=== PATIENT | male | born 1945 | race African-American/Black ===

== ENCOUNTER 2018-12-20 11:10 | Observation (INO) | payer OTHER, BC ==
[2018-12-20 11:39] VITALS: BMI 34.4
--- NOTE | 2018-12-20 11:50 | PDOC ---
History of Present Illness - General Chief Complaint: Shortness of Breath Stated Complaint: REACTION TO MEDICATION Time Seen by Provider: 12/20/18 11:15 History Source: Patient, Spouse Exam Limitations: No Limitations - History of Present Illness Initial Comments: 12/20/18 11:49 Pt 73yo M with PMH of MM, CHF, DM, HTN, HLD, Parkinsons Disease presenting to ED with complaints of cough productive of brown-green phlegm. He went to PMD office 5 days ago on Saturday and was given cefoxime, steroids and Symbicort to take at home. Pt started to develop a rash after taking abx and was told to discontinue use. Pt states that he was not feeling well this AM. He endorses productive cough, congestion and generalized weakness. Denies chest pain, sob, back pain, abdominal pain, n/v/d, urinary symptoms, headache. PMD: Maikol PMH: see hpi Meds: see med rec Allergies: cefoxime Past History - Past Medical History Allergies/Adverse Reactions: Allergies Allergy/AdvReac Type Severity Reaction Status Date / Time No Known Allergies Allergy Verified 03/19/18 12:31 Home Medications: Ambulatory Orders Aspirin [ASA -] 81 mg PO DAILY 11/13/15 Oxycodone HCl/Acetaminophen [Percocet 5-325 mg Tablet] 1 - 2 tab PO Q6H PRN Simvastatin 40 mg PO HS 11/13/15 Tamsulosin HCl [Flomax -] 0.4 mg PO DAILY 11/13/15 Acetaminophen [Tylenol .Regular Strength -] 650 mg PO Q4H PRN #0 tablet Fluticasone Prop 0.05% Nasal [Flonase -] 2 spray NS DAILY #1 bottle 11/20/15 Gabapentin [Neurontin -] 600 mg PO QID 03/19/18 Morphine *Sr* [MS Contin -] 60 mg PO TID 03/19/18 Allopurinol [Zyloprim -] 300 mg PO DAILY 03/20/18 Carbidopa-Levodopa 25-250 Tab 1 tab PO QID 03/20/18 Acetaminophen [Tylenol .Regular Strength -] 650 mg PO Q6H PRN tablet 03/24/18 Amoxicillin - [Amoxicillin 500mg Capsule -] 500 mg PO TID #27 capsule 03/24/18 Carbidopa/Levodopa 25/250 [Sinemet 25/250 -] 1 each PO QID #120 tablet 03/24/18 Losartan Potassium [Cozaar -] 50 mg PO DAILY #30 tablet 03/24/18 Metoprolol Succinate [Toprol XL -] 25 mg PO BID #60 tab.sr.24h 03/24/18 Pramipexole Dihydrochloride [Mirapex -] 1 mg PO 0700,1100,1500,1900 #120 tablet 03/24/18 Torsemide [Demadex -] 40 mg PO DAILY #60 tablet 03/24/18 Cancer: Yes (MULTIPLE MYELOMA) COPD: No CHF: Yes Diabetes: Yes HTN: Yes Hypercholesterolemia: Yes - Suicide/Smoking/Psychosocial Hx Smoking History: Never smoked Have you smoked in the past 12 months: No Information on smoking cessation initiated: No Hx Alcohol Use: No Drug/Substance Use Hx: No Substance Use Type: None Review of Systems - Review of Systems Constitutional: Yes: Weight Stable. No: Chills, Fever, Weakness HEENTM: Yes: Nose Congestion Respiratory: Yes: See HPI, Cough, Productive cough. No: Shortness of Breath, Hemoptysis Cardiac (ROS): No: Chest Pain, Lightheadedness, Palpitations, Syncope ABD/GI: No: Constipated, Diarrhea, Nausea, Vomiting, Abdominal cramping : No: Burning, Dysuria Musculoskeletal: No: Back Pain, Joint Pain, Neck Pain Integumentary: No: Symptoms Reported Neurological: No: Headache, Numbness, Tingling, Tremors *Physical Exam - Vital Signs Last Vital Signs Temp Pulse Resp BP Pulse Ox 98.0 F 96 H 18 132/85 96 12/20/18 11:11 12/20/18 11:11 12/20/18 11:11 12/20/18 11:11 12/20/18 11:11 - Physical Exam General Appearance: Yes: Appropriately Dressed, Obese. No: Apparent Distress HEENT: positive: EOMI, JON, Normal ENT Inspection Neck: positive: Trachea midline, Supple. negative: Lymphadenopathy (R), Lymphadenopathy (L) Respiratory/Chest: positive: Lungs Clear, Normal Breath Sounds, Decreased Breath Sounds (slightly decreased in rll). negative: Crackles, Rhonchi, Wheezing Cardiovascular: positive: Regular Rhythm, Regular Rate, S1, S2. negative: Edema , JVD, Murmur Vascular Pulses: Carotid (R): 2+, Carotid (L): 2+, Dorsalis-Pedis (R): 2+, Doralis-Pedis (L): 2+ Gastrointestinal/Abdominal: positive: Normal Bowel Sounds, Soft. negative: Tender Musculoskeletal: negative: CVA Tenderness Integumentary: positive: Normal Color, Dry, Warm Neurologic: positive: websphere commerce developer II-XII NML intact, Fully Oriented, Alert, Normal Mood/ Affect, Normal Response, Motor Strength 01/04 ED Treatment Course - LABORATORY CBC & Chemistry Diagram: 12/20/18 11:30 12/20/18 11:30 - RADIOLOGY Radiology Studies Ordered: Category Date Time Status CHEST PA & LAT [RAD] Stat Radiology 12/20/18 11:33 Ordered Medical Decision Making - Medical Decision Making 12/20/18 14:53 Pt 73yo M with PMH of MM, CHF, DM, HTN, HLD, Parkinsons Disease presenting to ED with complaints of cough productive of brown-green phlegm. He went to PMD office 5 days ago on Saturday and was given cefoxime, steroids and Symbicort to take at home. Pt started to develop a rash after taking abx and was told to discontinue use. Pt states that he was not feeling well this AM. He endorses productive cough, congestion and generalized weakness. Denies chest pain, sob, back pain, abdominal pain, n/v/d, urinary symptoms, headache. Vitals: wnl PE: slightly decreased sounds on RLL Ddx includes but not limited to PNA, bronchitis, acs, pe, uri, malignancy, electrolyte/metabolic disturbance -labs -cxr, ekg ekg: nsr, LVH CXR: no acute pathology labs significant for Laboratory Tests 12/20/18 11:30 Creatinine 2.[address] Lazaro who recommended fluids and dc home with f/u Saturday or admission obs. ANN (2.6) usually around 1.3. urines pending. all other labs normal. due to comorbidities and medical history, will admit obs. giving fluids. *DC/Admit/Observation/Transfer Diagnosis at time of Disposition: Cough, ANN (acute kidney injury) - Discharge Dispostion Condition at time of disposition: Good Decision to Admit order: Yes - Referrals - Patient Instructions - Post Discharge Activity
[2018-12-20 11:57] LABS: BASO % 0.5 % (0-2.0); EOS % 0.2 % (0-4.5); HEMATOCRIT 37.1 % (35.4-49); HEMOGLOBIN 11.3 GM/dL (11.7-16.9); LYMPH % 16.1 % (8-40); MCH 23.1 pg (25.7-33.7); MCHC 30.4 g/dl (32.0-35.9); MEAN CELL VOLUME 75.8 fl (80-96); MEAN PLT VOLUME 7.1 fl (7.5-11.1); MONO % 3.7 % (3.8-10.2); NEUT % 79.5 % (42.8-82.8); PLATELET COUNT 272 K/MM3 (134-434); RBC 4.89 M/mm3 (4.00-5.60); RDW 18.2 % (11.9-15.9); WHITE BLOOD COUNT 7.7 K/mm3 (4.0-10.0)
[2018-12-20 12:27] LABS: ALBUMIN 2.8 g/dl (3.4-5.0); ALK PHOS 86 U/L (45-117); ANION GAP 8 MMOL/L (8-16); BILIRUBIN,TOTAL 0.3 mg/dL (0.2-1); BLOOD UREA NITROGEN 48 mg/dL (7-18); CHLORIDE 100 mmol/L (98-107); CO2 28 mmol/L (21-32); CREATININE 2.6 mg/dL (0.55-1.3); GLUCOSE,RANDOM 135 mg/dL (74-106); POTASSIUM 4.1 mmol/L (3.5-5.1); SGOT/AST 13 U/L (15-37); SGPT/ALT 13 U/L (13-61); SODIUM 137 mmol/L (136-145); TOT PROT 5.5 g/dl (6.4-8.2)
--- NOTE | 2018-12-20 13:12 | PDOC ---
Documentation entered by Aureliano Connors SCRIBE, acting as scribe for Yuliana Neal MD. Yuliana Neal MD: This documentation has been prepared by the Waylon ibarra Nirvannie, SCRIBE, under my direction and personally reviewed by me in its entirety. I confirm that the documentation accurately reflects all work, treatment, procedures, and medical decision making performed by me. Attending Attestation - Resident Resident Name: Louise Kwan - ED Attending Attestation I have performed the following: I have examined & evaluated the patient, The case was reviewed & discussed with the resident, I agree w/resident's findings & plan - HPI HPI: 12/20/18 12:14 The patient is a 73 year old male, with a significant past medical history of MM , CHF, DM, HTN, HLD, Parkinsons Disease, who presents to the emergency department with, 1 week of productive cough with brownish/green sputum and weakness. Patient notes being placed on antibiotics and Prednisone for his symptoms which was discontinued secondary to a diffuse rash and lip swelling. He denies any recent nausea, vomit, diarrhea or constipation. He denies any recent chest pain. He denies any recent dysuria, frequency, urgency or hematuria. Allergies: NKDA Primary Care Physician: Dr. Lassiter - Physicial Exam PE: 12/20/18 11:50 GENERAL: The patient is in no acute distress, weak appearing, A&O x 3 answering all questions. ENT: Ears normal, nares patent, oropharynx clear without exudates. Moist mucous membranes. NECK: Normal range of motion, supple LUNGS: Breath sounds equal, clear to auscultation bilaterally. No wheezes. HEART:Regular rate and rhythm, normal S1 and S2 without murmur, rub or gallop. ABDOMEN: Soft, nontender EXTREMITIES: Normal range of motion, no edema. NEUROLOGICAL: Cranial nerves II through XII grossly intact. Normal speech. No focal neurological deficits. SKIN: Warm, Dry, normal turgor, no rashes or lesions noted. 12/20/18 12:09 - Medical Decision Making 12/20/18 11:51 EKG - NSR rate of 86 bpm, axis nml, intervals nml, no st elevation or depression , t waves upright, (+) LVH 04/20/19 12:10 73 yo F presenting for evaluation of generalized weakness He has had a cough for 1 week was seen by PMD and started on Cefpodoxime and Prednisone He developed a rash to the antibiotic and this was discontinued 4 days ago (pt was not started on any other antibiotics) Pt was told by PMD to come in to the ER if he feels unwell Will do: Labs CXR IV hydration Abx (Levaquin vs. Doxy) Admit 12/20/18 12:33 Laboratory Tests 03/21/18 03/22/18 12/20/18 06:30 12:18 11:30 WBC 4.8 7.7 Hgb 9.3 L 11.3 L Hct 31.0 L 37.1 D Plt Count 241 272 Sodium 142 Potassium 4.7 Chloride 106 Carbon Dioxide 32 Anion Gap 4 L BUN 32 H Creatinine 1.3 Troponin I 12/20/18 12/20/18 11:30 11:30 WBC Hgb Hct Plt Count Sodium 137 Potassium 4.1 Chloride 100 Carbon Dioxide 28 Anion Gap 8 BUN 48 H Creatinine 2.6 H Troponin I < 0.02 Labs notable for ANN (cr: 1.3 --> 2.6) Will start IV hydration awaiting CXR 12/20/18 13:07 CXR - limited, no infiltrate seen 12:30pm Call placed to Dr. Lassiter's service for admission, awaiting call back. 1:15pm Second call placed to Dr. Lassiter's service for admission, awaiting call back.
[2018-12-20] MEDS ORDERED: SODIUM CHLORIDE 1,000 ML IV STA (13:53)
--- NOTE | 2018-12-20 14:06 | EKG ---
Test Reason : Blood Pressure : / mmHG Vent. Rate : 086 BPM Atrial Rate : 086 BPM P-R Int : 206 ms QRS Dur : 082 ms QT Int : 370 ms P-R-T Axes : 020 -23 037 degrees QTc Int : 442 ms NORMAL SINUS RHYTHM VOLTAGE CRITERIA FOR LEFT VENTRICULAR HYPERTROPHY CANNOT RULE OUT SEPTAL INFARCT , AGE UNDETERMINED ABNORMAL ECG Confirmed by MD PHILIP, SUDHA ([id number]) on 12/20/2018 2:06:22 PM Referred By: Confirmed By:SUDHA PALACIOS MD
[2018-12-20] MEDS ORDERED: ACETAMINOPHEN 325 MG TABLET (FP) PO PRN (15:05)
[2018-12-20] MEDS: SODIUM CHLORIDE 1,000 ML IV SCH (15:45)
[2018-12-20 16:06] LABS: URINE APPEARANCE CLEAR; URINE BILIRUBIN NEGATIVE (NEGATIVE); URINE COLOR YELLOW; URINE GLUCOSE (UA) NEGATIVE (NEGATIVE); URINE KETONE NEGATIVE (NEGATIVE); URINE LEUK ESTERASE NEGATIVE (NEGATIVE); URINE NITRITE NEGATIVE (NEGATIVE); URINE PROTEIN NEGATIVE (NEGATIVE); URINE UROBILINOGEN 0.2 mg/dL (0.2-1.0)
[2018-12-20] MEDS: CARBIDOPA/LEVODOPA 25/250 TABLET (FP) PO SCH ×2 (19:16→22:59)
[2018-12-20] MEDS: morphine SO4 SUSTAINED ACTING 30 MG TABLET.SA PO SCH (22:59)
[2018-12-20] MEDS: metoPROLOL SUCCINATE 25 MG TAB.SR.24H (FP) PO SCH (22:59)
[2018-12-20] MEDS: GABAPENTIN 300 MG CAPSULE (FP) PO SCH (22:59)
[2018-12-20] MEDS: ATORVASTATIN CA 40 MG TABLET (FP) PO SCH (22:59)
[2018-12-20] MEDS: PRAMIPEXOLE DIHYDROCHLORIDE 1 MG TABLET PO SCH (22:59)
[2018-12-21] MEDS ORDERED: diphenhydrAMINE HCL 25 MG CAPSULE (FP) PO ONE (00:30)
[2018-12-21] MEDS: SODIUM CHLORIDE 1,000 ML IV SCH (00:42)
[2018-12-21] MEDS: PRAMIPEXOLE DIHYDROCHLORIDE 1 MG TABLET PO SCH ×3 (05:09→21:36)
[2018-12-21] MEDS: GABAPENTIN 300 MG CAPSULE (FP) PO SCH ×3 (05:09→21:36)
[2018-12-21 07:40] LABS: HEMATOCRIT 35.3 % (35.4-49); HEMOGLOBIN 10.9 GM/dL (11.7-16.9); MCH 23.6 pg (25.7-33.7); MCHC 30.9 g/dl (32.0-35.9); MEAN CELL VOLUME 76.3 fl (80-96); MEAN PLT VOLUME 7.7 fl (7.5-11.1); PLATELET COUNT 227 K/MM3 (134-434); RBC 4.63 M/mm3 (4.00-5.60); RDW 18.1 % (11.9-15.9); WHITE BLOOD COUNT 5.6 K/mm3 (4.0-10.0)
[2018-12-21 08:32] LABS: ANION GAP 5 MMOL/L (8-16); BLOOD UREA NITROGEN 42 mg/dL (7-18); CALCIUM 7.5 mg/dL (8.5-10.1); CHLORIDE 105 mmol/L (98-107); CO2 28 mmol/L (21-32); CREATININE 1.8 mg/dL (0.55-1.3); GLUCOSE,RANDOM 97 mg/dL (74-106); MAGNESIUM 2.6 mg/dL (1.8-2.4); POTASSIUM 4.4 mmol/L (3.5-5.1); SODIUM 138 mmol/L (136-145)
[2018-12-21] MEDS: CARBIDOPA/LEVODOPA 25/250 TABLET (FP) PO SCH ×4 (10:24→21:36)
[2018-12-21] MEDS: metoPROLOL SUCCINATE 25 MG TAB.SR.24H (FP) PO SCH ×2 (10:24→21:36)
[2018-12-21] MEDS: ALLOPURINOL 300 MG TABLET (FP) PO SCH (10:24)
[2018-12-21] MEDS: morphine SO4 SUSTAINED ACTING 30 MG TABLET.SA PO SCH ×2 (10:24→21:36)
[2018-12-21] MEDS: ASPIRIN COATED 81 MG TABLET.EC PO SCH (10:24)
--- NOTE | 2018-12-21 11:01 | CONSULT ---
Consult - text type - Consultation Consultation Note: Renal Consult for ANN. This is a 73 year old gentleman with hx of Multiple Myeloma, Parkinson's, GERD, hyperlipidemia, BPH, CHF who presented with cough with sputum production and increased tremor and found to have ANN. Pt says that he was on oral antibiotics and steroids at home but not getting better. Reports using Motrin x 1 before coming in. Was on ARB and diuretics at home. Denies any flank pain, dysuira, N/V/D. Also reports skin rash. No URIBE, CP, or SOB. No hematuria. PMhx: as above Allergies: NKDA Family Hx: NC Social Hx: No T/A/D ROS: as per HPI, all other pertinent ros negative Home Medications Medication Instructions Recorded Aspirin [ASA -] 81 mg PO DAILY 11/13/15 Oxycodone HCl/Acetaminophen 1 - 2 tab PO Q6H PRN 11/13/15 [Percocet 5-325 mg Tablet] Simvastatin 40 mg PO HS 11/13/15 Tamsulosin HCl [Flomax -] 0.4 mg PO DAILY 11/13/15 Acetaminophen [Tylenol .Regular 650 mg PO Q4H PRN #0 tablet 11/20/15 Strength -] Fluticasone Prop 0.05% Nasal 2 spray NS DAILY #1 bottle 11/20/15 [Flonase -] Gabapentin [Neurontin -] 600 mg PO QID 03/19/18 Morphine *Sr* [MS Contin -] 60 mg PO TID 03/19/18 Allopurinol [Zyloprim -] 300 mg PO DAILY 03/20/18 Carbidopa-Levodopa 25-250 Tab 1 tab PO QID 03/20/18 Acetaminophen [Tylenol .Regular 650 mg PO Q6H PRN tablet 03/24/18 Strength -] Amoxicillin - [Amoxicillin 500mg 500 mg PO TID #27 capsule 03/24/18 Capsule -] Carbidopa/Levodopa 25/250 [Sinemet 1 each PO QID #120 tablet 03/24/18 25/250 -] Losartan Potassium [Cozaar -] 50 mg PO DAILY #30 tablet 03/24/18 Metoprolol Succinate [Toprol XL -] 25 mg PO BID #60 tab.sr.24h 03/24/18 Pramipexole Dihydrochloride 1 mg PO 0700,1100,1500,1900 #120 03/24/18 [Mirapex -] tablet Torsemide [Demadex -] 40 mg PO DAILY #60 tablet 03/24/18 Vital Signs Temperature 98.9 F 12/21/18 09:50 Pulse Rate 73 12/21/18 09:50 Respiratory Rate 18 12/21/18 09:50 Blood Pressure 109/60 12/21/18 09:50 O2 Sat by Pulse Oximetry (%) 96 12/21/18 05:53 Intake & Output 12/18/18 12/19/18 12/20/18 12/21/18 23:59 23:59 23:59 23:59 Intake Total 1000 Balance 1000 Weight 115.865 kg NAD awake and alert neck supple, no JVD MMM RRR, no M/R CTA, no rales soft NT/ND, Obese No LE edema, clubbing or cyansosis no bladder distension CBC, BMP 12/21/18 06:30 12/21/18 06:30 Current Medications Acetaminophen (Tylenol -) 650 mg PO Q6H PRN PRN Reason: PAIN OR FEVER Allopurinol (Zyloprim -) 300 mg PO DAILY [facility] Last Admin: 12/21/18 10:24 Dose: 300 mg Aspirin (Ecotrin -) 81 mg PO DAILY [facility] Last Admin: 12/21/18 10:24 Dose: 81 mg Atorvastatin Calcium (Lipitor -) 40 mg PO HS [facility] Last Admin: 12/20/18 22:59 Dose: 40 mg Carbidopa/Levodopa (Sinemet 25/250 -) 1 each PO QID [facility] Last Admin: 12/21/18 10:24 Dose: 1 each Gabapentin (Neurontin -) 300 mg PO TID [facility] Last Admin: 12/21/18 05:09 Dose: 300 mg Sodium Chloride (Normal Saline -) 1,000 mls @ 83 mls/hr IV ASDIR [facility] Last Admin: 12/21/18 00:42 Dose: 83 mls/hr Metoprolol Succinate (Toprol Xl -) 25 mg PO BID [facility] Last Admin: 12/21/18 10:24 Dose: 25 mg Morphine Sulfate (Ms Contin -) 30 mg PO BID [facility] Last Admin: 12/21/18 10:24 Dose: 30 mg Pramipexole Dihydrochloride (Mirapex -) 1 mg PO TID [facility] Last Admin: 12/21/18 05:09 Dose: 1 mg 73 year old gentleman with hx of Multiple Myeloma, Parkinson's , GERD, hyperlipidemia, BPH, CHF who presented with cough with sputum production and increased tremor and found to have ANN. #ANN likely due to volume depletion +/- renal hypoprofusion in setting of ARB but need to r/o AIN given rash and recent abx use #Cough with sputum production #CHF with diastolic dysfunction #BPH #Parkinsons Renal function improving with IVF. Continue isotonic saline x 24 more hours. hold ARB and diuretics for now. Check urine studies, including urine eosinophils. No urgent indication for renal imaging. Continue flomax. Monitor volume status closely while on IVF Dose all meds for CrCl < 30 Thanks Madan Mcintosh DO
[2018-12-21] MEDS ORDERED: guaiFENesin/D-M SUGAR-FREE/ACLHOL-FREE 118 ML BOTTLE PO PRN (11:09)
[2018-12-21] MEDS ORDERED: ALBUTEROL SO4 2.5/IPRATROPIUM 0.5 INH SOL 3 ML VIAL.NEB. NEB PRN (11:09)
--- NOTE | 2018-12-21 11:09 | HP ---
Admitting History and Physical - Primary Care Physician PCP: Delonte Lazaro - Admission Chief Complaint: WEAKNESS/ARF History of Present Illness: The patient is a 73 year old male, with a significant past medical history of MM , CHF, DM, HTN, HLD, Parkinsons Disease, who presents to the emergency department with, 1 week of productive cough with brownish/green sputum and weakness. Patient notes being placed on antibiotics and Prednisone for his symptoms which was discontinued secondary to a diffuse rash and lip swelling. He denies any recent nausea, vomit, diarrhea or constipation. He denies any recent chest pain. He denies any recent dysuria, frequency, urgency or hematuria. History Source: Patient, Transfer Record - Past Medical History MANAGER CARE MANAGEMENT: Yes: Parkinson's Cardiovascular: Yes: CHF, HTN, Hyperlipdemia Pulmonary: Yes: COPD Gastrointestinal: Yes: GERD Renal/: Yes: Renal Inusuff, BPH Heme/Onc: Yes: Anemia, Cancer - Smoking History Smoking history: Never smoked Have you smoked in the past 12 months: No - Alcohol/Substance Use Hx Alcohol Use: No Home Medications - Allergies Allergies/Adverse Reactions: Allergies Allergy/AdvReac Type Severity Reaction Status Date / Time No Known Allergies Allergy Verified 03/19/18 12:31 - Home Medications Home Medications: Ambulatory Orders Aspirin [ASA -] 81 mg PO DAILY 11/13/15 Oxycodone HCl/Acetaminophen [Percocet 5-325 mg Tablet] 1 - 2 tab PO Q6H PRN Simvastatin 40 mg PO HS 11/13/15 Tamsulosin HCl [Flomax -] 0.4 mg PO DAILY 11/13/15 Acetaminophen [Tylenol .Regular Strength -] 650 mg PO Q4H PRN #0 tablet Fluticasone Prop 0.05% Nasal [Flonase -] 2 spray NS DAILY #1 bottle 11/20/15 Gabapentin [Neurontin -] 600 mg PO QID 03/19/18 Morphine *Sr* [MS Contin -] 60 mg PO TID 03/19/18 Allopurinol [Zyloprim -] 300 mg PO DAILY 03/20/18 Carbidopa-Levodopa 25-250 Tab 1 tab PO QID 03/20/18 Acetaminophen [Tylenol .Regular Strength -] 650 mg PO Q6H PRN tablet 03/24/18 Amoxicillin - [Amoxicillin 500mg Capsule -] 500 mg PO TID #27 capsule 03/24/18 Carbidopa/Levodopa 25/250 [Sinemet 25/250 -] 1 each PO QID #120 tablet 03/24/18 Losartan Potassium [Cozaar -] 50 mg PO DAILY #30 tablet 03/24/18 Metoprolol Succinate [Toprol XL -] 25 mg PO BID #60 tab.sr.24h 03/24/18 Pramipexole Dihydrochloride [Mirapex -] 1 mg PO 0700,1100,1500,1900 #120 tablet 03/24/18 Torsemide [Demadex -] 40 mg PO DAILY #60 tablet 03/24/18 Review of Systems - Review of Systems Constitutional: reports: Weakness Eyes: reports: No Symptoms HENT: reports: No Symptoms Neck: reports: No Symptoms Cardiovascular: reports: No Symptoms Respiratory: reports: No Symptoms Gastrointestinal: reports: No Symptoms Genitourinary: reports: No Symptoms Musculoskeletal: reports: Muscle Weakness Integumentary: reports: No Symptoms Neurological: reports: No Symptoms Endocrine: reports: No Symptoms Hematology/Lymphatic: reports: No Symptoms Psychiatric: reports: No Symptoms Physical Examination Vital Signs: Vital Signs Temperature 98.9 F 12/21/18 09:50 Pulse Rate 73 12/21/18 09:50 Respiratory Rate 18 12/21/18 09:50 Blood Pressure 109/60 12/21/18 09:50 O2 Sat by Pulse Oximetry (%) 96 12/21/18 05:53 Constitutional: Yes: Mild Distress Eyes: Yes: WNL HENT: Yes: WNL Neck: Yes: WNL Respiratory: Yes: WNL Gastrointestinal: Yes: WNL Renal/: Yes: WNL Musculoskeletal: Yes: Muscle Weakness Extremities: Yes: WNL Edema: Yes Edema: LLE: Trace, RLE: Trace Peripheral Pulses WNL: Yes Integumentary: Yes: WNL Wound/Incision: Yes: Clean/Dry Neurological: Yes: WNL ...Motor Strength: WNL Psychiatric: Yes: WNL Labs: CBC, BMP 12/21/18 06:30 12/21/18 06:30 Imaging - Results Chest X-ray: Report Reviewed Problem List - Problems (1) ANN (acute kidney injury) Code(s): N17.9 - ACUTE KIDNEY FAILURE, UNSPECIFIED (2) Cough Code(s): R05 - COUGH (3) Abnormal EKG Code(s): R94.31 - ABNORMAL ELECTROCARDIOGRAM [ECG] [EKG] (4) Anemia Code(s): D64.9 - ANEMIA, UNSPECIFIED Assessment/Plan IVF GIVEN RENAL EVAL CXR REVIEWED NEBS COUGH SYRUP OOB TO CHAIR
[2018-12-21] MEDS ORDERED: PT OWN MED DRAWER 7, Y5N ONE ×2 (13:13→14:57)
[2018-12-21] MEDS: ATORVASTATIN CA 40 MG TABLET (FP) PO SCH (21:35)
[2018-12-22] MEDS: GABAPENTIN 300 MG CAPSULE (FP) PO SCH ×2 (05:08→13:20)
[2018-12-22] MEDS: PRAMIPEXOLE DIHYDROCHLORIDE 1 MG TABLET PO SCH ×2 (05:08→13:21)
[2018-12-22 07:28] LABS: ANION GAP 5 MMOL/L (8-16); BLOOD UREA NITROGEN 27 mg/dL (7-18); CHLORIDE 110 mmol/L (98-107); CO2 29 mmol/L (21-32); CREATININE 1.1 mg/dL (0.55-1.3); GLUCOSE,RANDOM 98 mg/dL (74-106); PHOSPHOROUS 2.8 mg/dL (2.5-4.9); POTASSIUM 4.3 mmol/L (3.5-5.1); SODIUM 144 mmol/L (136-145)
[2018-12-22] MEDS: morphine SO4 SUSTAINED ACTING 30 MG TABLET.SA PO SCH (09:06)
[2018-12-22] MEDS: CARBIDOPA/LEVODOPA 25/250 TABLET (FP) PO SCH ×2 (09:10→13:20)
[2018-12-22] MEDS: ALLOPURINOL 300 MG TABLET (FP) PO SCH (09:10)
[2018-12-22] MEDS: ASPIRIN COATED 81 MG TABLET.EC PO SCH (09:11)
[2018-12-22] MEDS: metoPROLOL SUCCINATE 25 MG TAB.SR.24H (FP) PO SCH (09:11)
--- NOTE | 2018-12-22 12:34 | PN ---
Progress Note (short form) - Note Progress Note: Renal follow up for ANN Pt seen and examined at the bedside awake and alert no acute complaints no sob, cp, abd pain, N/V/D Vital Signs Temperature 98.4 F 12/22/18 06:00 Pulse Rate 66 12/22/18 06:00 Respiratory Rate 18 12/22/18 06:00 Blood Pressure 145/60 12/22/18 06:00 O2 Sat by Pulse Oximetry (%) 94 L 12/21/18 23:00 Intake & Output 12/19/18 12/20/18 12/21/18 12/22/18 23:59 23:59 23:59 23:59 Intake Total 1300 260 Output Total 550 250 Balance 750 10 Weight 115.865 kg NAD MMM RRR, no M/R CTA, no rales soft NT/ND, Obese No LE edema, clubbing or cyansosis CBC, BMP 12/21/18 06:30 12/22/18 06:20 Current Medications Acetaminophen (Tylenol -) 650 mg PO Q6H PRN PRN Reason: PAIN OR FEVER Albuterol/Ipratropium (Duoneb -) 1 amp NEB Q6H PRN PRN Reason: SHORTNESS OF BREATH Allopurinol (Zyloprim -) 300 mg PO DAILY [facility] Last Admin: 12/22/18 09:10 Dose: 300 mg Aspirin (Ecotrin -) 81 mg PO DAILY [facility] Last Admin: 12/22/18 09:11 Dose: 81 mg Atorvastatin Calcium (Lipitor -) 40 mg PO HS [facility] Last Admin: 12/21/18 21:35 Dose: 40 mg Carbidopa/Levodopa (Sinemet 25/250 -) 1 each PO QID [facility] Last Admin: 12/22/18 09:10 Dose: 1 each Gabapentin (Neurontin -) 300 mg PO TID [facility] Last Admin: 12/22/18 05:08 Dose: 300 mg Guaifenesin (Diabetic Tussin Dm -) 5 ml PO Q4H PRN PRN Reason: COUGH Metoprolol Succinate (Toprol Xl -) 25 mg PO BID [facility] Last Admin: 12/22/18 09:11 Dose: 25 mg Morphine Sulfate (Ms Contin -) 30 mg PO BID [facility] Last Admin: 12/22/18 09:06 Dose: 30 mg Pramipexole Dihydrochloride (Mirapex -) 1 mg PO TID [facility] Last Admin: 12/22/18 05:08 Dose: 1 mg 73 year old gentleman with hx of Multiple Myeloma, Parkinson's , GERD, hyperlipidemia, BPH, CHF who presented with cough with sputum production and increased tremor and found to have ANN. #ANN likely due to volume depletion +/- renal hypoprofusion in setting of ARB but need to r/o AIN given rash and recent abx use #Cough with sputum production #CHF with diastolic dysfunction #BPH #Parkinsons Renal function now improved to WNL can d/c IVF can resume ARB and diuretics upon discharge with repeat labs in 3-5 days No urgent indication for renal imaging. Continue flomax. stable for discharge with outpatient follow up Thanks Madan Mcintosh DO
[2018-12-22] MEDS ORDERED: PT OWN MED DRAWER 7, Y5N ONE (13:18)
--- NOTE | 2018-12-22 13:44 | DS ---
Physical Examination Vital Signs: Vital Signs Temperature 97.8 F 12/22/18 10:00 Pulse Rate 77 12/22/18 10:00 Respiratory Rate 18 12/22/18 10:00 Blood Pressure 151/83 12/22/18 10:00 O2 Sat by Pulse Oximetry (%) 94 L 12/21/18 23:00 Findings/Remarks: Patient is a 73 y/o male with past medical history of Multiple Myeloma, CHF, DM , HTN, HLD, Parkinson's Disease. Patient presented to ER with complaints of productive cough x 1 week with brown/green colored sputum and generalized weakness Patiet was prescribed atibiotics and prednisone from PCP which was discontinued due to allergic reaction. In ER noted with elevated BUN/Cr, evaluated by renal and was cleared to follow up as outpatient and repeat labs showed BUN/Cr downtrend. Constitutional: Yes: No Distress, Calm Eyes: Yes: Conjunctiva Clear HENT: Yes: Atraumatic Cardiovascular: Yes: Regular Rate and Rhythm Respiratory: Yes: Regular, CTA Bilaterally Gastrointestinal: Yes: Normal Bowel Sounds, Soft Musculoskeletal: Yes: Muscle Weakness Extremities: Yes: WNL Edema: No Neurological: Yes: Alert, Pre-Existing Deficit Psychiatric: Yes: Alert, Oriented Labs: CBC, BMP 12/21/18 06:30 12/22/18 06:20 Discharge Summary Reason For Visit: ACUTE KIDNEY INJURY;COUGH;BRONCHITIS Current Active Problems ANN (acute kidney injury) (Acute) Cough (Acute) Hospital Course: see progress notes Laboratory Tests 12/20/18 12/20/18 12/20/18 11:30 11:30 11:30 WBC 7.7 RBC 4.89 Hgb 11.3 L Hct 37.1 D MCV 75.8 L MCH 23.1 L MCHC 30.4 L RDW 18.2 H Plt Count 272 MPV 7.1 L D Absolute Neuts (auto) 6.1 Neutrophils % 79.5 D Lymphocytes % 16.1 D Monocytes % 3.7 L Eosinophils % 0.2 D Basophils % 0.5 D Nucleated RBC % 0 Sodium 137 Potassium 4.1 Chloride 100 Carbon Dioxide 28 Anion Gap 8 BUN 48 H Creatinine 2.6 H Creat Clearance w eGFR 24.25 Random Glucose 135 H Calcium 8.0 L Phosphorus Magnesium Total Bilirubin 0.3 AST 13 L ALT 13 Alkaline Phosphatase 86 Troponin I < 0.02 Total Protein 5.5 L Albumin 2.8 L Urine Color Urine Appearance Urine pH Ur Specific [place] Urine Protein Urine Glucose (UA) Urine Ketones Urine Blood Urine Nitrite Urine Bilirubin Urine Urobilinogen Ur Leukocyte Esterase Urine Osmolality U Random Total Protein Ur Random Sodium 12/20/18 12/20/18 12/21/18 15:50 15:50 06:30 WBC 5.6 RBC 4.63 Hgb 10.9 L Hct 35.3 L MCV 76.3 L MCH 23.6 L MCHC 30.9 L RDW 18.1 H Plt Count 227 MPV 7.7 Absolute Neuts (auto) Neutrophils % Lymphocytes % Monocytes % Eosinophils % Basophils % Nucleated RBC % Sodium Potassium Chloride Carbon Dioxide Anion Gap BUN Creatinine Creat Clearance w eGFR Random Glucose Calcium Phosphorus Magnesium Total Bilirubin AST ALT Alkaline Phosphatase Troponin I Total Protein Albumin Urine Color Yellow Urine Appearance Clear Urine pH 5.0 Ur Specific [place] 1.011 Urine Protein Negative Urine Glucose (UA) Negative Urine Ketones Negative Urine Blood Negative Urine Nitrite Negative Urine Bilirubin Negative Urine Urobilinogen 0.2 Ur Leukocyte Esterase Negative Urine Osmolality 216 L U Random Total Protein Ur Random Sodium 19 L 12/21/18 12/21/18 12/21/18 06:30 13:30 13:30 WBC RBC Hgb Hct MCV MCH MCHC RDW Plt Count MPV Absolute Neuts (auto) Neutrophils % Lymphocytes % Monocytes % Eosinophils % Basophils % Nucleated RBC % Sodium 138 Potassium 4.4 Chloride 105 Carbon Dioxide 28 Anion Gap 5 L BUN 42 H Creatinine 1.8 H Creat Clearance w eGFR 37.07 Random Glucose 97 Calcium 7.5 L Phosphorus Magnesium 2.6 H Total Bilirubin AST ALT Alkaline Phosphatase Troponin I Total Protein Albumin Urine Color Urine Appearance Urine pH Ur Specific [place] Urine Protein Urine Glucose (UA) Urine Ketones Urine Blood Urine Nitrite Urine Bilirubin Urine Urobilinogen Ur Leukocyte Esterase Urine Osmolality U Random Total Protein 19.5 H Ur Random Sodium < 18 L 12/22/18 06:20 WBC RBC Hgb Hct MCV MCH MCHC RDW Plt Count MPV Absolute Neuts (auto) Neutrophils % Lymphocytes % Monocytes % Eosinophils % Basophils % Nucleated RBC % Sodium 144 Potassium 4.3 Chloride 110 H Carbon Dioxide 29 Anion Gap 5 L BUN 27 H Creatinine 1.1 Creat Clearance w eGFR 65.44 Random Glucose 98 Calcium 8.0 L Phosphorus 2.8 Magnesium Total Bilirubin AST ALT Alkaline Phosphatase Troponin I Total Protein Albumin Urine Color Urine Appearance Urine pH Ur Specific [place] Urine Protein Urine Glucose (UA) Urine Ketones Urine Blood Urine Nitrite Urine Bilirubin Urine Urobilinogen Ur Leukocyte Esterase Urine Osmolality U Random Total Protein Ur Random Sodium Active Medications Generic Name Dose Route Start Last Admin Trade Name [place] PRN Reason Stop Dose Admin Acetaminophen 650 mg 12/20/18 15:05 Tylenol - PO Q6H PRN PAIN OR FEVER Albuterol/Ipratropium 1 amp 12/21/18 11:09 Duoneb - NEB Q6H PRN SHORTNESS OF BREATH Allopurinol 300 mg 12/21/18 10:00 12/22/18 09:10 Zyloprim - PO 300 mg DAILY ANAT Administration Aspirin 81 mg 12/21/18 10:00 12/22/18 09:11 Ecotrin - PO 81 mg DAILY ANAT Administration Atorvastatin Calcium 40 mg 12/20/18 22:00 12/21/18 21:35 Lipitor - PO 40 mg HS ANAT Administration Carbidopa/Levodopa 1 each 12/20/18 18:00 12/22/18 13:20 Sinemet 25/250 - PO 1 each QID ANAT Administration Gabapentin 300 mg 12/20/18 22:00 12/22/18 13:20 Neurontin - PO 300 mg TID ANAT Administration Guaifenesin 5 ml 12/21/18 11:09 Diabetic Tussin Dm - PO Q4H PRN COUGH Metoprolol Succinate 25 mg 12/20/18 22:00 12/22/18 09:11 Toprol Xl - PO 25 mg BID ANAT Administration Morphine Sulfate 30 mg 12/20/18 22:00 12/22/18 09:06 Ms Contin - PO 30 mg BID ANAT Administration Pramipexole Dihydrochloride 1 mg 12/20/18 22:00 12/22/18 13:21 Mirapex - PO 1 mg TID ANAT Administration Condition: Stable - Instructions Diet, Activity, Other Instructions: Follow up with PMD within 48hrs after discharge for repeat labs continue with curret med regimen as prescribed follow up with Neprhologist return to ER if develop severe chest pain, respiratory failure, change in mental status Referrals: Shelly Lassiter MD [Primary Care Provider] - Disposition: HOME - Home Medications Comprehensive Discharge Medication List: Ambulatory Orders Aspirin [ASA -] 81 mg PO DAILY 11/13/15 Oxycodone HCl/Acetaminophen [Percocet 5-325 mg Tablet] 1 - 2 tab PO Q6H PRN Simvastatin 40 mg PO HS 11/13/15 Tamsulosin HCl [Flomax -] 0.4 mg PO DAILY 11/13/15 Acetaminophen [Tylenol .Regular Strength -] 650 mg PO Q4H PRN #0 tablet Fluticasone Prop 0.05% Nasal [Flonase -] 2 spray NS DAILY #1 bottle 11/20/15 Gabapentin [Neurontin -] 600 mg PO QID 03/19/18 Allopurinol [Zyloprim -] 300 mg PO DAILY 03/20/18 Carbidopa-Levodopa 25-250 Tab 1 tab PO QID 03/20/18 Acetaminophen [Tylenol .Regular Strength -] 650 mg PO Q6H PRN tablet 03/24/18 Amoxicillin - [Amoxicillin 500mg Capsule -] 500 mg PO TID #27 capsule 03/24/18 Carbidopa/Levodopa 25/250 [Sinemet 25/250 -] 1 each PO QID #120 tablet 03/24/18 Losartan Potassium [Cozaar -] 50 mg PO DAILY #30 tablet 03/24/18 Metoprolol Succinate [Toprol XL -] 25 mg PO BID #60 tab.sr.24h 03/24/18 Pramipexole Dihydrochloride [Mirapex -] 1 mg PO 0700,1100,1500,1900 #120 tablet 03/24/18 Torsemide [Demadex -] 40 mg PO DAILY #60 tablet 03/24/18 Acetaminophen [Tylenol .Regular Strength -] 650 mg PO Q6H PRN tablet 12/22/18 Albuterol 2.5/Ipratropium 0.5 [Duoneb -] 1 amp NEB Q6H PRN #30 amp 12/22/18 Allopurinol [Zyloprim -] 300 mg PO DAILY tablet 12/22/18 Aspirin Coated [Ecotrin -] 81 mg PO DAILY tablet.ec 12/22/18 Atorvastatin Ca [Lipitor] 40 mg PO HS tablet 12/22/18 Carbidopa/Levodopa 25/250 [Sinemet 25/250 -] 1 each PO QID tablet 12/22/18 Gabapentin [Neurontin -] 300 mg PO TID capsule 12/22/18 Guaifenesin/D-Methorphan Hb [Diabetic Tussin Dm -] 5 ml PO Q4H PRN #1 bottle Metoprolol Succinate [Toprol XL -] 25 mg PO BID tab.sr.24h 12/22/18 Morphine *Sr* [MS Contin -] 30 mg PO BID #60 tablet.sa MDD 2 12/22/18 Pramipexole Dihydrochloride [Mirapex -] 1 mg PO TID tablet 12/22/18
[2018-12-22 14:19] VITALS: BP 166/78; PULSE 71; TEMP 97.1
== END 2018-12-22 15:44 | disposition home or self-care (01) ==
LOC: JER 11:10 → JERBED 13:08 → J5S 18:57
PROVIDERS: ADMIT Family Medicine; ATTEND Family Medicine
PROC: 3E0337Z Introduction of Electrolytic and Water Balance Substance into Peripheral Vein, Percutaneous Approach (ICD-10-PCS; principal; 2018-12-20)
DX: N17.9 Acute kidney failure, unspecified (principal); R05 Cough; R94.31 Abnormal electrocardiogram [ECG] [EKG]; D64.9 Anemia, unspecified; I11.0 Hypertensive heart disease with heart failure; E78.5 Hyperlipidemia, unspecified; E11.9 Type 2 diabetes mellitus without complications; I50.30 Unspecified diastolic (congestive) heart failure; G20 Parkinson's disease; C90.01 Multiple myeloma in remission; Z79.82 Long term (current) use of aspirin; K21.9 Gastro-esophageal reflux disease without esophagitis; N40.0 Benign prostatic hyperplasia without lower urinary tract symptoms
CPT/HCPCS: 36415; 71046-TC-FY; 80048; 80053; 81003; 83735; 83935; 84100; 84156; 84300; 84484; 85025; 85027; 87205; 93005; 93010; 96360; 96361; 99282-25; G0378; J7030

== ENCOUNTER 2019-09-10 10:19 | Inpatient (IN) | payer OTHER, BC ==
--- NOTE | 2019-09-10 11:39 | PDOC ---
History of Present Illness - General Chief Complaint: Pain, Acute Stated Complaint: KIDNEY PAIN Time Seen by Provider: 09/10/19 10:50 Past History - Past Medical History Allergies/Adverse Reactions: Allergies Allergy/AdvReac Type Severity Reaction Status Date / Time No Known Allergies Allergy Verified 09/10/19 10:26 Home Medications: Ambulatory Orders Aspirin [ASA -] 81 mg PO DAILY 11/13/15 Oxycodone HCl/Acetaminophen [Percocet 5-325 mg Tablet] 1 - 2 tab PO Q6H PRN Simvastatin 40 mg PO HS 11/13/15 Tamsulosin HCl [Flomax -] 0.4 mg PO DAILY 11/13/15 Acetaminophen [Tylenol .Regular Strength -] 650 mg PO Q4H PRN #0 tablet Fluticasone Prop 0.05% Nasal [Flonase -] 2 spray NS DAILY #1 bottle 11/20/15 Gabapentin [Neurontin -] 600 mg PO QID 03/19/18 Allopurinol [Zyloprim -] 300 mg PO DAILY 03/20/18 Carbidopa-Levodopa 25-250 Tab 1 tab PO QID 03/20/18 Acetaminophen [Tylenol .Regular Strength -] 650 mg PO Q6H PRN tablet 03/24/18 Amoxicillin - [Amoxicillin 500mg Capsule -] 500 mg PO TID #27 capsule 03/24/18 Carbidopa/Levodopa 25/250 [Sinemet 25/250 -] 1 each PO QID #120 tablet 03/24/18 Losartan Potassium [Cozaar -] 50 mg PO DAILY #30 tablet 03/24/18 Metoprolol Succinate [Toprol XL -] 25 mg PO BID #60 tab.sr.24h 03/24/18 Pramipexole Dihydrochloride [Mirapex -] 1 mg PO 0700,1100,1500,1900 #120 tablet 03/24/18 Torsemide [Demadex -] 40 mg PO DAILY #60 tablet 03/24/18 Acetaminophen [Tylenol .Regular Strength -] 650 mg PO Q6H PRN tablet 12/22/18 Albuterol 2.5/Ipratropium 0.5 [Duoneb -] 1 amp NEB Q6H PRN #30 amp 12/22/18 Allopurinol [Zyloprim -] 300 mg PO DAILY tablet 12/22/18 Aspirin Coated [Ecotrin -] 81 mg PO DAILY tablet.ec 12/22/18 Atorvastatin Ca [Lipitor] 40 mg PO HS tablet 12/22/18 Carbidopa/Levodopa 25/250 [Sinemet 25/250 -] 1 each PO QID tablet 12/22/18 Gabapentin [Neurontin -] 300 mg PO TID capsule 12/22/18 Guaifenesin/D-Methorphan Hb [Diabetic Tussin Dm -] 5 ml PO Q4H PRN #1 bottle Metoprolol Succinate [Toprol XL -] 25 mg PO BID tab.sr.24h 12/22/18 Morphine *Sr* [MS Contin -] 30 mg PO BID #60 tablet.sa MDD 2 12/22/18 Nebulizer Accessories [A.i.r.s. Nebulizer] 1 each PRN #1 kit 12/22/18 Nebulizer Accessories [Adult Aerosol Mask] 1 each PRN #1 each 12/22/18 Pramipexole Dihydrochloride [Mirapex -] 1 mg PO TID tablet 12/22/18 Cancer: Yes (MULTIPLE MYELOMA) COPD: No CHF: Yes Diabetes: Yes HTN: Yes Hypercholesterolemia: Yes Other medical history: PARKINSONS - Immunization History Immunization Up to Date: Yes - Psycho Social/Smoking Cessation Hx Smoking History: Never smoked Have you smoked in the past 12 months: No Information on smoking cessation initiated: No Hx Alcohol Use: No Drug/Substance Use Hx: No Substance Use Type: None Hx Substance Use Treatment: No *Physical Exam - Vital Signs Last Vital Signs Temp Pulse Resp BP Pulse Ox 98.1 F 93 H 20 147/60 94 L 09/10/19 10:21 09/10/19 10:21 09/10/19 10:21 09/10/19 10:21 09/10/19 10:21 ED Treatment Course - LABORATORY CBC & Chemistry Diagram: 09/10/19 12:00 09/10/19 12:00 Medical Decision Making - Medical Decision Making 09/10/19 11:22 74M PMH MM, PD, CHF, HTN, HLD, NIIDM c/o 3 days of b/l flank pain (radiating to groin, on/off), labile home BPs, increased tremors. Denies f/c, dysuria, cp/sob , n/v. BP taken in the same manner, reports SBPs in the 80s; 100 at 2am; and 160s this AM. Pt noticed tremors today that is more intense than his usual parkinsons. Endorses b/l leg heaviness. NKDA PCP Maikol MM: palliative - pain ctrl, +mets; not currently on Chemo, Dr. Luis PD: Dr. Hancock CONSTITUTIONAL: Denies F / C HEENT: Endorses scratchy throat. Denies headache RESP: Endorses cough x1 day. Denies SOB CARD: Denies chest pain, palpitations GI: Endorses b/l flank pain. Denies N / V / D, inability to tolerate PO : Denies dysuria, frequency NEURO: Endorses heaviness of the b/l legs. Denies numbness, tingling GEN: Well appearing, NAD, comfortable. AAOx3. HEENT: NC/AT. No facial asymmetry. Normal voice. Supple neck w/ FROM. CV: S1/S2, RRR, no m/r/g LUNG: CTAB, no wheezes, crackles, rales, rhonchi. GI: Soft, ndnt, +BS, no guarding, no rebound. No masses. Neg CVAT b/l. EXTREMITIES: 1+ pitting LE edema b/l. No obvious deformities of all extremities. SKIN: Warm, dry, no rashes appreciated. PSYCH: Flat affect, pleasant, cooperative NEURO: Moving all extremities. 5/5 UE strength. 3/5 LE strength b/l. Symmetric sensation. Resting tremor of the hands and feet. BACK: no midline TTP. no step offs. no sign of trauma. 74M PMH MM, PD, CHF, HTN, HLD, NIIDM c/o b/l flank pain w/o f/c, urinary sx and labile BPs associated w/ increased tremors. Has new productive cough. DDx - electrolyte abnormities, renal stone, ANN, autonomic instability due to PD - CBC, CMP, Cardiac - UA - EKG, CXR 09/10/19 12:44 EXAM#: TYPE/EXAM: RESULT: [id number] RAD/CHEST X-RAY PORTABLE* Chest: Pain. A single view of the chest is been submitted. There is a weak inspiration and rotation to the right. The weak inspiration there is a large heart. There is a prominent knob and slight fullness of the kandy. There is prominence of the superior mediastinum which is been seen in the past also felt to be due to rotation. There are lucencies in the proximal left humerus and lucencies were seen in a bone survey from 04/28/2015. The patient has a history of myeloma. Impression: Weak inspiration. No acute chest pathology. 09/10/19 13:35 labs reviewed discussed results and plan w/ pt and at bedside admit for ANN 09/10/19 15:42 CT IMPRESSION: 1. Multiple bilateral renal cysts which may be indicative of adult polycystic kidney disease. Some of these cysts are hyperdense and may contain hemorrhage. 2. Left adrenal nodule. 3. No acute pathology within the abdomen or pelvis. Please see above discussion. - see report UA neg Endorsed to Dr. Lassiter - M/S ADMITTED Discharge - Follow up/Referral - Patient Discharge Instructions - Post Discharge Activity
--- NOTE | 2019-09-10 12:55 | PDOC ---
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 Patient also reporting some abdominal discomfort but no urinary complaints, no other GI complaints of vomiting or diarrhea. - Physicial Exam PE: 09/10/19 12:53 Afebrile, blood pressure stable here, O2 sat 94% on room air Well-appearing seated in wheelchair, baseline resting tremors Lungs are clear with good air entry, no focally decreased breath sounds, no wheezing or crackles Heart is regular Abdomen benign No edema - Medical Decision Making 09/10/19 12:53 74-year-old male with history of metastatic multiple myeloma, Parkinson's presents with body aches, increased cough for 1 to 2 days. Question bronchitis , rule out pneumonia. No evidence of sepsis here, blood pressure normal though measured low blood pressure at home. Check labs, urinalysis Chest x-ray, EKG Reassess, discussed disposition with patient's primary care team, Dr. Lassiter and Dr. Luis Heart Score/ECG Review #1 ECG reviewed & interpreted by me at: 11:38 General ECG Interpretation: Sinus Rhythm, Normal Rate (87), Normal Intervals ( qtc 421, LVH), No acute ischemic changes (TWI I/AVL) Compared to previous ECG there are: No significant change (c/w 12/20/18)
[2019-09-10 13:17] LABS: ALBUMIN 3.4 g/dl (3.4-5.0); ALK PHOS 106 U/L (45-117); ANION GAP 3 MMOL/L (8-16); BASO % 0.2 % (0-2.0); BILIRUBIN,TOTAL 0.3 mg/dL (0.2-1); CALCIUM 8.5 mg/dL (8.5-10.1); CHLORIDE 101 mmol/L (98-107); CO2 33 mmol/L (21-32); CREATININE 2.2 mg/dL (0.55-1.3); GLUCOSE,RANDOM 139 mg/dL (74-106); HEMATOCRIT 39.1 % (35.4-49); HEMOGLOBIN 11.6 GM/dL (11.7-16.9); LIPASE 110 U/L (73-393); MAGNESIUM 3.2 mg/dL (1.8-2.4); MCH 23.5 pg (25.7-33.7); MCHC 29.7 g/dl (32.0-35.9); MEAN CELL VOLUME 79.4 fl (80-96); MEAN PLT VOLUME 8.3 fl (7.5-11.1); MONO % 10.9 % (3.8-10.2); NEUT % 73.9 % (42.8-82.8); PLATELET COUNT 256 K/MM3 (134-434); POTASSIUM 5.6 mmol/L (3.5-5.1); RBC 4.93 M/mm3 (4.00-5.60); RDW 17.4 % (11.9-15.9); SGOT/AST 16 U/L (15-37); SGPT/ALT 11 U/L (13-61); SODIUM 138 mmol/L (136-145); TOT PROT 6.9 g/dl (6.4-8.2); WHITE BLOOD COUNT 6.7 K/mm3 (4.0-10.0)
[2019-09-10] MEDS ORDERED: SODIUM CHLORIDE 0.9% 500 ML INFUS.BAG IV ONE (13:21)
--- NOTE | 2019-09-10 14:35 | EKG ---
Test Reason : Blood Pressure : / mmHG Vent. Rate : 087 BPM Atrial Rate : 087 BPM P-R Int : 280 ms QRS Dur : 084 ms QT Int : 350 ms P-R-T Axes : 024 -29 079 degrees QTc Int : 421 ms SINUS RHYTHM WITH 1ST DEGREE A-V BLOCK VOLTAGE CRITERIA FOR LEFT VENTRICULAR HYPERTROPHY CANNOT RULE OUT SEPTAL INFARCT (CITED ON OR BEFORE 20-DEC-2018) ABNORMAL ECG WHEN COMPARED WITH ECG OF 20-DEC-2018 11:41, IN INTERVAL HAS INCREASED Confirmed by MARSHA FONTENOT MD ([id number]) on 09/10/2019 2:35:10 PM Referred By: Confirmed By:MARSHA FONTENOT MD
[2019-09-10 15:34] LABS: PH,URINE 5.5 (5.0-8.0); URINE APPEARANCE CLEAR; URINE BILIRUBIN NEGATIVE (NEGATIVE); URINE COLOR YELLOW; URINE GLUCOSE (UA) NEGATIVE (NEGATIVE); URINE KETONE NEGATIVE (NEGATIVE); URINE LEUK ESTERASE NEGATIVE (NEGATIVE); URINE NITRITE NEGATIVE (NEGATIVE); URINE PROTEIN NEGATIVE (NEGATIVE); URINE UROBILINOGEN 0.2 mg/dL (0.2-1.0)
[2019-09-10] MEDS ORDERED: ACETAMINOPHEN 325 MG TABLET (FP) PO PRN (16:31)
[2019-09-10] MEDS ORDERED: ALBUTEROL SO4 2.5/IPRATROPIUM 0.5 INH SOL 3 ML VIAL.NEB. NEB PRN (16:31)
[2019-09-10] MEDS: SODIUM CHLORIDE 1,000 ML IV SCH ×2 (17:41→20:27)
[2019-09-10] MEDS: CARBIDOPA/LEVODOPA 25/250 TABLET (FP) PO SCH ×2 (17:42→21:39)
[2019-09-10] MEDS: PRAMIPEXOLE DIHYDROCHLORIDE 1 MG TABLET PO SCH (20:27)
[2019-09-10] MEDS: metoPROLOL SUCCINATE 25 MG TAB.SR.24H (FP) PO SCH (21:39)
[2019-09-10] MEDS: ATORVASTATIN CA 40 MG TABLET (FP) PO SCH (21:39)
[2019-09-10] MEDS: HEPARIN NA (PORCINE) 5,000 UNITS/ML 1ML VIAL SQ SCH (21:39)
[2019-09-10] MEDS: GABAPENTIN 300 MG CAPSULE (FP) PO SCH (21:39)
[2019-09-11 01:24] VITALS: BMI 36.8
[2019-09-11] MEDS: GABAPENTIN 300 MG CAPSULE (FP) PO SCH ×3 (06:34→21:44)
[2019-09-11] MEDS: PRAMIPEXOLE DIHYDROCHLORIDE 1 MG TABLET PO SCH ×4 (06:35→19:56)
--- NOTE | 2019-09-11 08:10 | HP ---
Admitting History and Physical - Primary Care Physician PCP: Shelly Lassiter - Admission History of Present Illness: Patient is a 74 y/o male with past medical history of Parkinson's Disease, Multiple Myeloma with mets, and CKD. Patient presented to ER after having productive cough with clear sputum, lower back pain, and chills. He states also experiencing lower abdominal pain. Patient denies dysuria, hematuria, nausea, vomiting, chest pain or dizziness. 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 Cardiovascular: Yes: CHF, HTN, Hyperlipdemia Pulmonary: Yes: COPD Gastrointestinal: Yes: GERD Renal/: Yes: Renal Inusuff, BPH Heme/Onc: Yes: Anemia, Cancer - Smoking History Smoking history: Never smoked Have you smoked in the past 12 months: No - Alcohol/Substance Use Hx Alcohol Use: No - Social History Usual Living Arrangement: Yes: With Spouse ADL: Family Assistance History of Recent Travel: No Home Medications - Allergies Allergies/Adverse Reactions: Allergies Allergy/AdvReac Type Severity Reaction Status Date / Time No Known Allergies Allergy Verified 09/10/19 10:26 - Home Medications Home Medications: Ambulatory Orders Aspirin [ASA -] 81 mg PO DAILY 11/13/15 Oxycodone HCl/Acetaminophen [Percocet 5-325 mg Tablet] 1 - 2 tab PO Q6H PRN Simvastatin 40 mg PO HS 11/13/15 Tamsulosin HCl [Flomax -] 0.4 mg PO DAILY 11/13/15 Acetaminophen [Tylenol .Regular Strength -] 650 mg PO Q4H PRN #0 tablet Fluticasone Prop 0.05% Nasal [Flonase -] 2 spray NS DAILY #1 bottle 11/20/15 Gabapentin [Neurontin -] 600 mg PO QID 03/19/18 Allopurinol [Zyloprim -] 300 mg PO DAILY 03/20/18 Carbidopa-Levodopa 25-250 Tab 1 tab PO QID 03/20/18 Acetaminophen [Tylenol .Regular Strength -] 650 mg PO Q6H PRN tablet 03/24/18 Amoxicillin - [Amoxicillin 500mg Capsule -] 500 mg PO TID #27 capsule 03/24/18 Carbidopa/Levodopa 25/250 [Sinemet 25/250 -] 1 each PO QID #120 tablet 03/24/18 Losartan Potassium [Cozaar -] 50 mg PO DAILY #30 tablet 03/24/18 Metoprolol Succinate [Toprol XL -] 25 mg PO BID #60 tab.sr.24h 03/24/18 Pramipexole Dihydrochloride [Mirapex -] 1 mg PO 0700,1100,1500,1900 #120 tablet 03/24/18 Torsemide [Demadex -] 40 mg PO DAILY #60 tablet 03/24/18 Acetaminophen [Tylenol .Regular Strength -] 650 mg PO Q6H PRN tablet 12/22/18 Albuterol 2.5/Ipratropium 0.5 [Duoneb -] 1 amp NEB Q6H PRN #30 amp 12/22/18 Allopurinol [Zyloprim -] 300 mg PO DAILY tablet 12/22/18 Aspirin Coated [Ecotrin -] 81 mg PO DAILY tablet.ec 12/22/18 Atorvastatin Ca [Lipitor] 40 mg PO HS tablet 12/22/18 Carbidopa/Levodopa 25/250 [Sinemet 25/250 -] 1 each PO QID tablet 12/22/18 Gabapentin [Neurontin -] 300 mg PO TID capsule 12/22/18 Guaifenesin/D-Methorphan Hb [Diabetic Tussin Dm -] 5 ml PO Q4H PRN #1 bottle Metoprolol Succinate [Toprol XL -] 25 mg PO BID tab.sr.24h 12/22/18 Morphine *Sr* [MS Contin -] 30 mg PO BID #60 tablet.sa MDD 2 12/22/18 Nebulizer Accessories [A.i.r.s. Nebulizer] 1 each MC PRN #1 kit 12/22/18 Nebulizer Accessories [Adult Aerosol Mask] 1 each MC PRN #1 each 12/22/18 Pramipexole Dihydrochloride [Mirapex -] 1 mg PO TID tablet 12/22/18 Review of Systems - Review of Systems Constitutional: reports: Chills, Weakness Eyes: reports: No Symptoms HENT: reports: No Symptoms Neck: reports: No Symptoms Cardiovascular: reports: No Symptoms Respiratory: reports: Cough Gastrointestinal: reports: Abdominal Pain Genitourinary: reports: No Symptoms Breasts: reports: No Symptoms Reported Musculoskeletal: reports: Back Pain Integumentary: reports: No Symptoms Neurological: reports: Weakness Endocrine: reports: No Symptoms Hematology/Lymphatic: reports: No Symptoms Psychiatric: reports: No Symptoms Physical Examination Vital Signs: Vital Signs Temperature 98.5 F 09/11/19 06:00 Pulse Rate 73 09/11/19 00:00 Respiratory Rate 71 H 09/11/19 06:00 Blood Pressure 161/79 09/11/19 06:00 O2 Sat by Pulse Oximetry (%) 96 09/10/19 22:00 Constitutional: Yes: No Distress, Calm Eyes: Yes: Conjunctiva Clear HENT: Yes: Atraumatic Cardiovascular: Yes: Regular Rate and Rhythm Respiratory: Yes: Regular, CTA Bilaterally Gastrointestinal: Yes: Normal Bowel Sounds, Soft, Tenderness (lower abdomen) Renal/: Yes: Incontinence Musculoskeletal: Yes: Back Pain, Muscle Weakness Extremities: Yes: WNL Edema: No Neurological: Yes: Alert, Oriented, Pre-Existing Deficit Psychiatric: Yes: Alert Labs: CBC, BMP 09/10/19 12:00 09/10/19 12:00 Imaging - Results Cat Scan: Report Reviewed Problem List - Problems (1) ANN (acute kidney injury) Assessment/Plan: -Renal Consult -BUN/Cr 50.0/2.2 -monitor renal function daily -IV hydration -CTAP shows multiple bilateral renal cysts which may be indicative of adult polycystic kidney disease, some cyst are hyperdense and and may contain hemorrhage, left adrenal nodule Code(s): N17.9 - ACUTE KIDNEY FAILURE, UNSPECIFIED (2) Multiple myeloma not having achieved remission Assessment/Plan: -Oncology consult -pain control Code(s): C90.00 - MULTIPLE MYELOMA NOT HAVING ACHIEVED REMISSION (3) Parkinson disease Assessment/Plan: -Fall precaution -PT -Carbidopa/Levodopa -Neurology consult Code(s): G20 - PARKINSON'S DISEASE (4) Weakness Assessment/Plan: -Fall precaution -PT Code(s): R53.1 - WEAKNESS (5) Cough Assessment/Plan: -CXR shows weak inspiration, no acute chest pathology -keep SpO2 >90% -O2 via NC prn -Pulmonary consult Code(s): R05 - COUGH (6) Abdominal pain Assessment/Plan: -CTAP shows multiple bilateral renal cysts which may be indicative of adult polycystic kidney disease, some cyst are hyperdense and and may contain hemorrhage, left adrenal nodule -pain control -UA negative Code(s): R10.9 - UNSPECIFIED ABDOMINAL PAIN (7) Hyperlipidemia Assessment/Plan: -Atorvastatin Code(s): E78.5 - HYPERLIPIDEMIA, UNSPECIFIED Assessment/Plan see problem list dvt ppx
[2019-09-11] MEDS: CARBIDOPA/LEVODOPA 25/250 TABLET (FP) PO SCH ×4 (09:13→21:44)
[2019-09-11] MEDS: HEPARIN NA (PORCINE) 5,000 UNITS/ML 1ML VIAL SQ SCH ×2 (09:13→21:44)
[2019-09-11] MEDS: ASPIRIN 81 MG CHEWABLE TABLETS PO SCH (09:13)
[2019-09-11] MEDS: metoPROLOL SUCCINATE 25 MG TAB.SR.24H (FP) PO SCH ×2 (09:13→21:44)
[2019-09-11] MEDS: TAMSULOSIN HCL 0.4 MG CAP PO SCH (09:13)
[2019-09-11] MEDS: ALLOPURINOL 300 MG TABLET (FP) PO SCH (09:13)
[2019-09-11] MEDS: SODIUM CHLORIDE 1,000 ML IV SCH (09:15)
[2019-09-11 10:53] LABS: BASO % 0.1 % (0-2.0); LYMPH % 13.6 % (8-40); MCH 23.3 pg (25.7-33.7); MCHC 29.6 g/dl (32.0-35.9); MEAN CELL VOLUME 78.5 fl (80-96); MEAN PLT VOLUME 7.9 fl (7.5-11.1); MONO % 12.1 % (3.8-10.2); NEUT % 74.2 % (42.8-82.8); PLATELET COUNT 218 K/MM3 (134-434); RBC 4.72 M/mm3 (4.00-5.60); WHITE BLOOD COUNT 4.5 K/mm3 (4.0-10.0)
[2019-09-11 11:17] LABS: ALBUMIN 3.2 g/dl (3.4-5.0); BILIRUBIN,TOTAL 0.4 mg/dL (0.2-1); BLOOD UREA NITROGEN 37.3 mg/dL (7-18); CALCIUM 7.8 mg/dL (8.5-10.1); CREATININE 1.4 mg/dL (0.55-1.3); MAGNESIUM 2.8 mg/dL (1.8-2.4); PHOSPHOROUS 2.8 mg/dL (2.5-4.9); TOT PROT 6.2 g/dl (6.4-8.2)
--- NOTE | 2019-09-11 13:49 | CON.PULM ---
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 Patient also reporting some abdominal discomfort but no urinary complaints, no other GI complaints of vomiting or diarrhea. - History Source History Provided By: Patient, Medical Record Limitations to Obtaining History: No Limitations - Past Medical History [employer]: Yes: Parkinson's. 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 No: AFIB Pulmonary: Yes: COPD Gastrointestinal: Yes: GERD Renal/: Yes: Renal Inusuff, BPH - Alcohol/Substance Use Hx Alcohol Use: No - Smoking History Smoking history: Never smoked Have you smoked in the past 12 months: No - Social History ADL: Family Assistance History of Recent Travel: No Home Medications - Allergies Allergies/Adverse Reactions: Allergies Allergy/AdvReac Type Severity Reaction Status Date / Time No Known Allergies Allergy Verified 09/10/19 10:26 - Home Medications Home Medications: Ambulatory Orders Aspirin [ASA -] 81 mg PO DAILY 11/13/15 Oxycodone HCl/Acetaminophen [Percocet 5-325 mg Tablet] 1 - 2 tab PO Q6H PRN Simvastatin 40 mg PO HS 11/13/15 Tamsulosin HCl [Flomax -] 0.4 mg PO DAILY 11/13/15 Acetaminophen [Tylenol .Regular Strength -] 650 mg PO Q4H PRN #0 tablet Fluticasone Prop 0.05% Nasal [Flonase -] 2 spray NS DAILY #1 bottle 11/20/15 Gabapentin [Neurontin -] 600 mg PO QID 03/19/18 Allopurinol [Zyloprim -] 300 mg PO DAILY 03/20/18 Carbidopa-Levodopa 25-250 Tab 1 tab PO QID 03/20/18 Acetaminophen [Tylenol .Regular Strength -] 650 mg PO Q6H PRN tablet 03/24/18 Amoxicillin - [Amoxicillin 500mg Capsule -] 500 mg PO TID #27 capsule 03/24/18 Carbidopa/Levodopa 25/250 [Sinemet 25/250 -] 1 each PO QID #120 tablet 03/24/18 Losartan Potassium [Cozaar -] 50 mg PO DAILY #30 tablet 03/24/18 Metoprolol Succinate [Toprol XL -] 25 mg PO BID #60 tab.sr.24h 03/24/18 Pramipexole Dihydrochloride [Mirapex -] 1 mg PO 0700,1100,1500,1900 #120 tablet 03/24/18 Torsemide [Demadex -] 40 mg PO DAILY #60 tablet 03/24/18 Acetaminophen [Tylenol .Regular Strength -] 650 mg PO Q6H PRN tablet 12/22/18 Albuterol 2.5/Ipratropium 0.5 [Duoneb -] 1 amp NEB Q6H PRN #30 amp 12/22/18 Allopurinol [Zyloprim -] 300 mg PO DAILY tablet 12/22/18 Aspirin Coated [Ecotrin -] 81 mg PO DAILY tablet.ec 12/22/18 Atorvastatin Ca [Lipitor] 40 mg PO HS tablet 12/22/18 Carbidopa/Levodopa 25/250 [Sinemet 25/250 -] 1 each PO QID tablet 12/22/18 Gabapentin [Neurontin -] 300 mg PO TID capsule 12/22/18 Guaifenesin/D-Methorphan Hb [Diabetic Tussin Dm -] 5 ml PO Q4H PRN #1 bottle Metoprolol Succinate [Toprol XL -] 25 mg PO BID tab.sr.24h 12/22/18 Morphine *Sr* [MS Contin -] 30 mg PO BID #60 tablet.sa MDD 2 12/22/18 Nebulizer Accessories [A.i.r.s. Nebulizer] 1 each MC PRN #1 kit 12/22/18 Nebulizer Accessories [Adult Aerosol Mask] 1 each MC PRN #1 each 12/22/18 Pramipexole Dihydrochloride [Mirapex -] 1 mg PO TID tablet 12/22/18 Family Medical History Family History: Unremarkable Review of Systems - Review of Systems Constitutional: denies: Fever Eyes: denies: Blurred Vision HENT: denies: Difficult Swallowing Neck: denies: Decreased ROM Cardiovascular: denies: Chest Pain Respiratory: reports: Cough. denies: Hemoptysis, Wheezing Gastrointestinal: reports: Abdominal Pain, Bloating Genitourinary: denies: Burning Breasts: reports: No Symptoms Reported Musculoskeletal: reports: No Symptoms Integumentary: reports: No Symptoms Physical Exam Vital Sings: Vital Signs Temperature 98.8 F 09/11/19 09:19 Pulse Rate 107 H 09/11/19 09:19 Respiratory Rate 18 09/11/19 09:19 Blood Pressure 143/92 09/11/19 09:19 O2 Sat by Pulse Oximetry (%) 96 09/10/19 22:00 Constitutional: Yes: Calm Eyes: Yes: EOM Intact HENT: Yes: Normocephalic Neck: Yes: Trachea Midline Cardiovascular: Yes: Regular Rate and Rhythm, S1, S2 Respiratory: Yes: Cough, Rhonchi Gastrointestinal: Yes: Soft, Abdomen, Obese Edema: LLE: 1+, RLE: 1+ Neurological: Yes: WNL Labs: CBC, BMP 09/11/19 09:50 09/11/19 09:50 Imaging - Results Chest X-ray: Report Reviewed, Image Reviewed Problem List - Problems (1) Abdominal pain Code(s): R10.9 - UNSPECIFIED ABDOMINAL PAIN (2) Anemia Code(s): D64.9 - ANEMIA, UNSPECIFIED (3) Bronchitis Code(s): J40 - BRONCHITIS, NOT SPECIFIED ACUTE OR CHRONIC (4) CHF (congestive heart failure) Code(s): I50.9 - HEART FAILURE, UNSPECIFIED Qualifiers: Heart failure type: unspecified Heart failure chronicity: acute Qualified Code(s): I50.9 - Heart failure, unspecified Assessment/Plan Congested cough likely due to acute bronchitis No evidence to suggest pneumonia Would start albuterol via neb w chest pt Consider sputum gram stain and culture Cirilo MATHEW MD
--- NOTE | 2019-09-11 15:43 | CONSULT ---
Consult - text type - Consultation Consultation Note: Renal consult for ANN on CKD This is a 74 year old gentleman with history of CKD stage 3, Multiple Myeloma, parkinson's disease who presented to the ED with productive cough, pain and chills and flank pain and found to have Cr of 2.2. Seen and examined at the bedside. He is awake and alert. He offers no acute complaints, cough is improving. No chest pain, shortness of breath, N/V/D. Making urine. No leg swelling. No confusion or lethargy. Tolerating oral diet. Is on IVF. PMhx: as above Allergies: NKDA Family hx: NC Social Hx: No T/A/D Home Medications Medication Instructions Recorded Aspirin [ASA -] 81 mg PO DAILY 11/13/15 Oxycodone HCl/Acetaminophen 1 - 2 tab PO Q6H PRN 11/13/15 [Percocet 5-325 mg Tablet] Simvastatin 40 mg PO HS 11/13/15 Tamsulosin HCl [Flomax -] 0.4 mg PO DAILY 11/13/15 Acetaminophen [Tylenol .Regular 650 mg PO Q4H PRN #0 tablet 11/20/15 Strength -] Fluticasone Prop 0.05% Nasal 2 spray NS DAILY #1 bottle 11/20/15 [Flonase -] Gabapentin [Neurontin -] 600 mg PO QID 03/19/18 Allopurinol [Zyloprim -] 300 mg PO DAILY 03/20/18 Carbidopa-Levodopa 25-250 Tab 1 tab PO QID 03/20/18 Acetaminophen [Tylenol .Regular 650 mg PO Q6H PRN tablet 03/24/18 Strength -] Amoxicillin - [Amoxicillin 500mg 500 mg PO TID #27 capsule 03/24/18 Capsule -] Carbidopa/Levodopa 25/250 [Sinemet 1 each PO QID #120 tablet 03/24/18 25/250 -] Losartan Potassium [Cozaar -] 50 mg PO DAILY #30 tablet 03/24/18 Metoprolol Succinate [Toprol XL -] 25 mg PO BID #60 tab.sr.24h 03/24/18 Pramipexole Dihydrochloride 1 mg PO 0700,1100,1500,1900 #120 03/24/18 [Mirapex -] tablet Torsemide [Demadex -] 40 mg PO DAILY #60 tablet 03/24/18 Acetaminophen [Tylenol .Regular 650 mg PO Q6H PRN tablet 12/22/18 Strength -] Albuterol 2.5/Ipratropium 0.5 1 amp NEB Q6H PRN #30 amp 12/22/18 [Duoneb -] Allopurinol [Zyloprim -] 300 mg PO DAILY tablet 12/22/18 Aspirin Coated [Ecotrin -] 81 mg PO DAILY tablet.ec 12/22/18 Atorvastatin Ca [Lipitor] 40 mg PO HS tablet 12/22/18 Carbidopa/Levodopa 25/250 [Sinemet 1 each PO QID tablet 12/22/18 25/250 -] Gabapentin [Neurontin -] 300 mg PO TID capsule 12/22/18 Guaifenesin/D-Methorphan Hb 5 ml PO Q4H PRN #1 bottle 12/22/18 [Diabetic Tussin Dm -] Metoprolol Succinate [Toprol XL -] 25 mg PO BID tab.sr.24h 12/22/18 Morphine *Sr* [MS Contin -] 30 mg PO BID #60 tablet.sa MDD 2 12/22/18 Nebulizer Accessories [A.i.r.s. 1 each PRN #1 kit 12/22/18 Nebulizer] Nebulizer Accessories [Adult 1 each PRN #1 each 12/22/18 Aerosol Mask] Pramipexole Dihydrochloride 1 mg PO TID tablet 12/22/18 [Mirapex -] Vital Signs Temperature 98.8 F 09/11/19 09:19 Pulse Rate 107 H 09/11/19 09:19 Respiratory Rate 18 09/11/19 09:19 Blood Pressure 143/92 09/11/19 09:19 O2 Sat by Pulse Oximetry (%) 95 09/11/19 09:00 Initial Vital Signs Temp Pulse Resp BP Pulse Ox 98.1 F 93 H 20 147/60 94 L 09/10/19 10:21 09/10/19 10:21 09/10/19 10:21 09/10/19 10:21 09/10/19 10:21 .NAD awake and alert neck supple, no JVD RRR, no M/R CTA no rales or wheeze soft NT/ND no LE edema, clubbing or cyanosis no bladder distension CBC, BMP 09/11/19 09:50 09/11/19 09:50 Current Medications Acetaminophen (Tylenol -) 650 mg PO Q4H PRN PRN Reason: FEVER Acetaminophen (Tylenol -) 325 mg PO Q6H PRN PRN Reason: PAIN SCALE 6-10 Albuterol/Ipratropium (Duoneb -) 1 amp NEB RQID [facility] Allopurinol (Zyloprim -) 300 mg PO DAILY [facility] Last Admin: 09/11/19 09:13 Dose: 300 mg Aspirin (Asa -) 81 mg PO DAILY [facility] Last Admin: 09/11/19 09:13 Dose: 81 mg Atorvastatin Calcium (Lipitor -) 40 mg PO HS [facility] Last Admin: 09/10/19 21:39 Dose: 40 mg Carbidopa/Levodopa (Sinemet 25/250 -) 1 each PO QID [facility] Last Admin: 09/11/19 14:03 Dose: 1 each Gabapentin (Neurontin -) 300 mg PO TID [facility] Last Admin: 09/11/19 14:03 Dose: 300 mg Heparin Sodium (Porcine) (Heparin -) 5,000 unit SQ BID [facility] Last Admin: 09/11/19 09:13 Dose: 5,000 unit Sodium Chloride (Normal Saline -) 1,000 mls @ 75 mls/hr IV ASDIR [facility] Last Admin: 09/11/19 09:15 Dose: 75 mls/hr Metoprolol Succinate (Toprol Xl -) 25 mg PO BID [facility] Last Admin: 09/11/19 09:13 Dose: 25 mg Oxycodone HCl (Roxicodone -) 5 mg PO Q6H PRN PRN Reason: PAIN SCALE 6-10 Pramipexole Dihydrochloride (Mirapex -) 1 mg PO 0700,1100,1500,1900 [facility] Last Admin: 09/11/19 14:03 Dose: 1 mg Tamsulosin HCl (Flomax -) 0.4 mg PO DAILY@0830 [facility] Last Admin: 09/11/19 09:13 Dose: 0.4 mg 74 year old gentleman with history of CKD stage 3, Multiple Myeloma, Parkinson's disease who presented to the ED with productive cough, pain and chills and flank pain and found to have Cr of 2.2. 1. Acute on chronic renal insufficiency likely secondary to mild volume depletion 2. CKD stage 3 (baseline Cr 1.42) 3. Cough with sputum production 4. Flank pain 5. Suspected hemorrhagic cysts Renal function now improved to baseline Can discontinue IVF oral intake as tolerated Urology consult placed for evalulation of hemorragic renal cysts do no suspect PCKD given relatively preserved renal function with advanced age and normal kidney sizes Can resume home diuretics (torsemide 20mg) in 24 hours in renal function stable and pt is able to maintain good oral intake Can resume Losartan 50mg daily once renal function stable for 24-48 hours Urology consultation placed for evaluation fo hemorrhagic renal cysts. Will follow up as needed, please call with any questions or concerns Thank you Madan Mcintosh DO
[2019-09-11] MEDS: ALBUTEROL SO4 2.5/IPRATROPIUM 0.5 INH SOL 3 ML VIAL.NEB. NEB SCH ×2 (16:00→21:15)
--- NOTE | 2019-09-11 16:15 | CONSULT ---
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 No: AFIB Pulmonary: Yes: COPD Gastrointestinal: Yes: GERD Renal/: Yes: Renal Inusuff, BPH - Alcohol/Substance Use Hx Alcohol Use: No - Smoking History Smoking history: Never smoked Have you smoked in the past 12 months: No - Social History ADL: Family Assistance History of Recent Travel: No Home Medications - Allergies Allergies/Adverse Reactions: Allergies Allergy/AdvReac Type Severity Reaction Status Date / Time No Known Allergies Allergy Verified 09/10/19 10:26 - Home Medications Home Medications: Ambulatory Orders Aspirin [ASA -] 81 mg PO DAILY 11/13/15 Oxycodone HCl/Acetaminophen [Percocet 5-325 mg Tablet] 1 - 2 tab PO Q6H PRN Simvastatin 40 mg PO HS 11/13/15 Tamsulosin HCl [Flomax -] 0.4 mg PO DAILY 11/13/15 Acetaminophen [Tylenol .Regular Strength -] 650 mg PO Q4H PRN #0 tablet Fluticasone Prop 0.05% Nasal [Flonase -] 2 spray NS DAILY #1 bottle 11/20/15 Gabapentin [Neurontin -] 600 mg PO QID 03/19/18 Allopurinol [Zyloprim -] 300 mg PO DAILY 03/20/18 Carbidopa-Levodopa 25-250 Tab 1 tab PO QID 03/20/18 Acetaminophen [Tylenol .Regular Strength -] 650 mg PO Q6H PRN tablet 03/24/18 Amoxicillin - [Amoxicillin 500mg Capsule -] 500 mg PO TID #27 capsule 03/24/18 Carbidopa/Levodopa 25/250 [Sinemet 25/250 -] 1 each PO QID #120 tablet 03/24/18 Losartan Potassium [Cozaar -] 50 mg PO DAILY #30 tablet 03/24/18 Metoprolol Succinate [Toprol XL -] 25 mg PO BID #60 tab.sr.24h 03/24/18 Pramipexole Dihydrochloride [Mirapex -] 1 mg PO 0700,1100,1500,1900 #120 tablet 03/24/18 Torsemide [Demadex -] 40 mg PO DAILY #60 tablet 03/24/18 Acetaminophen [Tylenol .Regular Strength -] 650 mg PO Q6H PRN tablet 12/22/18 Albuterol 2.5/Ipratropium 0.5 [Duoneb -] 1 amp NEB Q6H PRN #30 amp 12/22/18 Allopurinol [Zyloprim -] 300 mg PO DAILY tablet 12/22/18 Aspirin Coated [Ecotrin -] 81 mg PO DAILY tablet.ec 12/22/18 Atorvastatin Ca [Lipitor] 40 mg PO HS tablet 12/22/18 Carbidopa/Levodopa 25/250 [Sinemet 25/250 -] 1 each PO QID tablet 12/22/18 Gabapentin [Neurontin -] 300 mg PO TID capsule 12/22/18 Guaifenesin/D-Methorphan Hb [Diabetic Tussin Dm -] 5 ml PO Q4H PRN #1 bottle Metoprolol Succinate [Toprol XL -] 25 mg PO BID tab.sr.24h 12/22/18 Morphine *Sr* [MS Contin -] 30 mg PO BID #60 tablet.sa MDD 2 12/22/18 Nebulizer Accessories [A.i.r.s. Nebulizer] 1 each PRN #1 kit 12/22/18 Nebulizer Accessories [Adult Aerosol Mask] 1 each PRN #1 each 12/22/18 Pramipexole Dihydrochloride [Mirapex -] 1 mg PO TID tablet 12/22/18 Physical Exam Vital Signs: Vital Signs Temperature 98.5 F 09/11/19 14:00 Pulse Rate 69 09/11/19 14:00 Respiratory Rate 18 09/11/19 14:00 Blood Pressure 156/73 09/11/19 14:00 O2 Sat by Pulse Oximetry (%) 95 09/11/19 09:00 Labs: CBC, BMP 09/11/19 09:50 09/11/19 09:50 Assessment/Plan Consult Patient seen and examined Known to me > 15 years Hx of multiple myeloma in remission x years . Initially treated with chemotherapy and biologics. 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 Neuropathy exacerbated by prior treatment Presents with cough/ bronchitis ANN superimposed on CKD Last Vital Signs Temp Pulse Resp BP Pulse Ox 98.5 F 69 18 156/73 95 09/11/19 14:00 09/11/19 14:00 09/11/19 14:00 09/11/19 14:00 09/11/19 09:00 HEENT: PIERO, EOM Intact Oropharynx: No thrush, No mucositis Neck: Supple Nodes: Without adenopathy Cor: RSR, No murmurs, No gallops Lungs: Clear to P&A Abd: Soft, Normal bowel sounds, No organomegaly Ext:LE edema Skin: No rashes, Integument intact CBC, BMP 09/11/19 09:50 09/11/19 09:50 Current Medications Generic Name Dose Route Start Last Admin Trade Name Freq PRN Reason Stop Dose Admin Acetaminophen 650 mg 09/10/19 16:31 Tylenol - PO Q4H PRN FEVER Acetaminophen 325 mg 09/11/19 10:49 Tylenol - PO Q6H PRN PAIN SCALE 6-10 Albuterol/Ipratropium 1 amp 09/11/19 16:00 Duoneb - NEB RQID ANAT Allopurinol 300 mg 09/11/19 10:00 09/11/19 09:13 Zyloprim - PO 300 mg DAILY ANAT Administration Aspirin 81 mg 09/11/19 10:00 09/11/19 09:13 Asa - PO 81 mg DAILY ANAT Administration Atorvastatin Calcium 40 mg 09/10/19 22:00 09/10/19 21:39 Lipitor - PO 40 mg HS ANAT Administration Carbidopa/Levodopa 1 each 09/10/19 18:00 09/11/19 14:03 Sinemet 25/250 - PO 1 each QID ANAT Administration Gabapentin 300 mg 09/10/19 22:00 09/11/19 14:03 Neurontin - PO 300 mg TID ANAT Administration Heparin Sodium (Porcine) 5,000 unit 09/10/19 22:00 09/11/19 09:13 Heparin - SQ 5,000 unit BID ANAT Administration Metoprolol Succinate 25 mg 09/10/19 22:00 09/11/19 09:13 Toprol Xl - PO 25 mg BID ANAT Administration Oxycodone HCl 5 mg 09/11/19 10:49 Roxicodone - PO Q6H PRN PAIN SCALE 6-10 Pramipexole Dihydrochloride 1 mg 09/10/19 19:00 09/11/19 14:03 Mirapex - PO 1 mg 0700,1100,1500,1900 ANAT Administration Tamsulosin HCl 0.4 mg 09/11/19 08:30 09/11/19 09:13 Flomax - PO 0.4 mg DAILY@0830 ANAT Administration Impression: Myeloma- in remission Acute bronchitis ANN/CKD BP BPH followed by Dr. Zak Whitfield History of multiple renal cysts dating back a minimum of 3 years on imaging studies History of neuropathy History of pain management Plan: treatment of bronchitis-pulmonary. Neurology- Dr. Hancock follow up
[2019-09-11] MEDS ORDERED: PT OWN MED DRAWER 7, Y5N ONE (17:33)
--- NOTE | 2019-09-11 18:37 | CON.GU ---
Consult Consult Specialty:: urology Reason for Consultation:: renal cysts - History of Present Illness Chief Complaint: back pain with history of renal cysts History of Present Illness: 74 year old male with history of MM, PD, CHF, HTN, HLD, NIIDM, BPH, and renal cysts. Patient has been followed by myself for his bph and is well controlled on flomax. He has a long standing history of multiple renal cysts. The patient has multiple myleloma and spinal issues and suffer from chronic pain. The patient noted bilateral low back pain. Denies nausea, vomiting, or gross hematuria. The patient is currently resting comfortable in bed. 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 No: AFIB Pulmonary: Yes: COPD Gastrointestinal: Yes: GERD Renal/: Yes: Renal Inusuff, BPH - Alcohol/Substance Use Hx Alcohol Use: No - Smoking History Smoking history: Never smoked Have you smoked in the past 12 months: No - Social History ADL: Family Assistance History of Recent Travel: No Home Medications - Allergies Allergies/Adverse Reactions: Allergies Allergy/AdvReac Type Severity Reaction Status Date / Time No Known Allergies Allergy Verified 09/10/19 10:26 - Home Medications Home Medications: Ambulatory Orders Aspirin [ASA -] 81 mg PO DAILY 11/13/15 Oxycodone HCl/Acetaminophen [Percocet 5-325 mg Tablet] 1 - 2 tab PO Q6H PRN Simvastatin 40 mg PO HS 11/13/15 Tamsulosin HCl [Flomax -] 0.4 mg PO DAILY 11/13/15 Acetaminophen [Tylenol .Regular Strength -] 650 mg PO Q4H PRN #0 tablet Fluticasone Prop 0.05% Nasal [Flonase -] 2 spray NS DAILY #1 bottle 11/20/15 Gabapentin [Neurontin -] 600 mg PO QID 03/19/18 Allopurinol [Zyloprim -] 300 mg PO DAILY 03/20/18 Carbidopa-Levodopa 25-250 Tab 1 tab PO QID 03/20/18 Acetaminophen [Tylenol .Regular Strength -] 650 mg PO Q6H PRN tablet 03/24/18 Amoxicillin - [Amoxicillin 500mg Capsule -] 500 mg PO TID #27 capsule 03/24/18 Carbidopa/Levodopa 25/250 [Sinemet 25/250 -] 1 each PO QID #120 tablet 03/24/18 Losartan Potassium [Cozaar -] 50 mg PO DAILY #30 tablet 03/24/18 Metoprolol Succinate [Toprol XL -] 25 mg PO BID #60 tab.sr.24h 03/24/18 Pramipexole Dihydrochloride [Mirapex -] 1 mg PO 0700,1100,1500,1900 #120 tablet 03/24/18 Torsemide [Demadex -] 40 mg PO DAILY #60 tablet 03/24/18 Acetaminophen [Tylenol .Regular Strength -] 650 mg PO Q6H PRN tablet 12/22/18 Albuterol 2.5/Ipratropium 0.5 [Duoneb -] 1 amp NEB Q6H PRN #30 amp 12/22/18 Allopurinol [Zyloprim -] 300 mg PO DAILY tablet 12/22/18 Aspirin Coated [Ecotrin -] 81 mg PO DAILY tablet.ec 12/22/18 Atorvastatin Ca [Lipitor] 40 mg PO HS tablet 12/22/18 Carbidopa/Levodopa 25/250 [Sinemet 25/250 -] 1 each PO QID tablet 12/22/18 Gabapentin [Neurontin -] 300 mg PO TID capsule 12/22/18 Guaifenesin/D-Methorphan Hb [Diabetic Tussin Dm -] 5 ml PO Q4H PRN #1 bottle Metoprolol Succinate [Toprol XL -] 25 mg PO BID tab.sr.24h 12/22/18 Morphine *Sr* [MS Contin -] 30 mg PO BID #60 tablet.sa MDD 2 12/22/18 Nebulizer Accessories [A.i.r.s. Nebulizer] 1 each PRN #1 kit 12/22/18 Nebulizer Accessories [Adult Aerosol Mask] 1 each PRN #1 each 12/22/18 Pramipexole Dihydrochloride [Mirapex -] 1 mg PO TID tablet 12/22/18 Physical Exam- Vital Signs: Vital Signs Temperature 98.8 F 09/11/19 18:09 Pulse Rate 70 09/11/19 18:09 Respiratory Rate 20 09/11/19 18:09 Blood Pressure 156/73 09/11/19 18:09 O2 Sat by Pulse Oximetry (%) 95 09/11/19 09:00 Constitutional: Yes: No Distress, Calm Eyes: Yes: WNL, Conjunctiva Clear, EOM Intact HENT: Yes: WNL, Atraumatic, Normocephalic Neck: Yes: WNL, Supple, Trachea Midline Cardiovascular: Yes: Regular Rate and Rhythm Respiratory: Yes: Regular Gastrointestinal: Yes: Normal Bowel Sounds, Soft (diffuse back pain mostley lower back) Pelvis: Yes: Bladder Non Palpable Testicles: Yes: WNL Scrotum: Yes: WNL Penis: Yes: WNL Prostate Exam: Yes: Deferred Labs: CBC, BMP 09/11/19 09:50 09/11/19 09:50 Imaging - Results Cat Scan: Report Reviewed Ultrasound: Report Reviewed Assessment/Plan impression renal cysts bph multiple myeloma with spinal stenosis mile renal insufficiency plan hct is stable and would observe unlikely there is active bleeding from the renal cysts; cysts have also been stable over a substantial amount of time continue flomax
--- NOTE | 2019-09-11 20:42 | CONSULT ---
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 Off chemRx. Receives focal RT for symptomatic bone mets with good results so far. 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 Among his multiple meds I prescribe Sinemet 25/250 and pramipexole 1 mg- both QID at 7, 11, 3 and 7 as well as Gabapentin 600 mg q6H. Now admitted with URT symptoms and persistant cough. Resting comfortably now. Some burning right hip and thigh. + Numbness and tingling both feet and ankles. EXAM: Obese. Neck supple. No bruits. Min edema. NEURO: In NAD. MS/Speech: Normal CN II-XII: normal Motor; No drift. Rhythmic rest tremor L>>R. + Cogwheeling. Right ankle DF/eversion 1/5 with preservation of inversion and plantar flexion. developing inversion contracture right ankle. Left ankle DF 4/5. Areflexic Decreased sensation both feet. IMP: 1. Chemo induced peripheral neuropathy 2. 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 Bedside PT. Right AFO vs contracture. Neuro f/u as out patient. Thank you very much, Lamin Hancock MD
[2019-09-11] MEDS: oxyCODONE HCL 5 MG TABLET PO PRN (21:41)
[2019-09-11] MEDS: ACETAMINOPHEN 325 MG TABLET (FP) PO PRN (21:43)
[2019-09-11] MEDS: ATORVASTATIN CA 40 MG TABLET (FP) PO SCH (21:44)
[2019-09-12] MEDS: oxyCODONE HCL 5 MG TABLET PO PRN (04:02)
[2019-09-12] MEDS: ACETAMINOPHEN 325 MG TABLET (FP) PO PRN (04:04)
[2019-09-12] MEDS: GABAPENTIN 300 MG CAPSULE (FP) PO SCH ×2 (07:09→13:27)
[2019-09-12] MEDS: PRAMIPEXOLE DIHYDROCHLORIDE 1 MG TABLET PO SCH ×2 (07:09→10:15)
[2019-09-12 07:40] VITALS: PULSE 63; TEMP 98.9
[2019-09-12] MEDS: ALBUTEROL SO4 2.5/IPRATROPIUM 0.5 INH SOL 3 ML VIAL.NEB. NEB SCH ×2 (08:00→12:00)
[2019-09-12 08:48] LABS: BLOOD UREA NITROGEN 24.4 mg/dL (7-18); CALCIUM 8.3 mg/dL (8.5-10.1); CREATININE 1.2 mg/dL (0.55-1.3); PHOSPHOROUS 2.6 mg/dL (2.5-4.9); POTASSIUM 4.6 mmol/L (3.5-5.1)
[2019-09-12] MEDS: CARBIDOPA/LEVODOPA 25/250 TABLET (FP) PO SCH ×2 (10:13→13:28)
[2019-09-12] MEDS: ASPIRIN 81 MG CHEWABLE TABLETS PO SCH (10:13)
[2019-09-12] MEDS: ALLOPURINOL 300 MG TABLET (FP) PO SCH (10:13)
[2019-09-12] MEDS: HEPARIN NA (PORCINE) 5,000 UNITS/ML 1ML VIAL SQ SCH (10:13)
[2019-09-12] MEDS: metoPROLOL SUCCINATE 25 MG TAB.SR.24H (FP) PO SCH (10:13)
[2019-09-12] MEDS: TAMSULOSIN HCL 0.4 MG CAP PO SCH (10:13)
--- NOTE | 2019-09-12 10:15 | DS ---
Physical Examination Vital Signs: Vital Signs Temperature 98.9 F 09/12/19 06:00 Pulse Rate 63 09/12/19 06:00 Respiratory Rate 20 09/12/19 06:00 Blood Pressure 141/64 09/12/19 06:00 O2 Sat by Pulse Oximetry (%) 95 09/11/19 21:00 Cardiovascular: Yes: Regular Rate and Rhythm Respiratory: Yes: Regular, CTA Bilaterally Gastrointestinal: Yes: Normal Bowel Sounds, Soft Labs: CBC, BMP 09/11/19 09:50 09/12/19 06:00 Discharge Summary Reason For Visit: KIDNEY PAIN Current Active Problems Abdominal pain (Acute) Hyperlipidemia (Acute) Hospital Course: - Problems (1) ANN (acute kidney injury) Assessment/Plan: -Resolved at baseline -Renal Consult noted -BUN/Cr 50.0/2.2 -monitor renal function daily -off IV hydration -CTAP shows multiple bilateral renal cysts which may be indicative of adult polycystic kidney disease, some cyst are hyperdense and and may contain hemorrhage, left adrenal nodule--Uro noted Code(s): N17.9 - ACUTE KIDNEY FAILURE, UNSPECIFIED (2) Multiple myeloma not having achieved remission Assessment/Plan: -Oncology consult appreciated -pain control Code(s): C90.00 - MULTIPLE MYELOMA NOT HAVING ACHIEVED REMISSION (3) Parkinson disease Assessment/Plan: -Fall precaution -PT -Carbidopa/Levodopa -Neurology consult Code(s): G20 - PARKINSON'S DISEASE (4) Weakness Assessment/Plan: -Fall precaution -PT Code(s): R53.1 - WEAKNESS (5) Cough Assessment/Plan: -CXR shows weak inspiration, no acute chest pathology -keep SpO2 >90% -O2 via NC prn -Pulmonary consult--Nebs Code(s): R05 - COUGH (6) Abdominal pain Assessment/Plan: -Resolved -CTAP shows multiple bilateral renal cysts which may be indicative of adult polycystic kidney disease, some cyst are hyperdense and and may contain hemorrhage, left adrenal nodule -pain control -UA negative Code(s): R10.9 - UNSPECIFIED ABDOMINAL PAIN (7) Hyperlipidemia Assessment/Plan: -Atorvastatin Code(s): E78.5 - HYPERLIPIDEMIA, UNSPECIFIED DC PANNING--HOME - Instructions Diet, Activity, Other Instructions: continue with home meds follow up labs and visit Referrals: Shelly Lassiter MD [Primary Care Provider] - 1 Week - Home Medications Comprehensive Discharge Medication List: Ambulatory Orders Aspirin [ASA -] 81 mg PO DAILY 11/13/15 Oxycodone HCl/Acetaminophen [Percocet 5-325 mg Tablet] 1 - 2 tab PO Q6H PRN Tamsulosin HCl [Flomax -] 0.4 mg PO DAILY 11/13/15 Acetaminophen [Tylenol .Regular Strength -] 650 mg PO Q4H PRN #0 tablet Fluticasone Prop 0.05% Nasal [Flonase -] 2 spray NS DAILY #1 bottle 11/20/15 Allopurinol [Zyloprim -] 300 mg PO DAILY 03/20/18 Carbidopa-Levodopa 25-250 Tab 1 tab PO QID 03/20/18 Losartan Potassium [Cozaar -] 50 mg PO DAILY #30 tablet 03/24/18 Metoprolol Succinate [Toprol XL -] 25 mg PO BID #60 tab.sr.24h 03/24/18 Pramipexole Dihydrochloride [Mirapex -] 1 mg PO 0700,1100,1500,1900 #120 tablet 03/24/18 Aspirin Coated [Ecotrin -] 81 mg PO DAILY tablet.ec 12/22/18 Atorvastatin Ca [Lipitor] 40 mg PO HS tablet 12/22/18 Gabapentin [Neurontin -] 300 mg PO TID capsule 12/22/18 Guaifenesin/D-Methorphan Hb [Diabetic Tussin Dm -] 5 ml PO Q4H PRN #1 bottle Albuterol 2.5/Ipratropium 0.5 [Duoneb -] 1 amp NEB Q6H PRN #120 amp 09/12/19 Torsemide [Demadex -] 20 mg PO DAILY #60 tablet 09/12/19
--- NOTE | 2019-09-12 12:23 | PN ---
Progress Note (short form) - Note Progress Note: PULMONARY Appears stable/ Wants to go home VSS/AFEBRILE Constitutional: Yes: Calm Eyes: Yes: EOM Intact HENT: Yes: Normocephalic Neck: Yes: Trachea Midline Cardiovascular: Yes: Regular Rate and Rhythm, S1, S2 Respiratory: Yes: Cough, Rhonchi Gastrointestinal: Yes: Soft, Abdomen, Obese Edema: LLE: 1+, RLE: 1+ Neurological: Yes: WNL Labs: NOTED Imaging - Results Chest X-ray: Report Reviewed, Image Reviewed Problem List - Problems (1) Abdominal pain Code(s): R10.9 - UNSPECIFIED ABDOMINAL PAIN (2) Anemia Code(s): D64.9 - ANEMIA, UNSPECIFIED (3) Bronchitis Code(s): J40 - BRONCHITIS, NOT SPECIFIED ACUTE OR CHRONIC (4) CHF (congestive heart failure) Code(s): I50.9 - HEART FAILURE, UNSPECIFIED Qualifiers: Heart failure type: unspecified Heart failure chronicity: acute Qualified Code(s): I50.9 - Heart failure, unspecified Congested cough likely due to acute bronchitis No evidence to suggest pneumonia Would start albuterol via neb w chest pt Consider sputum gram stain and culture Discharge planning R PRIYANKA ARNOLD Problem List - Problems (1) Abdominal pain Code(s): R10.9 - UNSPECIFIED ABDOMINAL PAIN (2) Anemia Code(s): D64.9 - ANEMIA, UNSPECIFIED (3) Bronchitis Code(s): J40 - BRONCHITIS, NOT SPECIFIED ACUTE OR CHRONIC (4) CHF (congestive heart failure) Code(s): I50.9 - HEART FAILURE, UNSPECIFIED Qualifiers: Heart failure type: unspecified Heart failure chronicity: acute Qualified Code(s): I50.9 - Heart failure, unspecified
[2019-09-12 12:56] VITALS: BP 146/97
== END 2019-09-12 13:41 | disposition home or self-care (01) | DRG 683 ==
LOC: JER 10:19 → JERBED 15:42 → J5S 18:46
PROVIDERS: ADMIT Family Medicine; ATTEND Family Medicine
DX: N17.9 Acute kidney failure, unspecified (principal); C90.00 Multiple myeloma not having achieved remission; R10.9 Unspecified abdominal pain; E78.5 Hyperlipidemia, unspecified; G20 Parkinson's disease; R53.1 Weakness; N40.0 Benign prostatic hyperplasia without lower urinary tract symptoms; M21.371 Foot drop, right foot; G25.81 Restless legs syndrome; K21.9 Gastro-esophageal reflux disease without esophagitis; G62.89 Other specified polyneuropathies; G57.91 Unspecified mononeuropathy of right lower limb; J20.9 Acute bronchitis, unspecified; N18.3 Chronic kidney disease, stage 3 (moderate); I12.9 Hypertensive chronic kidney disease with stage 1 through stage 4 chronic kidney disease, or unspecified chronic kidney disease; E86.9 Volume depletion, unspecified; E66.9 Obesity, unspecified; Z68.36 Body mass index [BMI] 36.0-36.9, adult; M48.00 Spinal stenosis, site unspecified
CPT/HCPCS: 36415; 71045-TC-FY; 74176-TC; 80048; 80053; 81003; 82550; 83690; 83735; 84100; 84443; 84484; 85025; 93005; 93010; 94640; 97116-GP; 97162-GP; 99283-25; J1644; J7030

== ENCOUNTER 2019-09-20 16:53 | Inpatient (IN) | payer OTHER, BC ==
[2019-09-20] MEDS ORDERED: ALBUTEROL SO4 2.5/IPRATROPIUM 0.5 INH SOL 3 ML VIAL.NEB. NEB ONE ×2 (17:46→17:56)
[2019-09-20] MEDS ORDERED: methylPREDNISolone NA SUCC 125 MG/2 ML VIAL IVPUSH ONE (18:10)
--- NOTE | 2019-09-20 18:18 | PDOC ---
Documentation entered by Funmilayo Zafar SCRIBE, acting as scribe for Jose Quevedo MD. Jose Quevedo MD: This documentation has been prepared by the [email or web address], Funmilayo Zafar SCRIBE, under my direction and personally reviewed by me in its entirety. I confirm that the documentation accurately reflects all work, treatment, procedures, and medical decision making performed by me. Attending Attestation - Resident Resident Name: Olivier Bonilla - ED Attending Attestation I have performed the following: I have examined & evaluated the patient, The case was reviewed & discussed with the resident, I agree w/resident's findings & plan, Exceptions are as noted - HPI HPI: 09/20/19 18:18 74 M with h/o Parkinson's Disease, Multiple Myeloma with mets, and CKD, presenting to ED with SOB and cough. Pt was recently admitted for ANN 10 days ago. During this admission, pt had a dry cough. Upon discharge, his cough worsened. He reports significant clear phlegm production. Denies F/C. Denies chest pain. He was seen by his PMD, who prescribed abx, nebs, and steroids, with no improvement. Pt states that he has been using the breathing treatments at home with minimal impovement. Denies any new leg swelling. Denies h/o COPD/ asthma. - Physicial Exam PE: 09/20/19 18:21 "GENERAL: Awake, alert, and fully oriented, in no acute distress. HEAD: No signs of trauma EYES: PERRLA, EOMI, sclera anicteric, conjunctiva clear ENT: Auricles normal inspection, hearing grossly normal, nares patent, oropharynx clear without exudates. Moist mucosa NECK: Nontender, no stepoffs, Normal ROM, supple, no lymphadenopathy, JVD, or masses LUNGS: + mild expiratory wheezes HEART: Regular rate and rhythm, normal S1 and S2, no murmurs, rubs or gallops ABDOMEN: Soft, nontender, normoactive bowel sounds. No guarding, no rebound. No masses EXTREMITIES: Normal range of motion, no edema. No clubbing or cyanosis. No cords, erythema, or tenderness NEUROLOGICAL: Cranial nerves II through XII intact. 5/5 strength and sensation in all extremities, Normal speech, normal gait, normal cerebellar function SKIN: Warm, Dry, normal turgor, no rashes or lesions noted. - Medical Decision Making 09/20/19 18:21 74 M with SOB and cough. Will evaluate for PNA vs CHF vs COPD. - Labs - CXR - nebs, steroids - Admit
[2019-09-20 18:22] LABS: BASO % 0.1 % (0-2.0); HEMATOCRIT 37.4 % (35.4-49); HEMOGLOBIN 11.5 GM/dL (11.7-16.9); LYMPH % 6.9 % (8-40); MCH 23.6 pg (25.7-33.7); MCHC 30.8 g/dl (32.0-35.9); MEAN CELL VOLUME 76.6 fl (80-96); MEAN PLT VOLUME 7.7 fl (7.5-11.1); MONO % 3.9 % (3.8-10.2); NEUT % 89.1 % (42.8-82.8); PLATELET COUNT 318 K/MM3 (134-434); RBC 4.88 M/mm3 (4.00-5.60); RDW 17.1 % (11.9-15.9); WHITE BLOOD COUNT 10.4 K/mm3 (4.0-10.0)
[2019-09-20] MEDS ORDERED: methylPREDNISolone NA SUCC 125 MG/2 ML VIAL ONE (18:38)
--- NOTE | 2019-09-20 18:40 | PDOC ---
History of Present Illness - General Chief Complaint: Respiratory Stated Complaint: COLD SYMPTOMS Time Seen by Provider: 09/20/19 17:36 History Source: Patient Exam Limitations: No Limitations - History of Present Illness Initial Comments: 09/20/19 18:39 74 yo male CKD stage 3, metastatic Multiple Myeloma, parkinson's, CHF, HTN, HLD , NIIDM presents to the ED for productive cough and SOB. Pt recently admited for ANN, DC on 09/12/2019, admits to worsening cough since DC and significant SOB over the past 09/17/2019. Of note, BP medication changed from 50 mg BID metoprolol to 25 BID and Losartan 150 mg daily to 100 mg. present, states she noted significant worsening of pt breathing and BP has averaged 160s-170s systolic. Pt saw PCP Maikol 3 days ago, given steroids, duo nebs and cefuroxamine for likely lung infection without improvement. Denies recent travel , calf tenderness, CP, abdominal pain, back pain, F/C/N/V. Past History - Past Medical History Allergies/Adverse Reactions: Allergies Allergy/AdvReac Type Severity Reaction Status Date / Time No Known Allergies Allergy Verified 09/20/19 16:59 Home Medications: Ambulatory Orders Oxycodone HCl/Acetaminophen [Percocet 5-325 mg Tablet] 1 - 2 tab PO Q6H PRN Tamsulosin HCl [Flomax -] 0.4 mg PO DAILY 11/13/15 Acetaminophen [Tylenol .Regular Strength -] 650 mg PO Q4H PRN #0 tablet Fluticasone Prop 0.05% Nasal [Flonase -] 2 spray NS DAILY #1 bottle 11/20/15 Losartan Potassium [Cozaar -] 50 mg PO DAILY #30 tablet 03/24/18 Metoprolol Succinate [Toprol XL -] 25 mg PO BID #60 tab.sr.24h 03/24/18 Pramipexole Dihydrochloride [Mirapex -] 1 mg PO 0700,1100,1500,1900 #120 tablet 03/24/18 Aspirin Coated [Ecotrin -] 81 mg PO DAILY tablet.ec 12/22/18 Atorvastatin Ca [Lipitor] 40 mg PO HS tablet 12/22/18 Guaifenesin/D-Methorphan Hb [Diabetic Tussin Dm -] 5 ml PO Q4H PRN #1 bottle Albuterol 2.5/Ipratropium 0.5 [Duoneb -] 1 amp NEB Q6H PRN #120 amp 09/12/19 Torsemide [Demadex -] 20 mg PO DAILY #60 tablet 09/12/19 Carbidopa/Levodopa [Carbidopa-Levodopa 25-250 Tab] 1 each PO 0700,1100,1500, 1900 09/21/19 Docusate Sodium [Colace] 100 mg PO BID 09/21/19 Morphine *Sr* [MS Contin -] 60 mg PO 0600,1200,1800,2300 09/21/19 Albuterol 2.5/Ipratropium 0.5 [Duoneb -] 1 amp NEB RQID #120 amp 09/24/19 Allopurinol [Zyloprim -] 300 mg PO DAILY tablet 09/24/19 Amlodipine Besylate [Norvasc -] 10 mg PO DAILY #30 tablet 09/24/19 Azithromycin [Zithromax 250mg Tablets -] 250 mg PO DAILY #4 tablet 09/24/19 Gabapentin [Neurontin -] 300 mg PO TID #90 capsule 09/24/19 predniSONE [Deltasone -] 40 mg PO DAILY #10 tablet 09/24/19 Cancer: Yes (MULTIPLE MYELOMA) COPD: No CHF: Yes Diabetes: Yes HTN: Yes Hypercholesterolemia: Yes Other medical history: parkinsons - Immunization History Immunization Up to Date: Yes - Psycho Social/Smoking Cessation Hx Smoking History: Never smoked Have you smoked in the past 12 months: No Hx Alcohol Use: No Drug/Substance Use Hx: No Substance Use Type: None Hx Substance Use Treatment: No Review of Systems - Review of Systems Constitutional: No: Chills, Fever HEENTM: No: Blurred Vision, Double Vision, Tinnitus, Throat Pain Respiratory: Yes: Shortness of Breath, Wheezing, Productive cough Cardiac (ROS): No: Chest Pain, Edema ABD/GI: No: Constipated, Diarrhea, Nausea, Vomiting : No: Burning, Dysuria, Frequency, Flank Pain Musculoskeletal: No: Back Pain Integumentary: No: Bruising Neurological: No: Headache, Numbness, Weakness *Physical Exam - Vital Signs Last Vital Signs Temp Pulse Resp BP Pulse Ox 97 F L 100 H 20 203/95 H 94 L 09/20/19 16:55 09/20/19 16:55 09/20/19 16:55 09/20/19 16:55 09/20/19 16:55 - Physical Exam General Appearance: Yes: Nourished, Appropriately Dressed, Apparent Distress HEENT: positive: EOMI. negative: Tonsillar Exudate, Tonsillar Erythema, Nasal Congestion, Rhinorrhea, Sinus Tenderness, TM Bulging, TM Erythema, Excessive drooling Neck: positive: Supple. negative: Carotid bruit Respiratory/Chest: positive: Wheezing (diffuse). negative: Normal Breath Sounds , Accessory Muscle Use, Rapid RR, Crackles, Rales, Rhonchi, Stridor Cardiovascular: positive: Regular Rhythm, Regular Rate, S1, S2. negative: Edema , JVD, Murmur Vascular Pulses: Dorsalis-Pedis (R): 4+, Doralis-Pedis (L): 4+ Gastrointestinal/Abdominal: positive: Soft. negative: Pulsatile Mass, Protuberent, Distended, Guarding, Rebound, Tenderness Musculoskeletal: negative: CVA Tenderness Extremity: positive: Normal Capillary Refill, Normal Inspection, Normal Range of Motion Integumentary: positive: Normal Color, Dry, Warm Neurologic: positive: Fully Oriented, Alert, Normal Mood/Affect, Normal Response ED Treatment Course - LABORATORY CBC & Chemistry Diagram: 09/21/19 06:30 09/22/19 08:20 - RADIOLOGY Radiology Studies Ordered: Category Date Time Status CHEST X-RAY PORTABLE* [RAD] Stat Radiology 09/20/19 17:46 Ordered - Medications Given in the ED: ED Medications Discontinued Medications Generic Name Dose Route Start Last Admin Trade Name Freq PRN Reason Stop Dose Admin Albuterol/Ipratropium 1 amp 09/20/19 17:46 09/20/19 17:50 Duoneb - NEB 09/20/19 17:47 1 amp ONCE ONE Administration Medical Decision Making - Medical Decision Making 09/20/19 18:57 74 yo male CKD stage 3, metastatic Multiple Myeloma, parkinson's, CHF, HTN, HLD , NIIDM presents to the ED for productive cough and SOB. Pt recently admitted for ANN, DC on 09/12/2019, admits to worsening cough since DC and significant SOB over the past 09/17/2019. Of note, BP medication changed from 50 mg BID metoprolol to 25 BID and Losartan 150 mg daily to 100 mg. present, states she noted significant worsening of pt breathing and BP has averaged 160s-170s systolic. Pt saw PCP Maikol 3 days ago, given steroids, duo nebs and cefuroxamine for likely lung infection without improvement. Denies recent travel , calf tenderness, CP, abdominal pain, back pain, F/C/N/V. vitals show 02 94 (improved after medication and treatments) and elevated BP ( improved after steroids and breathing treatments) DDX INLT: CHF vs COPD vs PNA Trop neg, WBC WNL, influenza neg CXR no infiltrate, unlikely PNA. Unlikely CHF, no edema or crackles on exam, BNP 1000 Will admit for likely COPD exacerbation Discharge - Discharge Information Problems reviewed: Yes Clinical Impression/Diagnosis: COPD exacerbation Condition: Stable Disposition: HOME - Admission Yes - Follow up/Referral - Patient Discharge Instructions - Post Discharge Activity
[2019-09-20 18:56] LABS: ALBUMIN 3.5 g/dl (3.4-5.0); ALK PHOS 76 U/L (45-117); ANION GAP 5 MMOL/L (8-16); BILIRUBIN,TOTAL 0.4 mg/dL (0.2-1); BLOOD UREA NITROGEN 32.9 mg/dL (7-18); CALCIUM 8.8 mg/dL (8.5-10.1); CHLORIDE 102 mmol/L (98-107); CO2 29 mmol/L (21-32); CREATININE 1.5 mg/dL (0.55-1.3); GLUCOSE,RANDOM 132 mg/dL (74-106); N-TERMINAL BNP 1004.3 pg/ml (5-450); POTASSIUM 4.9 mmol/L (3.5-5.1); SGOT/AST 16 U/L (15-37); SGPT/ALT 12 U/L (13-61); SODIUM 137 mmol/L (136-145); TOT PROT 6.8 g/dl (6.4-8.2)
[2019-09-20 21:01] LABS: ANISOCYTOSIS 1+; MACROCYTOSIS 1+; OVALOCYTE 1+; PLATELET ESTIMATE ADEQUATE
[2019-09-21] MEDS ORDERED: ALBUTEROL SO4 2.5/IPRATROPIUM 0.5 INH SOL 3 ML VIAL.NEB. NEB PRN (01:17)
--- NOTE | 2019-09-21 01:21 | HP ---
Admitting History and Physical - Primary Care Physician PCP: Shelly Lassiter - Admission Chief Complaint: SOB, Cough History of Present Illness: This is a 74 y/o man with a PMhx of CKD Stage 3, Metastatic Multiple Myeloma, Parkinson's, CHF, HTN, HLD, NIIDM. Who presents to the ED for productive cough and SOB. Patient was recently admitted for [facility], DC on 09/12/2019. He reports worsening cough since being discharged, and significant SOB over the past 2019. Patient reports recent change to his BP medication from 50 mg BID metoprolol to 25 BID and Losartan 150 mg daily to 100 mg. Per ED record - present, states she noted significant worsening of patients breathing and BP has averaged 160s-170s systolic. Patient recently saw his PMD 3 days ago given steroids, duo nebs and cefuroxamine for likely lung infection without improvement. Patient denies fever, chills, URIBE, dizziness, CP, palpitations, AP, N/V/D, constipation, dysuria. Patient denies recent travel. History Source: Patient, Family Member Limitations to Obtaining History: No Limitations - Past Medical History ADVICE LINE RN: Yes: Parkinson's. No: Alzheimer's Cardiovascular: Yes: CHF, HTN, Hyperlipdemia. No: AFIB Pulmonary: Yes: COPD Gastrointestinal: Yes: GERD Renal/: Yes: Renal Inusuff, BPH Heme/Onc: Yes: Anemia, Cancer - Past Surgical History Past Surgical History: Yes: None - Smoking History Smoking history: Never smoked Have you smoked in the past 12 months: No - Alcohol/Substance Use Hx Alcohol Use: No History of Substance Use: reports: None - Social History Usual Living Arrangement: Yes: With Spouse ADL: Family Assistance History of Recent Travel: No Home Medications - Allergies Allergies/Adverse Reactions: Allergies Allergy/AdvReac Type Severity Reaction Status Date / Time No Known Allergies Allergy Verified 09/20/19 16:59 - Home Medications Home Medications: Ambulatory Orders Oxycodone HCl/Acetaminophen [Percocet 5-325 mg Tablet] 1 - 2 tab PO Q6H PRN Tamsulosin HCl [Flomax -] 0.4 mg PO DAILY 11/13/15 Acetaminophen [Tylenol .Regular Strength -] 650 mg PO Q4H PRN #0 tablet Fluticasone Prop 0.05% Nasal [Flonase -] 2 spray NS DAILY #1 bottle 11/20/15 Losartan Potassium [Cozaar -] 50 mg PO DAILY #30 tablet 03/24/18 Metoprolol Succinate [Toprol XL -] 25 mg PO BID #60 tab.sr.24h 03/24/18 Pramipexole Dihydrochloride [Mirapex -] 1 mg PO 0700,1100,1500,1900 #120 tablet 03/24/18 Aspirin Coated [Ecotrin -] 81 mg PO DAILY tablet.ec 12/22/18 Atorvastatin Ca [Lipitor] 40 mg PO HS tablet 12/22/18 Guaifenesin/D-Methorphan Hb [Diabetic Tussin Dm -] 5 ml PO Q4H PRN #1 bottle Albuterol 2.5/Ipratropium 0.5 [Duoneb -] 1 amp NEB Q6H PRN #120 amp 09/12/19 Torsemide [Demadex -] 20 mg PO DAILY #60 tablet 09/12/19 Carbidopa/Levodopa [Carbidopa-Levodopa 25-250 Tab] 1 each PO 0700,1100,1500, 1900 09/21/19 Docusate Sodium [Colace] 100 mg PO BID 09/21/19 Morphine *Sr* [MS Contin -] 60 mg PO 0600,1200,1800,2300 09/21/19 Albuterol 2.5/Ipratropium 0.5 [Duoneb -] 1 amp NEB RQID #120 amp 09/24/19 Allopurinol [Zyloprim -] 300 mg PO DAILY tablet 09/24/19 Amlodipine Besylate [Norvasc -] 10 mg PO DAILY #30 tablet 09/24/19 Azithromycin [Zithromax 250mg Tablets -] 250 mg PO DAILY #4 tablet 09/24/19 Gabapentin [Neurontin -] 300 mg PO TID #90 capsule 09/24/19 predniSONE [Deltasone -] 40 mg PO DAILY #10 tablet 09/24/19 Family Medical History Family Hx Cancer: Brother (multiple myeloma) Review of Systems - Review of Systems Constitutional: reports: No Symptoms Eyes: reports: No Symptoms HENT: reports: No Symptoms Neck: reports: No Symptoms Cardiovascular: reports: Shortness of Breath Respiratory: reports: Cough, SOB, SOB on Exertion Gastrointestinal: reports: No Symptoms Genitourinary: reports: No Symptoms Breasts: reports: No Symptoms Reported Musculoskeletal: reports: No Symptoms Integumentary: reports: No Symptoms Neurological: reports: No Symptoms Endocrine: reports: No Symptoms Hematology/Lymphatic: reports: No Symptoms Psychiatric: reports: No Symptoms Pain Intensity: 0 Physical Examination Vital Signs: Vital Signs Temperature 98.3 F 09/20/19 23:00 Pulse Rate 67 09/20/19 23:00 Respiratory Rate 09/20/19 23:00 Blood Pressure 161/74 09/20/19 23:00 O2 Sat by Pulse Oximetry (%) 99 09/20/19 23:00 Constitutional: Yes: No Distress, Calm, Obese Eyes: Yes: WNL, Conjunctiva Clear, EOM Intact, PERRL HENT: Yes: WNL, Atraumatic, Normocephalic Neck: Yes: WNL, Supple, Trachea Midline Cardiovascular: Yes: Regular Rate and Rhythm, S1, S2 Respiratory: Yes: Diminished, On Nasal O2, Rhonchi, SOB on Exertion, Wheezes Gastrointestinal: Yes: WNL, Normal Bowel Sounds, Soft Renal/: Yes: WNL Breast(s): Yes: WNL Musculoskeletal: Yes: WNL Extremities: Yes: WNL Edema: No Peripheral Pulses WNL: Yes Integumentary: Yes: WNL Neurological: Yes: Alert, Oriented, Cran Nerves II-XII Intact ...Motor Strength: WNL Psychiatric: Yes: WNL, Alert, Oriented Labs: CBC, BMP 09/20/19 18:05 09/20/19 18:05 Laboratory Results - last 24 hr 09/20/19 09/20/19 09/20/19 18:05 18:05 18:05 WBC 10.4 H RBC 4.88 Hgb 11.5 L Hct 37.4 MCV 76.6 L MCH 23.6 L MCHC 30.8 L RDW 17.1 H Plt Count 318 D MPV 7.7 Absolute Neuts (auto) 9.3 H Total Counted 100 Neutrophils % 89.1 H D Neutrophils % (Manual) 78.0 Band Neutrophils % 2.0 Lymphocytes % 6.9 L D Lymphocytes % (Manual) 7.0 L Monocytes % 3.9 Monocytes % (Manual) 4 Eosinophils % 0.0 Basophils % 0.1 Myelocytes % (Man) 4 H Nucleated RBC % 0 Metamyelocytes 3 H Differential Comment Man diff performed Platelet Estimate Adequate Platelet Comment Slide scanned. Polychromasia 1+ Poikilocytosis 1+ Anisocytosis 1+ Microcytosis 1+ Macrocytosis 1+ Ovalocytes 1+ Sodium 137 Potassium 4.9 Chloride 102 Carbon Dioxide 29 Anion Gap 5 L BUN 32.9 H Creatinine 1.5 H Est GFR (CKD-EPI)AfAm 52.03 Est GFR (CKD-EPI)NonAf 44.89 Random Glucose 132 H Calcium 8.8 Total Bilirubin 0.4 AST 16 ALT 12 L Alkaline Phosphatase 76 Creatine Kinase 108 Troponin I < 0.02 B-Natriuretic Peptide 1004.3 H Total Protein 6.8 Albumin 3.5 Influenza A (Rapid) Negative Influenza B (Rapid) Negative Intake & Output 09/18/19 09/19/19 09/20/19 09/21/19 23:59 23:59 23:59 23:59 Weight 120.202 kg Imaging - Results Chest X-ray: Report Reviewed, Image Reviewed Cat Scan: Image Reviewed EKG: Image Reviewed Problem List - Problems (1) COPD exacerbation Assessment/Plan: Continue duonebs Continue Solumderol w/taper Appreciate Pulm consult Monitor vitals O2 Aspiration Precautions Chest Xray- no infiltrates, no effusion Monitor CBC, BMP Code(s): J44.1 - CHRONIC OBSTRUCTIVE PULMONARY DISEASE W (ACUTE) EXACERBATION (2) CHF (congestive heart failure) Assessment/Plan: stable No acute flair Chest Xray-reviewed O2 Continue home meds Code(s): I50.9 - HEART FAILURE, UNSPECIFIED Qualifiers: Heart failure type: unspecified Heart failure chronicity: acute Qualified Code(s): I50.9 - Heart failure, unspecified (3) ANN (acute kidney injury) Assessment/Plan: Likely acute on chronic secondary to poor intake Appreciate Nephrology consult Monitor BMP Avoid Nephrotoxic Drugs Code(s): N17.9 - ACUTE KIDNEY FAILURE, UNSPECIFIED (4) Cough Assessment/Plan: Likely secondary to COPD Exacerbation Duonebs prn Monitor Spo2 Aspiration Precautions Code(s): R05 - COUGH (5) Hyperlipidemia Assessment/Plan: stable Continue home med Monitor LFTs Code(s): E78.5 - HYPERLIPIDEMIA, UNSPECIFIED (6) Multiple myeloma not having achieved remission Assessment/Plan: Per patient he has PET scans periodically Consider Oncology consult Code(s): C90.00 - MULTIPLE MYELOMA NOT HAVING ACHIEVED REMISSION (7) Parkinson disease Assessment/Plan: stable Continue home med Fall Precautions Code(s): G20 - PARKINSON'S DISEASE Assessment/Plan This is a 74 y/o man with a PMHx of CKD Stage 3, Metastatic Multiple Myeloma, Parkinson's, CHF, HTN, HLD, NIIDM. Admitted for COPD Exacerbation for further evaluation of their emergent condition. Plan: See Problem List FEN Fluid Restriction 1L Replete lytes prn Low Na Diet DVT ppx OOB SCDs Heparin SQ Dispo: Requires Inpatient Care Visit type - Emergency Visit Emergency Visit: Yes ED Registration Date: 09/20/19 Care time: The patient presented to the Emergency Department on the above date and was hospitalized for further evaluation of their emergent condition. - New Patient This patient is new to me today: Yes Date on this admission: 09/21/19 - Critical Care Critical Care patient: No
[2019-09-21] MEDS ORDERED: methylPREDNISolone NA SUCC 40 MG/1 ML VIAL ONE (03:30)
[2019-09-21] MEDS ORDERED: ALBUTEROL SO4 2.5/IPRATROPIUM 0.5 INH SOL 3 ML VIAL.NEB. NEB ONE (03:30)
[2019-09-21] MEDS: methylPREDNISolone NA SUCC 40 MG/1 ML VIAL IVPUSH SCH ×3 (03:32→17:51)
[2019-09-21 07:29] LABS: BASO % 0.2 % (0-2.0); HEMATOCRIT 36.1 % (35.4-49); HEMOGLOBIN 11.1 GM/dL (11.7-16.9); LYMPH % 9.5 % (8-40); MCH 23.9 pg (25.7-33.7); MCHC 30.7 g/dl (32.0-35.9); MEAN CELL VOLUME 77.8 fl (80-96); MONO % 2.5 % (3.8-10.2); NEUT % 87.8 % (42.8-82.8); PLATELET COUNT 289 K/MM3 (134-434); RBC 4.63 M/mm3 (4.00-5.60); WHITE BLOOD COUNT 8.5 K/mm3 (4.0-10.0)
[2019-09-21 07:52] LABS: BLOOD UREA NITROGEN 32.5 mg/dL (7-18); CALCIUM 8.6 mg/dL (8.5-10.1); CREATININE 1.4 mg/dL (0.55-1.3); POTASSIUM 5.2 mmol/L (3.5-5.1)
[2019-09-21] MEDS: CARBIDOPA/LEVODOPA 25/250 TABLET (FP) PO SCH ×5 (08:00→22:16)
[2019-09-21] MEDS: TAMSULOSIN HCL 0.4 MG CAP PO SCH (08:30)
[2019-09-21] MEDS ORDERED: TAMSULOSIN HCL 0.4 MG CAP ONE (08:30)
[2019-09-21] MEDS: GABAPENTIN 300 MG CAPSULE PO SCH ×3 (08:30→22:09)
[2019-09-21] MEDS: PRAMIPEXOLE DIHYDROCHLORIDE 1 MG TABLET PO SCH ×4 (08:30→19:30)
[2019-09-21] MEDS ORDERED: CARBIDOPA/LEVODOPA 25/250 TABLET (FP) ONE (08:31)
[2019-09-21] MEDS ORDERED: GABAPENTIN 100 MG CAPSULE ONE ×2 (08:31→08:32)
--- NOTE | 2019-09-21 09:34 | PN ---
Progress Note, Physician - Current Medication List Current Medications: Active Medications Albuterol/Ipratropium (Duoneb -) 1 amp NEB RQID PRN PRN Reason: SHORTNESS OF BREATH Last Admin: 09/21/19 03:31 Dose: 1 amp Allopurinol (Zyloprim -) 300 mg PO DAILY [facility] Aspirin (Asa -) 81 mg PO DAILY [facility] Atorvastatin Calcium (Lipitor -) 40 mg PO HS [facility] Carbidopa/Levodopa (Sinemet 25/250 -) 1 each PO QID [facility] Last Admin: 09/21/19 08:00 Dose: 1 each Fluticasone Propionate (Flonase -) 2 spray NS DAILY [facility] Gabapentin (Neurontin -) 300 mg PO TID [facility] Losartan Potassium (Cozaar -) 50 mg PO DAILY [facility] Methylprednisolone Sodium Succinate (Solu-Medrol -) 40 mg IVPUSH Q8H-IV [facility] Last Admin: 09/21/19 03:32 Dose: 40 mg Metoprolol Succinate (Toprol Xl -) 25 mg PO BID [facility] Pramipexole Dihydrochloride (Mirapex -) 1 mg PO 0700,1100,1500,1900 [facility] Tamsulosin HCl (Flomax -) 0.4 mg PO DAILY@0830 [facility] - Objective Vital Signs: Vital Signs Temperature 98.1 F 09/21/19 06:00 Pulse Rate 74 09/21/19 07:30 Respiratory Rate 18 09/21/19 07:30 Blood Pressure 172/75 H 09/21/19 07:30 O2 Sat by Pulse Oximetry (%) 98 09/21/19 07:30 Cardiovascular: Yes: Regular Rate and Rhythm Respiratory: Yes: On Nasal O2, Rhonchi Gastrointestinal: Yes: Normal Bowel Sounds, Soft Labs: CBC, BMP 09/21/19 06:30 09/21/19 06:30 Problem List - Problems (1) COPD exacerbation Assessment/Plan: IV STEROIDS NEBS PULM AND ID CONSULT CT SCAN NOTED--NAD Code(s): J44.1 - CHRONIC OBSTRUCTIVE PULMONARY DISEASE W (ACUTE) EXACERBATION (2) Bronchitis Assessment/Plan: ABOVE ?ABX FLU NEG Code(s): J40 - BRONCHITIS, NOT SPECIFIED ACUTE OR CHRONIC (3) Multiple myeloma not having achieved remission Code(s): C90.00 - MULTIPLE MYELOMA NOT HAVING ACHIEVED REMISSION (4) ANN (acute kidney injury) Assessment/Plan: NEPHROLOGY CONSULT Code(s): N17.9 - ACUTE KIDNEY FAILURE, UNSPECIFIED
[2019-09-21] MEDS ORDERED: CARBIDOPA LEVODOPA PO SCH (10:00)
[2019-09-21] MEDS: ASPIRIN 81 MG CHEWABLE TABLETS PO SCH (11:21)
[2019-09-21] MEDS: LOSARTAN POTASSIUM 50 MG TABLET (FP) PO SCH (11:21)
[2019-09-21] MEDS: metoPROLOL SUCCINATE 25 MG TAB.SR.24H (FP) PO SCH ×2 (11:22→22:09)
[2019-09-21] MEDS: ALLOPURINOL 300 MG TABLET (FP) PO SCH (11:22)
--- NOTE | 2019-09-21 11:53 | CONSULT ---
Consult - text type - Consultation Consultation Note: Renal consult for CKD This is a 74 year old gentleman with history of CKD stage 4 ( eGFR 56), Multple Myeloma, CHF, hypertension, HLD, DM who presented with cough and shortness of breath and admitted for COPD exacerbation with Cr of 1.4. Pt also has contrast exposure this admission during a CTA done to r/o PE. Seen and examined in the ER. He is awake and alert. Feels better now but still has some cough. No fever, chills, muscle aches, N/V/D, chest pain, abdominal pain, confusion or lethargy. He is making urine. Has no leg swelling. No flank pain. PMhx: as above Allergies: NKDA Family Hx: NC Social Hx: Never smoked, no second hand smoke exposure Home Medications Medication Instructions Recorded Oxycodone HCl/Acetaminophen 1 - 2 tab PO Q6H PRN 11/13/15 [Percocet 5-325 mg Tablet] Tamsulosin HCl [Flomax -] 0.4 mg PO DAILY 11/13/15 Acetaminophen [Tylenol .Regular 650 mg PO Q4H PRN #0 tablet 11/20/15 Strength -] Fluticasone Prop 0.05% Nasal 2 spray NS DAILY #1 bottle 11/20/15 [Flonase -] Losartan Potassium [Cozaar -] 50 mg PO DAILY #30 tablet 03/24/18 Metoprolol Succinate [Toprol XL -] 25 mg PO BID #60 tab.sr.24h 03/24/18 Pramipexole Dihydrochloride 1 mg PO 0700,1100,1500,1900 #120 03/24/18 [Mirapex -] tablet Aspirin Coated [Ecotrin -] 81 mg PO DAILY tablet.ec 12/22/18 Atorvastatin Ca [Lipitor] 40 mg PO HS tablet 12/22/18 Guaifenesin/D-Methorphan Hb 5 ml PO Q4H PRN #1 bottle 12/22/18 [Diabetic Tussin Dm -] Albuterol 2.5/Ipratropium 0.5 1 amp NEB Q6H PRN #120 amp 09/12/19 [Duoneb -] Torsemide [Demadex -] 20 mg PO DAILY #60 tablet 09/12/19 Allopurinol [Zyloprim -] 100 mg PO DAILY 09/21/19 Carbidopa/Levodopa 1 each PO 0700,1100,1500,1900 09/21/19 [Carbidopa-Levodopa 25-250 Tab] Docusate Sodium [Colace] 100 mg PO BID 09/21/19 Gabapentin 800 mg PO ASDIR 09/21/19 Morphine *Sr* [Ms Contin -] 60 mg PO 0600,1200,1800,2300 09/21/19 Vital Signs Temperature 98.7 F 09/21/19 11:00 Pulse Rate 62 09/21/19 11:00 Respiratory Rate 09/21/19 11:00 Blood Pressure 169/65 09/21/19 11:00 O2 Sat by Pulse Oximetry (%) 98 09/21/19 07:30 Intake & Output 09/18/19 09/19/19 09/20/19 09/21/19 23:59 23:59 23:59 23:59 Output Total 600 Balance -600 Weight 120.202 kg NAD awake and alert neck supple, no JVD RRR, no M/R CTA, no rales or wheeze soft NT/ND no LE edema, clubbing or cyanosis CBC, BMP 09/21/19 06:30 09/21/19 06:30 Current Medications Albuterol/Ipratropium (Duoneb -) 1 amp NEB RQID [facility] Allopurinol (Zyloprim -) 300 mg PO DAILY [facility] Last Admin: 09/21/19 11:22 Dose: 300 mg Aspirin (Asa -) 81 mg PO DAILY [facility] Last Admin: 09/21/19 11:21 Dose: 81 mg Atorvastatin Calcium (Lipitor -) 40 mg PO HS [facility] Carbidopa/Levodopa (Sinemet 25/250 -) 1 each PO QID [facility] Last Admin: 09/21/19 10:59 Dose: Not Given Fluticasone Propionate (Flonase -) 2 spray NS DAILY [facility] Gabapentin (Neurontin -) 300 mg PO TID [facility] Last Admin: 09/21/19 08:30 Dose: 300 mg Losartan Potassium (Cozaar -) 50 mg PO DAILY [facility] Last Admin: 09/21/19 11:21 Dose: 50 mg Methylprednisolone Sodium Succinate (Solu-Medrol -) 40 mg IVPUSH Q8H-IV [facility] Last Admin: 09/21/19 11:21 Dose: 40 mg Metoprolol Succinate (Toprol Xl -) 25 mg PO BID [facility] Last Admin: 09/21/19 11:22 Dose: 25 mg Pramipexole Dihydrochloride (Mirapex -) 1 mg PO 0700,1100,1500,1900 [facility] Last Admin: 09/21/19 11:22 Dose: 1 mg Tamsulosin HCl (Flomax -) 0.4 mg PO DAILY@0830 [facility] Last Admin: 09/21/19 08:30 Dose: 0.4 mg 74 y/o man with a PMhx of CKD Stage 3, Metastatic Multiple Myeloma, Parkinson's , CHF, HTN, HLD, NIIDM. Who presents to the ED for productive cough and SOB. 1. CKD stage 3 2. Shortness of breath secondary to COPD vs. other etiology 3. Hx fo CHF, not in acute exacerbation 4. Contrast exposure in CKD patient/Contrast nephropathy prophylaxis 5. Mild hyperkalemia 6. Anemia Renal function is stable at this time. Will give isotonic saline x 8 hours to help prevent NUVIA Trend renal function and electrolytes daily no signs of volume overload/CHF Continue empiric steroids as per pulmonary influenza negative BP is elevated, continue Losartan 50mg daily, add amlodpine 10mg daily Low potassium diet Thank you will follow Madan Mcintosh DO
[2019-09-21] MEDS: ALBUTEROL SO4 2.5/IPRATROPIUM 0.5 INH SOL 3 ML VIAL.NEB. NEB SCH ×3 (12:00→20:45)
--- NOTE | 2019-09-21 12:16 | CONSULT ---
Consultation: REQUESTING PROVIDER:primary team CONSULT REQUEST: We have been asked to medically evaluate this patient for ( MM ). HISTORY OF PRESENT ILLNESS: This is a 74 y/o man with a PMhx of CKD Stage 3, Metastatic Multiple Myeloma, Parkinson's, CHF, HTN, HLD, NIIDM. Who presents to the ED for productive cough and SOB. Patient was recently admitted for [place] on 09/12/2019. He reports worsening cough since being discharged, and significant SOB over the past 2019. Patient reports recent change to his BP medication from 50 mg BID metoprolol to 25 BID and Losartan 150 mg daily to 100 mg. Per ED record - present, states she noted significant worsening of patients breathing and BP has averaged 160s-170s systolic. Patient recently saw his PMD 3 days ago given steroids, duo nebs and cefuroxamine for likely lung infection without improvement. Patient denies fever, chills, URIBE, dizziness, CP, palpitations, AP, N/V/D, constipation, dysuria. Patient denies recent travel. 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 REVIEW OF SYSTEMS: CONSTITUTIONAL: Absent: fever, chills, diaphoresis, generalized weakness, malaise, loss of appetite, weight change gain weight does not know how much HEENT: Absent: rhinorrhea, nasal congestion, throat pain, throat swelling, difficulty swallowing, mouth swelling, ear pain, eye pain, visual changes CARDIOVASCULAR: Absent: chest pain wih cough , syncope, palpitations, irregular heart rate, lightheadedness, peripheral edema RESPIRATORY: Absent: cough with mucous phlegm , shortness of breath, dyspnea with exertion, orthopnea, wheezing, stridor, hemoptysis GASTROINTESTINAL: Absent: abdominal pain, abdominal distension, nausea, vomiting, diarrhea, constipation, melena, hematochezia GENITOURINARY: Absent: dysuria, frequency, urgency, hesitancy, hematuria, flank pain, genital pain MUSCULOSKELETAL: Absent: myalgia, arthralgia, joint swelling, back pain, neck pain SKIN: Absent: rash, itching, pallor HEMATOLOGIC/IMMUNOLOGIC: Absent: easy bleeding, easy bruising, lymphadenopathy, frequent infections ENDOCRINE: Absent: unexplained weight gain, unexplained weight loss, heat intolerance, cold intolerance NEUROLOGIC: Absent: headache, focal weakness or paresthesias, dizziness, unsteady gait, seizure, mental status changes, bladder or bowel incontinence PSYCHIATRIC: Absent: anxiety, depression, suicidal or homicidal ideation, hallucinations. PHYSICAL EXAMINATION Vital Signs - 24 hr 09/20/19 09/20/19 09/20/19 16:55 18:00 18:20 Temperature 97 F L Pulse Rate 100 H Pulse Rate [ 100 H Apical] Respiratory 20 20 Rate Blood Pressure 203/95 H Blood Pressure 194/90 H [Left Arm] O2 Sat by Pulse 94 L 95 100 Oximetry (%) 09/20/19 09/20/19 09/20/19 19:00 20:59 23:00 Temperature 98.3 F Pulse Rate Pulse Rate [ 90 67 Apical] Respiratory 22 H 20 Rate Blood Pressure Blood Pressure 172/93 H 161/74 [Left Arm] O2 Sat by Pulse 95 99 99 Oximetry (%) 09/21/19 09/21/19 09/21/19 02:54 03:46 06:00 Temperature 98.1 F Pulse Rate Pulse Rate [ 67 62 Apical] Respiratory 20 18 Rate Blood Pressure Blood Pressure 185/85 H 182/79 H [Left Arm] O2 Sat by Pulse 99 99 98 Oximetry (%) 09/21/19 09/21/19 07:30 11:00 Temperature 98.7 F Pulse Rate 62 Pulse Rate [ 74 Apical] Respiratory 18 20 Rate Blood Pressure 169/65 Blood Pressure 172/75 H [Left Arm] O2 Sat by Pulse 98 Oximetry (%) GENERAL: Awake, alert, and fully oriented, in no acute distress.right foot drop , obese HEAD: Normal with no signs of trauma. EYES: Pupils equal, round and reactive to light, extraocular movements intact, sclera anicteric, EARS, NOSE, THROATno oral thrush . Moist mucous membranes. NECK: Normal range of motion, supple without lymphadenopathy, JVD, LUNGS: Breath sounds equal, clear to auscultation bilaterally. No wheezes, and no crackles. No accessory muscle use. HEART: Regular rate and rhythm, normal S1 and S2 without murmur, rub or gallop. ABDOMEN: obese , Soft, nontender, not distended, normoactive bowel sounds, no lymph nodes enlargement noted no breast mass palpated LOWER EXTREMITIES: 2+ pulses, warm, well-perfused. No calf tenderness. No peripheral edema. NEUROLOGICAL: right foot drop . Normal speech. , AAo3 PSYCHIATRIC: Cooperative. Good eye contact. SKIN: Warm, dry, Active Medications Generic Name Dose Route Start Last Admin Trade Name Freq PRN Reason Stop Dose Admin Albuterol/Ipratropium 1 amp 09/21/19 12:00 Duoneb - NEB RQID ANAT Allopurinol 300 mg 09/21/19 10:00 09/21/19 11:22 Zyloprim - PO 300 mg DAILY ANAT Administration Amlodipine Besylate 10 mg 09/21/19 12:15 Norvasc - PO DAILY [facility] Aspirin 81 mg 09/21/19 10:00 09/21/19 11:21 Asa - PO 81 mg DAILY ANAT Administration Atorvastatin Calcium 40 mg 09/21/19 22:00 Lipitor - PO HS [facility] Carbidopa/Levodopa 1 each 09/21/19 10:00 09/21/19 10:59 Sinemet 25/250 - PO Not Given QID [facility] Fluticasone Propionate 2 spray 09/21/19 10:00 Flonase - NS DAILY [facility] Gabapentin 300 mg 09/21/19 07:30 09/21/19 08:30 Neurontin - PO 300 mg TID ANAT Administration Sodium Chloride 1,000 mls @ 83 mls/hr 09/21/19 12:15 Normal Saline - IV 09/21/19 20:14 ASDIR [facility] Losartan Potassium 50 mg 09/21/19 10:00 09/21/19 11:21 Cozaar - PO 50 mg DAILY ANAT Administration Methylprednisolone Sodium Succinate 40 mg 09/21/19 02:00 09/21/19 11:21 Solu-Medrol - IVPUSH 40 mg Q8H-IV ANAT Administration Metoprolol Succinate 25 mg 09/21/19 10:00 09/21/19 11:22 Toprol Xl - PO 25 mg BID ANAT Administration Pramipexole Dihydrochloride 1 mg 09/21/19 07:29 09/21/19 11:22 Mirapex - PO 1 mg 0700,1100,1500,1900 ANAT Administration Tamsulosin HCl 0.4 mg 09/21/19 08:30 09/21/19 08:30 Flomax - PO 0.4 mg DAILY@0830 [facility] Administration CBC, BMP 09/21/19 06:30 09/21/19 06:30 ASSESSMENT/PLAN: 74 y/o man with a PMhx of CKD Stage 3, Metastatic Multiple Myeloma, Parkinson's , CHF, HTN, HLD, NIIDM. Who presents to the ED for productive cough and SOB. #anemia microcytic hypochromic #Hx of multiple myeloma in remission x years . Initially treated with chemotherapy and biologics. 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 Zak Whitfield History of multiple renal cysts dating back a minimum of 3 years on imaging studies copd ??? family denies chf mild hyperkalemia thyroid goiter follow up endocrinology plan cont steroids iron studies occult blood erythropiotin MM sable for now Ca stable ENT consult for hoarsness speech and swallow adrenal biopsy Dispo: We will continue to follow the patient. Thank you for this consultative opportunity. Visit type - Emergency Visit Emergency Visit: Yes ED Registration Date: 09/21/19 Care time: The patient presented to the Emergency Department on the above date and was hospitalized for further evaluation of their emergent condition. - New Patient This patient is new to me today: Yes Date on this admission: 09/21/19 - Critical Care Critical Care patient: No ATTENDING PHYSICIAN STATEMENT I saw and evaluated the patient. I reviewed the resident's note and discussed the case with the resident. I agree with the resident's findings and plan as documented. SUBJECTIVE: OBJECTIVE: ASSESSMENT AND PLAN:
[2019-09-21 12:22] LABS: ANISOCYTOSIS 1+; MACROCYTOSIS 0; PLATELET ESTIMATE NORMAL; TARGET CELLS 1+; TEAR DROP CELLS 1+
[2019-09-21] MEDS: SODIUM CHLORIDE 1,000 ML IV SCH ×2 (12:32→17:54)
[2019-09-21] MEDS: FLUTICASONE PROP 0.05% 16 GM NASAL SPRAY NS SCH (13:24)
[2019-09-21] MEDS: amLODIPine BESYLATE 10 MG TABLET (FP) PO SCH (13:25)
--- NOTE | 2019-09-21 13:38 | PN ---
Progress Note (short form) - Note Progress Note: ID consult dictated imp/reccd 74 yo man admitted from home with cough and SOB for last several days seen 3 days ago for these complaints by his PMD and started on prednisone and ceftin he presents last night with no improvement in his symptoms chest cta in ER no PE, no pneumonia +thyroid goiter recent admission 09/10 to 09/12 for HTN and cough pmh of multiple myeloma and parkinsons disease +inflluenza vaccine and +pnumonia vaccine no fevers or chills +productive cough influenza screen negative most c/w copd exacerbation cannot r/o acute bronchitis steroids per plulmonary sputum culture zithromax po check rsv antigen mulitple myeloma CKD parkinson's disease Problem List - Problems (1) COPD exacerbation Code(s): J44.1 - CHRONIC OBSTRUCTIVE PULMONARY DISEASE W (ACUTE) EXACERBATION (2) Bronchitis Code(s): J40 - BRONCHITIS, NOT SPECIFIED ACUTE OR CHRONIC (3) Multiple myeloma not having achieved remission Code(s): C90.00 - MULTIPLE MYELOMA NOT HAVING ACHIEVED REMISSION (4) Parkinson disease Code(s): G20 - PARKINSON'S DISEASE
--- NOTE | 2019-09-21 14:45 | CON.PULM ---
Consult Consult Specialty:: PULM/CCM Referred by:: PMD Reason for Consultation:: SOB - History of Present Illness Chief Complaint: SOB History of Present Illness: 74 M, life long non-smoker, CKD Stage 3, Metastatic Multiple Myeloma, Parkinson' s, CHF, HTN, HLD, and NIDDM. Admitted via the ER due to 2 to 3 days of productive cough of yellow sputum and progressive SOB. He was seen by his PMD and given Prednisone, and BD TX, and cefuroxamine. No travel history or sick contacts. No night sweats or hemoptysis. CTA: No PE / no acute pathology / large thyroid goiter. - History Source History Provided By: Patient Limitations to Obtaining History: No Limitations - Past Medical History [employer]: Yes: Parkinson's. 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 No: AFIB Pulmonary: Yes: COPD Gastrointestinal: Yes: GERD Renal/: Yes: Renal Inusuff, BPH - Alcohol/Substance Use Hx Alcohol Use: No - Smoking History Smoking history: Never smoked Have you smoked in the past 12 months: No - Social History ADL: Family Assistance History of Recent Travel: No Home Medications - Allergies Allergies/Adverse Reactions: Allergies Allergy/AdvReac Type Severity Reaction Status Date / Time No Known Allergies Allergy Verified 09/20/19 16:59 - Home Medications Home Medications: Ambulatory Orders Oxycodone HCl/Acetaminophen [Percocet 5-325 mg Tablet] 1 - 2 tab PO Q6H PRN Tamsulosin HCl [Flomax -] 0.4 mg PO DAILY 11/13/15 Acetaminophen [Tylenol .Regular Strength -] 650 mg PO Q4H PRN #0 tablet Fluticasone Prop 0.05% Nasal [Flonase -] 2 spray NS DAILY #1 bottle 11/20/15 Losartan Potassium [Cozaar -] 50 mg PO DAILY #30 tablet 03/24/18 Metoprolol Succinate [Toprol XL -] 25 mg PO BID #60 tab.sr.24h 03/24/18 Pramipexole Dihydrochloride [Mirapex -] 1 mg PO 0700,1100,1500,1900 #120 tablet 03/24/18 Aspirin Coated [Ecotrin -] 81 mg PO DAILY tablet.ec 12/22/18 Atorvastatin Ca [Lipitor] 40 mg PO HS tablet 12/22/18 Guaifenesin/D-Methorphan Hb [Diabetic Tussin Dm -] 5 ml PO Q4H PRN #1 bottle Albuterol 2.5/Ipratropium 0.5 [Duoneb -] 1 amp NEB Q6H PRN #120 amp 09/12/19 Torsemide [Demadex -] 20 mg PO DAILY #60 tablet 09/12/19 Allopurinol [Zyloprim -] 100 mg PO DAILY 09/21/19 Carbidopa/Levodopa [Carbidopa-Levodopa 25-250 Tab] 1 each PO 0700,1100,1500, 1900 09/21/19 Docusate Sodium [Colace] 100 mg PO BID 09/21/19 Gabapentin 800 mg PO ASDIR 09/21/19 Morphine *Sr* [Ms Contin -] 60 mg PO 0600,1200,1800,2300 09/21/19 Review of Systems - Review of Systems Constitutional: reports: Chills, Fever, Malaise. denies: Night Sweats, Unintentional Wgt. Loss Eyes: reports: No Symptoms HENT: reports: No Symptoms Neck: reports: No Symptoms Cardiovascular: reports: Shortness of Breath. denies: Chest Pain, Edema, Palpitations Respiratory: reports: Cough, Snoring, SOB, SOB on Exertion, Wheezing. denies: Hemoptysis Gastrointestinal: reports: No Symptoms Genitourinary: reports: No Symptoms Breasts: reports: No Symptoms Reported Musculoskeletal: reports: No Symptoms Integumentary: reports: No Symptoms Neurological: reports: No Symptoms Endocrine: reports: No Symptoms Hematology/Lymphatic: reports: No Symptoms Psychiatric: reports: No Symptoms Physical Exam Vital Sings: Vital Signs Temperature 98.7 F 09/21/19 11:00 Pulse Rate 62 09/21/19 11:00 Respiratory Rate 20 09/21/19 11:00 Blood Pressure 169/65 09/21/19 11:00 O2 Sat by Pulse Oximetry (%) 98 09/21/19 07:30 Constitutional: Yes: Calm, Obese Eyes: Yes: Conjunctiva Clear, EOM Intact HENT: Yes: Atraumatic, Normocephalic Neck: Yes: Supple, Trachea Midline Cardiovascular: Yes: Regular Rate and Rhythm Respiratory: Yes: Cough, On Nasal O2, Rhonchi, SOB, SOB on Exertion, Tachypnea, Wheezes. No: Accessory Muscle Use, Rales, Stridor ...Inspection: Yes: WNL ...Clubbing: No Gastrointestinal: Yes: Normal Bowel Sounds, Soft Renal/: Yes: WNL Musculoskeletal: Yes: WNL Extremities: Yes: WNL Edema: No Peripheral Pulses WNL: Yes Integumentary: Yes: WNL Neurological: Yes: WNL, Alert, Oriented ...Motor Strength: WNL Psychiatric: Yes: WNL, Alert, Oriented Labs: CBC, BMP 09/21/19 06:30 09/21/19 06:30 Imaging - Results Chest X-ray: Report Reviewed, Image Reviewed Cat Scan: Report Reviewed, Image Reviewed Problem List - Problems (1) COPD exacerbation Code(s): J44.1 - CHRONIC OBSTRUCTIVE PULMONARY DISEASE W (ACUTE) EXACERBATION (2) Anemia Code(s): D64.9 - ANEMIA, UNSPECIFIED (3) Bronchitis Code(s): J40 - BRONCHITIS, NOT SPECIFIED ACUTE OR CHRONIC (4) Cough Code(s): R05 - COUGH (5) Hyperlipidemia Code(s): E78.5 - HYPERLIPIDEMIA, UNSPECIFIED (6) Multiple myeloma not having achieved remission Code(s): C90.00 - MULTIPLE MYELOMA NOT HAVING ACHIEVED REMISSION (7) Parkinson disease Code(s): G20 - PARKINSON'S DISEASE Assessment/Plan Medrol BD TX O2 as needed Noted ID evaluation was called: PO Zithromax Influenza was negative Noted Flonase No smoking PFTs once stable as an outpatient Will follow Thank you. Dr Yuan
[2019-09-21 15:12] VITALS: BMI 36.1
[2019-09-21] MEDS ORDERED: AZITHROMYCIN 250 MG TABLET PO ONE (15:14)
--- NOTE | 2019-09-21 15:23 | PN ---
Teaching Attending Note Name of Resident: Manolo Perdomo ATTENDING PHYSICIAN STATEMENT I saw and evaluated the patient. I reviewed the resident's note and discussed the case with the resident. I agree with the resident's findings and plan as documented. SUBJECTIVE: Patient seen and examined 74 year old presents with hacking non productive cough, non responsive to antibiotics or course of out patient steroids. Past history of multiple myeloma in remission. Hx of BPH, HBP, Neuropathy,CHF, Parkinson's Disease,CKD . Last Vital Signs Temp Pulse Resp BP Pulse Ox 98.7 F 62 20 169/65 98 09/21/19 11:00 09/21/19 11:00 09/21/19 11:00 09/21/19 11:00 09/21/19 11:00 HEENT: PIERO, EOM Intact Oropharynx: No thrush, No mucositis Neck: Supple Nodes: Without adenopathy Breasts: Without masses Cor: RSR, No murmurs, No gallops Lungs:rhonchi Abd: Soft, Normal bowel sounds, No organomegaly Ext:No significant edema Skin: No rashes, Integument intact CBC, BMP 09/21/19 06:30 09/21/19 06:30 Current Medications Generic Name Dose Route Start Last Admin Trade Name Freq PRN Reason Stop Dose Admin Albuterol/Ipratropium 1 amp 09/21/19 12:00 09/21/19 12:00 Duoneb - NEB Not Given RQID ANAT Allopurinol 300 mg 09/21/19 10:00 09/21/19 11:22 Zyloprim - PO 300 mg DAILY ANAT Administration Amlodipine Besylate 10 mg 09/21/19 12:15 09/21/19 13:25 Norvasc - PO 10 mg DAILY ANAT Administration Aspirin 81 mg 09/21/19 10:00 09/21/19 11:21 Asa - PO 81 mg DAILY ANAT Administration Atorvastatin Calcium 40 mg 09/21/19 22:00 Lipitor - PO HS ANAT Carbidopa/Levodopa 1 each 09/21/19 10:00 09/21/19 14:44 Sinemet 25/250 - PO 1 each QID ANAT Administration Fluticasone Propionate 2 spray 09/21/19 10:00 09/21/19 13:24 Flonase - NS 2 spr DAILY ANAT Administration Gabapentin 300 mg 09/21/19 07:30 09/21/19 14:44 Neurontin - PO 300 mg TID ANAT Administration Sodium Chloride 1,000 mls @ 83 mls/hr 09/21/19 12:15 09/21/19 12:32 Normal Saline - IV 09/21/19 20:14 83 mls/hr ASDIR ANAT Administration Losartan Potassium 50 mg 09/21/19 10:00 09/21/19 11:21 Cozaar - PO 50 mg DAILY ANAT Administration Methylprednisolone Sodium Succinate 40 mg 09/21/19 02:00 09/21/19 11:21 Solu-Medrol - IVPUSH 40 mg Q8H-IV ANAT Administration Metoprolol Succinate 25 mg 09/21/19 10:00 09/21/19 11:22 Toprol Xl - PO 25 mg BID ANAT Administration Pramipexole Dihydrochloride 1 mg 09/21/19 07:29 09/21/19 14:45 Mirapex - PO 1 mg 0700,1100,1500,1900 ANAT Administration Tamsulosin HCl 0.4 mg 09/21/19 08:30 09/21/19 08:30 Flomax - PO 0.4 mg DAILY@0830 ANAT Administration Impression: Chronic hacking cough non responsive to outpatient short course of antibiotics and steroids. For steroids and antibiotic therapy. Prior hypoglobulinemia such that if difficulty in controlling current pulmonary infectious issues, can consider course of gamma globulin . Multiple myeloma in remission Neuropathy HBP Parkinson's. OBJECTIVE: ASSESSMENT AND PLAN:
[2019-09-21] MEDS ORDERED: PT OWN MED DRAWER 7, Y5N ONE ×3 (17:21→22:14)
[2019-09-21] MEDS ORDERED: DOXYCYCLINE HYCLATE 100 MG CAPSULE PO SCH (18:00)
--- NOTE | 2019-09-21 18:15 | CONS ---
DATE OF CONSULTATION: DATE OF DICTATION: 09/21/2019 INFECTIOUS DISEASE CONSULTATION REQUESTING PHYSICIAN: Shelly Lassiter M.D. CONSULTING PHYSICIAN: Dena France M.D. HISTORY OF PRESENT ILLNESS: This is a 74-year-old man. He has a past medical history of multiple myeloma, CKD, and Parkinson's disease. He was recently hospitalized from the September 10 to September 12 with hypertension and a cough. He did not receive any antibiotics during that admission. He also has a history of COPD. He now is admitted with a 3-day history of cough and shortness of breath. He was seen by Dr. Lassiter on Saturday, was prescribed prednisone and Ceftin which he took. His symptoms worsened, and he presented last night for further evaluation. He has had influenza vaccine. He has had pneumonia vaccine. He denies any fevers or chills. He lives at home with his . He received steroids in the ER and is feeling better today. He had a chest CTA that showed no PE and no pneumonia. He did show a thyroid goiter. PAST MEDICAL HISTORY: Notable for history of Parkinson's disease, multiple myeloma, CKD, CHF, hypertension, hyperlipidemia, COPD, GERD, anemia, and multiple myeloma. SOCIAL HISTORY: He is originally from [facility]. He has been in this country more than 50 years. He came in the 60s. 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 He never smoked. There is no history of substance use. He lives at home with his spouse who is a nurse. FAMILY HISTORY- brother with myeloma ALLERGIES: No known drug allergies. MEDICATION: Medication list is not available except as stated. He appears to be taking Demadex, Flomax, Mirapex, Percocet, morphine, Cozaar, Toprol XL, gabapentin, Colace, carbidopa-levodopa, Lipitor, Ecotrin, allopurinol, DuoNeb, and the recent prednisone and Ceftin. There is no history of any recent travel, and he has had no sick contacts. REVIEW OF SYSTEMS: He denies diarrhea, dysuria. He has had no chills. He has had no nausea or vomiting, chest pain, or abdominal pain. PHYSICAL EXAMINATION: General: He is a very pleasant man. Vital Signs: Temperature 98.7, pulse 62, blood pressure 169/65. He is saturating 98% on 2 L. HEENT: Normocephalic. Eyes are anicteric. He has no thrush. Neck: Supple. Lungs: Clear to auscultation. Heart: Regular rate and rhythm. Abdomen: Soft, nontender. Extremities: Without edema. LABORATORY: White count was 10.1 on admission, today is 8.5, hemoglobin 11.1, platelets are 289. BUN and creatinine are 32 and 1.4. Influenza screen is negative. IMPRESSION: 1. In summary, this is a 74-year-old man admitted with chronic obstructive pulmonary disease exacerbation, cannot rule out acute bronchitis. Will continue steroids for pulmonary. Would obtain a sputum culture. Treat him with oral Zithromax at this time. He has received 2 days of Ceftin as an outpatient with no improvement. 2. History of multiple myeloma. 3. History of Parkinson's. Further recommendations to follow. DENA FRANCE M.D. [id number] HEATHER
[2019-09-21] MEDS: ATORVASTATIN CA 40 MG TABLET (FP) PO SCH (22:16)
[2019-09-22] MEDS: methylPREDNISolone NA SUCC 40 MG/1 ML VIAL IVPUSH SCH ×3 (01:22→18:09)
--- NOTE | 2019-09-22 07:39 | PN ---
Progress Note, Physician Chief Complaint: AWAKE ALERT EVENTS AND NOTES REVIEWED - Current Medication List Current Medications: Active Medications Albuterol/Ipratropium (Duoneb -) 1 amp NEB RQID [facility] Last Admin: 09/21/19 20:45 Dose: 1 amp Allopurinol (Zyloprim -) 300 mg PO DAILY [facility] Last Admin: 09/21/19 11:22 Dose: 300 mg Amlodipine Besylate (Norvasc -) 10 mg PO DAILY [facility] Last Admin: 09/21/19 13:25 Dose: 10 mg Aspirin (Asa -) 81 mg PO DAILY [facility] Last Admin: 09/21/19 11:21 Dose: 81 mg Atorvastatin Calcium (Lipitor -) 40 mg PO HS [facility] Last Admin: 09/21/19 22:16 Dose: 40 mg Carbidopa/Levodopa (Sinemet 25/250 -) 1 each PO QID [facility] Last Admin: 09/21/19 22:16 Dose: 1 each Fluticasone Propionate (Flonase -) 2 spray NS DAILY [facility] Last Admin: 09/21/19 13:24 Dose: 2 spr Gabapentin (Neurontin -) 300 mg PO TID [facility] Last Admin: 09/21/19 22:09 Dose: 300 mg Losartan Potassium (Cozaar -) 50 mg PO DAILY [facility] Last Admin: 09/21/19 11:21 Dose: 50 mg Methylprednisolone Sodium Succinate (Solu-Medrol -) 40 mg IVPUSH Q8H-IV [facility] Last Admin: 09/22/19 01:22 Dose: 40 mg Metoprolol Succinate (Toprol Xl -) 25 mg PO BID [facility] Last Admin: 09/21/19 22:09 Dose: 25 mg Pramipexole Dihydrochloride (Mirapex -) 1 mg PO 0700,1100,1500,1900 [facility] Last Admin: 09/21/19 19:30 Dose: 1 mg Tamsulosin HCl (Flomax -) 0.4 mg PO DAILY@0830 [facility] Last Admin: 09/21/19 08:30 Dose: 0.4 mg - Objective Vital Signs: Vital Signs Temperature 98.4 F 09/22/19 07:32 Pulse Rate 64 09/22/19 07:32 Respiratory Rate 20 09/22/19 07:32 Blood Pressure 112/66 09/22/19 07:32 O2 Sat by Pulse Oximetry (%) 98 09/21/19 11:00 Constitutional: Yes: Mild Distress Cardiovascular: Yes: Regular Rate and Rhythm Respiratory: Yes: Cough, On Nasal O2, Rhonchi Gastrointestinal: Yes: Soft, Abdomen, Obese Genitourinary: Yes: Incontinence Musculoskeletal: Yes: Muscle Weakness Edema: Yes Integumentary: Yes: Other Wound/Incision: Yes: Other Neurological: Yes: Unsteady Gait, Weakness ...Motor Strength: LLE, RLE Psychiatric: Yes: Other Labs: CBC, BMP 09/21/19 06:30 09/21/19 06:30 Problem List - Problems (1) COPD exacerbation Code(s): J44.1 - CHRONIC OBSTRUCTIVE PULMONARY DISEASE W (ACUTE) EXACERBATION (2) ANN (acute kidney injury) Code(s): N17.9 - ACUTE KIDNEY FAILURE, UNSPECIFIED (3) Anemia Code(s): D64.9 - ANEMIA, UNSPECIFIED (4) Bronchitis Code(s): J40 - BRONCHITIS, NOT SPECIFIED ACUTE OR CHRONIC (5) CHF (congestive heart failure) Code(s): I50.9 - HEART FAILURE, UNSPECIFIED Qualifiers: Heart failure type: unspecified Heart failure chronicity: acute Qualified Code(s): I50.9 - Heart failure, unspecified (6) Cough Code(s): R05 - COUGH (7) Edema Code(s): R60.9 - EDEMA, UNSPECIFIED (8) Hyperlipidemia Code(s): E78.5 - HYPERLIPIDEMIA, UNSPECIFIED (9) Myeloma Code(s): C90.00 - MULTIPLE MYELOMA NOT HAVING ACHIEVED REMISSION (10) Parkinson disease Code(s): G20 - PARKINSON'S DISEASE (11) Unsteady gait Code(s): R26.81 - UNSTEADINESS ON FEET (12) Weakness Code(s): R53.1 - WEAKNESS Assessment/Plan AZITHROMYCIN GIVEN ID F/U APPRECIATED CULTURES NEG FOR FLU ON IV STEROIDS/NEBS DVT PROPHYLAXIS OOB TO CHAIR PULM AND ONCOLOGY EVAL APPRECIATED
[2019-09-22] MEDS ORDERED: PT OWN MED DRAWER 7, Y5N ONE ×7 (07:48→21:33)
[2019-09-22] MEDS: TAMSULOSIN HCL 0.4 MG CAP PO SCH (07:57)
[2019-09-22] MEDS: ALBUTEROL SO4 2.5/IPRATROPIUM 0.5 INH SOL 3 ML VIAL.NEB. NEB SCH ×4 (08:30→20:21)
--- NOTE | 2019-09-22 09:31 | PN ---
Progress Note (short form) - Note Progress Note: OOB to chair. Able to expectorate more. Breathing feels a little better. No acute events overnight. Intake & Output 09/19/19 09/20/19 09/21/19 09/22/19 23:59 23:59 23:59 23:59 Intake Total 1000 500 Output Total 2200 Balance -1200 500 Weight 265 lb 252 lb 4 oz 246 lb 6 oz Last Vital Signs Temp Pulse Resp BP Pulse Ox 98.4 F 64 20 112/66 98 09/22/19 07:32 09/22/19 07:32 09/22/19 07:32 09/22/19 07:32 09/21/19 11:00 Active Medications Albuterol/Ipratropium (Duoneb -) 1 amp NEB RQID [facility] Last Admin: 09/21/19 20:45 Dose: 1 amp Allopurinol (Zyloprim -) 300 mg PO DAILY [facility] Last Admin: 09/21/19 11:22 Dose: 300 mg Amlodipine Besylate (Norvasc -) 10 mg PO DAILY [facility] Last Admin: 09/21/19 13:25 Dose: 10 mg Aspirin (Asa -) 81 mg PO DAILY [facility] Last Admin: 09/21/19 11:21 Dose: 81 mg Atorvastatin Calcium (Lipitor -) 40 mg PO HS [facility] Last Admin: 09/21/19 22:16 Dose: 40 mg Azithromycin (Zithromax -) 250 mg PO DAILY [facility] Carbidopa/Levodopa (Sinemet 25/250 -) 1 each PO QID [facility] Last Admin: 09/21/19 22:16 Dose: 1 each Fluticasone Propionate (Flonase -) 2 spray NS DAILY [facility] Last Admin: 09/21/19 13:24 Dose: 2 spr Gabapentin (Neurontin -) 300 mg PO TID [facility] Last Admin: 09/21/19 22:09 Dose: 300 mg Heparin Sodium (Porcine) (Heparin -) 5,000 unit SQ BID [facility] Losartan Potassium (Cozaar -) 50 mg PO DAILY [facility] Last Admin: 09/21/19 11:21 Dose: 50 mg Methylprednisolone Sodium Succinate (Solu-Medrol -) 40 mg IVPUSH Q8H-IV [facility] Last Admin: 09/22/19 01:22 Dose: 40 mg Metoprolol Succinate (Toprol Xl -) 25 mg PO BID [facility] Last Admin: 09/21/19 22:09 Dose: 25 mg Morphine Sulfate (Ms Contin -) 30 mg PO QID PRN PRN Reason: PAIN LEVEL 6-10 Pramipexole Dihydrochloride (Mirapex -) 1 mg PO 0700,1100,1500,1900 [facility] Last Admin: 09/21/19 19:30 Dose: 1 mg Tamsulosin HCl (Flomax -) 0.4 mg PO DAILY@0830 [facility] Last Admin: 09/22/19 07:57 Dose: 0.4 mg Constitutional: Yes: Calm, Obese Eyes: Yes: Conjunctiva Clear, EOM Intact HENT: Yes: Atraumatic, Normocephalic Neck: Yes: Supple, Trachea Midline Cardiovascular: Yes: Regular Rate and Rhythm Respiratory: Yes: Cough, SOB, Tachypnea, Wheezes. No: Accessory Muscle Use, Rales, Stridor ...Inspection: Yes: WNL ...Clubbing: No Gastrointestinal: Yes: Normal Bowel Sounds, Soft Renal/: Yes: WNL Musculoskeletal: Yes: WNL Extremities: Yes: WNL Edema: No Peripheral Pulses WNL: Yes Integumentary: Yes: WNL Neurological: Yes: WNL, Alert, Oriented ...Motor Strength: WNL Psychiatric: Yes: WNL, Alert, Oriented Labs: Laboratory Results - last 24 hr 09/21/19 09/21/19 09/21/19 06:30 17:35 18:00 Neutrophils % (Manual) 89.1 H Band Neutrophils % 2.0 Lymphocytes % (Manual) 3.9 L D Monocytes % (Manual) 1 L Eosinophils % (Manual) 0.0 Basophils % (Manual) 0.0 Myelocytes % (Man) 2 D Promyelocytes % (Man) 0 Blast Cells % (Manual) 0 Nucleated RBC % 0 Metamyelocytes 0 D Hypochromia 0 Platelet Estimate Normal Platelet Comment Present Polychromasia 1+ Poikilocytosis 1+ Anisocytosis 1+ Microcytosis 1+ Macrocytosis 0 Spherocytes 1+ Target Cells 1+ Tear Drop Cells 1+ Acanthocytes (Spur) 1+ POC Glucometer 112 RSV Rapid Negative Problem List - Problems (1) COPD exacerbation Code(s): J44.1 - CHRONIC OBSTRUCTIVE PULMONARY DISEASE W (ACUTE) EXACERBATION (2) Anemia Code(s): D64.9 - ANEMIA, UNSPECIFIED (3) Bronchitis Code(s): J40 - BRONCHITIS, NOT SPECIFIED ACUTE OR CHRONIC (4) Cough Code(s): R05 - COUGH (5) Hyperlipidemia Code(s): E78.5 - HYPERLIPIDEMIA, UNSPECIFIED (6) Multiple myeloma not having achieved remission Code(s): C90.00 - MULTIPLE MYELOMA NOT HAVING ACHIEVED REMISSION (7) Parkinson disease Code(s): G20 - PARKINSON'S DISEASE Assessment/Plan Medrol at current dose BD TX O2 as needed PO Zithromax Influenza was negative Flonase No smoking PFTs once stable as an outpatient Dr Yuan Problem List - Problems (1) COPD exacerbation Code(s): J44.1 - CHRONIC OBSTRUCTIVE PULMONARY DISEASE W (ACUTE) EXACERBATION (2) Anemia Code(s): D64.9 - ANEMIA, UNSPECIFIED (3) Bronchitis Code(s): J40 - BRONCHITIS, NOT SPECIFIED ACUTE OR CHRONIC (4) Cough Code(s): R05 - COUGH (5) Hyperlipidemia Code(s): E78.5 - HYPERLIPIDEMIA, UNSPECIFIED (6) Multiple myeloma not having achieved remission Code(s): C90.00 - MULTIPLE MYELOMA NOT HAVING ACHIEVED REMISSION (7) Parkinson disease Code(s): G20 - PARKINSON'S DISEASE
[2019-09-22] MEDS: amLODIPine BESYLATE 10 MG TABLET (FP) PO SCH (10:23)
[2019-09-22] MEDS: ASPIRIN 81 MG CHEWABLE TABLETS PO SCH (10:23)
[2019-09-22] MEDS: LOSARTAN POTASSIUM 50 MG TABLET (FP) PO SCH (10:23)
[2019-09-22] MEDS: CARBIDOPA/LEVODOPA 25/250 TABLET (FP) PO SCH ×4 (10:24→22:17)
[2019-09-22] MEDS: metoPROLOL SUCCINATE 25 MG TAB.SR.24H (FP) PO SCH ×2 (10:24→22:17)
[2019-09-22] MEDS: ALLOPURINOL 300 MG TABLET (FP) PO SCH (10:24)
[2019-09-22] MEDS: HEPARIN NA (PORCINE) 5,000 UNITS/ML 1ML VIAL SQ SCH ×2 (10:25→22:18)
[2019-09-22] MEDS: FLUTICASONE PROP 0.05% 16 GM NASAL SPRAY NS SCH (10:35)
--- NOTE | 2019-09-22 11:28 | EKG ---
Test Reason : Blood Pressure : / mmHG Vent. Rate : 077 BPM Atrial Rate : 077 BPM P-R Int : 170 ms QRS Dur : 084 ms QT Int : 364 ms P-R-T Axes : 022 -29 032 degrees QTc Int : 411 ms NORMAL SINUS RHYTHM MODERATE VOLTAGE CRITERIA FOR LVH, MAY BE NORMAL VARIANT CANNOT RULE OUT SEPTAL INFARCT (CITED ON OR BEFORE 20-DEC-2018) ABNORMAL ECG WHEN COMPARED WITH ECG OF 10-SEP-2019 11:38, UT INTERVAL HAS DECREASED NONSPECIFIC T WAVE ABNORMALITY NOW EVIDENT IN INFERIOR LEADS NONSPECIFIC T WAVE ABNORMALITY, WORSE IN ANTEROLATERAL LEADS PATIENT SITTING IN CHAIR DURING EKG Confirmed by Danish Raya MD ([id number]) on 09/22/2019 11:28:01 AM Referred By: Tacho GOLDSTEIN Confirmed By:Danish Raya MD
[2019-09-22] MEDS: PRAMIPEXOLE DIHYDROCHLORIDE 1 MG TABLET PO SCH ×4 (11:43→21:30)
[2019-09-22] MEDS: GABAPENTIN 300 MG CAPSULE PO SCH ×3 (13:23→22:17)
[2019-09-22 14:03] LABS: BLOOD UREA NITROGEN 32.6 mg/dL (7-18); CALCIUM 8.8 mg/dL (8.5-10.1); CREATININE 1.4 mg/dL (0.55-1.3); POTASSIUM 4.5 mmol/L (3.5-5.1)
--- NOTE | 2019-09-22 15:16 | PN ---
Progress Note (short form) - Note Progress Note: Renal follow up for CKD Seen and examined at the bedside no acute complaints no sob, cp, fever or chills Vital Signs Temperature 98.8 F 09/22/19 07:55 Pulse Rate 77 09/22/19 07:55 Respiratory Rate 20 09/22/19 07:55 Blood Pressure 165/78 09/22/19 07:55 O2 Sat by Pulse Oximetry (%) 97 09/22/19 09:00 Intake & Output 09/19/19 09/20/19 09/21/19 09/22/19 23:59 23:59 23:59 23:59 Intake Total 1000 500 Output Total 2200 Balance -1200 500 Weight 120.202 kg 114.419 kg 111.754 kg NAD RRR, no M/R CTA, no rales or wheeze soft NT/ND no LE edema, clubbing or cyanosis CBC, BMP 09/21/19 06:30 09/22/19 08:20 Current Medications Albuterol/Ipratropium (Duoneb -) 1 amp NEB RQID [facility] Last Admin: 09/22/19 12:07 Dose: 1 amp Allopurinol (Zyloprim -) 300 mg PO DAILY [facility] Last Admin: 09/22/19 10:24 Dose: 300 mg Amlodipine Besylate (Norvasc -) 10 mg PO DAILY [facility] Last Admin: 09/22/19 10:23 Dose: 10 mg Aspirin (Asa -) 81 mg PO DAILY [facility] Last Admin: 09/22/19 10:23 Dose: 81 mg Atorvastatin Calcium (Lipitor -) 40 mg PO HS [facility] Last Admin: 09/21/19 22:16 Dose: 40 mg Azithromycin (Zithromax -) 250 mg PO DAILY [facility] Carbidopa/Levodopa (Sinemet 25/250 -) 1 each PO QID [facility] Last Admin: 09/22/19 13:24 Dose: 1 each Fluticasone Propionate (Flonase -) 2 spray NS DAILY [facility] Last Admin: 09/22/19 10:35 Dose: 2 spr Gabapentin (Neurontin -) 300 mg PO TID [facility] Last Admin: 09/22/19 13:23 Dose: 300 mg Heparin Sodium (Porcine) (Heparin -) 5,000 unit SQ BID [facility] Last Admin: 09/22/19 10:25 Dose: 5,000 unit Losartan Potassium (Cozaar -) 50 mg PO DAILY [facility] Last Admin: 09/22/19 10:23 Dose: 50 mg Methylprednisolone Sodium Succinate (Solu-Medrol -) 40 mg IVPUSH Q8H-IV [facility] Last Admin: 09/22/19 10:25 Dose: 40 mg Metoprolol Succinate (Toprol Xl -) 25 mg PO BID [facility] Last Admin: 09/22/19 10:24 Dose: 25 mg Morphine Sulfate (Ms Contin -) 30 mg PO QID PRN PRN Reason: PAIN LEVEL 6-10 Pramipexole Dihydrochloride (Mirapex -) 1 mg PO 0700,1100,1500,1900 [facility] Last Admin: 09/22/19 11:43 Dose: 1 mg Tamsulosin HCl (Flomax -) 0.4 mg PO DAILY@0830 [facility] Last Admin: 09/22/19 07:57 Dose: 0.4 mg 74 y/o man with a PMhx of CKD Stage 3, Metastatic Multiple Myeloma, Parkinson's , CHF, HTN, HLD, NIIDM. Who presents to the ED for productive cough and SOB. 1. CKD stage 3 2. Shortness of breath secondary to COPD vs. other etiology 3. Hx fo CHF, not in acute exacerbation 4. Contrast exposure in CKD patient/Contrast nephropathy prophylaxis 5. Mild hyperkalemia 6. Anemia Renal function is stable. can be off IVF. Trend renal function and electrolytes daily no signs of volume overload/CHF Continue empiric steroids as per pulmonary influenza negative BP is improved. continue Losartan 50mg daily, add amlodpine 10mg daily would consider titrating losartan if BP is consistently > 140/90 Low potassium diet Madan Mcintosh DO
[2019-09-22] MEDS ORDERED: morphine SO4 SUSTAINED ACTING 30 MG TABLET.SA PO PRN ×2 (15:51→16:04)
[2019-09-22] MEDS ORDERED: morphine SO4 SUSTAINED ACTING 30 MG TABLET.SA PO SCH (16:15)
[2019-09-22] MEDS: morphine SO4 SUSTAINED ACTING 30 MG TABLET.SA PO SCH ×2 (16:36→22:18)
[2019-09-22] MEDS: AZITHROMYCIN 250 MG TABLET PO SCH (16:38)
[2019-09-22] MEDS: ATORVASTATIN CA 40 MG TABLET (FP) PO SCH (22:17)
[2019-09-23] MEDS: methylPREDNISolone NA SUCC 40 MG/1 ML VIAL IVPUSH SCH (01:29)
[2019-09-23] MEDS: morphine SO4 SUSTAINED ACTING 30 MG TABLET.SA PO SCH ×3 (07:04→22:17)
[2019-09-23] MEDS: PRAMIPEXOLE DIHYDROCHLORIDE 1 MG TABLET PO SCH ×4 (07:04→18:01)
[2019-09-23] MEDS: GABAPENTIN 300 MG CAPSULE PO SCH ×3 (07:04→22:16)
--- NOTE | 2019-09-23 07:39 | PN ---
Progress Note (short form) - Note Progress Note: Feels better today. Less cough and mucous production. No acute events overnight. Intake & Output 09/20/19 09/21/19 09/22/19 09/23/19 23:59 23:59 23:59 23:59 Intake Total 1000 900 0 Output Total 2200 800 Balance -1200 100 0 Weight 265 lb 252 lb 4 oz 246 lb 6 oz 247 lb 7 oz Last Vital Signs Temp Pulse Resp BP Pulse Ox 98.4 F 68 20 164/99 96 09/23/19 07:12 09/23/19 07:12 09/23/19 07:12 09/23/19 07:12 09/22/19 21:00 Active Medications Albuterol/Ipratropium (Duoneb -) 1 amp NEB RQID [facility] Last Admin: 09/22/19 20:21 Dose: 1 amp Allopurinol (Zyloprim -) 300 mg PO DAILY [facility] Last Admin: 09/22/19 10:24 Dose: 300 mg Amlodipine Besylate (Norvasc -) 10 mg PO DAILY [facility] Last Admin: 09/22/19 10:23 Dose: 10 mg Aspirin (Asa -) 81 mg PO DAILY [facility] Last Admin: 09/22/19 10:23 Dose: 81 mg Atorvastatin Calcium (Lipitor -) 40 mg PO HS [facility] Last Admin: 09/22/19 22:17 Dose: 40 mg Azithromycin (Zithromax -) 250 mg PO DAILY [facility] Last Admin: 09/22/19 16:38 Dose: 250 mg Carbidopa/Levodopa (Sinemet 25/250 -) 1 each PO QID [facility] Last Admin: 09/22/19 22:17 Dose: 1 each Fluticasone Propionate (Flonase -) 2 spray NS DAILY [facility] Last Admin: 09/22/19 10:35 Dose: 2 spr Gabapentin (Neurontin -) 300 mg PO TID [facility] Last Admin: 09/23/19 07:04 Dose: 300 mg Heparin Sodium (Porcine) (Heparin -) 5,000 unit SQ BID [facility] Last Admin: 09/22/19 22:18 Dose: 5,000 unit Losartan Potassium (Cozaar -) 50 mg PO DAILY [facility] Last Admin: 09/22/19 10:23 Dose: 50 mg Methylprednisolone Sodium Succinate (Solu-Medrol -) 40 mg IVPUSH Q8H-IV [facility] Last Admin: 09/23/19 01:29 Dose: 40 mg Metoprolol Succinate (Toprol Xl -) 25 mg PO BID [facility] Last Admin: 09/22/19 22:17 Dose: 25 mg Morphine Sulfate (Ms Contin -) 30 mg PO TID [facility] Last Admin: 09/23/19 07:04 Dose: 30 mg Pramipexole Dihydrochloride (Mirapex -) 1 mg PO 0700,1100,1500,1900 [facility] Last Admin: 09/23/19 07:04 Dose: 1 mg Tamsulosin HCl (Flomax -) 0.4 mg PO DAILY@0830 [facility] Last Admin: 09/22/19 07:57 Dose: 0.4 mg Constitutional: Yes: Calm, Obese Eyes: Yes: Conjunctiva Clear, EOM Intact HENT: Yes: Atraumatic, Normocephalic Neck: Yes: Supple, Trachea Midline Cardiovascular: Yes: Regular Rate and Rhythm Respiratory: Yes: Cough. No: Wheeze, Accessory Muscle Use, Rales, Stridor ...Inspection: Yes: WNL ...Clubbing: No Gastrointestinal: Yes: Normal Bowel Sounds, Soft Renal/: Yes: WNL Musculoskeletal: Yes: WNL Extremities: Yes: WNL Edema: No Peripheral Pulses WNL: Yes Integumentary: Yes: WNL Neurological: Yes: WNL, Alert, Oriented ...Motor Strength: WNL Psychiatric: Yes: WNL, Alert, Oriented Labs: Laboratory Results - last 24 hr 09/22/19 09/22/19 08:20 08:20 Sodium 141 Potassium 4.5 Chloride 105 Carbon Dioxide 29 Anion Gap 7 L BUN 32.6 H Creatinine 1.4 H Est GFR (CKD-EPI)AfAm 56.56 Est GFR (CKD-EPI)NonAf 48.80 Random Glucose 114 H Calcium 8.8 Iron 51 TIBC 273 Iron Saturation 18 Unsaturated IBC 222 Erythropoietin 6.3 Ferritin 78.2 TSH 0.20 L D Problem List - Problems (1) COPD exacerbation Code(s): J44.1 - CHRONIC OBSTRUCTIVE PULMONARY DISEASE W (ACUTE) EXACERBATION (2) Anemia Code(s): D64.9 - ANEMIA, UNSPECIFIED (3) Bronchitis Code(s): J40 - BRONCHITIS, NOT SPECIFIED ACUTE OR CHRONIC (4) Cough Code(s): R05 - COUGH (5) Hyperlipidemia Code(s): E78.5 - HYPERLIPIDEMIA, UNSPECIFIED (6) Multiple myeloma not having achieved remission Code(s): C90.00 - MULTIPLE MYELOMA NOT HAVING ACHIEVED REMISSION (7) Parkinson disease Code(s): G20 - PARKINSON'S DISEASE Assessment/Plan Change to Prednisone BD TX O2 as needed PO Zithromax Influenza was negative Flonase No smoking PFTs once stable as an outpatient Dr Yuan Problem List - Problems (1) COPD exacerbation Code(s): J44.1 - CHRONIC OBSTRUCTIVE PULMONARY DISEASE W (ACUTE) EXACERBATION (2) Anemia Code(s): D64.9 - ANEMIA, UNSPECIFIED (3) Bronchitis Code(s): J40 - BRONCHITIS, NOT SPECIFIED ACUTE OR CHRONIC (4) Cough Code(s): R05 - COUGH (5) Hyperlipidemia Code(s): E78.5 - HYPERLIPIDEMIA, UNSPECIFIED (6) Multiple myeloma not having achieved remission Code(s): C90.00 - MULTIPLE MYELOMA NOT HAVING ACHIEVED REMISSION (7) Parkinson disease Code(s): G20 - PARKINSON'S DISEASE
--- NOTE | 2019-09-23 08:30 | PN ---
Progress Note, Physician History of Present Illness: feels better - Current Medication List Current Medications: Active Medications Albuterol/Ipratropium (Duoneb -) 1 amp NEB RQID [facility] Last Admin: 09/22/19 20:21 Dose: 1 amp Allopurinol (Zyloprim -) 300 mg PO DAILY [facility] Last Admin: 09/22/19 10:24 Dose: 300 mg Amlodipine Besylate (Norvasc -) 10 mg PO DAILY [facility] Last Admin: 09/22/19 10:23 Dose: 10 mg Aspirin (Asa -) 81 mg PO DAILY [facility] Last Admin: 09/22/19 10:23 Dose: 81 mg Atorvastatin Calcium (Lipitor -) 40 mg PO HS [facility] Last Admin: 09/22/19 22:17 Dose: 40 mg Azithromycin (Zithromax -) 250 mg PO DAILY [facility] Last Admin: 09/22/19 16:38 Dose: 250 mg Carbidopa/Levodopa (Sinemet 25/250 -) 1 each PO QID [facility] Last Admin: 09/22/19 22:17 Dose: 1 each Fluticasone Propionate (Flonase -) 2 spray NS DAILY [facility] Last Admin: 09/22/19 10:35 Dose: 2 spr Gabapentin (Neurontin -) 300 mg PO TID [facility] Last Admin: 09/23/19 07:04 Dose: 300 mg Heparin Sodium (Porcine) (Heparin -) 5,000 unit SQ BID [facility] Last Admin: 09/22/19 22:18 Dose: 5,000 unit Losartan Potassium (Cozaar -) 50 mg PO DAILY [facility] Last Admin: 09/22/19 10:23 Dose: 50 mg Metoprolol Succinate (Toprol Xl -) 25 mg PO BID [facility] Last Admin: 09/22/19 22:17 Dose: 25 mg Morphine Sulfate (Ms Contin -) 30 mg PO TID [facility] Last Admin: 09/23/19 07:04 Dose: 30 mg Pramipexole Dihydrochloride (Mirapex -) 1 mg PO 0700,1100,1500,1900 [facility] Last Admin: 09/23/19 07:04 Dose: 1 mg Prednisone (Deltasone -) 40 mg PO DAILY [facility] Tamsulosin HCl (Flomax -) 0.4 mg PO DAILY@0830 [facility] Last Admin: 09/22/19 07:57 Dose: 0.4 mg - Objective Vital Signs: Vital Signs Temperature 98.4 F 09/23/19 07:12 Pulse Rate 68 09/23/19 07:12 Respiratory Rate 20 09/23/19 07:12 Blood Pressure 164/99 09/23/19 07:12 O2 Sat by Pulse Oximetry (%) 96 09/22/19 21:00 Cardiovascular: Yes: Regular Rate and Rhythm Respiratory: Yes: On Nasal O2, Rhonchi Gastrointestinal: Yes: Normal Bowel Sounds, Soft Neurological: Yes: Alert, Oriented Labs: CBC, BMP 09/21/19 06:30 09/22/19 08:20 Problem List - Problems (1) COPD exacerbation Assessment/Plan: IV STEROIDS--prednisone NEBS PULM AND ID CONSULT APPRECIATED CT SCAN NOTED--NAD Code(s): J44.1 - CHRONIC OBSTRUCTIVE PULMONARY DISEASE W (ACUTE) EXACERBATION (2) Bronchitis Assessment/Plan: ABOVE NO ABX FLU NEG Code(s): J40 - BRONCHITIS, NOT SPECIFIED ACUTE OR CHRONIC (3) Multiple myeloma not having achieved remission Code(s): C90.00 - MULTIPLE MYELOMA NOT HAVING ACHIEVED REMISSION (4) ANN (acute kidney injury) Assessment/Plan: NEPHROLOGY CONSULT APPRECIATED Code(s): N17.9 - ACUTE KIDNEY FAILURE, UNSPECIFIED Assessment/Plan PHYSICAL THERAPY
[2019-09-23] MEDS: ALBUTEROL SO4 2.5/IPRATROPIUM 0.5 INH SOL 3 ML VIAL.NEB. NEB SCH ×5 (09:00→20:09)
[2019-09-23] MEDS ORDERED: PT OWN MED DRAWER 7, Y5N ONE ×5 (09:45→21:29)
[2019-09-23] MEDS: HEPARIN NA (PORCINE) 5,000 UNITS/ML 1ML VIAL SQ SCH ×2 (09:48→22:17)
[2019-09-23] MEDS: predniSONE 20 MG TABLET (UD) PO SCH (09:48)
[2019-09-23] MEDS: metoPROLOL SUCCINATE 25 MG TAB.SR.24H (FP) PO SCH ×2 (09:49→22:18)
[2019-09-23] MEDS: ALLOPURINOL 300 MG TABLET (FP) PO SCH (09:49)
[2019-09-23] MEDS: TAMSULOSIN HCL 0.4 MG CAP PO SCH (09:49)
[2019-09-23] MEDS: AZITHROMYCIN 250 MG TABLET PO SCH (09:49)
[2019-09-23] MEDS: LOSARTAN POTASSIUM 50 MG TABLET (FP) PO SCH (09:50)
[2019-09-23] MEDS: CARBIDOPA/LEVODOPA 25/250 TABLET (FP) PO SCH ×4 (09:50→22:18)
[2019-09-23] MEDS: amLODIPine BESYLATE 10 MG TABLET (FP) PO SCH (09:50)
[2019-09-23] MEDS: ASPIRIN 81 MG CHEWABLE TABLETS PO SCH (09:50)
[2019-09-23] MEDS: FLUTICASONE PROP 0.05% 16 GM NASAL SPRAY NS SCH (09:56)
--- NOTE | 2019-09-23 12:22 | PN ---
Progress Note (short form) - Note Progress Note: oob in chair feels much improved less cough, less sob Vital Signs Period Temp Pulse Resp BP Sys/Mark Pulse Ox Last 24 Hr 97.9 F-98.4 F 68-92 20-20 155-171/60-99 94-96 cor-rrr lungs decreased bs at baes abd soft,nt ext trace edema CBC, BMP 09/21/19 06:30 09/22/19 08:20 sputum culture pending Current Medications Albuterol/Ipratropium (Duoneb -) 1 amp NEB RQID [facility] Last Admin: 09/23/19 09:00 Dose: 1 amp Allopurinol (Zyloprim -) 300 mg PO DAILY [facility] Last Admin: 09/23/19 09:49 Dose: 300 mg Amlodipine Besylate (Norvasc -) 10 mg PO DAILY [facility] Last Admin: 09/23/19 09:50 Dose: 10 mg Aspirin (Asa -) 81 mg PO DAILY [facility] Last Admin: 09/23/19 09:50 Dose: 81 mg Atorvastatin Calcium (Lipitor -) 40 mg PO HS [facility] Last Admin: 09/22/19 22:17 Dose: 40 mg Azithromycin (Zithromax -) 250 mg PO DAILY [facility] Last Admin: 09/23/19 09:49 Dose: 250 mg Carbidopa/Levodopa (Sinemet 25/250 -) 1 each PO QID [facility] Last Admin: 09/23/19 09:50 Dose: 1 each Fluticasone Propionate (Flonase -) 2 spray NS DAILY [facility] Last Admin: 09/23/19 09:56 Dose: 2 spr Gabapentin (Neurontin -) 300 mg PO TID [facility] Last Admin: 09/23/19 07:04 Dose: 300 mg Heparin Sodium (Porcine) (Heparin -) 5,000 unit SQ BID [facility] Last Admin: 09/23/19 09:48 Dose: 5,000 unit Losartan Potassium (Cozaar -) 50 mg PO DAILY [facility] Last Admin: 09/23/19 09:50 Dose: 50 mg Metoprolol Succinate (Toprol Xl -) 25 mg PO BID [facility] Last Admin: 09/23/19 09:49 Dose: 25 mg Morphine Sulfate (Ms Contin -) 30 mg PO TID [facility] Last Admin: 09/23/19 07:04 Dose: 30 mg Pramipexole Dihydrochloride (Mirapex -) 1 mg PO 0700,1100,1500,1900 [facility] Last Admin: 09/23/19 10:48 Dose: 1 mg Prednisone (Deltasone -) 40 mg PO DAILY [facility] Last Admin: 09/23/19 09:48 Dose: 40 mg Tamsulosin HCl (Flomax -) 0.4 mg PO DAILY@0830 [facility] Last Admin: 09/23/19 09:49 Dose: 0.4 mg a/p most c/w copd exacerbation cannot r/o acute bronchitis steroids sputum culture pending zithromax po multiple myeloma CKD parkinson's disease Problem List - Problems (1) COPD exacerbation Code(s): J44.1 - CHRONIC OBSTRUCTIVE PULMONARY DISEASE W (ACUTE) EXACERBATION (2) Bronchitis Code(s): J40 - BRONCHITIS, NOT SPECIFIED ACUTE OR CHRONIC (3) Multiple myeloma not having achieved remission Code(s): C90.00 - MULTIPLE MYELOMA NOT HAVING ACHIEVED REMISSION (4) Parkinson disease Code(s): G20 - PARKINSON'S DISEASE
--- NOTE | 2019-09-23 16:41 | PN ---
Progress Note (short form) - Note Progress Note: Renal follow up for CKD Seen and examined at the bedside awake and alert feels much better offers no acute complaints making urine, no chest pain or shortness of breath Vital Signs Temperature 98 F 09/23/19 13:00 Pulse Rate 78 09/23/19 13:00 Respiratory Rate 20 09/23/19 13:00 Blood Pressure 147/85 09/23/19 13:00 O2 Sat by Pulse Oximetry (%) 94 L 09/23/19 10:00 Intake & Output 09/20/19 09/21/19 09/22/19 09/23/19 23:59 23:59 23:59 23:59 Intake Total 1000 900 0 Output Total 2200 800 Balance -1200 100 0 Weight 120.202 kg 114.419 kg 111.754 kg 112.236 kg NAD RRR, no M/R CTA, no rales or wheeze soft NT/ND no LE edema, clubbing or cyanosis CBC, BMP 09/21/19 06:30 09/22/19 08:20 Current Medications Albuterol/Ipratropium (Duoneb -) 1 amp NEB RQID [facility] Last Admin: 09/23/19 16:39 Dose: 1 amp Allopurinol (Zyloprim -) 300 mg PO DAILY [facility] Last Admin: 09/23/19 09:49 Dose: 300 mg Amlodipine Besylate (Norvasc -) 10 mg PO DAILY [facility] Last Admin: 09/23/19 09:50 Dose: 10 mg Aspirin (Asa -) 81 mg PO DAILY [facility] Last Admin: 09/23/19 09:50 Dose: 81 mg Atorvastatin Calcium (Lipitor -) 40 mg PO HS [facility] Last Admin: 09/22/19 22:17 Dose: 40 mg Azithromycin (Zithromax -) 250 mg PO DAILY [facility] Last Admin: 09/23/19 09:49 Dose: 250 mg Carbidopa/Levodopa (Sinemet 25/250 -) 1 each PO QID [facility] Last Admin: 09/23/19 14:01 Dose: 1 each Fluticasone Propionate (Flonase -) 2 spray NS DAILY [facility] Last Admin: 09/23/19 09:56 Dose: 2 spr Gabapentin (Neurontin -) 300 mg PO TID [facility] Last Admin: 09/23/19 13:54 Dose: 300 mg Heparin Sodium (Porcine) (Heparin -) 5,000 unit SQ BID [facility] Last Admin: 09/23/19 09:48 Dose: 5,000 unit Losartan Potassium (Cozaar -) 50 mg PO DAILY [facility] Last Admin: 09/23/19 09:50 Dose: 50 mg Metoprolol Succinate (Toprol Xl -) 25 mg PO BID [facility] Last Admin: 09/23/19 09:49 Dose: 25 mg Morphine Sulfate (Ms Contin -) 30 mg PO TID [facility] Last Admin: 09/23/19 13:50 Dose: 30 mg Pramipexole Dihydrochloride (Mirapex -) 1 mg PO 0700,1100,1500,1900 [facility] Last Admin: 09/23/19 16:30 Dose: 1 mg Prednisone (Deltasone -) 40 mg PO DAILY [facility] Last Admin: 09/23/19 09:48 Dose: 40 mg Tamsulosin HCl (Flomax -) 0.4 mg PO DAILY@0830 [facility] Last Admin: 09/23/19 09:49 Dose: 0.4 mg 74 y/o man with a PMhx of CKD Stage 3, Metastatic Multiple Myeloma, Parkinson's , CHF, HTN, HLD, NIIDM. Who presents to the ED for productive cough and SOB. 1. CKD stage 3 2. Shortness of breath secondary to COPD vs. other etiology 3. Hx fo CHF, not in acute exacerbation 4. Contrast exposure in CKD patient/Contrast nephropathy prophylaxis 5. Mild hyperkalemia 6. Anemia Renal function is stable now 3 days after contrast exposure. Trend renal function and electrolytes daily no signs of volume overload/CHF Continue empiric steroids as per pulmonary influenza negative BP is improved. continue Losartan 50mg daily, add amlodpine 10mg daily would consider titrating losartan if BP is consistently > 140/90 Low potassium diet Madan Mcintosh DO
--- NOTE | 2019-09-23 20:00 | PN ---
Progress Note (short form) - Note Progress Note: Patient seen and examined Feels improved Still with persistent hacking cough - but improved BP remains elevated Last Vital Signs Temp Pulse Resp BP Pulse Ox 98 F 78 20 147/85 94 L 09/23/19 13:00 09/23/19 13:00 09/23/19 13:00 09/23/19 13:00 09/23/19 10:00 HEENT: PIERO, EOM Intact Oropharynx: No thrush, No mucositis Cor: RSR, No murmurs, No gallops Lungs: scattered rhonchi Abd: Soft, Normal bowel sounds, No organomegaly Ext:LEedema Skin: No rashes, Integument intact CBC, BMP 09/21/19 06:30 09/22/19 08:20 Current Medications Generic Name Dose Route Start Last Admin Trade Name Freq PRN Reason Stop Dose Admin Albuterol/Ipratropium 1 amp 09/21/19 12:00 09/23/19 16:39 Duoneb - NEB 1 amp RQID [facility] Administration Allopurinol 300 mg 09/21/19 10:00 09/23/19 09:49 Zyloprim - PO 300 mg DAILY [facility] Administration Amlodipine Besylate 10 mg 09/21/19 12:15 09/23/19 09:50 Norvasc - PO 10 mg DAILY [facility] Administration Aspirin 81 mg 09/21/19 10:00 09/23/19 09:50 Asa - PO 81 mg DAILY [facility] Administration Atorvastatin Calcium 40 mg 09/21/19 22:00 09/22/19 22:17 Lipitor - PO 40 mg HS [facility] Administration Azithromycin 250 mg 09/22/19 15:00 09/23/19 09:49 Zithromax - PO 250 mg DAILY [facility] Administration Carbidopa/Levodopa 1 each 09/21/19 10:00 09/23/19 18:01 Sinemet 25/250 - PO 1 each QID [facility] Administration Fluticasone Propionate 2 spray 09/21/19 10:00 09/23/19 09:56 Flonase - NS 2 spr DAILY [facility] Administration Gabapentin 300 mg 09/21/19 07:30 09/23/19 13:54 Neurontin - PO 300 mg TID [facility] Administration Heparin Sodium (Porcine) 5,000 unit 09/22/19 10:00 09/23/19 09:48 Heparin - SQ 5,000 unit BID [facility] Administration Losartan Potassium 50 mg 09/21/19 10:00 09/23/19 09:50 Cozaar - PO 50 mg DAILY [facility] Administration Metoprolol Succinate 25 mg 09/21/19 10:00 09/23/19 09:49 Toprol Xl - PO 25 mg BID [facility] Administration Morphine Sulfate 30 mg 09/22/19 16:15 09/23/19 13:50 Ms Contin - PO 30 mg TID [facility] Administration Pramipexole Dihydrochloride 1 mg 09/21/19 07:29 09/23/19 18:01 Mirapex - PO 1 mg 0700,1100,1500,1900 [facility] Administration Prednisone 40 mg 09/23/19 10:00 09/23/19 09:48 Deltasone - PO 40 mg DAILY [facility] Administration Tamsulosin HCl 0.4 mg 09/21/19 08:30 09/23/19 09:49 Flomax - PO 0.4 mg DAILY@0830 [facility] Administration Impression: Exacerbation of COPD Ab per ID Multiple myeloma in remission HBP - being evaluated by renal CKD stable Parkinson's BPH Neuropathy
[2019-09-23] MEDS: ATORVASTATIN CA 40 MG TABLET (FP) PO SCH (22:16)
[2019-09-24] MEDS ORDERED: PT OWN MED DRAWER 7, Y5N ONE ×3 (06:14→10:59)
[2019-09-24 06:23] VITALS: TEMP 98.5
[2019-09-24] MEDS: PRAMIPEXOLE DIHYDROCHLORIDE 1 MG TABLET PO SCH (06:25)
[2019-09-24] MEDS: morphine SO4 SUSTAINED ACTING 30 MG TABLET.SA PO SCH (06:25)
[2019-09-24] MEDS: GABAPENTIN 300 MG CAPSULE PO SCH (06:25)
--- NOTE | 2019-09-24 08:35 | PN ---
Progress Note (short form) - Note Progress Note: Feels overall better today. Less cough and mucous production. No acute events overnight. Intake & Output 09/21/19 09/22/19 09/23/19 09/24/19 23:59 23:59 23:59 23:59 Intake Total 1000 900 600 300 Output Total 2200 800 Balance -1200 100 600 300 Weight 252 lb 4 oz 246 lb 6 oz 247 lb 7 oz 244 lb 3.2 oz Last Vital Signs Temp Pulse Resp BP Pulse Ox 98.5 F 68 20 178/82 H 94 L 09/24/19 06:00 09/24/19 06:00 09/24/19 06:00 09/24/19 06:00 09/23/19 10:00 Active Medications Albuterol/Ipratropium (Duoneb -) 1 amp NEB RQID [facility] Last Admin: 09/23/19 20:09 Dose: 1 amp Allopurinol (Zyloprim -) 300 mg PO DAILY [facility] Last Admin: 09/23/19 09:49 Dose: 300 mg Amlodipine Besylate (Norvasc -) 10 mg PO DAILY [facility] Last Admin: 09/23/19 09:50 Dose: 10 mg Aspirin (Asa -) 81 mg PO DAILY [facility] Last Admin: 09/23/19 09:50 Dose: 81 mg Atorvastatin Calcium (Lipitor -) 40 mg PO HS [facility] Last Admin: 09/23/19 22:16 Dose: 40 mg Azithromycin (Zithromax -) 250 mg PO DAILY [facility] Last Admin: 09/23/19 09:49 Dose: 250 mg Carbidopa/Levodopa (Sinemet 25/250 -) 1 each PO QID [facility] Last Admin: 09/23/19 22:18 Dose: 1 each Fluticasone Propionate (Flonase -) 2 spray NS DAILY [facility] Last Admin: 09/23/19 09:56 Dose: 2 spr Gabapentin (Neurontin -) 300 mg PO TID [facility] Last Admin: 09/24/19 06:25 Dose: 300 mg Heparin Sodium (Porcine) (Heparin -) 5,000 unit SQ BID [facility] Last Admin: 09/23/19 22:17 Dose: 5,000 unit Losartan Potassium (Cozaar -) 50 mg PO DAILY [facility] Last Admin: 09/23/19 09:50 Dose: 50 mg Metoprolol Succinate (Toprol Xl -) 25 mg PO BID [facility] Last Admin: 09/23/19 22:18 Dose: 25 mg Morphine Sulfate (Ms Contin -) 30 mg PO TID [facility] Last Admin: 09/24/19 06:25 Dose: 30 mg Pramipexole Dihydrochloride (Mirapex -) 1 mg PO 0700,1100,1500,1900 [facility] Last Admin: 09/24/19 06:25 Dose: 1 mg Prednisone (Deltasone -) 40 mg PO DAILY [facility] Last Admin: 09/23/19 09:48 Dose: 40 mg Tamsulosin HCl (Flomax -) 0.4 mg PO DAILY@0830 [facility] Last Admin: 09/23/19 09:49 Dose: 0.4 mg Constitutional: Yes: Calm, Obese Eyes: Yes: Conjunctiva Clear, EOM Intact HENT: Yes: Atraumatic, Normocephalic Neck: Yes: Supple, Trachea Midline Cardiovascular: Yes: Regular Rate and Rhythm Respiratory: Yes: Cough. No: Wheeze, Accessory Muscle Use, Rales, Stridor ...Inspection: Yes: WNL ...Clubbing: No Gastrointestinal: Yes: Normal Bowel Sounds, Soft Renal/: Yes: WNL Musculoskeletal: Yes: WNL Extremities: Yes: WNL Edema: No Peripheral Pulses WNL: Yes Integumentary: Yes: WNL Neurological: Yes: WNL, Alert, Oriented ...Motor Strength: WNL Psychiatric: Yes: WNL, Alert, Oriented Labs: Laboratory Results - last 24 hr 09/23/19 22:12 POC Glucometer 114 Problem List - Problems (1) COPD exacerbation Code(s): J44.1 - CHRONIC OBSTRUCTIVE PULMONARY DISEASE W (ACUTE) EXACERBATION (2) Anemia Code(s): D64.9 - ANEMIA, UNSPECIFIED (3) Bronchitis Code(s): J40 - BRONCHITIS, NOT SPECIFIED ACUTE OR CHRONIC (4) Cough Code(s): R05 - COUGH (5) Hyperlipidemia Code(s): E78.5 - HYPERLIPIDEMIA, UNSPECIFIED (6) Multiple myeloma not having achieved remission Code(s): C90.00 - MULTIPLE MYELOMA NOT HAVING ACHIEVED REMISSION (7) Parkinson disease Code(s): G20 - PARKINSON'S DISEASE Assessment/Plan Prednisone 40mg OD x 4 days BD TX O2 as needed PO Zithromax Flonase No smoking PFTs once stable as an outpatient There is no Pulmonary contraindication for DC Dr Yuan Problem List - Problems (1) COPD exacerbation Code(s): J44.1 - CHRONIC OBSTRUCTIVE PULMONARY DISEASE W (ACUTE) EXACERBATION (2) Anemia Code(s): D64.9 - ANEMIA, UNSPECIFIED (3) Bronchitis Code(s): J40 - BRONCHITIS, NOT SPECIFIED ACUTE OR CHRONIC (4) Cough Code(s): R05 - COUGH (5) Hyperlipidemia Code(s): E78.5 - HYPERLIPIDEMIA, UNSPECIFIED (6) Multiple myeloma not having achieved remission Code(s): C90.00 - MULTIPLE MYELOMA NOT HAVING ACHIEVED REMISSION (7) Parkinson disease Code(s): G20 - PARKINSON'S DISEASE
--- NOTE | 2019-09-24 09:04 | DS ---
Physical Examination Vital Signs: Vital Signs Temperature 98.5 F 09/24/19 06:00 Pulse Rate 68 09/24/19 06:00 Respiratory Rate 20 09/24/19 06:00 Blood Pressure 178/82 H 09/24/19 06:00 O2 Sat by Pulse Oximetry (%) 94 L 09/23/19 10:00 Cardiovascular: Yes: S1, S2 Respiratory: Yes: Regular, CTA Bilaterally Gastrointestinal: Yes: Normal Bowel Sounds, Soft Labs: CBC, BMP 09/21/19 06:30 09/22/19 08:20 Discharge Summary Problems reviewed: Yes Reason For Visit: ACUTE EXACERBATION OF CHRONIC OBSTRUCTIVE Current Active Problems COPD exacerbation (Acute) Hospital Course: - Problems (1) COPD exacerbation Assessment/Plan: IV STEROIDS--prednisone NEBS PULM AND ID CONSULT APPRECIATED CT SCAN NOTED--NAD Code(s): J44.1 - CHRONIC OBSTRUCTIVE PULMONARY DISEASE W (ACUTE) EXACERBATION (2) Bronchitis Assessment/Plan: ABOVE NO ABX FLU NEG Code(s): J40 - BRONCHITIS, NOT SPECIFIED ACUTE OR CHRONIC (3) Multiple myeloma not having achieved remission Code(s): C90.00 - MULTIPLE MYELOMA NOT HAVING ACHIEVED REMISSION (4) ANN (acute kidney injury) Assessment/Plan: NEPHROLOGY CONSULT APPRECIATED Code(s): N17.9 - ACUTE KIDNEY FAILURE, UNSPECIFIED Condition: Stable - Instructions Referrals: Shelly Lassiter MD [Primary Care Provider] - 1 Week - Home Medications Comprehensive Discharge Medication List: Ambulatory Orders Oxycodone HCl/Acetaminophen [Percocet 5-325 mg Tablet] 1 - 2 tab PO Q6H PRN Tamsulosin HCl [Flomax -] 0.4 mg PO DAILY 11/13/15 Acetaminophen [Tylenol .Regular Strength -] 650 mg PO Q4H PRN #0 tablet Fluticasone Prop 0.05% Nasal [Flonase -] 2 spray NS DAILY #1 bottle 11/20/15 Losartan Potassium [Cozaar -] 50 mg PO DAILY #30 tablet 03/24/18 Metoprolol Succinate [Toprol XL -] 25 mg PO BID #60 tab.sr.24h 03/24/18 Pramipexole Dihydrochloride [Mirapex -] 1 mg PO 0700,1100,1500,1900 #120 tablet 03/24/18 Aspirin Coated [Ecotrin -] 81 mg PO DAILY tablet.ec 12/22/18 Atorvastatin Ca [Lipitor] 40 mg PO HS tablet 12/22/18 Guaifenesin/D-Methorphan Hb [Diabetic Tussin Dm -] 5 ml PO Q4H PRN #1 bottle Albuterol 2.5/Ipratropium 0.5 [Duoneb -] 1 amp NEB Q6H PRN #120 amp 09/12/19 Torsemide [Demadex -] 20 mg PO DAILY #60 tablet 09/12/19 Carbidopa/Levodopa [Carbidopa-Levodopa 25-250 Tab] 1 each PO 0700,1100,1500, 1900 09/21/19 Docusate Sodium [Colace] 100 mg PO BID 09/21/19 Morphine *Sr* [MS Contin -] 60 mg PO 0600,1200,1800,2300 09/21/19 Albuterol 2.5/Ipratropium 0.5 [Duoneb -] 1 amp NEB RQID #120 amp 09/24/19 Allopurinol [Zyloprim -] 300 mg PO DAILY tablet 09/24/19 Amlodipine Besylate [Norvasc -] 10 mg PO DAILY #30 tablet 09/24/19 Azithromycin [Zithromax 250mg Tablets -] 250 mg PO DAILY #4 tablet 09/24/19 Gabapentin [Neurontin -] 300 mg PO TID #90 capsule 09/24/19 predniSONE [Deltasone -] 40 mg PO DAILY #10 tablet 09/24/19
[2019-09-24] MEDS: ALBUTEROL SO4 2.5/IPRATROPIUM 0.5 INH SOL 3 ML VIAL.NEB. NEB SCH ×2 (10:04→11:30)
[2019-09-24] MEDS: ALLOPURINOL 300 MG TABLET (FP) PO SCH (10:43)
[2019-09-24] MEDS: ASPIRIN 81 MG CHEWABLE TABLETS PO SCH (10:44)
[2019-09-24] MEDS: amLODIPine BESYLATE 10 MG TABLET (FP) PO SCH (10:44)
[2019-09-24] MEDS: HEPARIN NA (PORCINE) 5,000 UNITS/ML 1ML VIAL SQ SCH (10:44)
[2019-09-24] MEDS: TAMSULOSIN HCL 0.4 MG CAP PO SCH (10:44)
[2019-09-24] MEDS: metoPROLOL SUCCINATE 25 MG TAB.SR.24H (FP) PO SCH (10:44)
[2019-09-24] MEDS: AZITHROMYCIN 250 MG TABLET PO SCH (10:44)
[2019-09-24] MEDS: predniSONE 20 MG TABLET (UD) PO SCH (10:44)
[2019-09-24] MEDS: LOSARTAN POTASSIUM 50 MG TABLET (FP) PO SCH (10:45)
[2019-09-24] MEDS: CARBIDOPA/LEVODOPA 25/250 TABLET (FP) PO SCH (10:45)
[2019-09-24] MEDS: FLUTICASONE PROP 0.05% 16 GM NASAL SPRAY NS SCH (10:49)
[2019-09-24 11:29] VITALS: BP 164/95; PULSE 64
== END 2019-09-24 12:40 | disposition home or self-care (01) | DRG 191 ==
LOC: JER 16:53 → JERBED 09-21 01:01 → J8W 09-21 14:23
PROVIDERS: ADMIT Internal Medicine; ATTEND Family Medicine
DX: J44.1 Chronic obstructive pulmonary disease with (acute) exacerbation (principal); I13.0 Hypertensive heart and chronic kidney disease with heart failure and stage 1 through stage 4 chronic kidney disease, or unspecified chronic kidney disease; N17.9 Acute kidney failure, unspecified; C90.00 Multiple myeloma not having achieved remission; N18.4 Chronic kidney disease, stage 4 (severe); E78.5 Hyperlipidemia, unspecified; E11.9 Type 2 diabetes mellitus without complications; G20 Parkinson's disease; J40 Bronchitis, not specified as acute or chronic; I50.9 Heart failure, unspecified; G62.9 Polyneuropathy, unspecified; E66.9 Obesity, unspecified; Z68.35 Body mass index [BMI] 35.0-35.9, adult; N40.0 Benign prostatic hyperplasia without lower urinary tract symptoms; E87.5 Hyperkalemia; D64.9 Anemia, unspecified
CPT/HCPCS: 36415; 71045-TC-FY; 71275-TC; 80048; 80053; 82550; 82668; 82728; 82962; 83540; 83550; 83880; 84439; 84443; 84481; 84484; 85025; 87070; 87205; 87804; 87807; 93005; 93010; 94640; 97116-GP; 97161-GP; 99285-25; J1644; J7030

== ENCOUNTER 2020-05-26 10:25 | Inpatient (IN) | payer OTHER, BC ==
--- OUTSIDE RECORDS SUMMARY | 2020-05-26 10:40 | XMS ---
:1945 Author Organization [facility] Support Name Relationship Address Phone MADIOSN TERRAZAS SON [address] [address] RE Unavailable Unavailable Unavailable SANIA TERRAZAS (PROXY) [address] [address] Re-disclosure Warning The records that you are about to access may contain information from federally- assisted alcohol or drug abuse programs. If such information is present, then the following federally mandated warning applies: This information has been disclosed to you from records protected by federal confidentiality rules (42 CFR part 2). The federal rules prohibit you from making any further disclosure of this information unless further disclosure is expressly permitted by the written consent of the person to whom it pertains or as otherwise permitted by 42 CFR part 2. A general authorization for the release of medical or other information is NOT sufficient for this purpose. The Federal rules restrict any use of the information to criminally investigate or prosecute any alcohol or drug abuse patient.The records that you are about to access may contain highly sensitive health information, the redisclosure of which is protected by Article 27-F of the [facility] Public Health law. If you continue you may haveaccess to information: Regarding HIV / AIDS; Provided by facilities licensed or operated by the [facility] Office of Mental Health; or Provided by the [facility] Office for People With Developmental Disabilities. If such information is present, then the following [facility] mandated warning applies: This information has been disclosed to you from confidential records which are protected by state law. State law prohibits you from making any further disclosure of this information without the specific written consent of the person to whom it pertains, or as otherwise permitted by law. Any unauthorized further disclosure in violation of state law may result in a fine or penitentiary sentence or both. A general authorization for the release of medical or other information is NOT sufficient authorization for further disclosure. Insurance Providers Payer name Policy type Policy ID Covered Covered constitution party's Policy P gilda / Coverage constitution party ID relationship to Domingo Inf ormation type domingo GHI CBP [id number] [place] [id number] OUTPT BC PPO [id number] [place] [id number] HIP MEDICARE [id number] SP [id number] VIP [place] MEDICARE [id number] SP [id number] BC PPO [id number] [place] [id number] GHI CBP [id number] SP [id number] OUTPT
--- NOTE | 2020-05-26 11:22 | PDOC ---
History of Present Illness - General Chief Complaint: Blood Pressure Problem Stated Complaint: BLOOD PRESSURE PROBLEM Time Seen by Provider: 05/26/20 10:53 Past History - Medical History Allergies/Adverse Reactions: Allergies Allergy/AdvReac Type Severity Reaction Status Date / Time No Known Allergies Allergy Verified 05/26/20 13:29 Home Medications: Ambulatory Orders Losartan Potassium [Cozaar -] 50 mg PO DAILY #30 tablet 03/24/18 Metoprolol Succinate [Toprol XL -] 25 mg PO BID #60 tab.sr.24h 03/24/18 Pramipexole Dihydrochloride [Mirapex -] 1 mg PO 0700,1100,1500,1900 #120 tablet 03/24/18 Aspirin Coated [Ecotrin -] 81 mg PO DAILY tablet.ec 12/22/18 Atorvastatin Ca [Lipitor] 40 mg PO HS tablet 12/22/18 Albuterol 2.5/Ipratropium 0.5 [Duoneb -] 1 amp NEB Q6H PRN #120 amp 09/12/19 Torsemide [Demadex -] 20 mg PO DAILY #60 tablet 09/12/19 Carbidopa/Levodopa [Carbidopa-Levodopa 25-250 Tab] 1 each PO 0700,1100,1500,1900 09/21/19 Docusate Sodium [Colace] 100 mg PO BID 09/21/19 Gabapentin [Neurontin -] 300 mg PO TID #90 capsule 09/24/19 Budesonide/Formeterol Fumarate [SYMBICORT 160/4.5mcg -] 1 inh PO BID 05/26/20 Metolazone 2.5 mg PO BID 05/26/20 Pramipexole Di-HCl [Pramipexole Dihydrochloride] 1 mg PO QID 05/26/20 Morphine *Sr* 60 mg PO QID 05/27/20 Percocet 5-325 mg Tablet 5 - 325 tablet PO PRN 05/27/20 Cancer: Yes (MULTIPLE MYELOMA) COPD: Yes CHF: Yes Diabetes: Yes HTN: Yes Hypercholesterolemia: Yes - Immunization History Immunization Up to Date: Yes - Psycho-Social/Smoking History Smoking History: Never smoked Have you smoked in the past 12 months: No - Substance Abuse Hx (Audit-C & DAST Scrn) How often the patient has a drink containing alcohol: Never Score: In Men: 4 or > Positive; In Women: 3 or > Positive: 0 Screen Result (Pos requires Nsg. Audit-10AR): Negative In the last yr the pt used illegal drug/Rx for NonMed reason: No Score: Yes response is considered Positive: 0 Screen Result (Positive result requires Nsg. DAST-10): Negative *Physical Exam - Vital Signs Last Vital Signs Temp Pulse Resp BP Pulse Ox 98.5 F 96 H 20 182/88 H 98 05/26/20 10:38 05/26/20 10:38 05/26/20 10:38 05/26/20 10:38 05/26/20 10:47 ED Treatment Course - LABORATORY CBC & Chemistry Diagram: 05/27/20 06:53 05/27/20 06:53 Medical Decision Making - Medical Decision Making 05/26/20 12:33 Please see attending note Discharge - Discharge Information Problems reviewed: Yes Clinical Impression/Diagnosis: Weakness, ANN (acute kidney injury) Condition: Stable - Follow up/Referral - Patient Discharge Instructions - Post Discharge Activity
--- NOTE | 2020-05-26 11:55 | PDOC ---
Attending Attestation - Resident Resident Name: Zeyad Blue - ED Attending Attestation I have performed the following: I have examined & evaluated the patient, The case was reviewed & discussed with the resident, I agree w/resident's findings & plan, Exceptions are as noted - HPI HPI: 05/26/20 11:55 74y M hx of metastatic Multiple myeloma, htn, parkinsons, copd, polycystic kidneys, ckd, hl, chf, presents with 3 days of 'twitching' sensation. Pt denie sany other focal symptoms including headache, dizziness, cp, sob, orthopnea, f/c, neck pain,b ack pain, abd pain, cough, dysuria, diarrhea, focal weakness. pt did note he had diffuse body swelling about a week ago, he went to his doctor who modified his lasix and the sx resolved. No falls. PMD: Maikol Nephrology: Gino Juárezc: Toby Neuro: Santi - Physicial Exam PE: 05/26/20 12:26 GENERAL: The patient is awake, alert, and fully oriented, Nontoxic - in no acute distress. HEAD: Normocephalic, atraumatic. EYES: extraocular movements intact, sclera anicteric, conjunctiva clear. ENT: Normal voice, Moist mucous membranes. NECK: Normal range of motion, supple LUNGS: Breath sounds equal, clear to auscultation bilaterally. No wheezes, no rhonchi, no rales. HEART: Regular rate and rhythm, normal S1 and S2 without murmur, rub or gallop. ABDOMEN: Soft, nontender, No guarding, no rebound. No CVA tenderness. EXTREMITIES: Normal range of motion, trace edema. NEUROLOGICAL: No facial assymetry, Normal speech, moving all 4 ext spontaneously and symmetrically PSYCH: Normal mood, normal affect. SKIN: Warm, Dry, normal turgor, - Medical Decision Making 05/26/20 12:33 Differential for the patient's symptoms includes possible metabolic derangements, anemia, occult infection, CHF. Will obtain blood work, EKG, UA Will reassess 05/26/20 13:05 Patient's labs reviewed noted for ANN, possibly secondary to increase use of Lasix. Anticipate admission for further management Discharge - Discharge Information Problems reviewed: Yes Clinical Impression/Diagnosis: Weakness, ANN (acute kidney injury) Condition: Stable - Follow up/Referral - Patient Discharge Instructions - Post Discharge Activity
--- NOTE | 2020-05-26 12:21 | PDOC ---
History of Present Illness - General Chief Complaint: Blood Pressure Problem Stated Complaint: BLOOD PRESSURE PROBLEM Time Seen by Provider: 05/26/20 10:53 History Source: Patient - History of Present Illness Initial Comments: 05/26/20 12:14 74M w/hx multiple myeloma w/metastasis, COPD, Parkinson's, HTN, HLD, CKD p/w two days of generalized weakness. He is accompanied by his who assists with history. They report frequent episodes of "twitching", generalized weakness, feeling unsteady on his feet. He reports mild shortness of breath, and difficulty ambulating secondary to weakness. He denies any headache, vision changes, vertigo, lightheadedness. Not on home O2. He takes morphine, percocet as needed for metastatic tori pain. He reports recently having increased bilateral lower extremity swelling and being prescribed furosemide by his PCP, with edema resolution. He denies any fevers, chills, confusion, nausea, vomiting, abdominal pain. Past History - Medical History Allergies/Adverse Reactions: Allergies Allergy/AdvReac Type Severity Reaction Status Date / Time No Known Allergies Allergy Verified 05/26/20 13:29 Home Medications: Ambulatory Orders Losartan Potassium [Cozaar -] 50 mg PO DAILY #30 tablet 03/24/18 Metoprolol Succinate [Toprol XL -] 25 mg PO BID #60 tab.sr.24h 03/24/18 Pramipexole Dihydrochloride [Mirapex -] 1 mg PO 0700,1100,1500,1900 #120 tablet 03/24/18 Aspirin Coated [Ecotrin -] 81 mg PO DAILY tablet.ec 12/22/18 Atorvastatin Ca [Lipitor] 40 mg PO HS tablet 12/22/18 Albuterol 2.5/Ipratropium 0.5 [Duoneb -] 1 amp NEB Q6H PRN #120 amp 09/12/19 Torsemide [Demadex -] 20 mg PO DAILY #60 tablet 09/12/19 Carbidopa/Levodopa [Carbidopa-Levodopa 25-250 Tab] 1 each PO 0700,1100,1500,1900 09/21/19 Docusate Sodium [Colace] 100 mg PO BID 09/21/19 Gabapentin [Neurontin -] 300 mg PO TID #90 capsule 09/24/19 Budesonide/Formeterol Fumarate [SYMBICORT 160/4.5mcg -] 1 inh PO BID 05/26/20 Metolazone 2.5 mg PO BID 05/26/20 Pramipexole Di-HCl [Pramipexole Dihydrochloride] 1 mg PO QID 05/26/20 Cancer: Yes (MULTIPLE MYELOMA) COPD: Yes CHF: Yes Diabetes: Yes HTN: Yes Hypercholesterolemia: Yes - Immunization History Immunization Up to Date: Yes - Psycho-Social/Smoking History Smoking History: Never smoked Have you smoked in the past 12 months: No - Substance Abuse Hx (Audit-C & DAST Scrn) How often the patient has a drink containing alcohol: Never Score: In Men: 4 or > Positive; In Women: 3 or > Positive: 0 Screen Result (Pos requires Nsg. Audit-10AR): Negative In the last yr the pt used illegal drug/Rx for NonMed reason: No Score: Yes response is considered Positive: 0 Screen Result (Positive result requires Nsg. DAST-10): Negative Review of Systems - Review of Systems Able to Perform ROS?: Yes Comments:: 05/26/20 13:56 GENERAL/CONSTITUTIONAL: Weakness. No fever or chills. HEAD, EYES, EARS, NOSE AND THROAT: No change in vision. No ear pain or discharge. No sore throat. CARDIOVASCULAR: No chest pain RESPIRATORY: Shortness of breath. No cough, wheezing, or hemoptysis. GASTROINTESTINAL: No nausea, vomiting, diarrhea or constipation. GENITOURINARY: No dysuria, frequency, or change in urination. MUSCULOSKELETAL: No joint or muscle swelling or pain. No neck or back pain. SKIN: No rash NEUROLOGIC: No headache, vertigo, loss of consciousness, or change in strength/sensation. ENDOCRINE: No increased thirst. No abnormal weight change HEMATOLOGIC/LYMPHATIC: No anemia, easy bleeding, or history of blood clots. ALLERGIC/IMMUNOLOGIC: No hives or skin allergy. *Physical Exam - Vital Signs Last Vital Signs Temp Pulse Resp BP Pulse Ox 98.5 F 96 H 20 182/88 H 98 05/26/20 10:38 05/26/20 10:38 05/26/20 10:38 05/26/20 10:38 05/26/20 10:47 - Physical Exam 05/26/20 13:58 GENERAL: Fatigued appearing. Awake, alert, and fully oriented, in no acute distress HEAD: No signs of trauma, normocephalic, atraumatic EYES: PERRLA, EOMI, sclera anicteric, conjunctiva clear ENT: Auricles normal inspection, hearing grossly normal, nares patent, oropharynx clear without exudates. Moist mucosa NECK: Normal ROM, supple, no lymphadenopathy, JVD, or masses LUNGS: No distress, speaks full sentences, clear to auscultation bilaterally HEART: Regular rate and rhythm, normal S1 and S2, no murmurs, rubs or gallops, peripheral pulses normal and equal bilaterally. ABDOMEN: Soft, nontender, normoactive bowel sounds. No guarding, no rebound. No masses EXTREMITIES : Normal inspection, Normal range of motion, no edema. No clubbing or cyanosis NEUROLOGICAL: Cranial nerves II through XII grossly intact. Normal speech, no focal sensorimotor deficits SKIN: Warm, Dry, normal turgor, no rashes or lesions noted ED Treatment Course - LABORATORY CBC & Chemistry Diagram: 05/26/20 12:18 05/26/20 12:18 Medical Decision Making - Medical Decision Making 05/26/20 14:00 74M w/hx stage IV multiple myeloma, COPD (not on home O2), IDDM, HTN, HLD p/w two days of generalized weakness, fatigue. Ddx worsening renal function, CHF, electrolyte derangement. Plan: CBC CMP EKG CXR Troponin BNP Dispo: Admit --- Cr 1.05 September 2019 -> 3.1 today Case discussed with Dr. Lassiter. Plan for admission, 1/ NS @ 75ml. Discharge - Discharge Information Problems reviewed: Yes Clinical Impression/Diagnosis: Weakness, ANN (acute kidney injury) Condition: Stable - Admission Yes - Follow up/Referral Referrals: Shelly Lassiter MD [Primary Care Provider] - - Patient Discharge Instructions - Post Discharge Activity
[2020-05-26 12:31] LABS: BASO % 0.1 % (0-2.0); HEMATOCRIT 39.1 % (35.4-49); HEMOGLOBIN 11.8 GM/dL (11.7-16.9); LYMPH % 16.6 % (8-40); MCH 22.7 pg (25.7-33.7); MCHC 30.2 g/dl (32.0-35.9); MEAN CELL VOLUME 75.1 fl (80-96); MEAN PLT VOLUME 8.6 fl (7.5-11.1); NEUT % 73.3 % (42.8-82.8); PLATELET COUNT 230 K/MM3 (134-434); RDW 15.2 % (11.9-15.9); WHITE BLOOD COUNT 6.1 K/mm3 (4.0-10.0)
[2020-05-26 12:33] LABS: URINE APPEARANCE CLEAR; URINE BILIRUBIN NEGATIVE (NEGATIVE); URINE COLOR YELLOW; URINE GLUCOSE (UA) NEGATIVE (NEGATIVE); URINE KETONE NEGATIVE (NEGATIVE); URINE LEUK ESTERASE NEGATIVE (NEGATIVE); URINE NITRITE NEGATIVE (NEGATIVE); URINE PROTEIN NEGATIVE (NEGATIVE); URINE UROBILINOGEN 0.2 mg/dL (0.2-1.0)
[2020-05-26 13:01] LABS: ALBUMIN 3.7 g/dl (3.4-5.0); ALK PHOS 92 U/L (45-117); ANION GAP 7 MMOL/L (8-16); BILIRUBIN,TOTAL 0.4 mg/dL (0.2-1); CALCIUM 8.4 mg/dL (8.5-10.1); CHLORIDE 88 mmol/L (98-107); CO2 37 mmol/L (21-32); CREATININE 3.1 mg/dL (0.55-1.3); GLUCOSE,RANDOM 128 mg/dL (74-106); MAGNESIUM 3.2 mg/dL (1.8-2.4); POTASSIUM 4.8 mmol/L (3.5-5.1); SGOT/AST 14 U/L (15-37); SGPT/ALT 8 U/L (13-61); SODIUM 132 mmol/L (136-145); TOT PROT 7.1 g/dl (6.4-8.2)
[2020-05-26] MEDS ORDERED: ALBUTEROL SO4 2.5/IPRATROPIUM 0.5 INH SOL 3 ML VIAL.NEB. NEB PRN (14:18)
[2020-05-26] MEDS: SODIUM CHLORIDE 0.45% 1,000 ML IV SCH (15:05)
[2020-05-26 15:55] LABS: N-TERMINAL BNP 212.8 pg/ml (5-450)
[2020-05-26] MEDS ORDERED: CARBIDOPA/LEVODOPA 25/250 TABLET (FP) ONE ×2 (15:58→21:49)
--- NOTE | 2020-05-26 15:58 | CON.CARD ---
Consult Reason for Consultation:: weakness - History of Present Illness History of Present Illness: 74 M with CKD 3, multiple myeloma with lower extremity edema which was managed with diuretics and attributed to venous stasis and medication effects in the past. His last echo was 1 year ago which showed normal LV function without valvulopathy. A more recent echo as out patient was a limited study. He is admitted with weakness and acute renal failure. 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 No: AFIB Pulmonary: Yes: COPD Gastrointestinal: Yes: GERD Renal/: Yes: Renal Inusuff, BPH - Past Surgical History Past Surgical History: Yes: None - Alcohol/Substance Use Hx Alcohol Use: No History of Substance Use: reports: None - Smoking History Smoking history: Never smoked Have you smoked in the past 12 months: No - Social History ADL: Family Assistance History of Recent Travel: No Home Medications - Allergies Allergies/Adverse Reactions: Allergies Allergy/AdvReac Type Severity Reaction Status Date / Time No Known Allergies Allergy Verified 05/26/20 13:29 - Home Medications Home Medications: Ambulatory Orders Losartan Potassium [Cozaar -] 50 mg PO DAILY #30 tablet 03/24/18 Metoprolol Succinate [Toprol XL -] 25 mg PO BID #60 tab.sr.24h 03/24/18 Pramipexole Dihydrochloride [Mirapex -] 1 mg PO 0700,1100,1500,1900 #120 tablet 03/24/18 Aspirin Coated [Ecotrin -] 81 mg PO DAILY tablet.ec 12/22/18 Atorvastatin Ca [Lipitor] 40 mg PO HS tablet 12/22/18 Albuterol 2.5/Ipratropium 0.5 [Duoneb -] 1 amp NEB Q6H PRN #120 amp 09/12/19 Torsemide [Demadex -] 20 mg PO DAILY #60 tablet 09/12/19 Carbidopa/Levodopa [Carbidopa-Levodopa 25-250 Tab] 1 each PO 0700,1100,1500,1900 09/21/19 Docusate Sodium [Colace] 100 mg PO BID 09/21/19 Gabapentin [Neurontin -] 300 mg PO TID #90 capsule 09/24/19 Budesonide/Formeterol Fumarate [SYMBICORT 160/4.5mcg -] 1 inh PO BID 05/26/20 Metolazone 2.5 mg PO BID 05/26/20 Pramipexole Di-HCl [Pramipexole Dihydrochloride] 1 mg PO QID 05/26/20 Morphine *Sr* 60 mg PO QID 05/27/20 Percocet 5-325 mg Tablet 5 - 325 tablet PO PRN 05/27/20 Family Medical History Family Hx Cancer: Brother (multiple myeloma) Review of Systems - Review of Systems Constitutional: reports: No Symptoms Eyes: reports: No Symptoms HENT: reports: No Symptoms Neck: reports: No Symptoms Cardiovascular: reports: No Symptoms. denies: Chest Pain, Edema, Palpitations, Shortness of Breath Respiratory: reports: No Symptoms Gastrointestinal: reports: No Symptoms Genitourinary: reports: No Symptoms Breasts: reports: No Symptoms Reported Musculoskeletal: reports: No Symptoms Integumentary: reports: No Symptoms Neurological: reports: No Symptoms Endocrine: reports: No Symptoms Vital Signs: Vital Signs Temperature 98.5 F 05/26/20 10:38 Pulse Rate 83 05/26/20 15:38 Respiratory Rate 16 05/26/20 15:38 Blood Pressure 133/68 05/26/20 15:38 O2 Sat by Pulse Oximetry (%) 100 05/26/20 15:38 Constitutional: Yes: Well Nourished, No Distress Eyes: Yes: Conjunctiva Clear HENT: Yes: Atraumatic, Normocephalic Neck: Yes: Supple, Trachea Midline Respiratory: Yes: Regular, CTA Bilaterally Gastrointestinal: Yes: Normal Bowel Sounds Cardiovascular: Yes: Regular Rate and Rhythm JVD: No Carotid Bruit: No PMI: Non-Displaced Heart Sounds: Yes: S1, S2 Murmur: No: Systolic Murmur, Diastolic Murmur Edema: No - Other Data Labs, Other Data: CBC, BMP 05/26/20 12:18 05/26/20 12:18 Troponin, BNP 05/26/20 12:18 Troponin I < 0.02 Troponin, BNP 05/26/20 12:18 Troponin I < 0.02 Problem List - Problems (1) ANN (acute kidney injury) Code(s): N17.9 - ACUTE KIDNEY FAILURE, UNSPECIFIED Assessment/Plan 74 M with CKD 3, multiple myeloma with lower extremity edema which was managed with diuretics and attributed to venous stasis and medication effects in the past. His last echo was 1 year ago which showed normal LV function without valvulopathy. A more recent echo as out patient was a limited study. He is admitted with weakness and acute renal failure due to diuretic use. No heart failure. Hold Diuretic and ARB.
[2020-05-26] MEDS: CARBIDOPA/LEVODOPA 25/250 TABLET (FP) PO SCH (16:53)
[2020-05-26] MEDS: PRAMIPEXOLE DIHYDROCHLORIDE 1 MG TABLET PO SCH (16:53)
[2020-05-26] MEDS: DOCUSATE SODIUM 100 MG CAPSULE (FP) PO SCH (23:56)
[2020-05-26] MEDS: GABAPENTIN 300 MG CAPSULE PO SCH (23:57)
[2020-05-26] MEDS: metoPROLOL SUCCINATE 25 MG TAB.SR.24H (FP) PO SCH (23:57)
[2020-05-26] MEDS: HEPARIN NA (PORCINE) 5,000 UNITS/ML 1ML VIAL SQ SCH (23:57)
[2020-05-26] MEDS: ATORVASTATIN CA 40 MG TABLET (FP) PO SCH (23:57)
[2020-05-27] MEDS: BUDESONIDE/FORMETEROL FUMARATE 160/4.5 mcg INHALER IH SCH ×3 (00:50→21:43)
[2020-05-27] MEDS ORDERED: MORPHINE SULFATE 2 MG/ML VIAL IVPUSH ONE (01:00)
--- NOTE | 2020-05-27 03:37 | PN ---
Progress Note (short form) - Note Progress Note: Episodic Note: Called by nurse patient is difficult to arouse and with mental status changes. Chart reviewed. Patient was seen and examined at bedside.He has multiple myeloma and has ANN. IV fluids infusing. Vital signs are stable and afebrile, oxygen saturation 97% on RA, glucose 103. Patient moving upper extremities and lower extremities with bilateral weakness(baseline unclear). Speech was clear and no facial grimace seen. He appears to be disoriented and unable to tell me where he is. He was able to follow simple commands. CT scan of head was checked STAT and as per BOILER ROOM OPERATOR RADIOLOGIST verbal report was provided to me and no acute findings were seen. Silas Sinclair Visit type - Emergency Visit Emergency Visit: Yes ED Registration Date: 05/26/20 Care time: The patient presented to the Emergency Department on the above date and was hospitalized for further evaluation of their emergent condition. - New Patient This patient is new to me today: Yes Date on this admission: 05/27/20 - Critical Care Critical Care patient: No - Medication Review Med list reviewed for High Risk Meds patients 65 and older: No
[2020-05-27] MEDS: GABAPENTIN 300 MG CAPSULE PO SCH ×3 (06:31→21:42)
[2020-05-27 08:39] LABS: BASO % 0.1 % (0-2.0); HEMATOCRIT 36.8 % (35.4-49); HEMOGLOBIN 11.6 GM/dL (11.7-16.9); LYMPH % 19.5 % (8-40); MCHC 31.6 g/dl (32.0-35.9); MEAN CELL VOLUME 75.9 fl (80-96); MEAN PLT VOLUME 8.2 fl (7.5-11.1); MONO % 12.6 % (3.8-10.2); NEUT % 67.8 % (42.8-82.8); PLATELET COUNT 214 K/MM3 (134-434); RBC 4.84 M/mm3 (4.00-5.60); RDW 15.3 % (11.9-15.9); WHITE BLOOD COUNT 5.1 K/mm3 (4.0-10.0)
--- NOTE | 2020-05-27 08:41 | CONSULT ---
Consultation: REQUESTING PROVIDER: Dr. Lassiter CONSULT REQUEST: We have been asked to medically evaluate this patient for multiple Myeloma. HISTORY OF PRESENT ILLNESS: 74 y/o M PMHx Metastatic MM, COPD (not on home O2), CKD3, Parkinsins, CHF, HTN, NIDDM presents with difficulty ambulating due to generalized weakness, unsteadiness. Recently, patient experienced sudden onset b/l LE edema about 2 weeks ago and was advised to increase his [place] by his [place] Head Wet Process resulting in edema resolution. Additionally patient referred to cardiology and was started on Metolazone a few days ago; Patient underwent outpatient Echo which was a limited study. says thats patients BP has been fluctuating from 60/40 accompanied by LE Twitching and she was instructed to stop metolazone. Patient was not able to ambulate due to extreme weakness but the twitching became more frequenting prompting him to visit [facility][NOTE 3]. Initial labwork revealed ANN for which the patient was admitted. Overnight, patient became difficulty to arouse with mental status changes for which a Head CT done revealed no acute changes. Medical oncology was consulted for evaluation of multiple myeloma. During my interview, patient was not in any pain and denies any recent weight loss. Denies any recent travel, No sick contacts. No other medication changes except for those noted above. believes patient felt SOB over the last few days. Otherwise denies any recent fevers, chills, chest pain, Nausea, vomiting, diarrhea, constipation. 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 NECK: Supple, No JVD LUNGS: Diminished breath sounds at the bases, No wheezes HEART: Regular rate and rhythm, normal S1 and S2 without murmur ABDOMEN: Obese, Soft, nontender, not distended, + bowel sounds, no guarding MUSCULOSKELETAL: No CVA tenderness. EXTREMITIES: 1+ l edema. NEUROLOGICAL: Cranial nerves II-XII intact. Normal speech. R Foot Drop SKIN: Warm, dry Laboratory Last Values WBC 6.1 K/mm3 (4.0-10.0) 05/26/20 12:18 RBC 5.20 M/mm3 (4.00-5.60) 05/26/20 12:18 Hgb 11.8 GM/dL (11.7-16.9) 05/26/20 12:18 Hct 39.1 % (35.4-49) 05/26/20 12:18 MCV 75.1 fl (80-96) L 05/26/20 12:18 MCH 22.7 pg (25.7-33.7) L 05/26/20 12:18 MCHC 30.2 g/dl (32.0-35.9) L 05/26/20 12:18 RDW 15.2 % (11.9-15.9) D 05/26/20 12:18 Plt Count 230 K/MM3 (134-434) D 05/26/20 12:18 MPV 8.6 fl (7.5-11.1) 05/26/20 12:18 Absolute Neuts (auto) 4.5 K/mm3 (1.5-8.0) 05/26/20 12:18 Neutrophils % 73.3 % (42.8-82.8) 05/26/20 12:18 Lymphocytes % 16.6 % (8-40) D 05/26/20 12:18 Monocytes % 10.0 % (3.8-10.2) D 05/26/20 12:18 Eosinophils % 0.0 % (0-4.5) 05/26/20 12:18 Basophils % 0.1 % (0-2.0) 05/26/20 12:18 Nucleated RBC % 0 % (0-0) 05/26/20 12:18 Sodium 132 mmol/L (136-145) L 05/26/20 12:18 Potassium 4.8 mmol/L (3.5-5.1) 05/26/20 12:18 Chloride 88 mmol/L (98-107) L 05/26/20 12:18 Carbon Dioxide 37 mmol/L (21-32) H 05/26/20 12:18 Anion Gap 7 MMOL/L (8-16) L 05/26/20 12:18 BUN 78.0 mg/dL (7-18) H 05/26/20 12:18 Creatinine 3.1 mg/dL (0.55-1.3) H 05/26/20 12:18 Est GFR (CKD-EPI)AfAm 21.63 05/26/20 12:18 Est GFR (CKD-EPI)NonAf 18.66 05/26/20 12:18 POC Glucometer 103 UNITS (80-120) 05/27/20 01:43 Random Glucose 128 mg/dL (74-106) H 05/26/20 12:18 Calcium 8.4 mg/dL (8.5-10.1) L 05/26/20 12:18 Magnesium 3.2 mg/dL (1.8-2.4) H 05/26/20 12:18 Total Bilirubin 0.4 mg/dL (0.2-1) 05/26/20 12:18 AST 14 U/L (15-37) L 05/26/20 12:18 ALT 8 U/L (13-61) L 05/26/20 12:18 Alkaline Phosphatase 92 U/L (45-117) 05/26/20 12:18 Creatine Kinase 262 U/L (26-308) 05/26/20 12:18 Creatine Kinase Index 0.7 % (0.0-5.0) 05/26/20 12:18 CK-MB (CK-2) 2.0 ng/mL (0.5-3.6) 05/26/20 12:18 Troponin I < 0.02 ng/ml (0.00-0.05) 05/26/20 12:18 B-Natriuretic Peptide 212.8 pg/ml (5-450) 05/26/20 12:18 Total Protein 7.1 g/dl (6.4-8.2) 05/26/20 12:18 Albumin 3.7 g/dl (3.4-5.0) 05/26/20 12:18 Urine Color Yellow 05/26/20 12:18 Urine Appearance Clear 05/26/20 12:18 Urine pH 5.0 (5.0-8.0) 05/26/20 12:18 Ur Specific [place] 1.008 (1.010-1.035) L 05/26/20 12:18 Urine Protein Negative (NEGATIVE) 05/26/20 12:18 Urine Glucose (UA) Negative (NEGATIVE) 05/26/20 12:18 Urine Ketones Negative (NEGATIVE) 05/26/20 12:18 Urine Blood Negative (NEGATIVE) 05/26/20 12:18 Urine Nitrite Negative (NEGATIVE) 05/26/20 12:18 Urine Bilirubin Negative (NEGATIVE) 05/26/20 12:18 Urine Urobilinogen 0.2 mg/dL (0.2-1.0) 05/26/20 12:18 Ur Leukocyte Esterase Negative (NEGATIVE) 05/26/20 12:18 Active Medications Albuterol/Ipratropium (Duoneb -) 1 amp NEB Q6H PRN PRN Reason: SHORTNESS OF BREATH Aspirin (Ecotrin -) 81 mg PO DAILY [facility] Atorvastatin Calcium (Lipitor -) 40 mg PO HS [facility] Last Admin: 05/26/20 23:57 Dose: 40 mg Documented by: Budesonide/Formoterol Fumarate (Symbicort 160/4.5mcg -) 2 puff IH BID [facility] Last Admin: 05/27/20 00:50 Dose: Not Given Documented by: Carbidopa/Levodopa (Sinemet 25/250 -) 1 each PO 0700,1100,1500,1900 [facility] Last Admin: 05/26/20 16:53 Dose: 1 each Documented by: Docusate Sodium (Colace -) 100 mg PO BID [facility] Last Admin: 05/26/20 23:56 Dose: 100 mg Documented by: Gabapentin (Neurontin -) 300 mg PO TID [facility] Last Admin: 05/27/20 06:31 Dose: 300 mg Documented by: Heparin Sodium (Porcine) (Heparin -) 5,000 unit SQ BID [facility] Last Admin: 05/26/20 23:57 Dose: 5,000 unit Documented by: Sodium Chloride (1/2 Normal Saline) 1,000 mls @ 75 mls/hr IV ASDIR [facility] Last Admin: 05/26/20 15:05 Dose: 75 mls/hr Documented by: Metoprolol Succinate (Toprol Xl -) 25 mg PO BID [facility] Last Admin: 05/26/20 23:57 Dose: 25 mg Documented by: Pramipexole Dihydrochloride (Mirapex -) 1 mg PO 0700,1100,1500,1900 [facility] Last Admin: 05/26/20 16:53 Dose: 1 mg Documented by: ASSESSMENT/PLAN: 74 y/o M PMHx Metastatic MM, COPD (not on home O2), CKD3, Parkinsins, CHF, HTN, NIDDM presents with difficulty ambulating due to generalized weakness, unsteadiness in the setting of increased diuresis, Admitted for ANN. Medical oncology was consulted for evaluation of multiple myeloma. #Multiple Myeloma -In remission with no associated pain, weight loss; Previously treated with chemotherapy and radiation and now on observation -Patient has close follow up outpatient with Dr. Luis -ANN unlikely to be related to progression of MM and more likely to be due to over diuresis Dispo: We will continue to follow the patient. Thank you for this consultative opportunity. Visit type - Medication Review Med list reviewed for High Risk Meds patients 65 and older: Yes - Emergency Visit Emergency Visit: Yes ED Registration Date: 05/26/20 Care time: The patient presented to the Emergency Department on the above date and was hospitalized for further evaluation of their emergent condition. - New Patient This patient is new to me today: No - Critical Care Critical Care patient: No ATTENDING PHYSICIAN STATEMENT I saw and evaluated the patient. I reviewed the resident's note and discussed the case with the resident. I agree with the resident's findings and plan as documented. SUBJECTIVE: OBJECTIVE: ASSESSMENT AND PLAN:
[2020-05-27 09:07] LABS: ARTERIAL BLD GAS O2 SATURATION 93.7 mmHg (95-98); ARTERIAL BLOOD GAS BASE EXCESS 6.6 mmol/L (-2-2); ARTERIAL BLOOD GAS PO2 71.7 mmHg (80-100); ARTERIAL BLOOD GAS pH 7.373 (7.350-7.450)
[2020-05-27 09:08] LABS: ALLENS TEST POSITIVE
[2020-05-27 09:08] LABS: ALBUMIN 3.3 g/dl (3.4-5.0); ALK PHOS 87 U/L (45-117); ANION GAP 7 MMOL/L (8-16); BILIRUBIN,TOTAL 0.5 mg/dL (0.2-1); BLOOD UREA NITROGEN 72.8 mg/dL (7-18); CALCIUM 8.8 mg/dL (8.5-10.1); CHLORIDE 91 mmol/L (98-107); CO2 36 mmol/L (21-32); CREATININE 2.7 mg/dL (0.55-1.3); GLUCOSE,RANDOM 97 mg/dL (74-106); MAGNESIUM 3.3 mg/dL (1.8-2.4); PHOSPHOROUS 5.8 mg/dL (2.5-4.9); POTASSIUM 4.5 mmol/L (3.5-5.1); SGOT/AST 10 U/L (15-37); SGPT/ALT 7 U/L (13-61); SODIUM 134 mmol/L (136-145); TOT PROT 6.5 g/dl (6.4-8.2)
[2020-05-27] MEDS: HEPARIN NA (PORCINE) 5,000 UNITS/ML 1ML VIAL SQ SCH ×2 (09:54→21:42)
[2020-05-27] MEDS: ASPIRIN COATED 81 MG TABLET.EC PO SCH (09:54)
[2020-05-27] MEDS: PRAMIPEXOLE DIHYDROCHLORIDE 1 MG TABLET PO SCH ×5 (09:54→18:02)
[2020-05-27] MEDS: DOCUSATE SODIUM 100 MG CAPSULE (FP) PO SCH ×2 (09:55→21:41)
[2020-05-27] MEDS: CARBIDOPA/LEVODOPA 25/250 TABLET (FP) PO SCH ×5 (09:55→21:41)
[2020-05-27] MEDS: metoPROLOL SUCCINATE 25 MG TAB.SR.24H (FP) PO SCH ×2 (09:58→21:44)
--- NOTE | 2020-05-27 10:46 | HP ---
Admitting History and Physical - Primary Care Physician PCP: Shelly Lassiter - Admission Chief Complaint: Weakness. Dehydration History of Present Illness: 74y M hx of metastatic Multiple myeloma, htn, parkinsons, copd, polycystic kidneys, ckd, hl, chf, presented to [facility] ER for weakness. Known patient from our office, last spoke to his Birdie 05/27/20 to review labs done on 05/20/20, which showed Cr at 1.7 from 1.62 from the labs prior in March 2020. Pt follows up outpatient with nephrology Dr Ninoska Mccartney and Oncology Dr Orlando Luis for MM. Pt was started on Amlodipine by Cardiology Dr Jovel in mid april, re-evaluated on 05/04/20, found to have peripheral edema worse than his usual CHF edema. Amlodipine was stopped and pt was started on Metalozone in addition to his Torsemide. Pt had been taking Torsemide 40 mg QAM and 20 mg QPM + Metolazone 2.5 mg po daily. Pt was seen by me in the office on 05/20/20, had trace LE Edema. Pt's was instructed to stop metolazone on 05/25/20. pt ended up in [facility] ER due to dehydration on 05/26/20. Upon admission Cr was found to be at 3.1, has now decreased to 2.7 on IVF. Nephrology has been consulted. 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 No: Alzheimer's Cardiovascular: Yes: CHF, HTN, Hyperlipdemia. No: AFIB Pulmonary: Yes: COPD Gastrointestinal: Yes: GERD Renal/: Yes: Renal Inusuff, BPH Heme/Onc: Yes: Anemia, Cancer - Past Surgical History Past Surgical History: Yes: None - Smoking History Smoking history: Never smoked Have you smoked in the past 12 months: No - Alcohol/Substance Use Hx Alcohol Use: No History of Substance Use: reports: None - Social History ADL: Family Assistance History of Recent Travel: No Home Medications - Allergies Allergies/Adverse Reactions: Allergies Allergy/AdvReac Type Severity Reaction Status Date / Time No Known Allergies Allergy Verified 05/26/20 13:29 - Home Medications Home Medications: Ambulatory Orders Losartan Potassium [Cozaar -] 50 mg PO DAILY #30 tablet 03/24/18 Metoprolol Succinate [Toprol XL -] 25 mg PO BID #60 tab.sr.24h 03/24/18 Pramipexole Dihydrochloride [Mirapex -] 1 mg PO 0700,1100,1500,1900 #120 tablet 03/24/18 Aspirin Coated [Ecotrin -] 81 mg PO DAILY tablet.ec 12/22/18 Atorvastatin Ca [Lipitor] 40 mg PO HS tablet 12/22/18 Albuterol 2.5/Ipratropium 0.5 [Duoneb -] 1 amp NEB Q6H PRN #120 amp 09/12/19 Torsemide [Demadex -] 20 mg PO DAILY #60 tablet 09/12/19 Carbidopa/Levodopa [Carbidopa-Levodopa 25-250 Tab] 1 each PO 0700,1100,1500,1900 09/21/19 Docusate Sodium [Colace] 100 mg PO BID 09/21/19 Gabapentin [Neurontin -] 300 mg PO TID #90 capsule 09/24/19 Budesonide/Formeterol Fumarate [SYMBICORT 160/4.5mcg -] 1 inh PO BID 05/26/20 Metolazone 2.5 mg PO BID 05/26/20 Pramipexole Di-HCl [Pramipexole Dihydrochloride] 1 mg PO QID 05/26/20 Morphine *Sr* 60 mg PO QID 05/27/20 Percocet 5-325 mg Tablet 5 - 325 tablet PO PRN 05/27/20 Family Medical History Family Hx Cancer: Brother (multiple myeloma) Review of Systems - Review of Systems Constitutional: reports: No Symptoms Eyes: reports: No Symptoms HENT: reports: No Symptoms Neck: reports: No Symptoms Cardiovascular: reports: No Symptoms Respiratory: reports: No Symptoms Gastrointestinal: reports: No Symptoms Genitourinary: reports: No Symptoms Breasts: reports: No Symptoms Reported Musculoskeletal: reports: No Symptoms Integumentary: reports: No Symptoms Neurological: reports: No Symptoms Endocrine: reports: No Symptoms Hematology/Lymphatic: reports: No Symptoms Psychiatric: reports: No Symptoms Physical Examination Vital Signs: Vital Signs Temperature 98.1 F 05/27/20 08:00 Pulse Rate 66 05/27/20 08:00 Respiratory Rate 18 05/27/20 08:00 Blood Pressure 106/55 L 05/27/20 08:00 O2 Sat by Pulse Oximetry (%) 95 05/27/20 09:00 Findings/Remarks: NAD, Feels better, Numbness and tingling is chronic in BLLE, is on Gabapentin Constitutional: Yes: Well Nourished, No Distress, Calm, Obese Cardiovascular: Yes: Regular Rate and Rhythm Respiratory: Yes: Regular, CTA Bilaterally Gastrointestinal: Yes: Normal Bowel Sounds, Soft, Abdomen, Obese Renal/: Yes: WNL Musculoskeletal: Yes: Muscle Weakness Edema: Yes Edema: LLE: Trace, RLE: Trace Peripheral Pulses WNL: Yes Neurological: Yes: Alert, Oriented Psychiatric: Yes: Alert, Oriented Labs: CBC, BMP 05/27/20 06:53 05/27/20 06:53 Problem List - Problems (1) ANN (acute kidney injury) Assessment/Plan: -Continue iVF -Nephrology consult -Cr trending down, monitor trend -Hold diuretics for now Problems reviewed: Yes Code(s): N17.9 - ACUTE KIDNEY FAILURE, UNSPECIFIED (2) Weakness Assessment/Plan: -Likely 2/2 to dehydration Problems reviewed: Yes Code(s): R53.1 - WEAKNESS (3) Dehydration Assessment/Plan: -as above Problems reviewed: Yes Code(s): E86.0 - DEHYDRATION (4) Myeloma Assessment/Plan: -Chronic -Oncology consulted Problems reviewed: Yes Code(s): C90.00 - MULTIPLE MYELOMA NOT HAVING ACHIEVED REMISSION (5) Chronic CHF (congestive heart failure) Assessment/Plan: -Cardiology consult -Echo as outpatient -Hold diuretics Problems reviewed: Yes Code(s): I50.9 - HEART FAILURE, UNSPECIFIED Assessment/Plan See problem list Spoke to Birdie.
[2020-05-27] MEDS: SODIUM CHLORIDE 0.45% 1,000 ML IV SCH ×2 (14:51→21:39)
[2020-05-27] MEDS ORDERED: ACETAMINOPHEN 500 MG TABLET (FP) PO PRN (15:12)
[2020-05-27 15:28] VITALS: BMI 40.4
--- NOTE | 2020-05-27 15:28 | CON.NEP ---
Consult Consult Specialty:: Nephrology Referred by:: Dr. Lassiter Reason for Consultation:: Acute on chronic renal insuffiency - History of Present Illness Chief Complaint: Arm spasms History of Present Illness: This is a 74 year old male with history of CKD stage 3 (baseline Cr 1.7), multiple myeloma, parkinson's, COPD, PCKD, CHF, hypertension and hyperlipidemia who presented to the ED with complaints of weakness and upper extremity spastic movements and found to have acute on chronic renal insufficiency. Pt seen and examined at the bedside. Awake and alert and offers no acute complaints. Pt was recently started on higher dose of Torsemide for his leg swelling by Dr. Mccartney and then started on Metolazone by cardiology. He reports that his swelling is resolved. Denies any chest pain, or shortness of breath. Making urine. Appetite is preserved. No flank pain or dysuria. - History Source History Provided By: Patient Limitations to Obtaining History: No Limitations - Past Medical History [employer]: Yes: Parkinson's. 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 No: AFIB Pulmonary: Yes: COPD Gastrointestinal: Yes: GERD Renal/: Yes: Renal Inusuff, BPH - Past Surgical History Past Surgical History: Yes: None - Alcohol/Substance Use Hx Alcohol Use: No History of Substance Use: reports: None - Smoking History Smoking history: Never smoked Have you smoked in the past 12 months: No - Social History ADL: Family Assistance History of Recent Travel: No Home Medications - Allergies Allergies/Adverse Reactions: Allergies Allergy/AdvReac Type Severity Reaction Status Date / Time No Known Allergies Allergy Verified 05/26/20 13:29 - Home Medications Home Medications: Ambulatory Orders Losartan Potassium [Cozaar -] 50 mg PO DAILY #30 tablet 03/24/18 Metoprolol Succinate [Toprol XL -] 25 mg PO BID #60 tab.sr.24h 03/24/18 Pramipexole Dihydrochloride [Mirapex -] 1 mg PO 0700,1100,1500,1900 #120 tablet 03/24/18 Aspirin Coated [Ecotrin -] 81 mg PO DAILY tablet.ec 12/22/18 Atorvastatin Ca [Lipitor] 40 mg PO HS tablet 12/22/18 Albuterol 2.5/Ipratropium 0.5 [Duoneb -] 1 amp NEB Q6H PRN #120 amp 09/12/19 Torsemide [Demadex -] 20 mg PO DAILY #60 tablet 09/12/19 Carbidopa/Levodopa [Carbidopa-Levodopa 25-250 Tab] 1 each PO 0700,1100,1500,1900 09/21/19 Docusate Sodium [Colace] 100 mg PO BID 09/21/19 Gabapentin [Neurontin -] 300 mg PO TID #90 capsule 09/24/19 Budesonide/Formeterol Fumarate [SYMBICORT 160/4.5mcg -] 1 inh PO BID 05/26/20 Metolazone 2.5 mg PO BID 05/26/20 Pramipexole Di-HCl [Pramipexole Dihydrochloride] 1 mg PO QID 05/26/20 Morphine *Sr* 60 mg PO QID 05/27/20 Percocet 5-325 mg Tablet 5 - 325 tablet PO PRN 05/27/20 Family Medical History Family History: Unremarkable Family Hx Cancer: Brother (multiple myeloma) Review of Systems - Review of Systems Constitutional: reports: No Symptoms Eyes: reports: No Symptoms HENT: reports: No Symptoms Neck: reports: No Symptoms Cardiovascular: reports: No Symptoms Respiratory: reports: No Symptoms Gastrointestinal: reports: No Symptoms Genitourinary: reports: No Symptoms Musculoskeletal: reports: No Symptoms Neurological: reports: Tremors Nephrology Consult - Height Height: 5 ft 7 in - Weight Weight: 117.169 kg - BMI Body Mass Index (BMI): 40.4 - Lab Results CBC,BMP: CBC, BMP 05/27/20 06:53 05/27/20 06:53 Anion Gap: Anion Gap Anion Gap 7 MMOL/L (8-16) L 05/27/20 06:53 - Imaging Chest X-ray: Report Reviewed - Physical Examination Vital Signs: Vital Signs Temperature 98.6 F 05/27/20 15:02 Pulse Rate 59 L 05/27/20 15:02 Respiratory Rate 18 05/27/20 15:02 Blood Pressure 133/71 05/27/20 15:02 O2 Sat by Pulse Oximetry (%) 97 05/27/20 15:02 Constitutional: Yes: Well Nourished, No Distress, Calm HENT: Yes: Atraumatic Neck: Yes: Supple Cardiovascular: Yes: Regular Rate and Rhythm. No: Murmur Respiratory: Yes: Regular, CTA Bilaterally Gastrointestinal: Yes: Soft Extremities: No: Cold, Cool, Cyanosis Edema: No Neurological: Yes: Alert, Oriented Assessment/Plan 74 year old male with history of CKD stage 3 (baseline Cr 1.7), multiple myeloma, parkinson's, COPD, PCKD, CHF, hypertension and hyperlipidemia who presented to the ED with complaints of weakness and upper extremity spastic movements and found to have acute on chronic renal insufficiency. 1. 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 Upper extremity spasms/Parkinsons 3. Fatigue 4. Multiple Myeloma 5. CHF w/o evidence of acute exacerbation 6. Hyperlipidemia Renal function improving from admission. No acute need for renal replacement therapy. Continue 1/2 NS at the present rate. Check urine studies to access for non-albumin proteinuria Trend renal function and electrolytes daily hold diuretics and ARB for now, likely will need to resume diuretics once ready for discharge. Cardiology and Oncology following Thank you Madan cano DO
[2020-05-27] MEDS: POLYETHYLENE GLYCOL 3350 119 GM BTL PO SCH (15:40)
--- NOTE | 2020-05-27 16:46 | PN ---
Teaching Attending Note Name of Resident: Alka Marvin ATTENDING PHYSICIAN STATEMENT I saw and evaluated the patient. I reviewed the resident's note and discussed the case with the resident. I agree with the resident's findings and plan as documented. 74M with MM, CHF, CKD presents with weakness and ANN. 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 He received XRT to right and left femurs as well as left shoulder and had also received Cytoxan in 2014 for progressive mets and symptoms but has not had chemo since 2016. It seems his MM has been in remission and hes only been on observation at this time. Baseline creatinine looks to be around 1.5; ANN most likely due to history of overdiuresis and not myeloma progression. Patient has a follow up appointment with Dr Luis (primary aviation technician) next month
[2020-05-27] MEDS: morphine SO4 SUSTAINED ACTING 30 MG TABLET.SA PO SCH (18:00)
[2020-05-27] MEDS: ATORVASTATIN CA 40 MG TABLET (FP) PO SCH (21:42)
[2020-05-28] MEDS: morphine SO4 SUSTAINED ACTING 30 MG TABLET.SA PO SCH ×2 (02:49→14:38)
[2020-05-28] MEDS: PRAMIPEXOLE DIHYDROCHLORIDE 1 MG TABLET PO SCH ×4 (06:52→18:12)
[2020-05-28] MEDS: CARBIDOPA/LEVODOPA 25/250 TABLET (FP) PO SCH ×4 (06:52→18:12)
[2020-05-28] MEDS: GABAPENTIN 300 MG CAPSULE PO SCH ×3 (06:53→21:18)
[2020-05-28] MEDS: TAMSULOSIN HCL 0.4 MG CAP PO SCH (08:52)
[2020-05-28] MEDS: DOCUSATE SODIUM 100 MG CAPSULE (FP) PO SCH ×2 (09:10→21:17)
[2020-05-28] MEDS: HEPARIN NA (PORCINE) 5,000 UNITS/ML 1ML VIAL SQ SCH ×2 (09:10→21:18)
[2020-05-28] MEDS: metoPROLOL SUCCINATE 25 MG TAB.SR.24H (FP) PO SCH ×2 (09:10→21:17)
[2020-05-28] MEDS: ALLOPURINOL 300 MG TABLET (FP) PO SCH (09:10)
[2020-05-28] MEDS: ASPIRIN COATED 81 MG TABLET.EC PO SCH (09:10)
[2020-05-28] MEDS: BUDESONIDE/FORMETEROL FUMARATE 160/4.5 mcg INHALER IH SCH ×2 (09:14→21:18)
[2020-05-28] MEDS: POLYETHYLENE GLYCOL 3350 119 GM BTL PO SCH (09:15)
[2020-05-28 11:08] LABS: BLOOD UREA NITROGEN 60.6 mg/dL (7-18); CALCIUM 9.1 mg/dL (8.5-10.1); CREATININE 1.9 mg/dL (0.55-1.3); MAGNESIUM 3.2 mg/dL (1.8-2.4); PHOSPHOROUS 3.4 mg/dL (2.5-4.9); POTASSIUM 4.1 mmol/L (3.5-5.1)
--- NOTE | 2020-05-28 13:11 | PN ---
Progress Note (short form) - Note Progress Note: RENAL Pt is awake and alert says he had uncontrolled movements but is better doesnt know if it was his kidneys acting up Last Vital Signs Temp Pulse Resp BP Pulse Ox 98.2 F 66 18 144/48 L 98 05/28/20 08:19 05/28/20 08:19 05/28/20 08:19 05/28/20 08:19 05/28/20 08:19 some ptosis of right eye lungs bilat air entry cvs s1s2 rr abd soft ext +edema neuro a+ox3 CBC, BMP 05/27/20 06:53 05/28/20 09:58 Current Medications Generic Name Dose Route Start Last Admin Trade Name Freq PRN Reason Stop Dose Admin Acetaminophen 1,000 mg 05/27/20 15:12 Tylenol - PO Q6H PRN PAIN 1-10 OR FEVER Albuterol/Ipratropium 1 amp 05/26/20 14:18 Duoneb - NEB Q6H PRN SHORTNESS OF BREATH Allopurinol 300 mg 05/28/20 10:00 05/28/20 09:10 Zyloprim - PO 300 mg DAILY ANAT Administration Aspirin 81 mg 05/27/20 10:00 05/28/20 09:10 Ecotrin - PO 81 mg DAILY ANAT Administration Atorvastatin Calcium 40 mg 05/26/20 22:00 05/27/20 21:42 Lipitor - PO 40 mg HS ANAT Administration Budesonide/Formoterol Fumarate 2 puff 05/26/20 22:00 05/28/20 09:14 Symbicort 160/4.5mcg - IH 2 puff BID ANAT Administration Carbidopa/Levodopa 1 each 05/26/20 15:00 05/28/20 11:17 Sinemet 25/250 - PO 1 each 0700,1100,1500,1900 ANAT Administration Docusate Sodium 100 mg 05/26/20 22:00 05/28/20 09:10 Colace - PO 100 mg BID ANAT Administration Gabapentin 900 mg 05/27/20 15:11 05/28/20 06:53 Neurontin - PO 900 mg TID ANAT Administration Heparin Sodium (Porcine) 5,000 unit 05/26/20 22:00 05/28/20 09:10 Heparin - SQ 5,000 unit BID ANAT Administration Sodium Chloride 1,000 mls @ 75 mls/hr 05/26/20 14:15 05/27/20 21:39 1/2 Normal Saline IV 75 mls/hr ASDIR ANAT Administration Metoprolol Succinate 25 mg 05/26/20 22:00 05/28/20 09:10 Toprol Xl - PO 25 mg BID ANAT Administration Morphine Sulfate 30 mg 05/27/20 15:15 05/28/20 02:49 Ms Contin - PO 30 mg Q12H ANAT Administration Polyethylene Glycol 17 gm 05/27/20 15:15 05/28/20 09:15 Miralax (For Daily Use) - PO 17 grams DAILY ANAT Administration Pramipexole Dihydrochloride 1 mg 05/26/20 15:00 05/28/20 11:17 Mirapex - PO 1 mg 0700,1100,1500,1900 ANAT Administration Tamsulosin HCl 0.4 mg 05/28/20 08:30 05/28/20 08:52 Flomax - PO 0.4 mg DAILY@0830 ANAT Administration IMPRESSION May have had myoclonic jerks due to gabapentin in setting of horacio is becoming edematous. gabapentin can do it but he is on ivf PLAN dc ivf would reduce gabapentin particularly given renal insuff jousé since he is also on mirapex monitor renal function MV
[2020-05-28] MEDS: SODIUM CHLORIDE 0.45% 1,000 ML IV SCH (13:15)
--- NOTE | 2020-05-28 14:13 | PN ---
Progress Note, Physician Chief Complaint: Weakness Dehydration History of Present Illness: Previous notes and events reviewed awake and alert NAD BUN/Cr elevated but showing downtrend denies chest pain or SOB states having some "jerking" movements - Current Medication List Current Medications: Active Medications Acetaminophen (Tylenol -) 1,000 mg PO Q6H PRN PRN Reason: PAIN 1-10 OR FEVER Albuterol/Ipratropium (Duoneb -) 1 amp NEB Q6H PRN PRN Reason: SHORTNESS OF BREATH Allopurinol (Zyloprim -) 300 mg PO DAILY [facility] Last Admin: 05/28/20 09:10 Dose: 300 mg Documented by: Aspirin (Ecotrin -) 81 mg PO DAILY [facility] Last Admin: 05/28/20 09:10 Dose: 81 mg Documented by: Atorvastatin Calcium (Lipitor -) 40 mg PO HS [facility] Last Admin: 05/27/20 21:42 Dose: 40 mg Documented by: Budesonide/Formoterol Fumarate (Symbicort 160/4.5mcg -) 2 puff IH BID [facility] Last Admin: 05/28/20 09:14 Dose: 2 puff Documented by: Carbidopa/Levodopa (Sinemet 25/250 -) 1 each PO 0700,1100,1500,1900 [facility] Last Admin: 05/28/20 11:17 Dose: 1 each Documented by: Docusate Sodium (Colace -) 100 mg PO BID [facility] Last Admin: 05/28/20 09:10 Dose: 100 mg Documented by: Gabapentin (Neurontin -) 900 mg PO TID [facility] Last Admin: 05/28/20 13:15 Dose: 900 mg Documented by: Heparin Sodium (Porcine) (Heparin -) 5,000 unit SQ BID [facility] Last Admin: 05/28/20 09:10 Dose: 5,000 unit Documented by: Metoprolol Succinate (Toprol Xl -) 25 mg PO BID [facility] Last Admin: 05/28/20 09:10 Dose: 25 mg Documented by: Morphine Sulfate (Ms Contin -) 30 mg PO Q12H [facility] Last Admin: 05/28/20 02:49 Dose: 30 mg Documented by: Polyethylene Glycol (Miralax (For Daily Use) -) 17 gm PO DAILY [facility] Last Admin: 05/28/20 09:15 Dose: 17 grams Documented by: Pramipexole Dihydrochloride (Mirapex -) 1 mg PO 0700,1100,1500,1900 [facility] Last Admin: 05/28/20 11:17 Dose: 1 mg Documented by: Tamsulosin HCl (Flomax -) 0.4 mg PO DAILY@0830 [facility] Last Admin: 05/28/20 08:52 Dose: 0.4 mg Documented by: - Objective Vital Signs: Vital Signs Temperature 98.2 F 05/28/20 08:19 Pulse Rate 66 05/28/20 08:19 Respiratory Rate 18 05/28/20 08:19 Blood Pressure 144/48 L 05/28/20 08:19 O2 Sat by Pulse Oximetry (%) 98 05/28/20 08:19 Constitutional: Yes: No Distress, Calm Eyes: Yes: Conjunctiva Clear HENT: Yes: Atraumatic Cardiovascular: Yes: Regular Rate and Rhythm Respiratory: Yes: Regular, Diminished Gastrointestinal: Yes: Normal Bowel Sounds, Soft Musculoskeletal: Yes: Muscle Weakness Extremities: Yes: WNL Edema: Yes (trace lower extremity) Neurological: Yes: Alert, Oriented, Weakness (R sided) Psychiatric: Yes: Alert, Oriented Labs: CBC, BMP 05/27/20 06:53 05/28/20 09:58 Problem List - Problems (1) ANN (acute kidney injury) Assessment/Plan: BUN/Cr 60.6/1.9 Nephrology on board continue to moitor renal function daily Code(s): N17.9 - ACUTE KIDNEY FAILURE, UNSPECIFIED (2) CHF (congestive heart failure) Assessment/Plan: Cardiology consult diuretics on hold due to renal function Code(s): I50.9 - HEART FAILURE, UNSPECIFIED Qualifiers: Heart failure type: unspecified Heart failure chronicity: acute Qualified Code(s): I50.9 - Heart failure, unspecified (3) Hyperlipidemia Assessment/Plan: Atorvastatin Code(s): E78.5 - HYPERLIPIDEMIA, UNSPECIFIED (4) Myeloma Assessment/Plan: Oncology consult Code(s): C90.00 - MULTIPLE MYELOMA NOT HAVING ACHIEVED REMISSION (5) Weakness Assessment/Plan: possibly secondary to dehydration PT Code(s): R53.1 - WEAKNESS (6) Dehydration Assessment/Plan: BUN/Cr 60.6/1.9 was receiving IV hydration but put on hold due to mild edema in B/L LE Code(s): E86.0 - DEHYDRATION Assessment/Plan see problem list dvt ppx
[2020-05-28] MEDS: ATORVASTATIN CA 40 MG TABLET (FP) PO SCH (21:17)
[2020-05-29] MEDS: morphine SO4 SUSTAINED ACTING 30 MG TABLET.SA PO SCH ×2 (02:41→15:39)
[2020-05-29] MEDS: CARBIDOPA/LEVODOPA 25/250 TABLET (FP) PO SCH ×4 (06:24→18:33)
[2020-05-29] MEDS: PRAMIPEXOLE DIHYDROCHLORIDE 1 MG TABLET PO SCH ×4 (06:24→18:33)
[2020-05-29] MEDS: GABAPENTIN 300 MG CAPSULE PO SCH ×3 (06:25→21:17)
[2020-05-29 09:26] LABS: HEMATOCRIT 38.2 % (35.4-49); HEMOGLOBIN 11.6 GM/dL (11.7-16.9); MCHC 30.4 g/dl (32.0-35.9); MEAN CELL VOLUME 75.6 fl (80-96); MEAN PLT VOLUME 7.7 fl (7.5-11.1); PLATELET COUNT 228 K/MM3 (134-434); RBC 5.06 M/mm3 (4.00-5.60); RDW 15.1 % (11.9-15.9); WHITE BLOOD COUNT 4.6 K/mm3 (4.0-10.0)
[2020-05-29 09:56] LABS: POTASSIUM 3.9 mmol/L (3.5-5.1)
[2020-05-29 10:04] LABS: ALBUMIN 3.3 g/dl (3.4-5.0); BILIRUBIN,TOTAL 0.5 mg/dL (0.2-1); BLOOD UREA NITROGEN 41.4 mg/dL (7-18); CALCIUM 9.1 mg/dL (8.5-10.1); CREATININE 1.5 mg/dL (0.55-1.3); TOT PROT 6.6 g/dl (6.4-8.2)
[2020-05-29] MEDS ORDERED: PT OWN MED DRAWER 7, Y5N ONE (10:15)
[2020-05-29] MEDS: HEPARIN NA (PORCINE) 5,000 UNITS/ML 1ML VIAL SQ SCH ×2 (10:47→21:16)
[2020-05-29] MEDS: POLYETHYLENE GLYCOL 3350 119 GM BTL PO SCH (10:47)
[2020-05-29] MEDS: ASPIRIN COATED 81 MG TABLET.EC PO SCH (10:48)
[2020-05-29] MEDS: TAMSULOSIN HCL 0.4 MG CAP PO SCH (10:48)
[2020-05-29] MEDS: DOCUSATE SODIUM 100 MG CAPSULE (FP) PO SCH ×2 (10:48→21:17)
[2020-05-29] MEDS: ALLOPURINOL 300 MG TABLET (FP) PO SCH (10:48)
[2020-05-29] MEDS: metoPROLOL SUCCINATE 25 MG TAB.SR.24H (FP) PO SCH ×2 (10:48→21:16)
[2020-05-29] MEDS: BUDESONIDE/FORMETEROL FUMARATE 160/4.5 mcg INHALER IH SCH ×2 (10:50→21:17)
--- NOTE | 2020-05-29 12:47 | PN ---
Progress Note, Physician Chief Complaint: Weakness Dehydration History of Present Illness: Previous notes and events reviewed awake and alert NAD BUN/Cr elevated but showing downtrend denies chest pain or SOB denies any jerking movements today L foot cool on palpation, palpable pedal pulse, arterial doppler ordered - Current Medication List Current Medications: Active Medications Acetaminophen (Tylenol -) 1,000 mg PO Q6H PRN PRN Reason: PAIN 1-10 OR FEVER Albuterol/Ipratropium (Duoneb -) 1 amp NEB Q6H PRN PRN Reason: SHORTNESS OF BREATH Allopurinol (Zyloprim -) 300 mg PO DAILY [facility] Last Admin: 05/29/20 10:48 Dose: 300 mg Documented by: Aspirin (Ecotrin -) 81 mg PO DAILY [facility] Last Admin: 05/29/20 10:48 Dose: 81 mg Documented by: Atorvastatin Calcium (Lipitor -) 40 mg PO HS [facility] Last Admin: 05/28/20 21:17 Dose: 40 mg Documented by: Budesonide/Formoterol Fumarate (Symbicort 160/4.5mcg -) 2 puff IH BID [facility] Last Admin: 05/29/20 10:50 Dose: 2 puff Documented by: Carbidopa/Levodopa (Sinemet 25/250 -) 1 each PO 0700,1100,1500,1900 [facility] Last Admin: 05/29/20 10:48 Dose: 1 each Documented by: Docusate Sodium (Colace -) 100 mg PO BID [facility] Last Admin: 05/29/20 10:48 Dose: 100 mg Documented by: Gabapentin (Neurontin -) 900 mg PO TID [facility] Last Admin: 05/29/20 06:25 Dose: 900 mg Documented by: Heparin Sodium (Porcine) (Heparin -) 5,000 unit SQ BID [facility] Last Admin: 05/29/20 10:47 Dose: 5,000 unit Documented by: Metoprolol Succinate (Toprol Xl -) 25 mg PO BID [facility] Last Admin: 05/29/20 10:48 Dose: 25 mg Documented by: Morphine Sulfate (Ms Contin -) 30 mg PO Q12H [facility] Last Admin: 05/29/20 02:41 Dose: 30 mg Documented by: Polyethylene Glycol (Miralax (For Daily Use) -) 17 gm PO DAILY [facility] Last Admin: 05/29/20 10:47 Dose: 17 grams Documented by: Pramipexole Dihydrochloride (Mirapex -) 1 mg PO 0700,1100,1500,1900 [facility] Last Admin: 05/29/20 10:48 Dose: 1 mg Documented by: Tamsulosin HCl (Flomax -) 0.4 mg PO DAILY@0830 [facility] Last Admin: 05/29/20 10:48 Dose: 0.4 mg Documented by: - Objective Vital Signs: Vital Signs Temperature 97.9 F 05/29/20 10:00 Pulse Rate 79 05/29/20 10:00 Respiratory Rate 18 05/29/20 10:00 Blood Pressure 146/75 05/29/20 10:00 O2 Sat by Pulse Oximetry (%) 93 L 05/29/20 10:00 Constitutional: Yes: No Distress, Calm, Obese Eyes: Yes: Conjunctiva Clear Cardiovascular: Yes: Regular Rate and Rhythm Respiratory: Yes: Regular, Diminished, On Nasal O2 Gastrointestinal: Yes: Normal Bowel Sounds, Soft, Abdomen, Obese Musculoskeletal: Yes: Muscle Weakness Extremities: Yes: WNL Edema: No Neurological: Yes: Alert, Oriented Psychiatric: Yes: Alert, Oriented Labs: CBC, BMP 05/29/20 08:50 05/29/20 08:50 Problem List - Problems (1) ANN (acute kidney injury) Assessment/Plan: BUN/Cr 41.4/1.5 Nephrology on board continue to monitor renal function daily Code(s): N17.9 - ACUTE KIDNEY FAILURE, UNSPECIFIED (2) CHF (congestive heart failure) Assessment/Plan: Cardiology consult diuretics on hold due to renal function Code(s): I50.9 - HEART FAILURE, UNSPECIFIED Qualifiers: Heart failure type: unspecified Heart failure chronicity: acute Qualified Code(s): I50.9 - Heart failure, unspecified (3) Hyperlipidemia Assessment/Plan: Atorvastatin Code(s): E78.5 - HYPERLIPIDEMIA, UNSPECIFIED (4) Myeloma Assessment/Plan: Oncology on board Code(s): C90.00 - MULTIPLE MYELOMA NOT HAVING ACHIEVED REMISSION (5) Weakness Assessment/Plan: safety precaution PT Code(s): R53.1 - WEAKNESS (6) Dehydration Assessment/Plan: BUN/Cr 41.4/1.5 likely due to dehydration Code(s): E86.0 - DEHYDRATION Assessment/Plan see problem list dvt ppx
[2020-05-29] MEDS: ATORVASTATIN CA 40 MG TABLET (FP) PO SCH (21:16)
[2020-05-30] MEDS: morphine SO4 SUSTAINED ACTING 30 MG TABLET.SA PO SCH ×2 (02:18→17:46)
[2020-05-30] MEDS: GABAPENTIN 300 MG CAPSULE PO SCH ×2 (06:26→15:13)
[2020-05-30] MEDS: CARBIDOPA/LEVODOPA 25/250 TABLET (FP) PO SCH ×3 (06:26→15:39)
[2020-05-30] MEDS: PRAMIPEXOLE DIHYDROCHLORIDE 1 MG TABLET PO SCH ×3 (06:26→15:13)
[2020-05-30] MEDS: TAMSULOSIN HCL 0.4 MG CAP PO SCH (08:29)
[2020-05-30 09:51] LABS: HEMOGLOBIN 11.6 GM/dL (11.7-16.9); MCH 22.6 pg (25.7-33.7); MCHC 29.8 g/dl (32.0-35.9); MEAN PLT VOLUME 7.9 fl (7.5-11.1); PLATELET COUNT 232 K/MM3 (134-434); RBC 5.13 M/mm3 (4.00-5.60); RDW 15.2 % (11.9-15.9); WHITE BLOOD COUNT 5.9 K/mm3 (4.0-10.0)
[2020-05-30] MEDS: ALLOPURINOL 300 MG TABLET (FP) PO SCH (09:56)
[2020-05-30] MEDS: DOCUSATE SODIUM 100 MG CAPSULE (FP) PO SCH (09:58)
[2020-05-30] MEDS: metoPROLOL SUCCINATE 25 MG TAB.SR.24H (FP) PO SCH (09:58)
[2020-05-30] MEDS: ASPIRIN COATED 81 MG TABLET.EC PO SCH (09:58)
[2020-05-30] MEDS: HEPARIN NA (PORCINE) 5,000 UNITS/ML 1ML VIAL SQ SCH (10:04)
[2020-05-30] MEDS: POLYETHYLENE GLYCOL 3350 119 GM BTL PO SCH (10:04)
[2020-05-30] MEDS: BUDESONIDE/FORMETEROL FUMARATE 160/4.5 mcg INHALER IH SCH (10:05)
[2020-05-30 10:09] LABS: ALBUMIN 3.1 g/dl (3.4-5.0); BILIRUBIN,TOTAL 0.6 mg/dL (0.2-1); BLOOD UREA NITROGEN 33.5 mg/dL (7-18); CALCIUM 9.2 mg/dL (8.5-10.1); TOT PROT 6.4 g/dl (6.4-8.2)
[2020-05-30 10:15] LABS: CREATININE 1.4 mg/dL (0.55-1.3)
--- NOTE | 2020-05-30 11:32 | DS ---
Physical Examination Vital Signs: Vital Signs Temperature 98.4 F 05/30/20 09:04 Pulse Rate 76 05/30/20 09:04 Respiratory Rate 18 05/30/20 09:04 Blood Pressure 159/60 05/30/20 09:04 O2 Sat by Pulse Oximetry (%) 92 L 05/30/20 09:04 Findings/Remarks: 74y M hx of metastatic Multiple myeloma, htn, parkinsons, copd, polycystic kidneys, ckd, hl, chf, presented to [facility] ER for weakness. Known patient from our office, last spoke to his Birdie 05/27/20 to review labs done on 05/20/20, which showed Cr at 1.7 from 1.62 from the labs prior in March 2020. Pt follows up outpatient with nephrology Dr Ninoska Mccartney and Oncology Dr Orlando Luis for MM. Pt was started on Amlodipine by Cardiology Dr Jovel in mid april, re-evaluated on 05/04/20, found to have peripheral edema worse than his usual CHF edema. Amlodipine was stopped and pt was started on Metalozone in addition to his Torsemide. Pt had been taking Torsemide 40 mg QAM and 20 mg QPM + Metolazone 2.5 mg po daily. Pt was seen by me in the office on 05/20/20, had trace LE Edema. Pt's was instructed to stop metolazone on 05/25/20. pt ended up in [facility] ER due to dehydration on 05/26/20. Upon admission Cr was found to be at 3.1, has now decreased to 2.7 on IVF. Nephrology has been consulted. Pt walked 15 ft with PT, who recommended SNF, pt refuses to go to SNF, prefers to go home with PT services. Pt has a right foot drop, needs transport chair due to decreased indurance and to complete ADL's safely. Constitutional: Yes: Well Nourished, No Distress, Calm, Obese Cardiovascular: Yes: Regular Rate and Rhythm Respiratory: Yes: Regular, CTA Bilaterally Gastrointestinal: Yes: Normal Bowel Sounds, Soft, Abdomen, Obese Renal/: Yes: WNL Musculoskeletal: Yes: Muscle Weakness Edema: No Peripheral Pulses WNL: Yes Neurological: Yes: Alert, Oriented Psychiatric: Yes: Alert, Oriented Labs: CBC, BMP 05/30/20 09:12 05/30/20 09:12 Discharge Summary Problems reviewed: Yes Reason For Visit: ACUTE KIDNEY INJURY Current Active Problems ANN (acute kidney injury) (Acute) Chronic CHF (congestive heart failure) (Acute) Weakness (Acute) Condition: Stable - Instructions Referrals: Shelly Lassiter MD [Primary Care Provider] - Disposition: VNS/HOME HEALTH CARE - Home Medications Comprehensive Discharge Medication List: Ambulatory Orders Losartan Potassium [Cozaar -] 50 mg PO DAILY #30 tablet 03/24/18 Metoprolol Succinate [Toprol XL -] 25 mg PO BID #60 tab.sr.24h 03/24/18 Pramipexole Dihydrochloride [Mirapex -] 1 mg PO 0700,1100,1500,1900 #120 tablet 03/24/18 Aspirin Coated [Ecotrin -] 81 mg PO DAILY tablet.ec 12/22/18 Atorvastatin Ca [Lipitor] 40 mg PO HS tablet 12/22/18 Albuterol 2.5/Ipratropium 0.5 [Duoneb -] 1 amp NEB Q6H PRN #120 amp 09/12/19 Torsemide [Demadex -] 20 mg PO DAILY #60 tablet 09/12/19 Carbidopa/Levodopa [Carbidopa-Levodopa 25-250 Tab] 1 each PO 0700,1100,1500,1900 09/21/19 Docusate Sodium [Colace] 100 mg PO BID 09/21/19 Gabapentin [Neurontin -] 300 mg PO TID #90 capsule 09/24/19 Budesonide/Formeterol Fumarate [SYMBICORT 160/4.5mcg -] 1 inh PO BID 05/26/20 Metolazone 2.5 mg PO BID 05/26/20 Pramipexole Di-HCl [Pramipexole Dihydrochloride] 1 mg PO QID 05/26/20 Morphine *Sr* 60 mg PO QID 05/27/20 Percocet 5-325 mg Tablet 5 - 325 tablet PO PRN 05/27/20 Prescription Drug Monitoring Program (I-STOP) results: I-STOP reviewed and no issues identified
--- NOTE | 2020-05-30 12:15 | PN ---
Progress Note, Physician History of Present Illness: Seen and examined at the bedside awake and alert offers no acute complaints no sob, cp, fever or chills making urine - Current Medication List Current Medications: Active Medications Acetaminophen (Tylenol -) 1,000 mg PO Q6H PRN PRN Reason: PAIN 1-10 OR FEVER Albuterol/Ipratropium (Duoneb -) 1 amp NEB Q6H PRN PRN Reason: SHORTNESS OF BREATH Allopurinol (Zyloprim -) 300 mg PO DAILY [facility] Last Admin: 05/30/20 09:56 Dose: 300 mg Documented by: Aspirin (Ecotrin -) 81 mg PO DAILY [facility] Last Admin: 05/30/20 09:58 Dose: 81 mg Documented by: Atorvastatin Calcium (Lipitor -) 40 mg PO HS [facility] Last Admin: 05/29/20 21:16 Dose: 40 mg Documented by: Budesonide/Formoterol Fumarate (Symbicort 160/4.5mcg -) 2 puff IH BID [facility] Last Admin: 05/30/20 10:05 Dose: 2 puff Documented by: Carbidopa/Levodopa (Sinemet 25/250 -) 1 each PO 0700,1100,1500,1900 [facility] Last Admin: 05/30/20 10:05 Dose: 1 each Documented by: Docusate Sodium (Colace -) 100 mg PO BID [facility] Last Admin: 05/30/20 09:58 Dose: 100 mg Documented by: Gabapentin (Neurontin -) 900 mg PO TID [facility] Last Admin: 05/30/20 06:26 Dose: 900 mg Documented by: Heparin Sodium (Porcine) (Heparin -) 5,000 unit SQ BID [facility] Last Admin: 05/30/20 10:04 Dose: 5,000 unit Documented by: Metoprolol Succinate (Toprol Xl -) 25 mg PO BID [facility] Last Admin: 05/30/20 09:58 Dose: 25 mg Documented by: Morphine Sulfate (Ms Contin -) 30 mg PO Q12H [facility] Last Admin: 05/30/20 02:18 Dose: 30 mg Documented by: Polyethylene Glycol (Miralax (For Daily Use) -) 17 gm PO DAILY [facility] Last Admin: 05/30/20 10:04 Dose: 17 grams Documented by: Pramipexole Dihydrochloride (Mirapex -) 1 mg PO 0700,1100,1500,1900 [facility] Last Admin: 05/30/20 10:05 Dose: 1 mg Documented by: Tamsulosin HCl (Flomax -) 0.4 mg PO DAILY@0830 [facility] Last Admin: 05/30/20 08:29 Dose: 0.4 mg Documented by: - Objective Vital Signs: Vital Signs Temperature 98.4 F 05/30/20 09:04 Pulse Rate 76 05/30/20 09:04 Respiratory Rate 18 05/30/20 09:04 Blood Pressure 159/60 05/30/20 09:04 O2 Sat by Pulse Oximetry (%) 92 L 05/30/20 09:04 Constitutional: Yes: No Distress, Calm Neck: Yes: Supple Cardiovascular: Yes: Regular Rate and Rhythm Respiratory: Yes: Regular Extremities: No: Cyanosis Edema: Yes Edema: LLE: Trace, RLE: Trace Labs: CBC, BMP 05/30/20 09:12 05/30/20 09:12 Assessment/Plan 74 year old male with history of CKD stage 3 (baseline Cr 1.7), multiple myeloma, parkinson's, COPD, PCKD, CHF, hypertension and hyperlipidemia who presented to the ED with complaints of weakness and upper extremity spastic movements and found to have acute on chronic renal insufficiency. 1. 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 Upper extremity spasms/Parkinsons 3. Fatigue 4. Multiple Myeloma 5. CHF w/o evidence of acute exacerbation 6. Hyperlipidemia Renal function improved. Can restart Torsemide 40mg daily for HF/edema management on discharge. Can restart LOsartan on discharge as well. To follow up with Dr. Ninoska Mccartney on discharge in 1 week. Thank you Madan cano DO
[2020-05-30 15:53] VITALS: BP 158/78; PULSE 81; TEMP 98.1
--- NOTE | 2020-05-31 07:19 | ECHO ---
Version: 1 Name: LARA TERRAZAS Exam: Adult Echocardiogram Study Date: 05/27/2020, 1:45 PM Age: 74 Years MMode/2D Measurements & Calculations IVSd: 1.53 cm LVIDs: 3.0 cm LVIDd: 4.4 cm LVPWd: 1.37 cm LAV (MOD-bp): 64.0 ml ACS: 2.14 cm Ao root diam: 3.7 cm LVOT diam: 2.36 cm LA dimension: 4.4 cm Doppler Measurements & Calculations MV E max angel: 70.7 cm/sec Med E/e': 14.8 MV A max angel: 114.1 cm/sec Med Peak E' Angel: 4.8 cm/sec MV E/A: 0.62 Lat E/e': 11.5 Lat Peak E' Angel: 6.1 cm/sec Ao max P.9 mmHg MAYKEL(I,D): 5.0 cm Ao mean P.9 mmHg LV V1 mean: 93.3 cm/sec Ao V2 max: 131.7 cm/sec LV V1 mean P.1 mmHg TR max angel: 188.7 cm/sec TR max P.2 mmHg Left Ventricle Upper septal hypertrophy (sigmoid septum), normal variant. Left ventricular systolic function is nor mal. Ejection Fraction = 60-65%. The transmitral spectral Doppler flow pattern is suggestive of impaired LV relaxation. Right Ventricle The right ventricle is normal in size and function. Atria The left atrium is mildly dilated. Right atrial size is normal. Mitral Valve There is mild mitral annular calcification. There is no mitral valve stenosis. There is mild mitral regurgitation. Tricuspid Valve The tricuspid valve is not well visualized, but is grossly normal. There is mild tricuspid regurgita tion. There was insufficient TR detected to calculate RV systolic pressure. Aortic Valve There is mild aortic sclerosis.;. No hemodynamically significant valvular aortic stenosis. No aortic regurgitation is present. Pulmonic Valve The pulmonic valve is not well seen, but is grossly normal. There is no pulmonic valvular stenosis. There is no pulmonic valvular regurgitation. Great Vessels The aortic root is normal size. Pericardium/Pleura There is no pericardial effusion. Tech Comments TDS due to body habitus and orientation of patient's heart. Summary Statements Upper septal hypertrophy (sigmoid septum), normal variant. Left ventricular systolic function is normal. Ejection Fraction = 60-65%. The transmitral spectral Doppler flow pattern is suggestive of impaired LV relaxation. The right ventricle is normal in size and function. The left atrium is mildly dilated. There is mild mitral annular calcification. There is mild mitral regurgitation. There is mild tricuspid regurgitation. There was insufficient TR detected to calculate RV systolic pressure. No hemodynamically significant valvular aortic stenosis. There is no pericardial effusion. MD Gamboa *Francescone 05/27/2020, 2:23 PM Ordering Physician: Pieter Currie Referring Physician: PIETER CURRIE Performed By: Cristy Caldera
--- NOTE | 2020-05-31 11:45 | EKG ---
Test Reason : Blood Pressure : / mmHG Vent. Rate : 095 BPM Atrial Rate : 394 BPM P-R Int : 000 ms QRS Dur : 084 ms QT Int : 334 ms P-R-T Axes : 000 -25 041 degrees QTc Int : 419 ms POOR DATA QUALITY, INTERPRETATION MAY BE ADVERSELY AFFECTED Sinus rhythm WITH PREMATURE VENTRICULAR OR ABERRANTLY CONDUCTED COMPLEXES MODERATE VOLTAGE CRITERIA FOR LVH, MAY BE NORMAL VARIANT ANTERIOR INFARCT (CITED ON OR BEFORE 20-DEC-2018) ABNORMAL ECG WHEN COMPARED WITH ECG OF 22-SEP-2019 10:58, QUESTIONABLE CHANGE IN INITIAL FORCES OF ANTEROSEPTAL LEADS NONSPECIFIC T WAVE ABNORMALITY, IMPROVED IN LATERAL LEADS Confirmed by Pieter Currie ([id number]) on 05/31/2020 11:44:54 AM Referred By: Confirmed By:Pieter Currie
== END 2020-05-30 16:53 | disposition home health service (06) | DRG 683 ==
LOC: JER 10:25 → JERBED 13:24 → J5S 23:34
PROVIDERS: ADMIT Family Medicine; ATTEND Family Medicine
DX: N17.9 Acute kidney failure, unspecified (principal); Q61.3 Polycystic kidney, unspecified; I13.0 Hypertensive heart and chronic kidney disease with heart failure and stage 1 through stage 4 chronic kidney disease, or unspecified chronic kidney disease; Z68.41 Body mass index [BMI] 40.0-44.9, adult; G20 Parkinson's disease; I50.9 Heart failure, unspecified; E66.9 Obesity, unspecified; M21.371 Foot drop, right foot; N18.3 Chronic kidney disease, stage 3 (moderate); E78.5 Hyperlipidemia, unspecified; E86.0 Dehydration; K21.9 Gastro-esophageal reflux disease without esophagitis; N40.0 Benign prostatic hyperplasia without lower urinary tract symptoms
CPT/HCPCS: 36415; 36600; 70450-TC; 71045-TC-FY; 80048; 80053; 81003; 82550; 82553; 82565; 82803; 82962; 83735; 83880; 84100; 84156; 84300; 84443; 84484; 84540; 85025; 85027; 93005; 93010; 93306-TC; 97116-GP; 97162-GP; 99285-25; J1644; U0003

== ENCOUNTER 2021-02-06 10:07 | Inpatient (IN) | payer OTHER, BC ==
[2021-02-06 12:01] LABS: BASO % 0.2 % (0-2.0); HEMATOCRIT 37.8 % (35.4-49); HEMOGLOBIN 11.7 GM/dL (11.7-16.9); LYMPH % 13.1 % (8-40); MCH 23.1 pg (25.7-33.7); MEAN CELL VOLUME 74.5 fl (80-96); MEAN PLT VOLUME 7.7 fl (7.5-11.1); MONO % 8.5 % (3.8-10.2); NEUT % 78.2 % (42.8-82.8); PLATELET COUNT 253 K/MM3 (134-434); RBC 5.08 M/mm3 (4.00-5.60); RDW 16.5 % (11.9-15.9); WHITE BLOOD COUNT 6.6 K/mm3 (4.0-10.0)
[2021-02-06 12:15] LABS: INR 0.97 (0.83-1.09); PROTHROMBIN TIME (PATIENT) 11.9 SEC (9.7-13.0)
[2021-02-06 12:17] LABS: ACTIVATED PTT 32.8 SECONDS (25.2-36.5)
[2021-02-06 12:19] LABS: CHLORIDE 94 mmol/L (98-107); SODIUM 134 mmol/L (136-145)
[2021-02-06 12:23] LABS: ALBUMIN 3.6 g/dl (3.4-5.0); ANION GAP 5 MMOL/L (8-16); BLOOD UREA NITROGEN 61.4 mg/dL (7-18); CALCIUM 8.9 mg/dL (8.5-10.1); CO2 35 mmol/L (21-32); GLUCOSE,RANDOM 115 mg/dL (74-106)
[2021-02-06 12:26] LABS: CREATININE 2.5 mg/dL (0.55-1.3); SGOT/AST 17 U/L (15-37); SGPT/ALT < 6 U/L (13-61)
[2021-02-06 12:28] LABS: BILIRUBIN,TOTAL 0.4 mg/dL (0.2-1); TOT PROT 7.1 g/dl (6.4-8.2)
[2021-02-06 12:29] LABS: PH,URINE 6.5 (5.0-8.0); URINE APPEARANCE CLEAR; URINE BILIRUBIN NEGATIVE (NEGATIVE); URINE COLOR YELLOW; URINE GLUCOSE (UA) NEGATIVE (NEGATIVE); URINE KETONE NEGATIVE (NEGATIVE); URINE LEUK ESTERASE NEGATIVE (NEGATIVE); URINE NITRITE NEGATIVE (NEGATIVE); URINE PROTEIN NEGATIVE (NEGATIVE); URINE UROBILINOGEN 0.2 mg/dL (0.2-1.0)
[2021-02-06 12:29] LABS: ALK PHOS 92 U/L (45-117)
[2021-02-06 12:31] LABS: N-TERMINAL BNP 502.1 pg/ml (5-450)
[2021-02-06] MEDS ORDERED: FUROSEMIDE 40 MG/4 ML INJECTABLE VIAL IVPUSH ONE (14:09)
[2021-02-06] MEDS ORDERED: FUROSEMIDE 40 MG/4 ML INJECTABLE VIAL ONE (14:15)
[2021-02-06] MEDS ORDERED: ATORVASTATIN CA 20 MG TABLET (FP) PO ONE (21:30)
[2021-02-06] MEDS ORDERED: ALBUTEROL SO4 2.5/IPRATROPIUM 0.5 INH SOL 3 ML VIAL.NEB. NEB PRN (21:31)
[2021-02-06] MEDS ORDERED: ACETAMINOPHEN 325 MG TABLET (FP) PO ONE (21:35)
[2021-02-06] MEDS ORDERED: CARBIDOPA/LEVODOPA 25/250 TABLET (FP) PO ONE (22:15)
[2021-02-06] MEDS: BUDESONIDE/FORMETEROL FUMARATE 160/4.5 mcg INHALER IH SCH (22:18)
[2021-02-07] MEDS ORDERED: ALBUTEROL SO4 2.5/IPRATROPIUM 0.5 INH SOL 3 ML VIAL.NEB. NEB PRN (07:32)
[2021-02-07] MEDS ORDERED: ACETAMINOPHEN 500 MG TABLET (FP) PO PRN (07:32)
[2021-02-07] MEDS: TAMSULOSIN HCL 0.4 MG CAP PO SCH (08:39)
[2021-02-07 09:01] LABS: BASO % 0.2 % (0-2.0); HEMATOCRIT 39.6 % (35.4-49); HEMOGLOBIN 12.5 GM/dL (11.7-16.9); MCH 23.4 pg (25.7-33.7); MCHC 31.5 g/dl (32.0-35.9); MEAN CELL VOLUME 74.4 fl (80-96); MEAN PLT VOLUME 7.9 fl (7.5-11.1); MONO % 6.4 % (3.8-10.2); NEUT % 77.4 % (42.8-82.8); PLATELET COUNT 236 K/MM3 (134-434); RBC 5.33 M/mm3 (4.00-5.60); RDW 16.4 % (11.9-15.9); WHITE BLOOD COUNT 5.9 K/mm3 (4.0-10.0)
[2021-02-07 09:03] LABS: CHLORIDE 96 mmol/L (98-107); SODIUM 137 mmol/L (136-145)
[2021-02-07 09:16] LABS: ALBUMIN 3.5 g/dl (3.4-5.0); BLOOD UREA NITROGEN 58.8 mg/dL (7-18); CALCIUM 9.3 mg/dL (8.5-10.1); GLUCOSE,RANDOM 135 mg/dL (74-106)
[2021-02-07 09:17] LABS: ANION GAP 7 MMOL/L (8-16); CO2 34 mmol/L (21-32)
[2021-02-07 09:19] LABS: SGOT/AST 12 U/L (15-37); SGPT/ALT 9 U/L (13-61)
[2021-02-07 09:20] LABS: BILIRUBIN,TOTAL 0.9 mg/dL (0.2-1)
[2021-02-07 09:22] LABS: ALK PHOS 95 U/L (45-117)
[2021-02-07] MEDS ORDERED: BUDESONIDE/FORMETEROL FUMARATE 160/4.5 mcg INHALER IH SCH (10:00)
[2021-02-07] MEDS ORDERED: PRAMIPEXOLE DIHYDROCHLORIDE 1 MG TABLET PO SCH (10:00)
[2021-02-07] MEDS: POLYETHYLENE GLYCOL 3350 119 GM BTL PO SCH (10:01)
[2021-02-07] MEDS: BUDESONIDE/FORMETEROL FUMARATE 160/4.5 mcg INHALER IH SCH ×2 (10:02→21:30)
[2021-02-07] MEDS: ASPIRIN COATED 81 MG TABLET.EC PO SCH (10:03)
[2021-02-07] MEDS: CARBIDOPA/LEVODOPA 25/250 TABLET (FP) PO SCH ×3 (10:03→18:39)
[2021-02-07] MEDS: PRAMIPEXOLE DIHYDROCHLORIDE 1 MG TABLET PO SCH ×3 (10:03→18:40)
[2021-02-07] MEDS: HEPARIN NA (PORCINE) 5,000 UNITS/ML 1ML VIAL SQ SCH ×2 (10:04→21:30)
[2021-02-07] MEDS: GABAPENTIN 400 MG CAPSULE PO SCH ×4 (10:05→21:29)
[2021-02-07] MEDS ORDERED: PT OWN MED DRAWER 7, Y5N ONE ×3 (10:17→18:17)
[2021-02-07] MEDS ORDERED: ACETAMINOPHEN 325 MG TABLET (FP) PO SCH (11:00)
[2021-02-07] MEDS ORDERED: oxyCODONE HCL 5 MG TABLET PO SCH (11:00)
[2021-02-07] MEDS: morphine SO4 SUSTAINED ACTING 30 MG TABLET.SA PO SCH ×2 (14:18→22:13)
[2021-02-07] MEDS: DOCUSATE SODIUM 100 MG CAPSULE (FP) PO SCH ×2 (14:18→21:30)
[2021-02-07 14:23] VITALS: BMI 39.6
[2021-02-07] MEDS ORDERED: oxyCODONE HCL 5 MG TABLET PO PRN (14:50)
[2021-02-07] MEDS ORDERED: ACETAMINOPHEN 325 MG TABLET (FP) PO PRN (14:55)
[2021-02-07] MEDS ORDERED: ATORVASTATIN CA 20 MG TABLET (FP) PO SCH ×2 (22:00)
[2021-02-07] MEDS ORDERED: ATORVASTATIN CA 40 MG TABLET (FP) PO SCH ×2 (22:00)
[2021-02-07 22:03] VITALS: TEMP 98.3
[2021-02-08] MEDS: morphine SO4 SUSTAINED ACTING 30 MG TABLET.SA PO SCH ×2 (06:00→15:46)
[2021-02-08] MEDS: CARBIDOPA/LEVODOPA 25/250 TABLET (FP) PO SCH ×3 (06:00→15:48)
[2021-02-08] MEDS: DOCUSATE SODIUM 100 MG CAPSULE (FP) PO SCH ×2 (06:00→13:44)
[2021-02-08] MEDS: PRAMIPEXOLE DIHYDROCHLORIDE 1 MG TABLET PO SCH ×3 (06:01→15:48)
[2021-02-08] MEDS: TAMSULOSIN HCL 0.4 MG CAP PO SCH (08:14)
[2021-02-08] MEDS: ASPIRIN COATED 81 MG TABLET.EC PO SCH (09:27)
[2021-02-08] MEDS: BUDESONIDE/FORMETEROL FUMARATE 160/4.5 mcg INHALER IH SCH (09:27)
[2021-02-08] MEDS: GABAPENTIN 400 MG CAPSULE PO SCH ×2 (09:27→13:44)
[2021-02-08] MEDS: POLYETHYLENE GLYCOL 3350 119 GM BTL PO SCH (09:27)
[2021-02-08] MEDS: HEPARIN NA (PORCINE) 5,000 UNITS/ML 1ML VIAL SQ SCH (09:27)
[2021-02-08 09:52] LABS: BASO % 0.1 % (0-2.0); HEMOGLOBIN 11.9 GM/dL (11.7-16.9); LYMPH % 15.7 % (8-40); MCH 23.4 pg (25.7-33.7); MCHC 31.2 g/dl (32.0-35.9); MEAN PLT VOLUME 8.1 fl (7.5-11.1); MONO % 8.7 % (3.8-10.2); NEUT % 75.5 % (42.8-82.8); PLATELET COUNT 221 K/MM3 (134-434); RBC 5.06 M/mm3 (4.00-5.60); RDW 16.2 % (11.9-15.9); WHITE BLOOD COUNT 5.5 K/mm3 (4.0-10.0)
[2021-02-08 10:08] LABS: CHLORIDE 99 mmol/L (98-107); SODIUM 138 mmol/L (136-145)
[2021-02-08 10:12] LABS: GLUCOSE,RANDOM 101 mg/dL (74-106)
[2021-02-08 10:13] LABS: ALBUMIN 3.4 g/dl (3.4-5.0); ANION GAP 3 MMOL/L (8-16); BLOOD UREA NITROGEN 45.2 mg/dL (7-18); CALCIUM 8.7 mg/dL (8.5-10.1); CO2 36 mmol/L (21-32); MAGNESIUM 3.2 mg/dL (1.8-2.4)
[2021-02-08 10:15] LABS: SGPT/ALT 7 U/L (13-61)
[2021-02-08 10:16] LABS: CREATININE 1.7 mg/dL (0.55-1.3); SGOT/AST 14 U/L (15-37)
[2021-02-08 10:17] LABS: BILIRUBIN,TOTAL 0.6 mg/dL (0.2-1); TOT PROT 6.7 g/dl (6.4-8.2)
[2021-02-08 10:18] LABS: ALK PHOS 89 U/L (45-117)
[2021-02-08] MEDS ORDERED: PT OWN MED DRAWER 7, Y5N ONE ×3 (11:36→15:43)
[2021-02-08 14:00] VITALS: BP 145/87; PULSE 72
== END 2021-02-08 16:22 | disposition home or self-care (01) | DRG 683 ==
LOC: JER 10:07 → JERBED 13:59 → J6S 15:01
PROVIDERS: ADMIT Family Medicine; ATTEND Family Medicine
DX: N17.9 Acute kidney failure, unspecified (principal); Z68.41 Body mass index [BMI] 40.0-44.9, adult; C90.00 Multiple myeloma not having achieved remission; J44.9 Chronic obstructive pulmonary disease, unspecified; I10 Essential (primary) hypertension; I12.9 Hypertensive chronic kidney disease with stage 1 through stage 4 chronic kidney disease, or unspecified chronic kidney disease; E11.22 Type 2 diabetes mellitus with diabetic chronic kidney disease; N18.30 Chronic kidney disease, stage 3 unspecified; E66.9 Obesity, unspecified; E78.00 Pure hypercholesterolemia, unspecified; I44.0 Atrioventricular block, first degree; K21.9 Gastro-esophageal reflux disease without esophagitis; N40.0 Benign prostatic hyperplasia without lower urinary tract symptoms; G25.81 Restless legs syndrome; R60.9 Edema, unspecified; G58.8 Other specified mononeuropathies; G56.02 Carpal tunnel syndrome, left upper limb; G62.9 Polyneuropathy, unspecified; E86.0 Dehydration
CPT/HCPCS: 36415; 71045-TC-FY; 80053; 81003; 82550; 82553; 83735; 83880; 84443; 84484; 85025; 85379; 85610; 85730; 87077; 87086; 93005; 93010; 94640; 97116-GP; 97162-GP; 99285-25; C9803; J1644; U0003; U0005

== ENCOUNTER 2021-02-12 11:09 | Inpatient (IN) | payer OTHER, BC ==
[2021-02-12 14:19] LABS: URINE APPEARANCE CLEAR; URINE BILIRUBIN NEGATIVE (NEGATIVE); URINE COLOR YELLOW; URINE GLUCOSE (UA) NEGATIVE (NEGATIVE); URINE KETONE NEGATIVE (NEGATIVE); URINE LEUK ESTERASE NEGATIVE (NEGATIVE); URINE NITRITE NEGATIVE (NEGATIVE); URINE PROTEIN NEGATIVE (NEGATIVE); URINE UROBILINOGEN 0.2 mg/dL (0.2-1.0)
[2021-02-12 14:50] LABS: BASO % 0.3 % (0-2.0); HEMATOCRIT 37.6 % (35.4-49); HEMOGLOBIN 11.6 GM/dL (11.7-16.9); LYMPH % 10.3 % (8-40); MCH 22.8 pg (25.7-33.7); MCHC 30.8 g/dl (32.0-35.9); MEAN CELL VOLUME 74.1 fl (80-96); MONO % 7.1 % (3.8-10.2); NEUT % 82.3 % (42.8-82.8); PLATELET COUNT 219 K/MM3 (134-434); RBC 5.07 M/mm3 (4.00-5.60); RDW 16.2 % (11.9-15.9); WHITE BLOOD COUNT 7.6 K/mm3 (4.0-10.0)
[2021-02-12 14:59] LABS: INR 0.93 (0.83-1.09); PROTHROMBIN TIME (PATIENT) 11.5 SEC (9.7-13.0)
[2021-02-12 15:01] LABS: ACTIVATED PTT 32.6 SECONDS (25.2-36.5)
[2021-02-12] MEDS ORDERED: LOSARTAN POTASSIUM 50 MG TABLET PO ONE (15:09)
[2021-02-12 15:11] LABS: ALBUMIN 3.6 g/dl (3.4-5.0); CALCIUM 9.5 mg/dL (8.5-10.1)
[2021-02-12 15:12] LABS: BLOOD UREA NITROGEN 62.6 mg/dL (7-18)
[2021-02-12 15:15] LABS: CREATININE 2.8 mg/dL (0.55-1.3)
[2021-02-12 15:16] LABS: BILIRUBIN,TOTAL 0.4 mg/dL (0.2-1); TOT PROT 6.8 g/dl (6.4-8.2)
[2021-02-12] MEDS ORDERED: LOSARTAN POTASSIUM 50 MG TABLET ONE (15:32)
[2021-02-12] MEDS ORDERED: SODIUM CHLORIDE 1,000 ML IV SCH (15:45)
[2021-02-12] MEDS ORDERED: ALBUTEROL SO4 2.5/IPRATROPIUM 0.5 INH SOL 3 ML VIAL.NEB. NEB PRN (17:25)
[2021-02-12] MEDS ORDERED: CARBIDOPA/LEVODOPA 25/250 TABLET (FP) ONE (17:49)
[2021-02-12] MEDS: CARBIDOPA/LEVODOPA 25/250 TABLET (FP) PO SCH ×2 (18:02→21:44)
[2021-02-12 19:27] LABS: CHLORIDE 91 mmol/L (98-107); SODIUM 129 mmol/L (136-145)
[2021-02-12 19:28] LABS: CALCIUM 8.9 mg/dL (8.5-10.1)
[2021-02-12 19:29] LABS: ANION GAP 7 MMOL/L (8-16); BLOOD UREA NITROGEN 60.5 mg/dL (7-18); CO2 32 mmol/L (21-32); GLUCOSE,RANDOM 118 mg/dL (74-106)
[2021-02-12 19:32] LABS: CREATININE 2.7 mg/dL (0.55-1.3)
[2021-02-12] MEDS: DOCUSATE SODIUM 100 MG CAPSULE (FP) PO SCH (21:44)
[2021-02-12] MEDS: ATORVASTATIN CA 40 MG TABLET (FP) PO SCH (21:44)
[2021-02-12] MEDS: BUDESONIDE/FORMETEROL FUMARATE 160/4.5 mcg INHALER IH SCH (21:45)
[2021-02-12] MEDS: PRAMIPEXOLE DIHYDROCHLORIDE 1 MG TABLET PO SCH (21:45)
[2021-02-12] MEDS ORDERED: GABAPENTIN 400 MG CAPSULE PO SCH ×2 (22:00)
[2021-02-12] MEDS ORDERED: PT OWN MED DRAWER 7, Y5N ONE (22:24)
[2021-02-12 23:58] VITALS: BMI 42.0
[2021-02-13] MEDS ORDERED: PT OWN MED DRAWER 7, Y5N ONE (05:28)
[2021-02-13] MEDS: PRAMIPEXOLE DIHYDROCHLORIDE 1 MG TABLET PO SCH ×3 (06:36→21:08)
[2021-02-13] MEDS: ACETAMINOPHEN 325 MG TABLET (FP) PO PRN ×3 (06:36→21:09)
[2021-02-13] MEDS ORDERED: TAMSULOSIN HCL 0.4 MG CAP PO SCH (08:30)
[2021-02-13 09:01] LABS: HEMATOCRIT 36.2 % (35.4-49); HEMOGLOBIN 11.2 GM/dL (11.7-16.9); MCH 22.8 pg (25.7-33.7); MCHC 30.9 g/dl (32.0-35.9); MEAN CELL VOLUME 73.6 fl (80-96); MEAN PLT VOLUME 7.8 fl (7.5-11.1); PLATELET COUNT 223 K/MM3 (134-434); RBC 4.92 M/mm3 (4.00-5.60); RDW 16.2 % (11.9-15.9); WHITE BLOOD COUNT 4.8 K/mm3 (4.0-10.0)
[2021-02-13] MEDS: ASPIRIN COATED 81 MG TABLET.EC PO SCH (09:04)
[2021-02-13] MEDS: CARBIDOPA/LEVODOPA 25/250 TABLET (FP) PO SCH ×4 (09:05→21:10)
[2021-02-13] MEDS: BUDESONIDE/FORMETEROL FUMARATE 160/4.5 mcg INHALER IH SCH ×2 (09:06→21:11)
[2021-02-13 09:21] LABS: BLOOD UREA NITROGEN 62.7 mg/dL (7-18); MAGNESIUM 3.2 mg/dL (1.8-2.4)
[2021-02-13 09:25] LABS: CREATININE 2.3 mg/dL (0.55-1.3)
[2021-02-13] MEDS ORDERED: POLYETHYLENE GLYCOL 3350 119 GM BTL PO PRN (10:38)
[2021-02-13] MEDS: FUROSEMIDE 20 MG TABLET (FP) PO SCH (13:35)
[2021-02-13] MEDS: oxyCODONE HCL 5 MG TABLET PO PRN (17:21)
[2021-02-13] MEDS: DOCUSATE SODIUM 100 MG CAPSULE (FP) PO SCH (21:09)
[2021-02-13] MEDS: ATORVASTATIN CA 40 MG TABLET (FP) PO SCH (21:10)
[2021-02-14] MEDS: oxyCODONE HCL 5 MG TABLET PO PRN ×2 (01:04→15:48)
[2021-02-14] MEDS: ACETAMINOPHEN 325 MG TABLET (FP) PO PRN ×3 (01:05→15:49)
[2021-02-14] MEDS: FUROSEMIDE 40 MG TABLET (FP) PO SCH (05:37)
[2021-02-14] MEDS: PRAMIPEXOLE DIHYDROCHLORIDE 1 MG TABLET PO SCH ×3 (05:37→21:18)
[2021-02-14] MEDS ORDERED: INSULIN (NOVOLOG) ASPART 100 UNITS/ML 10ML VIAL ONE (06:10)
[2021-02-14] MEDS: GABAPENTIN 300 MG CAPSULE PO SCH ×3 (08:41→21:16)
[2021-02-14] MEDS: TAMSULOSIN HCL 0.4 MG CAP PO SCH (08:41)
[2021-02-14] MEDS: ASPIRIN COATED 81 MG TABLET.EC PO SCH (09:01)
[2021-02-14] MEDS: CARBIDOPA/LEVODOPA 25/250 TABLET (FP) PO SCH ×4 (09:01→21:18)
[2021-02-14] MEDS: BUDESONIDE/FORMETEROL FUMARATE 160/4.5 mcg INHALER IH SCH ×2 (09:05→21:19)
[2021-02-14 09:21] LABS: HEMOGLOBIN 11.7 GM/dL (11.7-16.9); MCH 22.8 pg (25.7-33.7); MCHC 30.7 g/dl (32.0-35.9); MEAN CELL VOLUME 74.3 fl (80-96); MEAN PLT VOLUME 7.9 fl (7.5-11.1); PLATELET COUNT 242 10^3/uL (134-434); RBC 5.12 M/mm3 (4.00-5.60); RDW 16.4 % (11.9-15.9); WHITE BLOOD COUNT 4.9 K/mm3 (4.0-10.0)
[2021-02-14 09:44] LABS: BLOOD UREA NITROGEN 43.8 mg/dL (7-18)
[2021-02-14 09:47] LABS: CREATININE 1.9 mg/dL (0.55-1.3)
[2021-02-14] MEDS: FUROSEMIDE 20 MG TABLET (FP) PO SCH (13:01)
[2021-02-14] MEDS: ALBUTEROL SO4 2.5/IPRATROPIUM 0.5 INH SOL 3 ML VIAL.NEB. NEB SCH ×2 (13:51→20:45)
[2021-02-14] MEDS: DOCUSATE SODIUM 100 MG CAPSULE (FP) PO SCH (21:15)
[2021-02-14] MEDS: morphine SO4 SUSTAINED ACTING 30 MG TABLET.SA PO SCH (21:16)
[2021-02-14] MEDS: ATORVASTATIN CA 40 MG TABLET (FP) PO SCH (21:16)
[2021-02-15] MEDS: morphine SO4 SUSTAINED ACTING 30 MG TABLET.SA PO SCH ×2 (05:38→13:27)
[2021-02-15] MEDS: PRAMIPEXOLE DIHYDROCHLORIDE 1 MG TABLET PO SCH ×2 (05:39→13:28)
[2021-02-15] MEDS: GABAPENTIN 300 MG CAPSULE PO SCH ×2 (05:39→13:27)
[2021-02-15] MEDS: FUROSEMIDE 40 MG TABLET (FP) PO SCH (05:39)
[2021-02-15] MEDS: ALBUTEROL SO4 2.5/IPRATROPIUM 0.5 INH SOL 3 ML VIAL.NEB. NEB SCH ×2 (07:44→14:29)
[2021-02-15 07:54] LABS: CALCIUM 9.1 mg/dL (8.5-10.1)
[2021-02-15 07:55] LABS: BLOOD UREA NITROGEN 31.1 mg/dL (7-18)
[2021-02-15 07:58] LABS: CREATININE 1.7 mg/dL (0.55-1.3)
[2021-02-15] MEDS: ASPIRIN COATED 81 MG TABLET.EC PO SCH (08:59)
[2021-02-15] MEDS: BUDESONIDE/FORMETEROL FUMARATE 160/4.5 mcg INHALER IH SCH (08:59)
[2021-02-15] MEDS: TAMSULOSIN HCL 0.4 MG CAP PO SCH (08:59)
[2021-02-15] MEDS ORDERED: PT OWN MED DRAWER 7, Y5N ONE (09:01)
[2021-02-15] MEDS: CARBIDOPA/LEVODOPA 25/250 TABLET (FP) PO SCH ×3 (09:02→17:42)
[2021-02-15] MEDS: FUROSEMIDE 20 MG TABLET (FP) PO SCH (13:27)
[2021-02-15] MEDS ORDERED: LOSARTAN POTASSIUM 50 MG TABLET PO SCH (14:30)
[2021-02-15 15:08] VITALS: BP 159/96; PULSE 86; TEMP 98.2
[2021-02-15] MEDS: oxyCODONE HCL 5 MG TABLET PO PRN (17:50)
[2021-02-15] MEDS: ACETAMINOPHEN 325 MG TABLET (FP) PO PRN (17:50)
== END 2021-02-15 18:20 | disposition home health service (06) | DRG 683 ==
LOC: JER 11:09 → J7W 15:39
PROVIDERS: ADMIT Family Medicine; ATTEND Family Medicine
DX: N17.9 Acute kidney failure, unspecified (principal); I13.0 Hypertensive heart and chronic kidney disease with heart failure and stage 1 through stage 4 chronic kidney disease, or unspecified chronic kidney disease; I50.32 Chronic diastolic (congestive) heart failure; C90.00 Multiple myeloma not having achieved remission; E87.1 Hypo-osmolality and hyponatremia; Z68.41 Body mass index [BMI] 40.0-44.9, adult; N18.30 Chronic kidney disease, stage 3 unspecified; N40.1 Benign prostatic hyperplasia with lower urinary tract symptoms; R33.9 Retention of urine, unspecified; E66.9 Obesity, unspecified; G20 Parkinson's disease; E86.1 Hypovolemia; N28.1 Cyst of kidney, acquired; J44.9 Chronic obstructive pulmonary disease, unspecified; E78.5 Hyperlipidemia, unspecified; K21.9 Gastro-esophageal reflux disease without esophagitis
CPT/HCPCS: 36415; 71045-TC-FY; 74176-TC; 76775-TC; 80048; 80053; 81003; 82550; 82553; 83605; 83735; 84484; 85025; 85027; 85610; 85730; 87040; 87086; 93005; 93010; 94640; 97116-GP; 97161-GP; 99285-25; C9803; U0003; U0005

== ENCOUNTER 2021-04-08 18:10 | Inpatient (IN) | payer BC, OTHER ==
[2021-04-08 19:46] LABS: HEMATOCRIT 37.1 % (35.4-49); HEMOGLOBIN 11.4 GM/dL (11.7-16.9); MCH 22.8 pg (25.7-33.7); MCHC 30.9 g/dl (32.0-35.9); MEAN CELL VOLUME 73.9 fl (80-96); MEAN PLT VOLUME 7.6 fl (7.5-11.1); MONO % 11.1 % (3.8-10.2); NEUT % 73.9 % (42.8-82.8); PLATELET COUNT 291 10^3/uL (134-434); RBC 5.01 M/mm3 (4.00-5.60); RDW 17.1 % (11.9-15.9); WHITE BLOOD COUNT 6.3 K/mm3 (4.0-10.0)
[2021-04-08 19:53] LABS: INR 0.99 (0.83-1.09); PROTHROMBIN TIME (PATIENT) 12.2 SEC (9.7-13.0)
[2021-04-08 19:59] LABS: VENOUS BASE EXCESS 13.3 mmol/L (-2-2); VENOUS O2 SATURATION 98.9 % (70-80); VENOUS PCO2 54.5 mmHg (38-52); VENOUS PH 7.473 (7.310-7.410)
[2021-04-08 20:13] LABS: CHLORIDE 88 mmol/L (98-107); SODIUM 137 mmol/L (136-145)
[2021-04-08 20:15] LABS: EPI CELLS 1 /uL (0-25.1); HYALINE CASTS 4 /uL (0-3.1); URINE APPEARANCE CLEAR; URINE BACTERIA 2872 /uL (0-1359); URINE BILIRUBIN NEGATIVE (NEGATIVE); URINE COLOR YELLOW; URINE GLUCOSE (UA) NEGATIVE (NEGATIVE); URINE KETONE NEGATIVE (NEGATIVE); URINE LEUK ESTERASE 2+ (NEGATIVE); URINE NITRITE POSITIVE (NEGATIVE); URINE PROTEIN NEGATIVE (NEGATIVE); URINE RBC 26 /uL (0-23.9); URINE UROBILINOGEN 0.2 mg/dL (0.2-1.0); URINE WBC 184 /uL (0-25.8)
[2021-04-08 20:15] LABS: ALBUMIN 3.9 g/dl (3.4-5.0); CALCIUM 8.7 mg/dL (8.5-10.1)
[2021-04-08 20:16] LABS: ANION GAP 8 MMOL/L (8-16); CO2 40 mmol/L (21-32); GLUCOSE,RANDOM 132 mg/dL (74-106)
[2021-04-08 20:19] LABS: BILIRUBIN,TOTAL 0.5 mg/dL (0.2-1); CREATININE 2.7 mg/dL (0.55-1.3); SGOT/AST 21 U/L (15-37); SGPT/ALT 13 U/L (13-61); TOT PROT 7.4 g/dl (6.4-8.2)
[2021-04-08 20:21] LABS: ALK PHOS 101 U/L (45-117)
[2021-04-08 21:29] LABS: EPI CELLS 20 /uL (0-25.1); HYALINE CASTS 1 /uL (0-3.1); PH,URINE 6.5 (5.0-8.0); URINE APPEARANCE CLEAR; URINE BACTERIA 13 /uL (0-1359); URINE BILIRUBIN NEGATIVE (NEGATIVE); URINE COLOR YELLOW; URINE GLUCOSE (UA) NEGATIVE (NEGATIVE); URINE KETONE NEGATIVE (NEGATIVE); URINE LEUK ESTERASE 2+ (NEGATIVE); URINE NITRITE NEGATIVE (NEGATIVE); URINE PROTEIN NEGATIVE (NEGATIVE); URINE RBC 20 /uL (0-23.9); URINE UROBILINOGEN 0.2 mg/dL (0.2-1.0); URINE WBC 136 /uL (0-25.8)
[2021-04-08] MEDS ORDERED: POLYETHYLENE GLYCOL 3350 119 GM BTL PO PRN (22:22)
[2021-04-08] MEDS ORDERED: ALBUTEROL SO4 2.5/IPRATROPIUM 0.5 INH SOL 3 ML VIAL.NEB. NEB PRN (22:22)
[2021-04-09 06:42] LABS: BASO % 0.5 % (0-2.0); HEMATOCRIT 36.3 % (35.4-49); HEMOGLOBIN 11.5 GM/dL (11.7-16.9); LYMPH % 20.8 % (8-40); MCH 23.7 pg (25.7-33.7); MCHC 31.8 g/dl (32.0-35.9); MEAN CELL VOLUME 74.5 fl (80-96); MONO % 11.7 % (3.8-10.2); PLATELET COUNT 268 10^3/uL (134-434); RBC 4.87 M/mm3 (4.00-5.60); RDW 16.8 % (11.9-15.9); WHITE BLOOD COUNT 7.9 K/mm3 (4.0-10.0)
[2021-04-09] MEDS: morphine SO4 SUSTAINED ACTING 30 MG TABLET.SA PO SCH ×3 (07:04→23:35)
[2021-04-09] MEDS: CARBIDOPA/LEVODOPA 25/250 TABLET (FP) PO SCH ×4 (07:04→18:07)
[2021-04-09 07:05] LABS: BLOOD UREA NITROGEN 82.7 mg/dL (7-18)
[2021-04-09 07:06] LABS: CALCIUM 8.7 mg/dL (8.5-10.1)
[2021-04-09] MEDS: HEPARIN NA (PORCINE) 5,000 UNITS/ML 1ML VIAL SQ SCH ×3 (07:06→21:03)
[2021-04-09] MEDS: INSULIN SLIDING SCALE (NOVOLOG) 1 VIAL SQ SCH ×4 (07:06→21:04)
[2021-04-09 07:07] LABS: CREATININE 2.5 mg/dL (0.55-1.3); MAGNESIUM 3.6 mg/dL (1.8-2.4)
[2021-04-09] MEDS ORDERED: ERGOCALCIFEROL (VIT D2) 50,000 UNIT (1.25 MG) CAPSULE PO SCH (10:00)
[2021-04-09] MEDS: BUDESONIDE/FORMETEROL FUMARATE 160/4.5 mcg INHALER IH SCH ×2 (11:12→21:08)
[2021-04-09] MEDS: LOSARTAN POTASSIUM 50 MG TABLET PO SCH (11:14)
[2021-04-09] MEDS: ASPIRIN COATED 81 MG TABLET.EC PO SCH (11:14)
[2021-04-09] MEDS: PRAMIPEXOLE DIHYDROCHLORIDE 1 MG TABLET PO SCH ×4 (11:14→21:04)
[2021-04-09] MEDS: metoPROLOL SUCCINATE 25 MG TAB.SR.24H (FP) PO SCH (11:15)
[2021-04-09] MEDS: SODIUM CHLORIDE 1,000 ML IV SCH (14:24)
[2021-04-09 14:39] LABS: N-TERMINAL BNP 341.2 pg/ml (5-450)
[2021-04-09] MEDS ORDERED: PT OWN MED DRAWER 7, Y5N ONE (20:55)
[2021-04-09] MEDS: ATORVASTATIN CA 20 MG TABLET (FP) PO SCH (21:03)
[2021-04-10] MEDS: SODIUM CHLORIDE 1,000 ML IV SCH (04:22)
[2021-04-10] MEDS: morphine SO4 SUSTAINED ACTING 30 MG TABLET.SA PO SCH ×3 (05:48→20:59)
[2021-04-10] MEDS: HEPARIN NA (PORCINE) 5,000 UNITS/ML 1ML VIAL SQ SCH ×3 (05:48→20:59)
[2021-04-10] MEDS: CARBIDOPA/LEVODOPA 25/250 TABLET (FP) PO SCH ×4 (06:09→18:23)
[2021-04-10] MEDS: INSULIN SLIDING SCALE (NOVOLOG) 1 VIAL SQ SCH ×4 (06:09→21:01)
[2021-04-10] MEDS: metoPROLOL SUCCINATE 25 MG TAB.SR.24H (FP) PO SCH (10:03)
[2021-04-10] MEDS: LOSARTAN POTASSIUM 50 MG TABLET PO SCH (10:03)
[2021-04-10] MEDS: ASPIRIN COATED 81 MG TABLET.EC PO SCH (10:04)
[2021-04-10] MEDS: PRAMIPEXOLE DIHYDROCHLORIDE 1 MG TABLET PO SCH ×4 (10:04→20:59)
[2021-04-10] MEDS: BUDESONIDE/FORMETEROL FUMARATE 160/4.5 mcg INHALER IH SCH ×2 (10:06→21:01)
[2021-04-10] MEDS ORDERED: INSULIN SLIDING SCALE (NOVOLOG) 1 VIAL SQ ONE (10:09)
[2021-04-10 10:33] LABS: BASO % 0.1 % (0-2.0); HEMATOCRIT 34.1 % (35.4-49); HEMOGLOBIN 10.6 GM/dL (11.7-16.9); LYMPH % 21.2 % (8-40); MCH 23.4 pg (25.7-33.7); MCHC 31.2 g/dl (32.0-35.9); MEAN CELL VOLUME 75.1 fl (80-96); NEUT % 70.7 % (42.8-82.8); PLATELET COUNT 255 10^3/uL (134-434); RBC 4.54 M/mm3 (4.00-5.60); RDW 16.6 % (11.9-15.9); WHITE BLOOD COUNT 5.8 K/mm3 (4.0-10.0)
[2021-04-10 10:43] LABS: ALBUMIN 3.2 g/dl (3.4-5.0); BLOOD UREA NITROGEN 62.4 mg/dL (7-18); CALCIUM 8.4 mg/dL (8.5-10.1); MAGNESIUM 3.4 mg/dL (1.8-2.4)
[2021-04-10 10:47] LABS: PHOSPHOROUS 2.9 mg/dL (2.5-4.9)
[2021-04-10 10:48] LABS: BILIRUBIN,TOTAL 0.5 mg/dL (0.2-1); TOT PROT 6.2 g/dl (6.4-8.2)
[2021-04-10] MEDS: POLYETHYLENE GLYCOL (HEALTHYLAX) 3350 17 GM PACKET PO PRN (12:11)
[2021-04-10 13:24] VITALS: BMI 32.2
[2021-04-10] MEDS: ATORVASTATIN CA 20 MG TABLET (FP) PO SCH (20:59)
[2021-04-10] MEDS ORDERED: morphine SO4 SUSTAINED ACTING 30 MG TABLET.SA PO SCH (22:50)
[2021-04-11] MEDS ORDERED: BISACODYL 10 MG SUPP.RECT PR PRN (01:17)
[2021-04-11] MEDS: HEPARIN NA (PORCINE) 5,000 UNITS/ML 1ML VIAL SQ SCH ×3 (06:23→22:15)
[2021-04-11] MEDS: INSULIN SLIDING SCALE (NOVOLOG) 1 VIAL SQ SCH ×4 (06:23→22:12)
[2021-04-11] MEDS: CARBIDOPA/LEVODOPA 25/250 TABLET (FP) PO SCH ×4 (06:23→18:20)
[2021-04-11] MEDS ORDERED: morphine SO4 SUSTAINED ACTING 30 MG TABLET.SA PO ONE ×3 (09:56→21:43)
[2021-04-11] MEDS ORDERED: morphine SO4 SUSTAINED ACTING 15 MG TABLET.SA ONE ×3 (09:56→21:43)
[2021-04-11] MEDS: MORPHINE PO SCH ×3 (10:01→22:15)
[2021-04-11] MEDS: GABAPENTIN 300 MG CAPSULE PO SCH ×4 (10:02→22:15)
[2021-04-11] MEDS: ASPIRIN COATED 81 MG TABLET.EC PO SCH (10:02)
[2021-04-11] MEDS: metoPROLOL SUCCINATE 25 MG TAB.SR.24H (FP) PO SCH (10:02)
[2021-04-11] MEDS: LOSARTAN POTASSIUM 50 MG TABLET PO SCH (10:02)
[2021-04-11] MEDS: POLYETHYLENE GLYCOL (HEALTHYLAX) 3350 17 GM PACKET PO PRN (10:02)
[2021-04-11] MEDS: BUDESONIDE/FORMETEROL FUMARATE 160/4.5 mcg INHALER IH SCH ×2 (10:03→22:24)
[2021-04-11] MEDS: PRAMIPEXOLE DIHYDROCHLORIDE 1 MG TABLET PO SCH ×4 (10:15→22:17)
[2021-04-11 11:01] LABS: ALBUMIN 3.4 g/dl (3.4-5.0); BILIRUBIN,TOTAL 0.6 mg/dL (0.2-1); BLOOD UREA NITROGEN 49.5 mg/dL (7-18); TOT PROT 6.6 g/dl (6.4-8.2)
[2021-04-11 11:04] LABS: CALCIUM 8.7 mg/dL (8.5-10.1); CREATININE 1.8 mg/dL (0.55-1.3); MAGNESIUM 3.3 mg/dL (1.8-2.4); PHOSPHOROUS 2.8 mg/dL (2.5-4.9)
[2021-04-11] MEDS: ATORVASTATIN CA 20 MG TABLET (FP) PO SCH (22:17)
[2021-04-12] MEDS ORDERED: morphine SO4 SUSTAINED ACTING 30 MG TABLET.SA PO ONE ×3 (06:28→21:34)
[2021-04-12] MEDS ORDERED: morphine SO4 SUSTAINED ACTING 15 MG TABLET.SA ONE ×3 (06:28→21:34)
[2021-04-12] MEDS: MORPHINE PO SCH ×3 (06:35→22:18)
[2021-04-12] MEDS: HEPARIN NA (PORCINE) 5,000 UNITS/ML 1ML VIAL SQ SCH ×3 (06:35→22:17)
[2021-04-12] MEDS: CARBIDOPA/LEVODOPA 25/250 TABLET (FP) PO SCH ×4 (06:35→18:58)
[2021-04-12] MEDS: INSULIN SLIDING SCALE (NOVOLOG) 1 VIAL SQ SCH ×4 (06:36→22:24)
[2021-04-12] MEDS: GABAPENTIN 300 MG CAPSULE PO SCH ×4 (11:31→22:17)
[2021-04-12] MEDS: metoPROLOL SUCCINATE 25 MG TAB.SR.24H (FP) PO SCH (11:31)
[2021-04-12] MEDS: LOSARTAN POTASSIUM 50 MG TABLET PO SCH (11:32)
[2021-04-12] MEDS: ASPIRIN COATED 81 MG TABLET.EC PO SCH (11:32)
[2021-04-12] MEDS: BUDESONIDE/FORMETEROL FUMARATE 160/4.5 mcg INHALER IH SCH ×2 (11:33→22:26)
[2021-04-12] MEDS: PRAMIPEXOLE DIHYDROCHLORIDE 1 MG TABLET PO SCH ×4 (11:33→22:17)
[2021-04-12] MEDS: POLYETHYLENE GLYCOL (HEALTHYLAX) 3350 17 GM PACKET PO PRN (11:34)
[2021-04-12] MEDS: FUROSEMIDE 40 MG TABLET (FP) PO SCH (13:47)
[2021-04-12 14:22] LABS: ALBUMIN 3.4 g/dl (3.4-5.0); BLOOD UREA NITROGEN 38.6 mg/dL (7-18); CALCIUM 8.7 mg/dL (8.5-10.1)
[2021-04-12 14:25] LABS: CREATININE 1.7 mg/dL (0.55-1.3)
[2021-04-12 14:27] LABS: BILIRUBIN,TOTAL 0.6 mg/dL (0.2-1); TOT PROT 6.8 g/dl (6.4-8.2)
[2021-04-12 18:08] LABS: FREE KAPPA,SERUM 39.8 mg/L (3.3-19.4)
[2021-04-12] MEDS: ATORVASTATIN CA 20 MG TABLET (FP) PO SCH (22:17)
[2021-04-13] MEDS ORDERED: morphine SO4 SUSTAINED ACTING 15 MG TABLET.SA ONE (06:00)
[2021-04-13] MEDS ORDERED: morphine SO4 SUSTAINED ACTING 30 MG TABLET.SA PO ONE (06:01)
[2021-04-13] MEDS: HEPARIN NA (PORCINE) 5,000 UNITS/ML 1ML VIAL SQ SCH ×3 (06:29→22:45)
[2021-04-13] MEDS: MORPHINE PO SCH ×4 (06:30→22:47)
[2021-04-13] MEDS: FUROSEMIDE 40 MG TABLET (FP) PO SCH ×2 (06:30→15:32)
[2021-04-13] MEDS: CARBIDOPA/LEVODOPA 25/250 TABLET (FP) PO SCH ×4 (06:30→18:08)
[2021-04-13] MEDS: INSULIN SLIDING SCALE (NOVOLOG) 1 VIAL SQ SCH ×4 (06:31→22:47)
[2021-04-13] MEDS: metoPROLOL SUCCINATE 25 MG TAB.SR.24H (FP) PO SCH (09:51)
[2021-04-13] MEDS: LOSARTAN POTASSIUM 50 MG TABLET PO SCH (09:51)
[2021-04-13] MEDS: PRAMIPEXOLE DIHYDROCHLORIDE 1 MG TABLET PO SCH ×4 (10:00→22:46)
[2021-04-13] MEDS: POLYETHYLENE GLYCOL (HEALTHYLAX) 3350 17 GM PACKET PO PRN (10:04)
[2021-04-13] MEDS: GABAPENTIN 300 MG CAPSULE PO SCH ×4 (10:04→22:45)
[2021-04-13] MEDS: ASPIRIN COATED 81 MG TABLET.EC PO SCH (10:05)
[2021-04-13] MEDS: BUDESONIDE/FORMETEROL FUMARATE 160/4.5 mcg INHALER IH SCH ×2 (10:12→22:47)
[2021-04-13] MEDS ORDERED: SODIUM CHLORIDE 500 ML IV SCH (10:15)
[2021-04-13] MEDS: SODIUM CHLORIDE 1,000 ML IV SCH (15:43)
[2021-04-13] MEDS: ATORVASTATIN CA 20 MG TABLET (FP) PO SCH (22:45)
[2021-04-14] MEDS: SODIUM CHLORIDE 1,000 ML IV SCH (04:09)
[2021-04-14] MEDS: FUROSEMIDE 40 MG TABLET (FP) PO SCH (05:59)
[2021-04-14] MEDS: CARBIDOPA/LEVODOPA 25/250 TABLET (FP) PO SCH (05:59)
[2021-04-14] MEDS: HEPARIN NA (PORCINE) 5,000 UNITS/ML 1ML VIAL SQ SCH (05:59)
[2021-04-14] MEDS: INSULIN SLIDING SCALE (NOVOLOG) 1 VIAL SQ SCH (06:00)
[2021-04-14] MEDS: MORPHINE PO SCH ×2 (06:00→06:06)
[2021-04-14] MEDS ORDERED: morphine SO4 SUSTAINED ACTING 15 MG TABLET.SA ONE (06:05)
[2021-04-14] MEDS ORDERED: morphine SO4 SUSTAINED ACTING 30 MG TABLET.SA PO ONE (06:05)
[2021-04-14] MEDS: PRAMIPEXOLE DIHYDROCHLORIDE 1 MG TABLET PO SCH (09:24)
[2021-04-14] MEDS: ASPIRIN COATED 81 MG TABLET.EC PO SCH (09:25)
[2021-04-14] MEDS: GABAPENTIN 300 MG CAPSULE PO SCH (09:25)
[2021-04-14] MEDS ORDERED: LOSARTAN POTASSIUM 50 MG TABLET PO SCH (10:00)
[2021-04-14 10:03] LABS: HEMATOCRIT 34.1 % (35.4-49); HEMOGLOBIN 10.5 GM/dL (11.7-16.9); MCH 23.2 pg (25.7-33.7); MCHC 30.9 g/dl (32.0-35.9); MEAN CELL VOLUME 75.2 fl (80-96); MEAN PLT VOLUME 8.1 fl (7.5-11.1); PLATELET COUNT 221 10^3/uL (134-434); RBC 4.54 M/mm3 (4.00-5.60); RDW 17.3 % (11.9-15.9); WHITE BLOOD COUNT 5.2 K/mm3 (4.0-10.0)
[2021-04-14 10:35] LABS: BLOOD UREA NITROGEN 45.6 mg/dL (7-18)
[2021-04-14 10:38] LABS: CREATININE 2.2 mg/dL (0.55-1.3)
[2021-04-14 10:39] LABS: BILIRUBIN,TOTAL 0.5 mg/dL (0.2-1); TOT PROT 5.9 g/dl (6.4-8.2)
[2021-04-14] MEDS: BUDESONIDE/FORMETEROL FUMARATE 160/4.5 mcg INHALER IH SCH (10:53)
[2021-04-14 11:01] VITALS: BP 149/90; PULSE 98; TEMP 97.7
== END 2021-04-14 11:15 | disposition home health service (06) | DRG 92 ==
LOC: JER 18:10 → JERBED 20:54 → J5S 04-09 06:14
PROVIDERS: ADMIT Internal Medicine; ATTEND Family Medicine
DX: G25.3 Myoclonus (principal); N17.9 Acute kidney failure, unspecified; C90.00 Multiple myeloma not having achieved remission; I13.0 Hypertensive heart and chronic kidney disease with heart failure and stage 1 through stage 4 chronic kidney disease, or unspecified chronic kidney disease; I50.32 Chronic diastolic (congestive) heart failure; R33.9 Retention of urine, unspecified; J44.9 Chronic obstructive pulmonary disease, unspecified; G20 Parkinson's disease; K21.9 Gastro-esophageal reflux disease without esophagitis; N40.0 Benign prostatic hyperplasia without lower urinary tract symptoms; D64.9 Anemia, unspecified; N18.30 Chronic kidney disease, stage 3 unspecified; G62.9 Polyneuropathy, unspecified; G25.81 Restless legs syndrome; M21.371 Foot drop, right foot; I95.9 Hypotension, unspecified; G57.81 Other specified mononeuropathies of right lower limb; K59.00 Constipation, unspecified; E86.9 Volume depletion, unspecified; E66.9 Obesity, unspecified; Z68.32 Body mass index [BMI] 32.0-32.9, adult
CPT/HCPCS: 36415; 71045-TC-FY; 80048; 80053; 81003; 82140; 82550; 82553; 82784; 82803; 82962; 83605; 83735; 83880; 83883; 84100; 84155; 84165; 84443; 84484; 85025; 85027; 85610; 86334; 87040; 87086; 87186; 93005; 93010; 97116-GP; 97161-GP; 99285-25; C9803; J1644; U0003; U0005

== ENCOUNTER 2021-05-22 15:12 | Emergency (ER) | payer OTHER, BC ==
[2021-05-22 15:19] VITALS: BP 148/84; PULSE 91; TEMP 97.8; BMI 33.2
[2021-05-22] MEDS ORDERED: ACETAMINOPHEN 325 MG TABLET (FP) PO ONE (16:08)
[2021-05-22] MEDS ORDERED: ACETAMINOPHEN 325 MG TABLET (FP) ONE (16:12)
[2021-05-22 18:55] LABS: EPI CELLS 4 /uL (0-25.1); HYALINE CASTS 1 /uL (0-3.1); PH,URINE 5.5 (5.0-8.0); URINE APPEARANCE CLOUDY; URINE BACTERIA 1116 /uL (0-1359); URINE BILIRUBIN NEGATIVE (NEGATIVE); URINE COLOR YELLOW; URINE GLUCOSE (UA) NEGATIVE (NEGATIVE); URINE KETONE NEGATIVE (NEGATIVE); URINE LEUK ESTERASE 3+ (NEGATIVE); URINE NITRITE NEGATIVE (NEGATIVE); URINE PROTEIN 1+ (NEGATIVE); URINE RBC 98 /uL (0-23.9); URINE UROBILINOGEN 0.2 mg/dL (0.2-1.0); URINE WBC 1612 /uL (0-25.8)
== END 2021-05-22 19:41 | disposition home or self-care (01) ==
LOC: JER 15:12
DX: N50.0 Atrophy of testis (principal); N10 Acute pyelonephritis
CPT/HCPCS: 76870-TC; 81003; 87086; 99284-25

== ENCOUNTER 2022-12-14 04:10 | Day surgery (SDC) | payer OTHER, BC ==
[2022-12-12 19:24] VITALS: BMI 33.2
[~2022-12-14 04:10] MED LIST: DEXAMETHASONE SOD PHOSPHATE 10 MG/1 ML VIAL IVPUSH ONE; IOHEXOL 180 MG/1 ML ML IJ ONE; LIDOCAINE 1% P/F 10 MG/ML VIAL INF ONE
[2022-12-14] MEDS ORDERED: LIDOCAINE HCL/PF 1% SDV 5ML VIAL ONE (07:59)
[2022-12-14] MEDS ORDERED: DEXAMETHASONE SOD PHOSPHATE 4 MG/1 ML VIAL ONE (07:59)
[2022-12-14] MEDS ORDERED: DEXAMETHASONE SOD PHOSPHATE 10 MG/1 ML VIAL ONE (08:00)
[2022-12-14] MEDS ORDERED: ACETAMINOPHEN 500 MG TABLET (FP) PO PRN (10:18)
[2022-12-14 12:48] VITALS: RESP 20
[2022-12-14] MEDS ORDERED: LIDOCAINE 1% P/F 10 MG/ML VIAL INF ONE (13:36)
[2022-12-14] MEDS ORDERED: IOHEXOL 180 MG/1 ML ML IJ ONE ×2 (13:37→13:40)
[2022-12-14] MEDS ORDERED: DEXAMETHASONE SOD PHOSPHATE 10 MG/1 ML VIAL IVPUSH ONE (13:41)
[2022-12-14 13:59] VITALS: TEMP 98
[2022-12-14 14:52] VITALS: BP 130/70; PULSE 70
== END 2022-12-14 14:53 | disposition home or self-care (01) ==
LOC: JASU-SURG 04:10
PROVIDERS: ATTEND Pain Medicine Pain Medicine
PROC: 3E0R3BZ Introduction of Anesthetic Agent into Spinal Canal, Percutaneous Approach (ICD-10-PCS; 2022-12-14)
PROC: 3E0R33Z Introduction of Anti-inflammatory into Spinal Canal, Percutaneous Approach (ICD-10-PCS; principal; 2022-12-14 13:22)
DX: M48.061 Spinal stenosis, lumbar region without neurogenic claudication (principal); M54.16 Radiculopathy, lumbar region
CPT/HCPCS: 76000-TC-FY; J1100

== ENCOUNTER 2023-06-07 16:10 | Inpatient (IN) | payer OTHER, BC ==
[2023-06-07 18:52] LABS: BASO % 0.1 % (0-2.0); HEMATOCRIT 28.5 % (35.4-49); HEMOGLOBIN 8.7 GM/dL (11.7-16.9); MCH 22.3 pg (25.7-33.7); MCHC 30.5 g/dl (32.0-35.9); MEAN CELL VOLUME 72.9 fl (80-96); MEAN PLT VOLUME 7.7 fl (7.5-11.1); MONO % 11.2 % (3.8-10.2); NEUT % 71.7 % (42.8-82.8); PLATELET COUNT 203 10^3/uL (134-434); RBC 3.91 M/mm3 (4.00-5.60); RDW 15.5 % (11.9-15.9); WHITE BLOOD COUNT 5.2 K/mm3 (4.0-10.0)
[2023-06-07 19:18] LABS: CHLORIDE 94 mmol/L (98-107); POTASSIUM 3.7 mmol/L (3.5-5.1); SODIUM 136 mmol/L (136-145)
[2023-06-07 19:20] LABS: CALCIUM 8.8 mg/dL (8.5-10.1)
[2023-06-07 19:21] LABS: ALBUMIN 3.5 g/dl (3.4-5.0); ANION GAP 13 MMOL/L (8-16); CO2 29 mmol/L (21-32); GLUCOSE,RANDOM 140 mg/dL (74-106)
[2023-06-07 19:24] LABS: CREATININE 6.3 mg/dL (0.55-1.3); SGOT/AST 8 U/L (15-37); SGPT/ALT < 6 U/L (13-61)
[2023-06-07 19:25] LABS: BILIRUBIN,TOTAL 0.4 mg/dL (0.2-1)
[2023-06-07 19:26] LABS: ALK PHOS 80 U/L (45-117)
[2023-06-07] MEDS ORDERED: SODIUM CHLORIDE 1,000 ML IV STA (19:28)
[2023-06-07 19:31] LABS: BLOOD UREA NITROGEN 214.7 mg/dL (7-18)
[2023-06-07 20:42] LABS: EPI CELLS 0 /uL (0-25.1); HYALINE CASTS 0 /uL (0-3.1); URINE APPEARANCE CLEAR; URINE BACTERIA >9,000 /uL (0-1359); URINE BILIRUBIN NEGATIVE (NEGATIVE); URINE COLOR YELLOW; URINE GLUCOSE (UA) NEGATIVE (NEGATIVE); URINE KETONE NEGATIVE (NEGATIVE); URINE LEUK ESTERASE 3+ (NEGATIVE); URINE NITRITE NEGATIVE (NEGATIVE); URINE PROTEIN NEGATIVE (NEGATIVE); URINE RBC 28 /uL (0-23.9); URINE UROBILINOGEN 0.2 mg/dL (0.2-1.0); URINE WBC 514 /uL (0-25.8)
[2023-06-08 00:05] LABS: MAGNESIUM 3.4 mg/dL (1.8-2.4)
[2023-06-08 00:07] LABS: LIPASE 266 U/L (73-393)
[2023-06-08] MEDS ORDERED: BISACODYL 10 MG SUPP.RECT PR PRN (08:04)
[2023-06-08 09:34] LABS: BASO % 0.1 % (0-2.0); HEMATOCRIT 27.9 % (35.4-49); HEMOGLOBIN 8.7 GM/dL (11.7-16.9); LYMPH % 14.4 % (8-40); MCH 22.6 pg (25.7-33.7); MCHC 31.2 g/dl (32.0-35.9); MEAN CELL VOLUME 72.3 fl (80-96); MEAN PLT VOLUME 8.2 fl (7.5-11.1); NEUT % 77.5 % (42.8-82.8); PLATELET COUNT 210 10^3/uL (134-434); RBC 3.85 M/mm3 (4.00-5.60); RDW 15.6 % (11.9-15.9); WHITE BLOOD COUNT 6.8 K/mm3 (4.0-10.0)
[2023-06-08] MEDS: LACTATED RINGERS SOLUTION 1,000 ML/1,000 ML INFUS.BAG IV SCH ×2 (09:46→22:45)
[2023-06-08] MEDS ORDERED: CARBIDOPA/LEVODOPA 25/250 TABLET (FP) PO SCH (10:00)
[2023-06-08] MEDS ORDERED: DULoxetine HCL 60 MG CAPSULE.DR PO SCH (10:00)
[2023-06-08] MEDS ORDERED: PATIENT'S OWN MEDICATION (NON-FORMULARY) (Hydralazine Hcl [Hydralazine Hcl] 100 MG Tablet) PO SCH (10:00)
[2023-06-08] MEDS: amLODIPine BESYLATE 10 MG TABLET (FP) PO SCH (10:34)
[2023-06-08 10:35] LABS: ALBUMIN 3.4 g/dl (3.4-5.0); ALK PHOS 78 U/L (45-117); ANION GAP 12 MMOL/L (8-16); BILIRUBIN,TOTAL 0.6 mg/dL (0.2-1); BLOOD UREA NITROGEN 210.2 mg/dL (7-18); CALCIUM 8.7 mg/dL (8.5-10.1); CHLORIDE 98 mmol/L (98-107); CO2 27 mmol/L (21-32); CREATININE 5.6 mg/dL (0.55-1.3); GLUCOSE,RANDOM 114 mg/dL (74-106); POTASSIUM 3.3 mmol/L (3.5-5.1); SGOT/AST 10 U/L (15-37); SGPT/ALT 8 U/L (13-61); SODIUM 138 mmol/L (136-145); TOT PROT 6.8 g/dl (6.4-8.2)
[2023-06-08] MEDS: BUDESONIDE/FORMETEROL FUMARATE 160/4.5 mcg INHALER IH SCH ×2 (11:26→21:44)
[2023-06-08] MEDS: DULoxetine HCL 20 MG CAPSULE.DR PO SCH (13:03)
[2023-06-08 13:14] LABS: CHLORIDE 98 mmol/L (98-107); POTASSIUM 3.1 mmol/L (3.5-5.1); SODIUM 138 mmol/L (136-145)
[2023-06-08 13:15] LABS: CALCIUM 8.4 mg/dL (8.5-10.1)
[2023-06-08 13:16] LABS: ANION GAP 11 MMOL/L (8-16); CO2 29 mmol/L (21-32); GLUCOSE,RANDOM 113 mg/dL (74-106)
[2023-06-08 13:19] LABS: CREATININE 5.6 mg/dL (0.55-1.3)
[2023-06-08 13:48] LABS: BLOOD UREA NITROGEN 203.3 mg/dL (7-18)
[2023-06-08] MEDS: ALBUTEROL SO4 2.5/IPRATROPIUM 0.5 INH SOL 3 ML VIAL.NEB. NEB SCH ×2 (13:51→20:50)
[2023-06-08] MEDS: traMADol HCL 50 MG TABLET PO PRN (16:31)
[2023-06-08] MEDS: DOCUSATE SODIUM 100 MG CAPSULE (FP) PO SCH (21:44)
[2023-06-08] MEDS: POLYETHYLENE GLYCOL (HEALTHYLAX) 3350 17 GM PACKET PO SCH (21:44)
[2023-06-09] MEDS: ALBUTEROL SO4 2.5/IPRATROPIUM 0.5 INH SOL 3 ML VIAL.NEB. NEB SCH ×3 (07:30→19:33)
[2023-06-09] MEDS: amLODIPine BESYLATE 10 MG TABLET (FP) PO SCH (09:32)
[2023-06-09] MEDS: DULoxetine HCL 20 MG CAPSULE.DR PO SCH (09:32)
[2023-06-09] MEDS: POLYETHYLENE GLYCOL (HEALTHYLAX) 3350 17 GM PACKET PO SCH ×2 (09:32→22:49)
[2023-06-09] MEDS: LACTATED RINGERS SOLUTION 1,000 ML/1,000 ML INFUS.BAG IV SCH (09:35)
[2023-06-09] MEDS: BUDESONIDE/FORMETEROL FUMARATE 160/4.5 mcg INHALER IH SCH ×2 (09:35→22:49)
[2023-06-09 09:58] LABS: CHLORIDE 100 mmol/L (98-107); POTASSIUM 3.4 mmol/L (3.5-5.1); SODIUM 139 mmol/L (136-145)
[2023-06-09 10:00] LABS: CALCIUM 8.6 mg/dL (8.5-10.1)
[2023-06-09 10:01] LABS: ANION GAP 11 MMOL/L (8-16); CO2 28 mmol/L (21-32); GLUCOSE,RANDOM 95 mg/dL (74-106)
[2023-06-09 10:04] LABS: CREATININE 5.3 mg/dL (0.55-1.3); HEMATOCRIT 27.6 % (35.4-49); HEMOGLOBIN 8.9 GM/dL (11.7-16.9); MCH 23.2 pg (25.7-33.7); MCHC 32.2 g/dl (32.0-35.9); MEAN CELL VOLUME 72.1 fl (80-96); MEAN PLT VOLUME 8.2 fl (7.5-11.1); PLATELET COUNT 201 10^3/uL (134-434); RBC 3.82 M/mm3 (4.00-5.60); RDW 15.8 % (11.9-15.9); WHITE BLOOD COUNT 6.4 K/mm3 (4.0-10.0)
[2023-06-09 10:48] LABS: BLOOD UREA NITROGEN 188.9 mg/dL (7-18)
[2023-06-09] MEDS: DOCUSATE SODIUM 100 MG CAPSULE (FP) PO SCH (22:49)
[2023-06-10] MEDS: LACTATED RINGERS SOLUTION 1,000 ML/1,000 ML INFUS.BAG IV SCH ×3 (02:44→15:48)
[2023-06-10] MEDS: traMADol HCL 50 MG TABLET PO PRN (02:50)
[2023-06-10] MEDS: ALBUTEROL SO4 2.5/IPRATROPIUM 0.5 INH SOL 3 ML VIAL.NEB. NEB SCH ×3 (07:10→20:05)
[2023-06-10] MEDS: amLODIPine BESYLATE 10 MG TABLET (FP) PO SCH (09:20)
[2023-06-10] MEDS: DULoxetine HCL 20 MG CAPSULE.DR PO SCH (09:20)
[2023-06-10] MEDS: POLYETHYLENE GLYCOL (HEALTHYLAX) 3350 17 GM PACKET PO SCH ×2 (09:20→22:41)
[2023-06-10] MEDS: BUDESONIDE/FORMETEROL FUMARATE 160/4.5 mcg INHALER IH SCH ×2 (09:21→22:42)
[2023-06-10] MEDS ORDERED: POTASSIUM CHLORIDE ORAL LIQUID 20 MEQ/15 ML PO ONE (12:30)
[2023-06-10] MEDS: DOCUSATE SODIUM 100 MG CAPSULE (FP) PO SCH (22:41)
[2023-06-11] MEDS: ACETAMINOPHEN 325 MG TABLET (FP) PO PRN ×2 (00:59→10:43)
[2023-06-11] MEDS: LACTATED RINGERS SOLUTION 1,000 ML/1,000 ML INFUS.BAG IV SCH ×3 (04:16→16:42)
[2023-06-11 07:09] LABS: FREE KAP CHN UR 120.41 mg/L (1.17-86.46); KAPPA LAMBDA RATIO URIN 4.7 (1.83-14.26)
[2023-06-11] MEDS: ALBUTEROL SO4 2.5/IPRATROPIUM 0.5 INH SOL 3 ML VIAL.NEB. NEB SCH ×3 (08:20→20:14)
[2023-06-11] MEDS: traMADol HCL 50 MG TABLET PO PRN ×2 (10:44→15:56)
[2023-06-11] MEDS: amLODIPine BESYLATE 10 MG TABLET (FP) PO SCH (10:45)
[2023-06-11] MEDS: POLYETHYLENE GLYCOL (HEALTHYLAX) 3350 17 GM PACKET PO SCH ×2 (10:45→21:39)
[2023-06-11] MEDS: DULoxetine HCL 20 MG CAPSULE.DR PO SCH (10:46)
[2023-06-11] MEDS: BUDESONIDE/FORMETEROL FUMARATE 160/4.5 mcg INHALER IH SCH ×2 (10:46→22:39)
[2023-06-11 11:04] LABS: HEMATOCRIT 24.8 % (35.4-49); MCH 23.3 pg (25.7-33.7); MCHC 32.1 g/dl (32.0-35.9); MEAN CELL VOLUME 72.5 fl (80-96); MEAN PLT VOLUME 8.2 fl (7.5-11.1); PLATELET COUNT 184 10^3/uL (134-434); RBC 3.42 M/mm3 (4.00-5.60); RDW 15.8 % (11.9-15.9); WHITE BLOOD COUNT 16.7 K/mm3 (4.0-10.0)
[2023-06-11 11:23] LABS: CHLORIDE 103 mmol/L (98-107); POTASSIUM 3.3 mmol/L (3.5-5.1); SODIUM 142 mmol/L (136-145)
[2023-06-11 11:32] LABS: ANION GAP 11 MMOL/L (8-16); CALCIUM 8.5 mg/dL (8.5-10.1); CO2 28 mmol/L (21-32); GLUCOSE,RANDOM 147 mg/dL (74-106)
[2023-06-11 11:35] LABS: CREATININE 4.4 mg/dL (0.55-1.3); SGOT/AST 17 U/L (15-37); SGPT/ALT 9 U/L (13-61)
[2023-06-11 11:37] LABS: BILIRUBIN,TOTAL 0.4 mg/dL (0.2-1); TOT PROT 6.2 g/dl (6.4-8.2)
[2023-06-11 11:38] LABS: ALK PHOS 72 U/L (45-117)
[2023-06-11 11:56] LABS: BLOOD UREA NITROGEN 139.3 mg/dL (7-18)
[2023-06-11] MEDS ORDERED: POTASSIUM CHLORIDE ORAL LIQUID 20 MEQ/15 ML PO ONE (15:01)
[2023-06-11 18:08] LABS: FREE KAPPA,SERUM 132.2 mg/L (3.3-19.4)
[2023-06-11] MEDS ORDERED: cefTRIAXone SODIUM 1 GM VIAL ONE (21:31)
[2023-06-11] MEDS: CEFTRIAXONE 1 GM in DEXTROSE 5%-WATER - 50 ML IVPB SCH (21:38)
[2023-06-11] MEDS: DOCUSATE SODIUM 100 MG CAPSULE (FP) PO SCH (21:39)
[2023-06-12] MEDS: LACTATED RINGERS SOLUTION 1,000 ML/1,000 ML INFUS.BAG IV SCH ×3 (06:55→21:21)
[2023-06-12] MEDS: ALBUTEROL SO4 2.5/IPRATROPIUM 0.5 INH SOL 3 ML VIAL.NEB. NEB SCH ×3 (07:35→20:29)
[2023-06-12] MEDS: CEFTRIAXONE 1 GM in DEXTROSE 5%-WATER - 50 ML IVPB SCH (09:38)
[2023-06-12] MEDS: DULoxetine HCL 20 MG CAPSULE.DR PO SCH (09:54)
[2023-06-12] MEDS: amLODIPine BESYLATE 10 MG TABLET (FP) PO SCH (09:54)
[2023-06-12] MEDS: POLYETHYLENE GLYCOL (HEALTHYLAX) 3350 17 GM PACKET PO SCH ×2 (09:54→21:21)
[2023-06-12] MEDS: BUDESONIDE/FORMETEROL FUMARATE 160/4.5 mcg INHALER IH SCH ×2 (10:13→21:24)
[2023-06-12 13:15] LABS: CHLORIDE 107 mmol/L (98-107); POTASSIUM 3.8 mmol/L (3.5-5.1); SODIUM 142 mmol/L (136-145)
[2023-06-12 13:23] LABS: CALCIUM 8.4 mg/dL (8.5-10.1)
[2023-06-12 13:24] LABS: ALBUMIN 2.9 g/dl (3.4-5.0); ANION GAP 9 MMOL/L (8-16); CO2 27 mmol/L (21-32); GLUCOSE,RANDOM 124 mg/dL (74-106); MAGNESIUM 2.6 mg/dL (1.8-2.4)
[2023-06-12 13:27] LABS: CREATININE 4.2 mg/dL (0.55-1.3); SGOT/AST 16 U/L (15-37); SGPT/ALT 8 U/L (13-61)
[2023-06-12 13:29] LABS: BILIRUBIN,TOTAL 0.4 mg/dL (0.2-1); TOT PROT 6.1 g/dl (6.4-8.2)
[2023-06-12 13:30] LABS: ALK PHOS 71 U/L (45-117); BLOOD UREA NITROGEN 125.6 mg/dL (7-18)
[2023-06-12] MEDS: ACETAMINOPHEN 325 MG TABLET (FP) PO PRN ×2 (16:31→22:16)
[2023-06-12] MEDS: DOCUSATE SODIUM 100 MG CAPSULE (FP) PO SCH (21:20)
[2023-06-13] MEDS: ALBUTEROL SO4 2.5/IPRATROPIUM 0.5 INH SOL 3 ML VIAL.NEB. NEB SCH (07:30)
[2023-06-13] MEDS: amLODIPine BESYLATE 10 MG TABLET (FP) PO SCH (10:49)
[2023-06-13] MEDS: POLYETHYLENE GLYCOL (HEALTHYLAX) 3350 17 GM PACKET PO SCH ×3 (10:50→22:16)
[2023-06-13] MEDS: DULoxetine HCL 20 MG CAPSULE.DR PO SCH (10:50)
[2023-06-13] MEDS: LACTATED RINGERS SOLUTION 1,000 ML/1,000 ML INFUS.BAG IV SCH ×2 (10:58→18:02)
[2023-06-13] MEDS: CEFTRIAXONE 1 GM in DEXTROSE 5%-WATER - 50 ML IVPB SCH (11:08)
[2023-06-13] MEDS: BUDESONIDE/FORMETEROL FUMARATE 160/4.5 mcg INHALER IH SCH ×2 (11:15→21:59)
[2023-06-13 21:08] LABS: ANTIGLOMERULAR BASEMENT MEN.AB <0.2 units (0.0-0.9); ATYPICAL pANCA <1:20 titer (Neg:<1:20); C-ANCA <1:20 titer (Neg:<1:20)
[2023-06-13] MEDS: DOCUSATE SODIUM 100 MG CAPSULE (FP) PO SCH (21:55)
[2023-06-14] MEDS ORDERED: methylPREDNISolone ACET (DEPO) 80 MG/1 ML VIAL IAR SCH (06:00)
[2023-06-14] MEDS ORDERED: LIDOCAINE HCL 1%, 10 MG/ML (50 mL VIAL) SQ SCH (06:00)
[2023-06-14 09:41] LABS: POTASSIUM 3.3 mmol/L (3.5-5.1)
[2023-06-14 09:53] LABS: ALBUMIN 2.7 g/dl (3.4-5.0); CALCIUM 8.1 mg/dL (8.5-10.1)
[2023-06-14 09:56] LABS: BILIRUBIN,TOTAL 0.3 mg/dL (0.2-1); CREATININE 3.9 mg/dL (0.55-1.3)
[2023-06-14 09:58] LABS: BLOOD UREA NITROGEN 98.4 mg/dL (7-18)
[2023-06-14] MEDS: CEFTRIAXONE 1 GM in DEXTROSE 5%-WATER - 50 ML IVPB SCH (10:55)
[2023-06-14] MEDS: POLYETHYLENE GLYCOL (HEALTHYLAX) 3350 17 GM PACKET PO SCH ×3 (10:56→21:29)
[2023-06-14] MEDS: amLODIPine BESYLATE 10 MG TABLET (FP) PO SCH (10:56)
[2023-06-14] MEDS: DULoxetine HCL 20 MG CAPSULE.DR PO SCH (10:56)
[2023-06-14] MEDS: BUDESONIDE/FORMETEROL FUMARATE 160/4.5 mcg INHALER IH SCH ×2 (10:57→21:26)
[2023-06-14] MEDS: ACETAMINOPHEN 325 MG TABLET (FP) PO PRN ×2 (11:01→20:07)
[2023-06-14] MEDS: LACTATED RINGERS SOLUTION 1,000 ML/1,000 ML INFUS.BAG IV SCH (11:02)
[2023-06-14] MEDS ORDERED: POTASSIUM CHLORIDE TABS 10 MEQ TABLET.ER (FP) PO ONE (13:30)
[2023-06-14] MEDS: GABAPENTIN 100 MG CAPSULE PO SCH ×2 (13:36→21:25)
[2023-06-14] MEDS ORDERED: POTASSIUM CHLORIDE ORAL LIQUID 20 MEQ/15 ML PO ONE (16:45)
[2023-06-14] MEDS: SODIUM CHLORIDE 0.45% 1,000 ML IV SCH (17:14)
[2023-06-14] MEDS: DOCUSATE SODIUM 100 MG CAPSULE (FP) PO SCH (21:25)
[2023-06-15] MEDS: SODIUM CHLORIDE 0.45% 1,000 ML IV SCH ×2 (05:38→16:48)
[2023-06-15] MEDS: GABAPENTIN 100 MG CAPSULE PO SCH ×3 (06:22→21:54)
[2023-06-15] MEDS: POLYETHYLENE GLYCOL (HEALTHYLAX) 3350 17 GM PACKET PO SCH ×3 (09:17→21:57)
[2023-06-15] MEDS: amLODIPine BESYLATE 10 MG TABLET (FP) PO SCH (09:17)
[2023-06-15] MEDS: DULoxetine HCL 20 MG CAPSULE.DR PO SCH (09:17)
[2023-06-15] MEDS: CEPHALEXIN MONOHYDRATE 500 MG CAPSULE (UD) PO SCH (09:17)
[2023-06-15] MEDS: BUDESONIDE/FORMETEROL FUMARATE 160/4.5 mcg INHALER IH SCH ×2 (09:19→21:55)
[2023-06-15 09:23] LABS: ALBUMIN 2.9 g/dl (3.4-5.0); CALCIUM 7.9 mg/dL (8.5-10.1)
[2023-06-15 09:26] LABS: BILIRUBIN,TOTAL 0.3 mg/dL (0.2-1); CREATININE 3.5 mg/dL (0.55-1.3)
[2023-06-15 09:28] LABS: TOT PROT 6.4 g/dl (6.4-8.2)
[2023-06-15] MEDS: ACETAMINOPHEN 325 MG TABLET (FP) PO PRN (13:06)
[2023-06-15 15:54] LABS: BASO % 0.1 % (0-2.0); HEMATOCRIT 24.2 % (35.4-49); HEMOGLOBIN 7.5 GM/dL (11.7-16.9); LYMPH % 13.8 % (8-40); MCH 22.8 pg (25.7-33.7); MCHC 30.9 g/dl (32.0-35.9); MEAN CELL VOLUME 73.8 fl (80-96); MEAN PLT VOLUME 7.3 fl (7.5-11.1); MONO % 12.1 % (3.8-10.2); PLATELET COUNT 209 10^3/uL (134-434); RBC 3.28 M/mm3 (4.00-5.60); RDW 15.7 % (11.9-15.9)
[2023-06-15] MEDS ORDERED: ASPIRIN 81 MG CHEWABLE TABLETS PO ONE (16:11)
[2023-06-15 21:43] VITALS: BMI 29.4
[2023-06-15] MEDS: PRAMIPEXOLE DIHYDROCHLORIDE 0.25 MG TABLET PO SCH (21:54)
[2023-06-15] MEDS: DOCUSATE SODIUM 100 MG CAPSULE (FP) PO SCH (21:54)
[2023-06-16] MEDS: GABAPENTIN 100 MG CAPSULE PO SCH ×3 (05:22→22:01)
[2023-06-16] MEDS: CARBIDOPA/LEVODOPA 25/250 TABLET (FP) PO SCH ×4 (05:23→17:38)
[2023-06-16 09:23] LABS: BASO % 0.1 % (0-2.0); HEMATOCRIT 23.9 % (35.4-49); HEMOGLOBIN 7.5 GM/dL (11.7-16.9); LYMPH % 15.7 % (8-40); MCH 23.1 pg (25.7-33.7); MCHC 31.3 g/dl (32.0-35.9); MEAN CELL VOLUME 73.7 fl (80-96); MEAN PLT VOLUME 7.6 fl (7.5-11.1); MONO % 11.6 % (3.8-10.2); NEUT % 72.6 % (42.8-82.8); PLATELET COUNT 209 10^3/uL (134-434); RBC 3.25 M/mm3 (4.00-5.60); RDW 15.9 % (11.9-15.9); WHITE BLOOD COUNT 6.6 K/mm3 (4.0-10.0)
[2023-06-16] MEDS: amLODIPine BESYLATE 10 MG TABLET (FP) PO SCH (09:29)
[2023-06-16] MEDS: CEPHALEXIN MONOHYDRATE 500 MG CAPSULE (UD) PO SCH (09:29)
[2023-06-16] MEDS: DULoxetine HCL 30 MG CAPSULE.DR PO SCH (09:29)
[2023-06-16] MEDS: POLYETHYLENE GLYCOL (HEALTHYLAX) 3350 17 GM PACKET PO SCH ×2 (09:29→22:02)
[2023-06-16] MEDS: PRAMIPEXOLE DIHYDROCHLORIDE 0.25 MG TABLET PO SCH ×4 (09:29→22:01)
[2023-06-16] MEDS: BUDESONIDE/FORMETEROL FUMARATE 160/4.5 mcg INHALER IH SCH ×2 (09:30→22:01)
[2023-06-16 09:37] LABS: POTASSIUM 3.8 mmol/L (3.5-5.1)
[2023-06-16 09:46] LABS: ALBUMIN 2.8 g/dl (3.4-5.0); BLOOD UREA NITROGEN 73.8 mg/dL (7-18); CALCIUM 7.6 mg/dL (8.5-10.1); CREATININE 3.5 mg/dL (0.55-1.3)
[2023-06-16 09:47] LABS: BILIRUBIN,TOTAL 0.4 mg/dL (0.2-1); TOT PROT 6.1 g/dl (6.4-8.2)
[2023-06-16] MEDS: SODIUM CHLORIDE 0.45% 1,000 ML IV SCH (18:52)
[2023-06-16] MEDS: DOCUSATE SODIUM 100 MG CAPSULE (FP) PO SCH (22:01)
[2023-06-17] MEDS ORDERED: FUROSEMIDE 40 MG/4 ML INJECTABLE VIAL IVPUSH ONE (03:46)
[2023-06-17] MEDS ORDERED: FUROSEMIDE 40 MG/4 ML INJECTABLE VIAL IVPUSH SCH (06:00)
[2023-06-17] MEDS: CARBIDOPA/LEVODOPA 25/250 TABLET (FP) PO SCH ×4 (06:03→17:41)
[2023-06-17] MEDS: GABAPENTIN 100 MG CAPSULE PO SCH ×3 (06:03→21:41)
[2023-06-17] MEDS: POLYETHYLENE GLYCOL (HEALTHYLAX) 3350 17 GM PACKET PO SCH ×3 (09:16→21:42)
[2023-06-17] MEDS: CEPHALEXIN MONOHYDRATE 500 MG CAPSULE (UD) PO SCH (09:17)
[2023-06-17] MEDS: amLODIPine BESYLATE 10 MG TABLET (FP) PO SCH (09:17)
[2023-06-17] MEDS: DULoxetine HCL 30 MG CAPSULE.DR PO SCH (09:17)
[2023-06-17] MEDS: PRAMIPEXOLE DIHYDROCHLORIDE 0.25 MG TABLET PO SCH ×4 (09:17→21:42)
[2023-06-17] MEDS: BUDESONIDE/FORMETEROL FUMARATE 160/4.5 mcg INHALER IH SCH ×2 (09:19→21:43)
[2023-06-17] MEDS: FUROSEMIDE 40 MG/4 ML INJECTABLE VIAL IVPUSH SCH (13:28)
[2023-06-17] MEDS ORDERED: FLU VACCINE (FLULAVAL) PF 60 MCG/0.5 ML SYRINGE 2023-2024 IM ONE (17:30)
[2023-06-17 21:24] LABS: BASO % 0.1 % (0-2.0); HEMATOCRIT 23.3 % (35.4-49); HEMOGLOBIN 7.2 GM/dL (11.7-16.9); LYMPH % 14.6 % (8-40); MCH 22.2 pg (25.7-33.7); MCHC 30.8 g/dl (32.0-35.9); MEAN CELL VOLUME 71.9 fl (80-96); MEAN PLT VOLUME 7.3 fl (7.5-11.1); MONO % 12.9 % (3.8-10.2); NEUT % 72.4 % (42.8-82.8); PLATELET COUNT 222 10^3/uL (134-434); RBC 3.25 M/mm3 (4.00-5.60); RDW 16.4 % (11.9-15.9); WHITE BLOOD COUNT 6.1 K/mm3 (4.0-10.0)
[2023-06-17] MEDS: DOCUSATE SODIUM 100 MG CAPSULE (FP) PO SCH (21:42)
[2023-06-18] MEDS: GABAPENTIN 100 MG CAPSULE PO SCH ×3 (06:33→23:23)
[2023-06-18] MEDS: FUROSEMIDE 40 MG/4 ML INJECTABLE VIAL IVPUSH SCH (06:35)
[2023-06-18] MEDS: CARBIDOPA/LEVODOPA 25/250 TABLET (FP) PO SCH ×4 (06:41→17:00)
[2023-06-18] MEDS ORDERED: FUROSEMIDE 40 MG/4 ML INJECTABLE VIAL IVPUSH SCH (06:53)
[2023-06-18] MEDS: POLYETHYLENE GLYCOL (HEALTHYLAX) 3350 17 GM PACKET PO SCH ×2 (09:52→23:24)
[2023-06-18] MEDS: CEPHALEXIN MONOHYDRATE 500 MG CAPSULE (UD) PO SCH (09:52)
[2023-06-18] MEDS: amLODIPine BESYLATE 10 MG TABLET (FP) PO SCH (09:52)
[2023-06-18] MEDS: PRAMIPEXOLE DIHYDROCHLORIDE 0.25 MG TABLET PO SCH ×4 (09:52→23:24)
[2023-06-18] MEDS: DULoxetine HCL 30 MG CAPSULE.DR PO SCH (09:52)
[2023-06-18] MEDS: BUDESONIDE/FORMETEROL FUMARATE 160/4.5 mcg INHALER IH SCH ×2 (09:53→23:24)
[2023-06-18 10:12] LABS: BASO % 0.1 % (0-2.0); HEMATOCRIT 22.3 % (35.4-49); LYMPH % 16.3 % (8-40); MCH 22.4 pg (25.7-33.7); MCHC 30.4 g/dl (32.0-35.9); MEAN CELL VOLUME 73.6 fl (80-96); MEAN PLT VOLUME 7.5 fl (7.5-11.1); NEUT % 72.6 % (42.8-82.8); PLATELET COUNT 208 10^3/uL (134-434); RBC 3.03 M/mm3 (4.00-5.60); RDW 16.6 % (11.9-15.9); WHITE BLOOD COUNT 5.5 K/mm3 (4.0-10.0)
[2023-06-18 11:07] LABS: HEMOGLOBIN 6.8 GM/dL (11.7-16.9)
[2023-06-18 13:46] LABS: POTASSIUM 3.9 mmol/L (3.5-5.1)
[2023-06-18 13:49] LABS: CALCIUM 7.5 mg/dL (8.5-10.1)
[2023-06-18 13:50] LABS: ALBUMIN 2.7 g/dl (3.4-5.0); BLOOD UREA NITROGEN 64.2 mg/dL (7-18)
[2023-06-18 13:52] LABS: CREATININE 3.4 mg/dL (0.55-1.3)
[2023-06-18 13:53] LABS: BILIRUBIN,TOTAL 0.3 mg/dL (0.2-1); TOT PROT 5.9 g/dl (6.4-8.2)
[2023-06-18] MEDS: PANTOPRAZOLE 40 MG TABLET PO SCH (14:03)
[2023-06-19] MEDS: CARBIDOPA/LEVODOPA 25/250 TABLET (FP) PO SCH ×4 (06:46→17:09)
[2023-06-19] MEDS: GABAPENTIN 100 MG CAPSULE PO SCH ×3 (06:46→21:19)
[2023-06-19] MEDS: POLYETHYLENE GLYCOL (HEALTHYLAX) 3350 17 GM PACKET PO SCH ×4 (06:46→21:22)
[2023-06-19] MEDS ORDERED: IRON SUCROSE INJECTION 200 MG in SODIUM CHLORIDE 90 ML IVPB ONE (09:00)
[2023-06-19 09:24] LABS: BASO % 0.1 % (0-2.0); LYMPH % 12.9 % (8-40); MCH 24.3 pg (25.7-33.7); MCHC 32.4 g/dl (32.0-35.9); MEAN PLT VOLUME 7.3 fl (7.5-11.1); PLATELET COUNT 226 10^3/uL (134-434); RBC 3.73 M/mm3 (4.00-5.60); RDW 16.2 % (11.9-15.9); RETICULOCYTES 1.14 % (0.5-1.5); WHITE BLOOD COUNT 7.5 K/mm3 (4.0-10.0)
[2023-06-19 09:27] LABS: HEMOGLOBIN 9.1 GM/dL (11.7-16.9)
[2023-06-19 09:44] LABS: POTASSIUM 3.8 mmol/L (3.5-5.1)
[2023-06-19 09:53] LABS: ALBUMIN 2.8 g/dl (3.4-5.0); CALCIUM 7.7 mg/dL (8.5-10.1)
[2023-06-19 09:54] LABS: BLOOD UREA NITROGEN 63.9 mg/dL (7-18)
[2023-06-19 09:56] LABS: CREATININE 3.3 mg/dL (0.55-1.3)
[2023-06-19 09:58] LABS: BILIRUBIN,TOTAL 0.8 mg/dL (0.2-1); TOT PROT 5.8 g/dl (6.4-8.2)
[2023-06-19] MEDS: FUROSEMIDE 20 MG TABLET (FP) PO SCH (10:40)
[2023-06-19] MEDS: CEPHALEXIN MONOHYDRATE 500 MG CAPSULE (UD) PO SCH (10:40)
[2023-06-19] MEDS: PANTOPRAZOLE 40 MG TABLET PO SCH (10:40)
[2023-06-19] MEDS: PRAMIPEXOLE DIHYDROCHLORIDE 0.25 MG TABLET PO SCH ×4 (10:40→21:19)
[2023-06-19] MEDS: amLODIPine BESYLATE 10 MG TABLET (FP) PO SCH (10:52)
[2023-06-19] MEDS: BUDESONIDE/FORMETEROL FUMARATE 160/4.5 mcg INHALER IH SCH ×2 (10:52→21:19)
[2023-06-19] MEDS: DULoxetine HCL 30 MG CAPSULE.DR PO SCH (11:53)
[2023-06-20] MEDS: ACETAMINOPHEN 325 MG TABLET (FP) PO PRN (05:39)
[2023-06-20] MEDS: GABAPENTIN 100 MG CAPSULE PO SCH ×3 (06:17→21:27)
[2023-06-20] MEDS: CARBIDOPA/LEVODOPA 25/250 TABLET (FP) PO SCH ×4 (06:18→17:42)
[2023-06-20] MEDS: POLYETHYLENE GLYCOL (HEALTHYLAX) 3350 17 GM PACKET PO SCH ×3 (06:20→21:29)
[2023-06-20] MEDS: DULoxetine HCL 30 MG CAPSULE.DR PO SCH (09:20)
[2023-06-20] MEDS: CEPHALEXIN MONOHYDRATE 500 MG CAPSULE (UD) PO SCH (09:20)
[2023-06-20] MEDS: PANTOPRAZOLE 40 MG TABLET PO SCH (09:20)
[2023-06-20] MEDS: FUROSEMIDE 20 MG TABLET (FP) PO SCH (09:20)
[2023-06-20] MEDS: PRAMIPEXOLE DIHYDROCHLORIDE 0.25 MG TABLET PO SCH ×4 (09:20→21:27)
[2023-06-20] MEDS: amLODIPine BESYLATE 10 MG TABLET (FP) PO SCH (09:20)
[2023-06-20] MEDS: BUDESONIDE/FORMETEROL FUMARATE 160/4.5 mcg INHALER IH SCH ×2 (09:21→21:27)
[2023-06-20] MEDS ORDERED: LIDOCAINE HCL 1%, 10 MG/ML (50 mL VIAL) SQ ONE (09:23)
[2023-06-20] MEDS ORDERED: LIDOCAINE HCL 1%, 10 MG/ML (20ML VIAL) SQ ONE (11:15)
[2023-06-20] MEDS ORDERED: methylPREDNISolone ACET (DEPO) 80 MG/1 ML VIAL IAR ONE (11:15)
[2023-06-20] MEDS ORDERED: BISACODYL 5 MG TABLET.DR (FP) PO ONE (16:00)
[2023-06-20] MEDS ORDERED: PEG 3350/NA SULF BICARB CL/KCL 4000 ML SOLN.RECON PO ONE (17:00)
[2023-06-20 20:10] LABS: GLIADIN ANTIBODY IGA 3 units (0-19); GLIADIN ANTIBODY IGG 2 units (0-19); TRANSGLUTAMINASE IGG < 2 U/mL (0-5)
[2023-06-21] MEDS: POLYETHYLENE GLYCOL (HEALTHYLAX) 3350 17 GM PACKET PO SCH ×3 (06:32→21:21)
[2023-06-21] MEDS: GABAPENTIN 100 MG CAPSULE PO SCH ×3 (06:34→21:19)
[2023-06-21] MEDS: CARBIDOPA/LEVODOPA 25/250 TABLET (FP) PO SCH ×4 (06:34→17:36)
[2023-06-21] MEDS: PANTOPRAZOLE 40 MG TABLET PO SCH (09:00)
[2023-06-21] MEDS: DULoxetine HCL 30 MG CAPSULE.DR PO SCH (09:00)
[2023-06-21] MEDS: FUROSEMIDE 20 MG TABLET (FP) PO SCH (09:00)
[2023-06-21] MEDS: CEPHALEXIN MONOHYDRATE 500 MG CAPSULE (UD) PO SCH (09:00)
[2023-06-21] MEDS: PRAMIPEXOLE DIHYDROCHLORIDE 0.25 MG TABLET PO SCH ×4 (09:00→21:19)
[2023-06-21] MEDS: amLODIPine BESYLATE 10 MG TABLET (FP) PO SCH (09:01)
[2023-06-21] MEDS: BUDESONIDE/FORMETEROL FUMARATE 160/4.5 mcg INHALER IH SCH ×2 (09:02→21:21)
[2023-06-21 10:18] LABS: BASO % 0.1 % (0-2.0); HEMATOCRIT 32.3 % (35.4-49); HEMOGLOBIN 9.9 GM/dL (11.7-16.9); LYMPH % 11.3 % (8-40); MCHC 30.5 g/dl (32.0-35.9); MEAN CELL VOLUME 75.4 fl (80-96); MEAN PLT VOLUME 7.6 fl (7.5-11.1); MONO % 5.5 % (3.8-10.2); NEUT % 83.1 % (42.8-82.8); PLATELET COUNT 262 10^3/uL (134-434); RBC 4.29 M/mm3 (4.00-5.60); RDW 16.9 % (11.9-15.9); WHITE BLOOD COUNT 8.6 K/mm3 (4.0-10.0)
[2023-06-21 10:39] LABS: POTASSIUM 3.8 mmol/L (3.5-5.1)
[2023-06-21 10:44] LABS: BLOOD UREA NITROGEN 50.9 mg/dL (7-18); CALCIUM 7.8 mg/dL (8.5-10.1)
[2023-06-21 10:47] LABS: CREATININE 3.1 mg/dL (0.55-1.3)
[2023-06-22] MEDS: GABAPENTIN 100 MG CAPSULE PO SCH ×3 (05:20→21:57)
[2023-06-22] MEDS: POLYETHYLENE GLYCOL (HEALTHYLAX) 3350 17 GM PACKET PO SCH ×3 (05:21→21:58)
[2023-06-22] MEDS: CARBIDOPA/LEVODOPA 25/250 TABLET (FP) PO SCH ×4 (06:31→17:19)
[2023-06-22 09:38] LABS: HEMATOCRIT 29.1 % (35.4-49); HEMOGLOBIN 9.1 GM/dL (11.7-16.9); MCH 23.5 pg (25.7-33.7); MCHC 31.4 g/dl (32.0-35.9); MEAN CELL VOLUME 74.7 fl (80-96); MEAN PLT VOLUME 7.2 fl (7.5-11.1); PLATELET COUNT 248 10^3/uL (134-434); WHITE BLOOD COUNT 9.2 K/mm3 (4.0-10.0)
[2023-06-22] MEDS: PRAMIPEXOLE DIHYDROCHLORIDE 0.25 MG TABLET PO SCH ×4 (09:44→21:57)
[2023-06-22] MEDS: amLODIPine BESYLATE 10 MG TABLET (FP) PO SCH (09:44)
[2023-06-22] MEDS: PANTOPRAZOLE 40 MG TABLET PO SCH (09:44)
[2023-06-22] MEDS: FUROSEMIDE 20 MG TABLET (FP) PO SCH (09:44)
[2023-06-22] MEDS: BUDESONIDE/FORMETEROL FUMARATE 160/4.5 mcg INHALER IH SCH ×2 (09:45→21:58)
[2023-06-22 09:52] LABS: CHLORIDE 112 mmol/L (98-107); POTASSIUM 3.6 mmol/L (3.5-5.1); SODIUM 143 mmol/L (136-145)
[2023-06-22 09:57] LABS: ALBUMIN 2.7 g/dl (3.4-5.0); ANION GAP 7 mmol/L (4-13); BLOOD UREA NITROGEN 51.8 mg/dL (7-18); CO2 23 mmol/L (21-32); GLUCOSE,RANDOM 126 mg/dL (74-106)
[2023-06-22 09:58] LABS: CALCIUM 7.6 mg/dL (8.5-10.1); MAGNESIUM 1.4 mg/dL (1.8-2.4)
[2023-06-22 10:00] LABS: CREATININE 3.1 mg/dL (0.55-1.3); SGOT/AST 9 U/L (15-37)
[2023-06-22 10:01] LABS: BILIRUBIN,TOTAL 0.7 mg/dL (0.2-1); TOT PROT 5.8 g/dl (6.4-8.2)
[2023-06-22 10:02] LABS: ALK PHOS 74 U/L (45-117); SGPT/ALT < 6 U/L (13-61)
[2023-06-22] MEDS: DULoxetine HCL 30 MG CAPSULE.DR PO SCH (10:33)
[2023-06-22] MEDS: ACETAMINOPHEN 325 MG TABLET (FP) PO PRN (12:44)
[2023-06-23] MEDS: POLYETHYLENE GLYCOL (HEALTHYLAX) 3350 17 GM PACKET PO SCH ×3 (06:18→22:20)
[2023-06-23] MEDS: GABAPENTIN 100 MG CAPSULE PO SCH ×3 (06:18→22:20)
[2023-06-23] MEDS: CARBIDOPA/LEVODOPA 25/250 TABLET (FP) PO SCH ×4 (06:18→18:07)
[2023-06-23] MEDS: PRAMIPEXOLE DIHYDROCHLORIDE 0.25 MG TABLET PO SCH ×4 (11:01→22:20)
[2023-06-23] MEDS: PANTOPRAZOLE 40 MG TABLET PO SCH (11:01)
[2023-06-23] MEDS: amLODIPine BESYLATE 10 MG TABLET (FP) PO SCH (11:01)
[2023-06-23] MEDS: FUROSEMIDE 20 MG TABLET (FP) PO SCH (11:02)
[2023-06-23] MEDS: DULoxetine HCL 30 MG CAPSULE.DR PO SCH (11:02)
[2023-06-23] MEDS: BUDESONIDE/FORMETEROL FUMARATE 160/4.5 mcg INHALER IH SCH ×2 (11:04→22:20)
[2023-06-23 14:09] VITALS: RESP 18
[2023-06-24] MEDS: POLYETHYLENE GLYCOL (HEALTHYLAX) 3350 17 GM PACKET PO SCH ×2 (06:18→13:01)
[2023-06-24] MEDS: GABAPENTIN 100 MG CAPSULE PO SCH ×2 (06:18→13:00)
[2023-06-24] MEDS: CARBIDOPA/LEVODOPA 25/250 TABLET (FP) PO SCH ×3 (06:18→13:01)
[2023-06-24 08:51] VITALS: BP 159/79; PULSE 82; TEMP 97.4
[2023-06-24] MEDS: amLODIPine BESYLATE 10 MG TABLET (FP) PO SCH (09:09)
[2023-06-24] MEDS: FUROSEMIDE 20 MG TABLET (FP) PO SCH (09:10)
[2023-06-24] MEDS: BUDESONIDE/FORMETEROL FUMARATE 160/4.5 mcg INHALER IH SCH (09:10)
[2023-06-24] MEDS: PRAMIPEXOLE DIHYDROCHLORIDE 0.25 MG TABLET PO SCH ×2 (09:10→13:00)
[2023-06-24] MEDS: DULoxetine HCL 30 MG CAPSULE.DR PO SCH (09:10)
[2023-06-24] MEDS: PANTOPRAZOLE 40 MG TABLET PO SCH (09:10)
== END 2023-06-24 14:19 | disposition home health service (06) | DRG 683 ==
LOC: JER 16:10 → JERBED 20:08 → J6S 06-08 03:07 → UNDODISIN 06-18 18:53 → J6S 06-18 20:01
PROVIDERS: ADMIT Internal Medicine; ATTEND Family Medicine
PROC: 30233N1 Transfusion of Nonautologous Red Blood Cells into Peripheral Vein, Percutaneous Approach (ICD-10-PCS; 2023-06-18)
PROC: 3E0U33Z Introduction of Anti-inflammatory into Joints, Percutaneous Approach (ICD-10-PCS; 2023-06-20)
PROC: 3E0U3BZ Introduction of Anesthetic Agent into Joints, Percutaneous Approach (ICD-10-PCS; 2023-06-20)
PROC: 0DB68ZX Excision of Stomach, Via Natural or Artificial Opening Endoscopic, Diagnostic (ICD-10-PCS; 2023-06-21)
PROC: 0DJD8ZZ Inspection of Lower Intestinal Tract, Via Natural or Artificial Opening Endoscopic (ICD-10-PCS; 2023-06-21)
PROC: 0DB98ZX Excision of Duodenum, Via Natural or Artificial Opening Endoscopic, Diagnostic (ICD-10-PCS; principal; 2023-06-21 13:00)
DX: N17.9 Acute kidney failure, unspecified (principal); I13.0 Hypertensive heart and chronic kidney disease with heart failure and stage 1 through stage 4 chronic kidney disease, or unspecified chronic kidney disease; N39.0 Urinary tract infection, site not specified; I50.32 Chronic diastolic (congestive) heart failure; E78.5 Hyperlipidemia, unspecified; G20.A1 Parkinson's disease without dyskinesia, without mention of fluctuations; N18.30 Chronic kidney disease, stage 3 unspecified; D64.9 Anemia, unspecified; J44.9 Chronic obstructive pulmonary disease, unspecified; M17.0 Bilateral primary osteoarthritis of knee; B96.20 Unspecified Escherichia coli [E. coli] as the cause of diseases classified elsewhere; K64.8 Other hemorrhoids; K21.9 Gastro-esophageal reflux disease without esophagitis
CPT/HCPCS: 36415; 36430; 70450-TC; 71045-TC-FY; 72148-TC; 73521-TC-FY; 73560-TC-LT-FY; 73560-TC-RT-FY; 74176-TC; 76775-TC; 76856-TC; 80048; 80053; 81003; 82272; 82378; 82607; 82728; 82784; 82962; 83010; 83516; 83520; 83540; 83550; 83615; 83690; 83735; 83883; 84155; 84165; 84443; 85025; 85027; 85045; 86038; 86225; 86256; 86850; 86900; 86901; 86922; 87040; 87086; 87186; 88305-TC; 90686; 93005; 93010; 93306-TC; 94640; 97162-GP; 99285-25; G0008; J1756; P9058

== ENCOUNTER 2023-07-26 15:40 | Inpatient (IN) | payer OTHER, BC ==
[2023-07-26 17:15] LABS: BASO % 0.5 % (0-2.0); LYMPH % 14.3 % (8-40); MCH 24.1 pg (25.7-33.7); MCHC 32.3 g/dl (32.0-35.9); MEAN CELL VOLUME 74.7 fl (80-96); MEAN PLT VOLUME 7.8 fl (7.5-11.1); MONO % 10.3 % (3.8-10.2); NEUT % 74.9 % (42.8-82.8); PLATELET COUNT 213 10^3/uL (134-434); RBC 3.75 M/mm3 (4.00-5.60); RDW 19.1 % (11.9-15.9); WHITE BLOOD COUNT 6.7 K/mm3 (4.0-10.0)
[2023-07-26 17:23] LABS: INR 1.23 (0.83-1.09); PROTHROMBIN TIME (PATIENT) 14.2 SEC (9.7-13.0)
[2023-07-26 17:25] LABS: ACTIVATED PTT 35.6 SECONDS (25.2-36.5)
[2023-07-26 17:33] LABS: CHLORIDE 94 mmol/L (98-107); POTASSIUM 3.9 mmol/L (3.5-5.1); SODIUM 139 mmol/L (136-145)
[2023-07-26 17:34] LABS: CALCIUM 7.5 mg/dL (8.5-10.1)
[2023-07-26 17:35] LABS: ANION GAP 10 mmol/L (4-13); CO2 35 mmol/L (21-32); GLUCOSE,RANDOM 99 mg/dL (74-106)
[2023-07-26 17:38] LABS: CREATININE 4.5 mg/dL (0.55-1.3); SGOT/AST 21 U/L (15-37); SGPT/ALT 10 U/L (13-61)
[2023-07-26 17:40] LABS: BILIRUBIN,TOTAL 0.5 mg/dL (0.2-1); TOT PROT 6.6 g/dl (6.4-8.2)
[2023-07-26 17:41] LABS: ALK PHOS 81 U/L (45-117)
[2023-07-26 17:52] LABS: BLOOD UREA NITROGEN 132.3 mg/dL (7-18)
[2023-07-26] MEDS ORDERED: SODIUM CHLORIDE 500 ML IV STA (18:19)
[2023-07-26] MEDS: SODIUM CHLORIDE 0.45% 1,000 ML IV SCH (20:55)
[2023-07-26 21:28] LABS: MAGNESIUM 2.2 mg/dL (1.8-2.4)
[2023-07-26 21:32] LABS: PHOSPHOROUS 6.9 mg/dL (2.5-4.9)
[2023-07-27 01:36] VITALS: BMI 30.6
[2023-07-27] MEDS ORDERED: BISACODYL 10 MG SUPP.RECT PR PRN (01:42)
[2023-07-27] MEDS: CARBIDOPA/LEVODOPA 25/250 TABLET (FP) PO SCH ×4 (06:41→18:37)
[2023-07-27] MEDS: GABAPENTIN 100 MG CAPSULE PO SCH ×3 (06:41→21:30)
[2023-07-27] MEDS: SODIUM CHLORIDE 0.45% 1,000 ML IV SCH ×2 (07:38→15:05)
[2023-07-27 07:57] LABS: CHLORIDE 100 mmol/L (98-107); SODIUM 142 mmol/L (136-145)
[2023-07-27 07:59] LABS: GLUCOSE,RANDOM 97 mg/dL (74-106)
[2023-07-27 08:00] LABS: CALCIUM 7.5 mg/dL (8.5-10.1)
[2023-07-27 08:01] LABS: ANION GAP 11 mmol/L (4-13); BASO % 0.1 % (0-2.0); CO2 30 mmol/L (21-32); HEMATOCRIT 29.7 % (35.4-49); HEMOGLOBIN 9.7 GM/dL (11.7-16.9); LYMPH % 13.3 % (8-40); MCH 24.4 pg (25.7-33.7); MCHC 32.5 g/dl (32.0-35.9); MONO % 8.4 % (3.8-10.2); NEUT % 78.2 % (42.8-82.8); PLATELET COUNT 206 10^3/uL (134-434); RBC 3.97 M/mm3 (4.00-5.60); RDW 19.3 % (11.9-15.9)
[2023-07-27 08:02] LABS: CREATININE 4.3 mg/dL (0.55-1.3); PHOSPHOROUS 6.5 mg/dL (2.5-4.9)
[2023-07-27 08:03] LABS: BLOOD UREA NITROGEN 122.9 mg/dL (7-18)
[2023-07-27] MEDS: CARVEDILOL 25 MG TABLET (FP) PO SCH ×2 (09:39→21:30)
[2023-07-27] MEDS: DULoxetine HCL 30 MG CAPSULE.DR PO SCH (09:39)
[2023-07-27] MEDS: PANTOPRAZOLE 40 MG TABLET PO SCH ×2 (09:39→21:30)
[2023-07-27] MEDS: DOCUSATE SODIUM 100 MG CAPSULE (FP) PO SCH (09:39)
[2023-07-27] MEDS: amLODIPine BESYLATE 10 MG TABLET (FP) PO SCH (09:39)
[2023-07-27] MEDS: BUDESONIDE/FORMETEROL FUMARATE 160/4.5 mcg INHALER IH SCH ×2 (09:39→21:31)
[2023-07-27] MEDS: PRAMIPEXOLE DIHYDROCHLORIDE 0.25 MG TABLET PO SCH ×4 (09:39→21:30)
[2023-07-27] MEDS: ASPIRIN COATED 81 MG TABLET.EC PO SCH (09:39)
[2023-07-27] MEDS: POLYETHYLENE GLYCOL (HEALTHYLAX) 3350 17 GM PACKET PO SCH ×2 (09:39→21:31)
[2023-07-27] MEDS ORDERED: POTASSIUM CHLORIDE ORAL LIQUID 20 MEQ/15 ML PO ONE (15:00)
[2023-07-28] MEDS: SODIUM CHLORIDE 0.45% 1,000 ML IV SCH ×2 (02:40→17:16)
[2023-07-28] MEDS: CARBIDOPA/LEVODOPA 25/250 TABLET (FP) PO SCH ×4 (05:33→17:16)
[2023-07-28] MEDS: GABAPENTIN 100 MG CAPSULE PO SCH ×3 (05:33→22:33)
[2023-07-28 08:10] LABS: BASO % 0.1 % (0-2.0); HEMOGLOBIN 8.9 GM/dL (11.7-16.9); LYMPH % 13.1 % (8-40); MCH 23.6 pg (25.7-33.7); MCHC 30.9 g/dl (32.0-35.9); MEAN CELL VOLUME 76.3 fl (80-96); MONO % 8.6 % (3.8-10.2); NEUT % 78.2 % (42.8-82.8); PLATELET COUNT 209 10^3/uL (134-434); RBC 3.79 M/mm3 (4.00-5.60); RDW 18.6 % (11.9-15.9); WHITE BLOOD COUNT 7.7 K/mm3 (4.0-10.0)
[2023-07-28 08:17] LABS: CHLORIDE 100 mmol/L (98-107); POTASSIUM 3.6 mmol/L (3.5-5.1); SODIUM 138 mmol/L (136-145)
[2023-07-28 08:19] LABS: ALBUMIN 3.2 g/dl (3.4-5.0); ANION GAP 10 mmol/L (4-13); CALCIUM 7.5 mg/dL (8.5-10.1); CO2 28 mmol/L (21-32); GLUCOSE,RANDOM 88 mg/dL (74-106)
[2023-07-28 08:22] LABS: CREATININE 4.2 mg/dL (0.55-1.3); SGOT/AST 15 U/L (15-37)
[2023-07-28 08:23] LABS: SGPT/ALT 8 U/L (13-61)
[2023-07-28 08:24] LABS: BILIRUBIN,TOTAL 0.5 mg/dL (0.2-1); TOT PROT 6.3 g/dl (6.4-8.2)
[2023-07-28 08:25] LABS: ALK PHOS 78 U/L (45-117)
[2023-07-28 08:29] LABS: BLOOD UREA NITROGEN 115.3 mg/dL (7-18)
[2023-07-28] MEDS: PANTOPRAZOLE 40 MG TABLET PO SCH ×2 (10:51→22:33)
[2023-07-28] MEDS: CARVEDILOL 25 MG TABLET (FP) PO SCH ×2 (10:51→22:33)
[2023-07-28] MEDS: ASPIRIN COATED 81 MG TABLET.EC PO SCH (10:51)
[2023-07-28] MEDS: POLYETHYLENE GLYCOL (HEALTHYLAX) 3350 17 GM PACKET PO SCH ×2 (10:51→22:33)
[2023-07-28] MEDS: BUDESONIDE/FORMETEROL FUMARATE 160/4.5 mcg INHALER IH SCH ×2 (10:52→22:33)
[2023-07-28] MEDS: DOCUSATE SODIUM 100 MG CAPSULE (FP) PO SCH (10:52)
[2023-07-28] MEDS: PRAMIPEXOLE DIHYDROCHLORIDE 0.25 MG TABLET PO SCH ×4 (10:52→22:33)
[2023-07-28] MEDS: DULoxetine HCL 30 MG CAPSULE.DR PO SCH (10:52)
[2023-07-28] MEDS: amLODIPine BESYLATE 10 MG TABLET (FP) PO SCH (10:52)
[2023-07-29] MEDS: GABAPENTIN 100 MG CAPSULE PO SCH ×3 (05:53→22:05)
[2023-07-29] MEDS: CARBIDOPA/LEVODOPA 25/250 TABLET (FP) PO SCH ×4 (05:53→17:12)
[2023-07-29] MEDS: SODIUM CHLORIDE 0.45% 1,000 ML IV SCH ×2 (08:59→17:12)
[2023-07-29] MEDS: DULoxetine HCL 30 MG CAPSULE.DR PO SCH (10:54)
[2023-07-29] MEDS: DOCUSATE SODIUM 100 MG CAPSULE (FP) PO SCH (10:54)
[2023-07-29] MEDS: ASPIRIN COATED 81 MG TABLET.EC PO SCH (10:54)
[2023-07-29] MEDS: amLODIPine BESYLATE 10 MG TABLET (FP) PO SCH (10:54)
[2023-07-29] MEDS: PANTOPRAZOLE 40 MG TABLET PO SCH ×2 (10:54→22:05)
[2023-07-29] MEDS: CARVEDILOL 25 MG TABLET (FP) PO SCH ×2 (10:54→22:05)
[2023-07-29] MEDS: PRAMIPEXOLE DIHYDROCHLORIDE 0.25 MG TABLET PO SCH ×4 (10:54→22:05)
[2023-07-29] MEDS: POLYETHYLENE GLYCOL (HEALTHYLAX) 3350 17 GM PACKET PO SCH ×2 (10:55→22:05)
[2023-07-29] MEDS: BUDESONIDE/FORMETEROL FUMARATE 160/4.5 mcg INHALER IH SCH ×2 (10:55→22:05)
[2023-07-29] MEDS ORDERED: IRON SUCROSE INJECTION 200 MG in SODIUM CHLORIDE 90 ML IVPB ONE (19:00)
[2023-07-30] MEDS: SODIUM CHLORIDE 0.45% 1,000 ML IV SCH (05:40)
[2023-07-30] MEDS: GABAPENTIN 100 MG CAPSULE PO SCH ×2 (05:40→15:01)
[2023-07-30] MEDS: CARBIDOPA/LEVODOPA 25/250 TABLET (FP) PO SCH ×3 (05:59→15:00)
[2023-07-30 08:50] LABS: CHLORIDE 105 mmol/L (98-107); POTASSIUM 3.4 mmol/L (3.5-5.1); SODIUM 140 mmol/L (136-145)
[2023-07-30 08:53] LABS: CALCIUM 7.6 mg/dL (8.5-10.1)
[2023-07-30 08:54] LABS: ALBUMIN 2.7 g/dl (3.4-5.0); ANION GAP 8 mmol/L (4-13); BLOOD UREA NITROGEN 101.2 mg/dL (7-18); CO2 27 mmol/L (21-32); GLUCOSE,RANDOM 100 mg/dL (74-106)
[2023-07-30 08:57] LABS: CREATININE 3.9 mg/dL (0.55-1.3); SGOT/AST 12 U/L (15-37); SGPT/ALT < 6 U/L (13-61)
[2023-07-30 08:58] LABS: BILIRUBIN,TOTAL 0.7 mg/dL (0.2-1)
[2023-07-30 08:59] LABS: TOT PROT 5.7 g/dl (6.4-8.2)
[2023-07-30 09:00] LABS: ALK PHOS 70 U/L (45-117)
[2023-07-30] MEDS: PRAMIPEXOLE DIHYDROCHLORIDE 0.25 MG TABLET PO SCH ×2 (10:31→15:01)
[2023-07-30] MEDS: BUDESONIDE/FORMETEROL FUMARATE 160/4.5 mcg INHALER IH SCH (10:32)
[2023-07-30] MEDS: CARVEDILOL 25 MG TABLET (FP) PO SCH (10:32)
[2023-07-30] MEDS: PANTOPRAZOLE 40 MG TABLET PO SCH (10:32)
[2023-07-30] MEDS: DULoxetine HCL 30 MG CAPSULE.DR PO SCH (10:32)
[2023-07-30] MEDS: amLODIPine BESYLATE 10 MG TABLET (FP) PO SCH (10:32)
[2023-07-30] MEDS: POLYETHYLENE GLYCOL (HEALTHYLAX) 3350 17 GM PACKET PO SCH (10:32)
[2023-07-30] MEDS: ASPIRIN COATED 81 MG TABLET.EC PO SCH (10:32)
[2023-07-30] MEDS: DOCUSATE SODIUM 100 MG CAPSULE (FP) PO SCH (10:32)
[2023-07-30 11:56] VITALS: RESP 16
[2023-07-30 13:57] VITALS: BP 92/51; PULSE 62; TEMP 97.6
== END 2023-07-30 15:27 | disposition home health service (06) | DRG 683 ==
LOC: JER 15:40 → JERBED 18:20 → J7W 07-27 01:04 → OBSVTOIN 07-29 11:19
PROVIDERS: ADMIT Internal Medicine; ATTEND Family Medicine
DX: N17.9 Acute kidney failure, unspecified (principal); C90.00 Multiple myeloma not having achieved remission; I13.0 Hypertensive heart and chronic kidney disease with heart failure and stage 1 through stage 4 chronic kidney disease, or unspecified chronic kidney disease; I50.32 Chronic diastolic (congestive) heart failure; E87.0 Hyperosmolality and hypernatremia; N31.9 Neuromuscular dysfunction of bladder, unspecified; K21.9 Gastro-esophageal reflux disease without esophagitis; N40.0 Benign prostatic hyperplasia without lower urinary tract symptoms; E87.6 Hypokalemia; G20.A1 Parkinson's disease without dyskinesia, without mention of fluctuations; E11.43 Type 2 diabetes mellitus with diabetic autonomic (poly)neuropathy; G25.81 Restless legs syndrome; N50.89 Other specified disorders of the male genital organs; J44.9 Chronic obstructive pulmonary disease, unspecified; I48.91 Unspecified atrial fibrillation; N18.32 Chronic kidney disease, stage 3b; E11.22 Type 2 diabetes mellitus with diabetic chronic kidney disease; Z74.01 Bed confinement status
CPT/HCPCS: 0241U-QW; 36415; 71045-TC-FY; 76775-TC; 80048; 80053; 82728; 83540; 83550; 83735; 84100; 84466; 85025; 85610; 85730; 86850; 86900; 86901; 93005; 93010; 97161-GP; 99285-25; G0378; J1756

== ENCOUNTER 2023-12-06 05:00 | Day surgery (SDC) | payer OTHER, BC ==
[2023-11-28 15:30] VITALS: BMI 34.1
[2023-12-06 12:03] VITALS: TEMP 98.7
[2023-12-06 12:14] VITALS: RESP 15
[2023-12-06 13:01] VITALS: BP 132/60; PULSE 66
== END 2023-12-06 13:01 | disposition home or self-care (01) ==
LOC: JASU-ENDO 05:00
PROVIDERS: ATTEND Internal Medicine Gastroenterology
PROC: 0DB68ZX Excision of Stomach, Via Natural or Artificial Opening Endoscopic, Diagnostic (ICD-10-PCS; principal; 2023-12-06 11:00)
DX: K25.7 Chronic gastric ulcer without hemorrhage or perforation (principal); I10 Essential (primary) hypertension; E11.9 Type 2 diabetes mellitus without complications
CPT/HCPCS: 88305-TC; 88341-TC; 88342-TC

== ENCOUNTER 2024-01-03 14:21 | Inpatient (IN) | payer OTHER, BC ==
[2024-01-03 15:35] LABS: BASO % 0.4 % (0-2.0); HEMATOCRIT 26.4 % (35.4-49); LYMPH % 17.8 % (8-40); MCH 23.4 pg (25.7-33.7); MCHC 30.3 g/dl (32.0-35.9); MEAN CELL VOLUME 77.3 fl (80-96); MEAN PLT VOLUME 7.4 fl (7.5-11.1); MONO % 14.4 % (3.8-10.2); NEUT % 67.4 % (42.8-82.8); PLATELET COUNT 198 10^3/uL (134-434); RBC 3.42 M/mm3 (4.00-5.60); RDW 18.2 % (11.9-15.9)
[2024-01-03 15:41] LABS: INR 1.15 (0.83-1.09); PROTHROMBIN TIME (PATIENT) 12.9 SEC (9.7-13.0)
[2024-01-03 15:44] LABS: ACTIVATED PTT 35.7 SECONDS (25.2-36.5)
[2024-01-03 15:54] LABS: POTASSIUM 4.4 mmol/L (3.5-5.1)
[2024-01-03 15:56] LABS: ALBUMIN 2.9 g/dl (3.4-5.0); CALCIUM 8.2 mg/dL (8.5-10.1)
[2024-01-03 16:00] LABS: CREATININE 5.1 mg/dL (0.55-1.3)
[2024-01-03 16:01] LABS: BILIRUBIN,TOTAL 0.3 mg/dL (0.2-1); BLOOD UREA NITROGEN 91.3 mg/dL (7-18); TOT PROT 6.4 g/dl (6.4-8.2)
[2024-01-03] MEDS ORDERED: ALBUTEROL SO4 2.5/IPRATROPIUM 0.5 INH SOL 3 ML VIAL.NEB. NEB ONE (17:15)
[2024-01-03] MEDS: EPOETIN ALFA-EPBX 10,000 UNIT/ML VIAL SQ ONE (17:47)
[2024-01-03] MEDS: AMPICILLIN NA/SULBACTAM NA 3 GM in DEXTROSE 5%-WATER 100 ML IVPB ONE (17:47)
[2024-01-03] MEDS: ALBUTEROL SO4 2.5/IPRATROPIUM 0.5 INH SOL 3 ML VIAL.NEB. NEB SCH (17:47)
[2024-01-03] MEDS ORDERED: AMPICILLIN NA/SULBACTAM NA 3 GM/100 ML BAG IVPB ONE (18:00)
[2024-01-03 19:01] LABS: EPI CELLS 1 /uL (0-25.1); HYALINE CASTS 0 /uL (0-3.1); PH,URINE 5.5 (5.0-8.0); URINE APPEARANCE CLOUDY; URINE BACTERIA 242 /uL (0-1359); URINE BILIRUBIN NEGATIVE (NEGATIVE); URINE COLOR YELLOW; URINE GLUCOSE (UA) NEGATIVE (NEGATIVE); URINE KETONE NEGATIVE (NEGATIVE); URINE LEUK ESTERASE 3+ (NEGATIVE); URINE NITRITE NEGATIVE (NEGATIVE); URINE PROTEIN 1+ (NEGATIVE); URINE RBC 32 /uL (0-23.9); URINE UROBILINOGEN 0.2 mg/dL (0.2-1.0); URINE WBC 951 /uL (0-25.8)
[2024-01-03] MEDS: POLYETHYLENE GLYCOL (HEALTHYLAX) 3350 17 GM PACKET PO SCH (22:26)
[2024-01-03] MEDS: MONTELUKAST NA 10 MG TABLET PO SCH (22:27)
[2024-01-03] MEDS: GABAPENTIN 100 MG CAPSULE PO SCH (22:27)
[2024-01-03] MEDS: DOCUSATE SODIUM 100 MG CAPSULE (FP) PO SCH (22:27)
[2024-01-03] MEDS: PRAMIPEXOLE DIHYDROCHLORIDE 0.25 MG TABLET PO SCH (22:27)
[2024-01-03] MEDS: FERROUS SO4 325 MG TABLET (FP) PO SCH (22:27)
[2024-01-03] MEDS: ATORVASTATIN CA 40 MG TABLET (FP) PO SCH (22:28)
[2024-01-03] MEDS: CARVEDILOL 25 MG TABLET (FP) PO SCH (22:28)
[2024-01-03 23:47] VITALS: BMI 30.2
[2024-01-04] MEDS: CARBIDOPA/LEVODOPA 25/250 TABLET (FP) PO SCH (06:36)
[2024-01-04 09:09] LABS: BASO % 0.1 % (0-2.0); HEMATOCRIT 26.5 % (35.4-49); LYMPH % 21.4 % (8-40); MCH 23.6 pg (25.7-33.7); MCHC 30.2 g/dl (32.0-35.9); MEAN CELL VOLUME 77.9 fl (80-96); MEAN PLT VOLUME 7.9 fl (7.5-11.1); MONO % 12.7 % (3.8-10.2); NEUT % 65.8 % (42.8-82.8); PLATELET COUNT 205 10^3/uL (134-434); RDW 17.7 % (11.9-15.9); WHITE BLOOD COUNT 4.4 K/mm3 (4.0-10.0)
[2024-01-04] MEDS: amLODIPine BESYLATE 5 MG TABLET (FP) PO SCH (09:14)
[2024-01-04] MEDS: ASCORBIC ACID 500 MG TABLET (FP) PO SCH (09:14)
[2024-01-04] MEDS: PANTOPRAZOLE 40 MG TABLET PO SCH (09:15)
[2024-01-04] MEDS: DULoxetine HCL 30 MG CAPSULE.DR PO SCH (09:15)
[2024-01-04] MEDS: CHOLECALCIFEROL (VIT D3) 1,000 UNIT (25 MCG) TABLET PO SCH (09:15)
[2024-01-04 09:29] LABS: CALCIUM 8.4 mg/dL (8.5-10.1)
[2024-01-04 09:30] LABS: BLOOD UREA NITROGEN 92.7 mg/dL (7-18)
[2024-01-04] MEDS: AMPICILLIN NA/SULBACTAM NA 1.5 GM in SODIUM CHLORIDE 100 ML IVPB SCH ×2 (11:01→11:48)
[2024-01-04] MEDS: PANTOPRAZOLE SODIUM 40 MG VIAL IVPUSH SCH (14:05)
[2024-01-04] MEDS: MINERAL OIL/PET HY-PHL TOPICAL OINTMENT 454 GM JAR TP SCH (14:18)
[2024-01-05 07:23] LABS: CHLORIDE 106 mmol/L (98-107); POTASSIUM 4.3 mmol/L (3.5-5.1); SODIUM 138 mmol/L (136-145)
[2024-01-05 07:26] LABS: ALBUMIN 2.9 g/dl (3.4-5.0); ANION GAP 3 mmol/L (4-13); CO2 29 mmol/L (21-32); GLUCOSE,RANDOM 85 mg/dL (74-106)
[2024-01-05 07:28] LABS: SGPT/ALT < 6 U/L (13-61)
[2024-01-05 07:29] LABS: CREATININE 4.9 mg/dL (0.55-1.3); IRON SERUM 46 ug/dL (50-175); SGOT/AST 5 U/L (15-37); TOTAL IRON BINDING CAPACITY 222 ug/dL (250-450)
[2024-01-05 07:30] LABS: TOT PROT 6.1 g/dl (6.4-8.2)
[2024-01-05 07:31] LABS: BILIRUBIN,TOTAL 0.4 mg/dL (0.2-1)
[2024-01-05 07:32] LABS: ALK PHOS 73 U/L (45-117)
[2024-01-05 07:35] LABS: BASO % 0.1 % (0-2.0); HEMATOCRIT 25.6 % (35.4-49); HEMOGLOBIN 7.7 GM/dL (11.7-16.9); LYMPH % 21.8 % (8-40); MCH 23.3 pg (25.7-33.7); MCHC 30.2 g/dl (32.0-35.9); MEAN CELL VOLUME 77.1 fl (80-96); MEAN PLT VOLUME 7.8 fl (7.5-11.1); NEUT % 66.1 % (42.8-82.8); PLATELET COUNT 204 10^3/uL (134-434); RBC 3.32 M/mm3 (4.00-5.60); RDW 17.8 % (11.9-15.9)
[2024-01-05] MEDS: TORSEMIDE 20 MG TABLET (FP) PO SCH (09:21)
[2024-01-06] MEDS: METOLAZONE 2.5 MG TABLET (FP) PO SCH (09:03)
[2024-01-06 09:21] LABS: BASO % 0.1 % (0-2.0); HEMATOCRIT 24.7 % (35.4-49); HEMOGLOBIN 7.5 GM/dL (11.7-16.9); LYMPH % 21.8 % (8-40); MCH 23.7 pg (25.7-33.7); MCHC 30.4 g/dl (32.0-35.9); MEAN PLT VOLUME 7.9 fl (7.5-11.1); MONO % 12.8 % (3.8-10.2); NEUT % 65.3 % (42.8-82.8); PLATELET COUNT 198 10^3/uL (134-434); RBC 3.17 M/mm3 (4.00-5.60); WHITE BLOOD COUNT 5.5 K/mm3 (4.0-10.0)
[2024-01-06 09:33] LABS: CHLORIDE 105 mmol/L (98-107); SODIUM 139 mmol/L (136-145)
[2024-01-06 09:37] LABS: ANION GAP 5 mmol/L (4-13); BLOOD UREA NITROGEN 92.9 mg/dL (7-18); CALCIUM 8.3 mg/dL (8.5-10.1); CO2 29 mmol/L (21-32); GLUCOSE,RANDOM 85 mg/dL (74-106)
[2024-01-06 09:40] LABS: CREATININE 5.1 mg/dL (0.55-1.3); SGOT/AST 6 U/L (15-37); SGPT/ALT < 6 U/L (13-61)
[2024-01-06 09:41] LABS: TOT PROT 6.1 g/dl (6.4-8.2)
[2024-01-06 09:42] LABS: BILIRUBIN,TOTAL 0.4 mg/dL (0.2-1)
[2024-01-06 09:43] LABS: ALK PHOS 71 U/L (45-117)
[2024-01-06] MEDS: EPOETIN ALFA-EPBX 10,000 UNIT/ML VIAL SQ ONE (14:22)
[2024-01-06] MEDS: IRON SUCROSE INJECTION 100 MG in SODIUM CHLORIDE 95 ML IVPB ONE (14:22)
[2024-01-07 07:09] LABS: ERYTHROPOIETIN 44.6 mIU/mL (2.6-18.5)
[2024-01-07 07:53] LABS: HEMATOCRIT 25.1 % (35.4-49); HEMOGLOBIN 7.7 GM/dL (11.7-16.9); MCH 23.7 pg (25.7-33.7); MCHC 30.6 g/dl (32.0-35.9); MEAN CELL VOLUME 77.4 fl (80-96); MEAN PLT VOLUME 7.1 fl (7.5-11.1); PLATELET COUNT 194 10^3/uL (134-434); RBC 3.25 M/mm3 (4.00-5.60); RDW 17.8 % (11.9-15.9); WHITE BLOOD COUNT 5.1 K/mm3 (4.0-10.0)
[2024-01-07 08:16] LABS: POTASSIUM 3.7 mmol/L (3.5-5.1)
[2024-01-07 08:19] LABS: BLOOD UREA NITROGEN 94.6 mg/dL (7-18)
[2024-01-07 08:20] LABS: CALCIUM 8.3 mg/dL (8.5-10.1)
[2024-01-07] MEDS: PANTOPRAZOLE 40 MG TABLET PO SCH (09:09)
[2024-01-07 17:06] LABS: FREE KAPPA,SERUM 102.7 mg/L (3.3-19.4)
[2024-01-08 07:18] VITALS: RESP 18
[2024-01-08 08:26] VITALS: PULSE 67
[2024-01-08] MEDS: AMOX TR/POT CLAV 500MG/125MG TABLETS (FP) PO SCH (09:07)
[2024-01-08 14:04] VITALS: BP 131/50; TEMP 97.7
[2024-01-08] MEDS: EPOETIN ALFA-EPBX 10,000 UNIT/ML VIAL SQ ONE (14:22)
[2024-01-08] MEDS: IRON SUCROSE INJECTION 100 MG in SODIUM CHLORIDE 95 ML IVPB ONE (14:47)
== END 2024-01-08 17:30 | disposition home or self-care (01) | DRG 683 ==
LOC: JER 14:21 → JERBED 17:18 → J7W 21:35
PROVIDERS: ATTEND Family Medicine
DX: N17.9 Acute kidney failure, unspecified (principal); C90.01 Multiple myeloma in remission; N39.0 Urinary tract infection, site not specified; I13.0 Hypertensive heart and chronic kidney disease with heart failure and stage 1 through stage 4 chronic kidney disease, or unspecified chronic kidney disease; Q61.2 Polycystic kidney, adult type; I50.32 Chronic diastolic (congestive) heart failure; N13.9 Obstructive and reflux uropathy, unspecified; E78.5 Hyperlipidemia, unspecified; K21.9 Gastro-esophageal reflux disease without esophagitis; N40.0 Benign prostatic hyperplasia without lower urinary tract symptoms; G20.A1 Parkinson's disease without dyskinesia, without mention of fluctuations; I44.0 Atrioventricular block, first degree; J44.9 Chronic obstructive pulmonary disease, unspecified; E87.6 Hypokalemia; I25.10 Atherosclerotic heart disease of native coronary artery without angina pectoris; G25.81 Restless legs syndrome; E11.22 Type 2 diabetes mellitus with diabetic chronic kidney disease; N18.5 Chronic kidney disease, stage 5; G62.9 Polyneuropathy, unspecified; B96.20 Unspecified Escherichia coli [E. coli] as the cause of diseases classified elsewhere; D64.9 Anemia, unspecified; M48.00 Spinal stenosis, site unspecified; R26.81 Unsteadiness on feet; I27.20 Pulmonary hypertension, unspecified
CPT/HCPCS: 36415; 71045-TC-FY; 76775-TC; 80048; 80053; 81003; 82668; 82728; 82784; 83036; 83540; 83550; 83883; 84155; 84165; 85025; 85027; 85045; 85610; 85730; 86850; 86900; 86901; 87086; 87186; 93005; 93010; 99285-25; J1756; Q5106

== ENCOUNTER 2024-02-01 10:02 | Inpatient (IN) | payer OTHER, BC ==
[2024-02-01] MEDS ORDERED: FUROSEMIDE 40 MG/4 ML INJECTABLE VIAL ONE (11:16)
[2024-02-01 11:21] LABS: BASO % 0.1 % (0-2.0); HEMATOCRIT 27.9 % (35.4-49); HEMOGLOBIN 8.6 GM/dL (11.7-16.9); LYMPH % 17.6 % (8-40); MCH 24.1 pg (25.7-33.7); MCHC 30.9 g/dl (32.0-35.9); MEAN CELL VOLUME 77.9 fl (80-96); MEAN PLT VOLUME 7.1 fl (7.5-11.1); MONO % 8.6 % (3.8-10.2); NEUT % 73.7 % (42.8-82.8); PLATELET COUNT 172 10^3/uL (134-434); RBC 3.58 M/mm3 (4.00-5.60); RDW 18.6 % (11.9-15.9); WHITE BLOOD COUNT 4.1 K/mm3 (4.0-10.0)
[2024-02-01] MEDS: FUROSEMIDE 40 MG/4 ML INJECTABLE VIAL IVPUSH ONE (11:21)
[2024-02-01 11:22] LABS: VENOUS BASE EXCESS -3.4 mmol/L (-2-2); VENOUS O2 SATURATION 92.3 % (70-80); VENOUS PCO2 62.5 mmHg (38-52); VENOUS PH 7.217 (7.310-7.410)
[2024-02-01 11:25] LABS: INR 1.13 (0.83-1.09); PROTHROMBIN TIME (PATIENT) 12.7 SEC (9.7-13.0)
[2024-02-01 11:27] LABS: ACTIVATED PTT 37.8 SECONDS (25.2-36.5)
[2024-02-01 11:40] LABS: CHLORIDE 107 mmol/L (98-107); POTASSIUM 4.1 mmol/L (3.5-5.1); SODIUM 139 mmol/L (136-145)
[2024-02-01 11:42] LABS: CALCIUM 8.2 mg/dL (8.5-10.1)
[2024-02-01 11:43] LABS: ALBUMIN 2.8 g/dl (3.4-5.0); ANION GAP 5 mmol/L (4-13); BLOOD UREA NITROGEN 58.6 mg/dL (7-18); CO2 27 mmol/L (21-32); GLUCOSE,RANDOM 125 mg/dL (74-106)
[2024-02-01 11:45] LABS: SGPT/ALT < 6 U/L (13-61)
[2024-02-01 11:46] LABS: CREATININE 4.1 mg/dL (0.55-1.3); IRON SERUM 38 ug/dL (50-175); SGOT/AST 8 U/L (15-37); TOTAL IRON BINDING CAPACITY 181 ug/dL (250-450)
[2024-02-01 11:48] LABS: BILIRUBIN,TOTAL 0.5 mg/dL (0.2-1)
[2024-02-01 11:49] LABS: ALK PHOS 82 U/L (45-117); N-TERMINAL BNP 7025.9 pg/ml (5-450)
[2024-02-01 12:17] LABS: VENOUS BASE EXCESS -4.3 mmol/L (-2-2); VENOUS PCO2 68.6 mmHg (38-52)
[2024-02-01 12:19] LABS: VENOUS PH 7.175 (7.310-7.410)
[2024-02-01] MEDS ORDERED: DOCUSATE SODIUM 100 MG CAPSULE (FP) PO PRN (12:53)
[2024-02-01] MEDS ORDERED: ALBUTEROL SO4 0.083% IH SOL 2.5 MG/3 ML VIAL.NEB. NEB PRN (12:53)
[2024-02-01] MEDS ORDERED: oxyCODONE HCL 5 MG TABLET PO PRN (12:53)
[2024-02-01] MEDS ORDERED: ACETAMINOPHEN 325 MG TABLET (FP) PO PRN (12:53)
[2024-02-01] MEDS ORDERED: PRAMIPEXOLE DIHYDROCHLORIDE 0.25 MG TABLET PO SCH (14:00)
[2024-02-01] MEDS: PRAMIPEXOLE DIHYDROCHLORIDE 0.25 MG TABLET PO SCH (14:14)
[2024-02-01] MEDS: CARBIDOPA/LEVODOPA 25/100 TABLET (FP) PO SCH (14:14)
[2024-02-01 16:24] LABS: ARTERIAL BLD GAS O2 SATURATION 97.7 % (95-98); ARTERIAL BLOOD GAS BASE EXCESS -4.5 mmol/L (-2-2); ARTERIAL BLOOD GAS PO2 145.8 mmHg (80-100)
[2024-02-01 16:34] LABS: ARTERIAL BLOOD GAS pH 7.073 (7.350-7.450)
[2024-02-01 16:50] LABS: BASO % 0.4 % (0-2.0); HEMATOCRIT 30.8 % (35.4-49); HEMOGLOBIN 9.2 GM/dL (11.7-16.9); LYMPH % 20.5 % (8-40); MCH 23.8 pg (25.7-33.7); MCHC 29.9 g/dl (32.0-35.9); MEAN CELL VOLUME 79.5 fl (80-96); MEAN PLT VOLUME 7.4 fl (7.5-11.1); NEUT % 70.1 % (42.8-82.8); PLATELET COUNT 187 10^3/uL (134-434); RBC 3.87 M/mm3 (4.00-5.60); RDW 19.1 % (11.9-15.9); WHITE BLOOD COUNT 4.6 K/mm3 (4.0-10.0)
[2024-02-01] MEDS ORDERED: ACETAMINOPHEN 1000 MG/100 ML BAG IVPB PRN (16:58)
[2024-02-01] MEDS ORDERED: ALBUTEROL SO4 2.5/IPRATROPIUM 0.5 INH SOL 3 ML VIAL.NEB. NEB PRN (16:58)
[2024-02-01 17:00] LABS: CHLORIDE 108 mmol/L (98-107); POTASSIUM 4.9 mmol/L (3.5-5.1); SODIUM 140 mmol/L (136-145)
[2024-02-01 17:03] LABS: CALCIUM 8.2 mg/dL (8.5-10.1)
[2024-02-01 17:04] LABS: ANION GAP 3 mmol/L (4-13); BLOOD UREA NITROGEN 59.8 mg/dL (7-18); CO2 29 mmol/L (21-32); GLUCOSE,RANDOM 108 mg/dL (74-106)
[2024-02-01 17:07] LABS: CREATININE 4.2 mg/dL (0.55-1.3); SGOT/AST 13 U/L (15-37)
[2024-02-01 17:08] LABS: TOT PROT 6.4 g/dl (6.4-8.2)
[2024-02-01 17:09] LABS: BILIRUBIN,TOTAL 0.5 mg/dL (0.2-1)
[2024-02-01 17:10] LABS: ALK PHOS 88 U/L (45-117)
[2024-02-01 17:13] LABS: SGPT/ALT < 6 U/L (13-61)
[2024-02-01] MEDS: FUROSEMIDE 40 MG/4 ML INJECTABLE VIAL IVPUSH SCH (17:59)
[2024-02-01] MEDS: IRON SUCROSE INJECTION 100 MG in SODIUM CHLORIDE 95 ML IVPB ONE (17:59)
[2024-02-01] MEDS: EPOETIN ALFA-EPBX 10,000 UNIT/ML VIAL SQ ONE (18:09)
[2024-02-01 18:48] LABS: ARTERIAL BLD GAS O2 SATURATION 97.2 % (95-98); ARTERIAL BLOOD GAS BASE EXCESS -6.3 mmol/L (-2-2); ARTERIAL BLOOD GAS PO2 135.8 mmHg (80-100)
[2024-02-01 18:52] LABS: ARTERIAL BLOOD GAS pH 7.057 (7.350-7.450)
[2024-02-01] MEDS ORDERED: RAPID SEQUENCE INTUBATION KIT NR ONE (19:08)
[2024-02-01] MEDS ORDERED: NOREPINEPHRINE BITARTRATE 4 MG/4 ML ML IV ONE (19:55)
[2024-02-01] MEDS ORDERED: ROCURONIUM BROMIDE 50 MG/5 ML VIAL ONE (19:58)
[2024-02-01] MEDS: MIDAZOLAM HCL 2 MG/2 ML SINGLE DOSE VIAL IVPUSH STA (20:05)
[2024-02-01] MEDS: KETAMINE HCL 200 MG/20 ML VIAL IVPUSH STA (20:05)
[2024-02-01] MEDS: ROCURONIUM BROMIDE 50 MG/5 ML VIAL IV STA (20:05)
[2024-02-01] MEDS: NOREPINEPHRINE BITARTRATE 4,000 MCG in DEXTROSE 5%-WATER - 496 ML IV SCH (21:26)
[2024-02-01] MEDS: FUROSEMIDE INJECTION 100 MG in SODIUM CHLORIDE 90 ML IVPB SCH (22:00)
[2024-02-01] MEDS ORDERED: CARVEDILOL 25 MG TABLET (FP) PO SCH (22:00)
[2024-02-01] MEDS: FENTANYL NS IVPB 500 MCG/100 ML BAG IVPB SCH (22:00)
[2024-02-01] MEDS ORDERED: BUDESONIDE/FORMETEROL FUMARATE 160/4.5 mcg INHALER IH SCH (22:00)
[2024-02-01 22:20] LABS: ARTERIAL BLOOD GAS BASE EXCESS -2.9 mmol/L (-2-2); ARTERIAL BLOOD GAS PO2 167.4 mmHg (80-100); ARTERIAL BLOOD GAS pH 7.339 (7.350-7.450)
[2024-02-01 22:23] LABS: PT'S TEMP 96.5; VENT MODE V-AC; VENT RATE 18
[2024-02-01] MEDS: MUPIROCIN 2% TOPICAL OINTMENT FOR DECOLONIZATION NS SCH (22:59)
[2024-02-01] MEDS: BUDESONIDE/FORMETEROL FUMARATE 160/4.5 mcg INHALER IH SCH (22:59)
[2024-02-01] MEDS ORDERED: MIDAZOLAM HCL 2 MG/2 ML SINGLE DOSE VIAL ONE (23:28)
[2024-02-02] MEDS ORDERED: PROPOFOL 1,000,000 MCG/100 ML VIAL ONE (00:09)
[2024-02-02] MEDS: PROPOFOL 1,000,000 MCG/100 ML VIAL IVPB SCH (00:15)
[2024-02-02] MEDS ORDERED: DEXTROSE 50%-WATER 25 GM/50 ML DISP.SYRIN ONE (00:28)
[2024-02-02] MEDS: CHLORHEXIDINE GLUCONATE 4% CLEANSER FOR DECOLONIZATION TP SCH (00:30)
[2024-02-02] MEDS: HEPARIN NA (PORCINE) 5,000 UNITS/ML 1ML VIAL SQ SCH (00:50)
[2024-02-02] MEDS: DOCUSATE NA 100 MG/10 ML UNIT-DOSE CUPS NGT SCH (03:57)
[2024-02-02] MEDS: ATORVASTATIN CA 40 MG TABLET (FP) PO SCH (03:57)
[2024-02-02 06:14] LABS: ARTERIAL BLD GAS O2 SATURATION 98.2 % (95-98); ARTERIAL BLOOD GAS BASE EXCESS -3.8 mmol/L (-2-2); ARTERIAL BLOOD GAS PO2 118.2 mmHg (80-100); ARTERIAL BLOOD GAS pH 7.365 (7.350-7.450)
[2024-02-02 06:15] LABS: VENT MODE V-AC; VENT RATE 18
[2024-02-02 07:13] LABS: CHLORIDE 108 mmol/L (98-107); POTASSIUM 3.8 mmol/L (3.5-5.1); SODIUM 139 mmol/L (136-145)
[2024-02-02 07:19] LABS: ALBUMIN 2.8 g/dl (3.4-5.0); ANION GAP 7 mmol/L (4-13); BLOOD UREA NITROGEN 64.3 mg/dL (7-18); CALCIUM 8.2 mg/dL (8.5-10.1); CO2 23 mmol/L (21-32); GLUCOSE,RANDOM 75 mg/dL (74-106); MAGNESIUM 1.8 mg/dL (1.8-2.4)
[2024-02-02 07:22] LABS: CREATININE 4.3 mg/dL (0.55-1.3); SGPT/ALT < 6 U/L (13-61)
[2024-02-02 07:23] LABS: HEMATOCRIT 26.7 % (35.4-49); HEMOGLOBIN 8.1 GM/dL (11.7-16.9); LYMPH % 16.6 % (8-40); MCH 23.9 pg (25.7-33.7); MCHC 30.3 g/dl (32.0-35.9); MEAN CELL VOLUME 78.9 fl (80-96); MEAN PLT VOLUME 7.6 fl (7.5-11.1); MONO % 11.3 % (3.8-10.2); NEUT % 72.1 % (42.8-82.8); PLATELET COUNT 184 10^3/uL (134-434); RBC 3.38 M/mm3 (4.00-5.60); RDW 18.9 % (11.9-15.9); SGOT/AST 11 U/L (15-37); WHITE BLOOD COUNT 4.6 K/mm3 (4.0-10.0)
[2024-02-02 07:24] LABS: BILIRUBIN,TOTAL 0.5 mg/dL (0.2-1); TOT PROT 5.6 g/dl (6.4-8.2)
[2024-02-02 07:25] LABS: ALK PHOS 82 U/L (45-117)
[2024-02-02] MEDS: NOREPINEPHRINE BITARTRATE 4,000 MCG in DEXTROSE 5%-WATER - 496 ML IV SCH (07:55)
[2024-02-02] MEDS: MIDAZOLAM IN 0.9 % SOD.CHLORID 100 MG/100 ML PLAST..BAG IVPB SCH (08:15)
[2024-02-02] MEDS ORDERED: NOREPINEPHRINE BITARTRATE 16,000 MCG in SODIUM CHLORIDE 484 ML IV SCH (08:30)
[2024-02-02] MEDS: NOREPINEPHRINE BITARTRATE/D5W 8 MG/250 ML BAG IVPB SCH (08:30)
[2024-02-02] MEDS: MAGNESIUM 2GM/50ML STERILE WATER IVPB IVPB ONE (09:38)
[2024-02-02] MEDS: PANTOPRAZOLE SODIUM 40 MG VIAL IVPUSH SCH (09:38)
[2024-02-02] MEDS: DULoxetine HCL 30 MG CAPSULE.DR PO SCH (09:38)
[2024-02-02] MEDS: POLYETHYLENE GLYCOL (HEALTHYLAX) 3350 17 GM PACKET PO SCH (09:38)
[2024-02-02] MEDS ORDERED: PANTOPRAZOLE 40 MG TABLET PO SCH (10:00)
[2024-02-02] MEDS ORDERED: amLODIPine BESYLATE 5 MG TABLET (FP) PO SCH (10:00)
[2024-02-02] MEDS ORDERED: ASPIRIN COATED 81 MG TABLET.EC PO SCH (10:00)
[2024-02-02] MEDS: PIPERACILLIN/TAZOB 2.25 GM 2.25 GM in DEXTROSE 5%-WATER - 50 ML IVPB SCH (12:57)
[2024-02-02 13:47] LABS: ARTERIAL BLOOD GAS BASE EXCESS -5.1 mmol/L (-2-2); ARTERIAL BLOOD GAS PO2 93.7 mmHg (80-100); ARTERIAL BLOOD GAS pH 7.256 (7.350-7.450)
[2024-02-02 13:49] LABS: VENT MODE PSV; VENT RATE 5
[2024-02-02 19:04] LABS: EPI CELLS 4 /uL (0-25.1); HYALINE CASTS 1 /uL (0-3.1); PH,URINE 5.5 (5.0-8.0); URINE APPEARANCE TURBID; URINE BACTERIA >9,000 /uL (0-1359); URINE BILIRUBIN NEGATIVE (NEGATIVE); URINE COLOR YELLOW; URINE GLUCOSE (UA) NEGATIVE (NEGATIVE); URINE KETONE NEGATIVE (NEGATIVE); URINE LEUK ESTERASE 3+ (NEGATIVE); URINE NITRITE NEGATIVE (NEGATIVE); URINE PROTEIN 2+ (NEGATIVE); URINE RBC 27 /uL (0-23.9); URINE UROBILINOGEN 0.2 mg/dL (0.2-1.0); URINE WBC 1650 /uL (0-25.8)
[2024-02-02] MEDS ORDERED: ROCURONIUM BROMIDE 50 MG/5 ML VIAL ONE (23:54)
[2024-02-03 06:41] LABS: HEMATOCRIT 25.1 % (35.4-49); HEMOGLOBIN 7.6 GM/dL (11.7-16.9); LYMPH % 12.4 % (8-40); MCH 23.6 pg (25.7-33.7); MCHC 30.2 g/dl (32.0-35.9); MONO % 11.9 % (3.8-10.2); NEUT % 75.7 % (42.8-82.8); PLATELET COUNT 179 10^3/uL (134-434); RBC 3.22 M/mm3 (4.00-5.60); RDW 18.7 % (11.9-15.9); WHITE BLOOD COUNT 6.2 K/mm3 (4.0-10.0)
[2024-02-03 07:09] LABS: MAGNESIUM 2.2 mg/dL (1.8-2.4)
[2024-02-03 07:13] LABS: PHOSPHOROUS 3.4 mg/dL (2.5-4.9)
[2024-02-03 10:03] LABS: CHLORIDE 109 mmol/L (98-107); POTASSIUM 3.9 mmol/L (3.5-5.1); SODIUM 141 mmol/L (136-145)
[2024-02-03 10:05] LABS: ALBUMIN 2.6 g/dl (3.4-5.0); ANION GAP 9 mmol/L (4-13); BLOOD UREA NITROGEN 68.7 mg/dL (7-18); CALCIUM 8.2 mg/dL (8.5-10.1); CO2 24 mmol/L (21-32); GLUCOSE,RANDOM 70 mg/dL (74-106)
[2024-02-03 10:09] LABS: CREATININE 4.9 mg/dL (0.55-1.3); SGOT/AST 10 U/L (15-37); SGPT/ALT < 6 U/L (13-61)
[2024-02-03 10:11] LABS: BILIRUBIN,TOTAL 0.5 mg/dL (0.2-1); TOT PROT 5.4 g/dl (6.4-8.2)
[2024-02-03 10:12] LABS: ALK PHOS 77 U/L (45-117)
[2024-02-03] MEDS ORDERED: FUROSEMIDE 40 MG/4 ML INJECTABLE VIAL IVPUSH SCH (10:35)
[2024-02-03] MEDS: FUROSEMIDE 40 MG/4 ML INJECTABLE VIAL IVPUSH SCH (11:23)
[2024-02-03] MEDS: DEXTROSE 50%-WATER 25 GM/50 ML DISP.SYRIN IVPUSH ONE (15:03)
[2024-02-03] MEDS: DEXTROSE 50%-WATER 25 GM/50 ML DISP.SYRIN IVPUSH PRN (18:01)
[2024-02-04] MEDS: ACETAMINOPHEN 1000 MG/100 ML BAG IVPB ONE (00:51)
[2024-02-04 06:44] LABS: BASO % 0.2 % (0-2.0); HEMATOCRIT 24.8 % (35.4-49); HEMOGLOBIN 7.4 GM/dL (11.7-16.9); LYMPH % 11.2 % (8-40); MCH 23.7 pg (25.7-33.7); MCHC 29.9 g/dl (32.0-35.9); MEAN CELL VOLUME 79.1 fl (80-96); MEAN PLT VOLUME 7.5 fl (7.5-11.1); MONO % 12.8 % (3.8-10.2); NEUT % 75.8 % (42.8-82.8); PLATELET COUNT 179 10^3/uL (134-434); RBC 3.13 M/mm3 (4.00-5.60); RDW 18.8 % (11.9-15.9); WHITE BLOOD COUNT 6.1 K/mm3 (4.0-10.0)
[2024-02-04 06:53] LABS: CHLORIDE 110 mmol/L (98-107); POTASSIUM 4.1 mmol/L (3.5-5.1); SODIUM 143 mmol/L (136-145)
[2024-02-04 06:59] LABS: CALCIUM 7.8 mg/dL (8.5-10.1)
[2024-02-04 07:00] LABS: ALBUMIN 2.6 g/dl (3.4-5.0); ANION GAP 7 mmol/L (4-13); BLOOD UREA NITROGEN 70.8 mg/dL (7-18); CO2 25 mmol/L (21-32); GLUCOSE,RANDOM 79 mg/dL (74-106); MAGNESIUM 2.2 mg/dL (1.8-2.4)
[2024-02-04 07:02] LABS: CREATININE 5.3 mg/dL (0.55-1.3)
[2024-02-04 07:03] LABS: SGOT/AST 9 U/L (15-37)
[2024-02-04 07:04] LABS: BILIRUBIN,TOTAL 0.6 mg/dL (0.2-1); TOT PROT 5.6 g/dl (6.4-8.2)
[2024-02-04 07:05] LABS: ALK PHOS 68 U/L (45-117)
[2024-02-04 07:11] LABS: SGPT/ALT < 6 U/L (13-61)
[2024-02-04] MEDS: FUROSEMIDE 40 MG/4 ML INJECTABLE VIAL IVPB SCH (10:00)
[2024-02-04] MEDS: BISACODYL 5 MG TABLET.DR (FP) PO PRN (10:01)
[2024-02-04] MEDS ORDERED: FENTANYL NS IVPB 500 MCG/100 ML BAG IVPB SCH (14:00)
[2024-02-04 15:33] VITALS: BMI 34.5
[2024-02-04] MEDS ORDERED: DEXTROSE 50%-WATER 25 GM/50 ML DISP.SYRIN IVPUSH PRN (17:41)
[2024-02-04] MEDS ORDERED: ACETAMINOPHEN 325 MG TABLET (FP) PO PRN (17:41)
[2024-02-04] MEDS ORDERED: BISACODYL 5 MG TABLET.DR (FP) PO PRN (17:41)
[2024-02-04] MEDS ORDERED: ALBUTEROL SO4 2.5/IPRATROPIUM 0.5 INH SOL 3 ML VIAL.NEB. NEB PRN (17:41)
[2024-02-04] MEDS: CEFTRIAXONE 1 GM in DEXTROSE 5%-WATER - 50 ML IVPB SCH (19:25)
[2024-02-04] MEDS: CARBIDOPA/LEVODOPA 25/100 TABLET (FP) PO SCH (19:25)
[2024-02-04] MEDS: HEPARIN NA (PORCINE) 5,000 UNITS/ML 1ML VIAL SQ SCH (22:22)
[2024-02-04] MEDS: ATORVASTATIN CA 40 MG TABLET (FP) PO SCH (22:22)
[2024-02-04] MEDS: DOCUSATE NA 100 MG/10 ML UNIT-DOSE CUPS NGT SCH (22:24)
[2024-02-04] MEDS: BUDESONIDE/FORMETEROL FUMARATE 160/4.5 mcg INHALER IH SCH (22:43)
[2024-02-05] MEDS ORDERED: INSULIN ASPART SLIDING SCALE (NOVOLOG) 1 VIAL SQ ONE (08:05)
[2024-02-05] MEDS: PANTOPRAZOLE SODIUM 40 MG VIAL IVPUSH SCH (09:53)
[2024-02-05] MEDS: POLYETHYLENE GLYCOL (HEALTHYLAX) 3350 17 GM PACKET PO SCH (09:54)
[2024-02-05] MEDS: DULoxetine HCL 30 MG CAPSULE.DR PO SCH (09:54)
[2024-02-05] MEDS: FUROSEMIDE 40 MG/4 ML INJECTABLE VIAL IVPB SCH (10:38)
[2024-02-05] MEDS: IRON SUCROSE INJECTION 100 MG in SODIUM CHLORIDE 95 ML IVPB ONE (14:53)
[2024-02-05] MEDS: EPOETIN ALFA-EPBX 10,000 UNIT/ML VIAL SQ ONE (14:53)
[2024-02-05] MEDS: DOCUSATE NA 100 MG/10 ML UNIT-DOSE CUPS PO SCH (14:55)
[2024-02-06 08:06] LABS: HEMATOCRIT 27.2 % (35.4-49); HEMOGLOBIN 7.9 GM/dL (11.7-16.9); MCH 23.3 pg (25.7-33.7); MCHC 29.2 g/dl (32.0-35.9); MEAN CELL VOLUME 80.1 fl (80-96); MEAN PLT VOLUME 7.5 fl (7.5-11.1); PLATELET COUNT 205 10^3/uL (134-434); RDW 19.5 % (11.9-15.9); WHITE BLOOD COUNT 5.5 K/mm3 (4.0-10.0)
[2024-02-06 08:23] LABS: CHLORIDE 110 mmol/L (98-107); POTASSIUM 4.1 mmol/L (3.5-5.1); SODIUM 143 mmol/L (136-145)
[2024-02-06 08:30] LABS: ALBUMIN 2.8 g/dl (3.4-5.0); ANION GAP 8 mmol/L (4-13); BLOOD UREA NITROGEN 67.6 mg/dL (7-18); CALCIUM 8.1 mg/dL (8.5-10.1); CO2 26 mmol/L (21-32); GLUCOSE,RANDOM 96 mg/dL (74-106)
[2024-02-06 08:32] LABS: CREATININE 5.5 mg/dL (0.55-1.3)
[2024-02-06 08:34] LABS: BILIRUBIN,TOTAL 0.7 mg/dL (0.2-1); SGOT/AST 6 U/L (15-37); TOT PROT 6.1 g/dl (6.4-8.2)
[2024-02-06 08:35] LABS: ALK PHOS 66 U/L (45-117)
[2024-02-06 08:50] LABS: SGPT/ALT < 6 U/L (13-61)
[2024-02-06] MEDS: FUROSEMIDE 40 MG/4 ML INJECTABLE VIAL IVPUSH SCH (11:52)
[2024-02-07 07:48] LABS: HEMATOCRIT 27.2 % (35.4-49); HEMOGLOBIN 8.1 GM/dL (11.7-16.9); MCHC 29.9 g/dl (32.0-35.9); MEAN CELL VOLUME 80.1 fl (80-96); MEAN PLT VOLUME 7.3 fl (7.5-11.1); PLATELET COUNT 200 10^3/uL (134-434); RBC 3.39 M/mm3 (4.00-5.60); WHITE BLOOD COUNT 4.5 K/mm3 (4.0-10.0)
[2024-02-07 08:10] LABS: CHLORIDE 112 mmol/L (98-107); POTASSIUM 4.2 mmol/L (3.5-5.1); SODIUM 145 mmol/L (136-145)
[2024-02-07 08:13] LABS: ANION GAP 9 mmol/L (4-13); CALCIUM 8.2 mg/dL (8.5-10.1); CO2 25 mmol/L (21-32); GLUCOSE,RANDOM 86 mg/dL (74-106)
[2024-02-07 08:14] LABS: ALBUMIN 2.7 g/dl (3.4-5.0); BLOOD UREA NITROGEN 64.7 mg/dL (7-18)
[2024-02-07 08:17] LABS: CREATININE 5.2 mg/dL (0.55-1.3); SGOT/AST 7 U/L (15-37)
[2024-02-07 08:18] LABS: BILIRUBIN,TOTAL 0.5 mg/dL (0.2-1)
[2024-02-07 08:19] LABS: ALK PHOS 66 U/L (45-117)
[2024-02-07 08:21] LABS: SGPT/ALT < 6 U/L (13-61)
[2024-02-08] MEDS: CEPHALEXIN MONOHYDRATE 500 MG CAPSULE (UD) PO SCH (09:19)
[2024-02-09] MEDS: guaiFENesin/CODEINE 5 ML UNIT-DOSE CUPS PO PRN (11:12)
[2024-02-09] MEDS: amLODIPine BESYLATE 5 MG TABLET (FP) PO SCH (16:06)
[2024-02-09] MEDS: CARVEDILOL 25 MG TABLET (FP) PO SCH (21:13)
[2024-02-10 09:07] LABS: HEMATOCRIT 27.5 % (35.4-49); HEMOGLOBIN 8.3 GM/dL (11.7-16.9); INR 1.1 (0.83-1.09); MCH 23.7 pg (25.7-33.7); MCHC 30.1 g/dl (32.0-35.9); MEAN CELL VOLUME 78.6 fl (80-96); MEAN PLT VOLUME 7.3 fl (7.5-11.1); PLATELET COUNT 187 10^3/uL (134-434); PROTHROMBIN TIME (PATIENT) 12.6 SEC (9.7-13.0); RDW 18.6 % (11.9-15.9); WHITE BLOOD COUNT 4.6 K/mm3 (4.0-10.0)
[2024-02-10 09:10] LABS: ACTIVATED PTT 40.4 SECONDS (25.2-36.5)
[2024-02-10 09:22] LABS: CHLORIDE 113 mmol/L (98-107); SODIUM 148 mmol/L (136-145)
[2024-02-10 09:32] LABS: ALBUMIN 2.8 g/dl (3.4-5.0); ANION GAP 7 mmol/L (4-13); BLOOD UREA NITROGEN 52.1 mg/dL (7-18); CALCIUM 8.4 mg/dL (8.5-10.1); CO2 28 mmol/L (21-32); GLUCOSE,RANDOM 86 mg/dL (74-106)
[2024-02-10 09:35] LABS: CREATININE 4.6 mg/dL (0.55-1.3); SGOT/AST 16 U/L (15-37)
[2024-02-10 09:37] LABS: BILIRUBIN,TOTAL 0.6 mg/dL (0.2-1); TOT PROT 6.2 g/dl (6.4-8.2)
[2024-02-10 09:38] LABS: ALK PHOS 68 U/L (45-117)
[2024-02-10 09:46] LABS: SGPT/ALT < 6 U/L (13-61)
[2024-02-10 10:01] LABS: ANISOCYTOSIS 3+; MACROCYTOSIS 0
[2024-02-10] MEDS ORDERED: POVIDONE-IODINE OINTMENT 10% - 28.4 GM TUBE ONE (15:39)
[2024-02-10] MEDS ORDERED: HEPARIN NA (PORCINE) 5,000 UNITS/ML 1ML VIAL ONE ×2 (15:39→15:53)
[2024-02-10] MEDS ORDERED: PAPAVERINE HCL 30 MG/1 ML 10 ML VIAL NR ONE (15:39)
[2024-02-10] MEDS ORDERED: LIDOCAINE HCL 1%, 10 MG/ML (20ML VIAL) ONE ×2 (15:39→17:47)
[2024-02-10] MEDS ORDERED: LIDOCAINE HCL/PF 2% SDV 5ML VIAL ONE (17:27)
[2024-02-10] MEDS ORDERED: MIDAZOLAM HCL 2 MG/2 ML SINGLE DOSE VIAL ONE (17:27)
[2024-02-10] MEDS ORDERED: PROPOFOL 20 ML ONE (17:27)
[2024-02-10] MEDS ORDERED: FENTANYL CITRATE/PF 50 MCG/ML VIAL ONE ×2 (17:30→20:21)
[2024-02-10] MEDS: ceFAZolin SODIUM 1 GM VIAL IVPB ONE (18:20)
[2024-02-10] MEDS ORDERED: ceFAZolin SODIUM 1 GM VIAL ONE (18:26)
[2024-02-10] MEDS ORDERED: DEXAMETHASONE SOD PHOSPHATE 4 MG/1 ML VIAL ONE (18:26)
[2024-02-10] MEDS ORDERED: KETOROLAC TROMETHAMINE 30 MG/1 ML VIAL ONE (19:13)
[2024-02-10] MEDS ORDERED: ONDANSETRON 4 MG/2 ML VIAL ONE (19:13)
[2024-02-10] MEDS: POVIDONE-IODINE OINTMENT 10% - 28.4 GM TUBE TP ONE (19:20)
[2024-02-10] MEDS: hydrALAZINE HCL 20 MG/ML VIAL IVPUSH ONE ×2 (19:38→20:10)
[2024-02-10] MEDS ORDERED: ONDANSETRON 4 MG/2 ML VIAL IVPUSH PRN (19:54)
[2024-02-10] MEDS ORDERED: PROMETHAZINE HCL 25 MG/1 ML VIAL IVPB PRN (19:54)
[2024-02-10] MEDS: LACTATED RINGERS SOLUTION 1,000 ML IV SCH (20:00)
[2024-02-10] MEDS ORDERED: oxyCODONE HCL 5 MG TABLET PO PRN (20:02)
[2024-02-10] MEDS ORDERED: BISACODYL 5 MG TABLET.DR (FP) PO PRN (20:02)
[2024-02-10] MEDS ORDERED: DEXTROSE 50%-WATER 25 GM/50 ML DISP.SYRIN IVPUSH PRN (20:02)
[2024-02-10] MEDS ORDERED: guaiFENesin/CODEINE 5 ML UNIT-DOSE CUPS PO PRN (20:02)
[2024-02-10] MEDS ORDERED: ACETAMINOPHEN 325 MG TABLET (FP) PO PRN (20:02)
[2024-02-10] MEDS ORDERED: hydrALAZINE HCL 20 MG/ML VIAL ONE (20:08)
[2024-02-10] MEDS: DOCUSATE NA 100 MG/10 ML UNIT-DOSE CUPS PO SCH (22:15)
[2024-02-10] MEDS: CARVEDILOL 25 MG TABLET (FP) PO SCH (22:15)
[2024-02-10] MEDS: CARBIDOPA/LEVODOPA 25/100 TABLET (FP) PO SCH (22:15)
[2024-02-10] MEDS: ATORVASTATIN CA 40 MG TABLET (FP) PO SCH (22:15)
[2024-02-10] MEDS: BUDESONIDE/FORMETEROL FUMARATE 160/4.5 mcg INHALER IH SCH (22:16)
[2024-02-11] MEDS: DULoxetine HCL 30 MG CAPSULE.DR PO SCH (09:34)
[2024-02-11] MEDS: amLODIPine BESYLATE 5 MG TABLET (FP) PO SCH (09:34)
[2024-02-11] MEDS: PANTOPRAZOLE SODIUM 40 MG VIAL IVPUSH SCH (09:35)
[2024-02-11] MEDS: POLYETHYLENE GLYCOL (HEALTHYLAX) 3350 17 GM PACKET PO SCH (09:35)
[2024-02-11] MEDS: FUROSEMIDE 40 MG/4 ML INJECTABLE VIAL IVPUSH SCH (09:35)
[2024-02-11] MEDS: HEPARIN NA (PORCINE) 5,000 UNITS/ML 1ML VIAL SQ SCH (13:48)
[2024-02-11] MEDS ORDERED: SODIUM CHLORIDE 250 ML IV PRN (16:12)
[2024-02-12] MEDS ORDERED: SODIUM CHLORIDE 250 ML IV PRN (10:00)
[2024-02-12] MEDS: HEPARIN NA (PORCINE) 5,000 UNITS/ML 1ML VIAL IVPUSH ONE (10:40)
[2024-02-12 11:48] LABS: HEMATOCRIT 25.1 % (35.4-49); HEMOGLOBIN 7.6 GM/dL (11.7-16.9); MCH 23.4 pg (25.7-33.7); MCHC 30.2 g/dl (32.0-35.9); MEAN CELL VOLUME 77.6 fl (80-96); MEAN PLT VOLUME 7.2 fl (7.5-11.1); PLATELET COUNT 186 10^3/uL (134-434); RBC 3.23 M/mm3 (4.00-5.60); RDW 18.3 % (11.9-15.9); WHITE BLOOD COUNT 5.1 K/mm3 (4.0-10.0)
[2024-02-12 12:13] LABS: CALCIUM 8.2 mg/dL (8.5-10.1)
[2024-02-12 12:14] LABS: ALBUMIN 2.8 g/dl (3.4-5.0); BLOOD UREA NITROGEN 47.2 mg/dL (7-18)
[2024-02-12 12:17] LABS: CREATININE 4.3 mg/dL (0.55-1.3)
[2024-02-12 12:19] LABS: BILIRUBIN,TOTAL 0.5 mg/dL (0.2-1)
[2024-02-12] MEDS: EPOETIN ALFA-EPBX 10,000 UNIT/ML VIAL SQ ONE (12:57)
[2024-02-13] MEDS ORDERED: SODIUM CHLORIDE 250 ML IV PRN (17:22)
[2024-02-13] MEDS: FUROSEMIDE 40 MG/4 ML INJECTABLE VIAL IVPUSH ONE (17:56)
[2024-02-14] MEDS: HEPARIN NA (PORCINE) 5,000 UNITS/ML 1ML VIAL IVPUSH ONE (08:45)
[2024-02-14] MEDS: EPOETIN ALFA-EPBX 10,000 UNIT/ML VIAL IVPUSH ONE (09:42)
[2024-02-14 09:54] LABS: BASO % 0.1 % (0-2.0); HEMOGLOBIN 7.8 GM/dL (11.7-16.9); LYMPH % 15.7 % (8-40); MCH 23.3 pg (25.7-33.7); MEAN CELL VOLUME 77.6 fl (80-96); MEAN PLT VOLUME 7.3 fl (7.5-11.1); MONO % 13.7 % (3.8-10.2); NEUT % 70.5 % (42.8-82.8); PLATELET COUNT 174 10^3/uL (134-434); RBC 3.35 M/mm3 (4.00-5.60); WHITE BLOOD COUNT 4.3 K/mm3 (4.0-10.0)
[2024-02-14 10:10] LABS: POTASSIUM 3.5 mmol/L (3.5-5.1)
[2024-02-14 10:13] LABS: CALCIUM 8.2 mg/dL (8.5-10.1)
[2024-02-14 10:14] LABS: BLOOD UREA NITROGEN 36.8 mg/dL (7-18)
[2024-02-14 10:18] LABS: BILIRUBIN,TOTAL 0.6 mg/dL (0.2-1)
[2024-02-14 10:19] LABS: ALBUMIN 2.7 g/dl (3.4-5.0); CREATININE 3.7 mg/dL (0.55-1.3); TOT PROT 5.9 g/dl (6.4-8.2)
[2024-02-14] MEDS: IRON SUCROSE INJECTION 100 MG in SODIUM CHLORIDE 95 ML IVPB ONE (11:02)
[2024-02-14] MEDS: PANTOPRAZOLE 40 MG TABLET PO SCH (13:11)
[2024-02-14 22:22] VITALS: RESP 18
[2024-02-15 06:51] VITALS: BP 154/67; PULSE 70; TEMP 98.8
[2024-02-15 17:12] LABS: FREE KAPPA,SERUM 70.5 mg/L (3.3-19.4)
[2024-02-17 19:10] LABS: IG A QN SERUM. 152 mg/dL (61-437)
[2024-02-18 11:09] LABS: IMMUNOGLOBULIN D < 1.30 mg/dL (<14.11)
== END 2024-02-15 11:30 | disposition home health service (06) | DRG 252 ==
LOC: JER 10:02 → JERBED 12:59 → JICU 17:56 → J8W 02-04 17:19
PROVIDERS: ADMIT Family Medicine; ATTEND Family Medicine
PROC: 5A1945Z Respiratory Ventilation, 24-96 Consecutive Hours (ICD-10-PCS; 2024-02-01)
PROC: 0BH17EZ Insertion of Endotracheal Airway into Trachea, Via Natural or Artificial Opening (ICD-10-PCS; 2024-02-01)
PROC: 4A133B1 Monitoring of Arterial Pressure, Peripheral, Percutaneous Approach (ICD-10-PCS; 2024-02-01)
PROC: 4A133J1 Monitoring of Arterial Pulse, Peripheral, Percutaneous Approach (ICD-10-PCS; 2024-02-01)
PROC: 05HN33Z Insertion of Infusion Device into Left Internal Jugular Vein, Percutaneous Approach (ICD-10-PCS; 2024-02-01)
PROC: B544ZZA Ultrasonography of Left Jugular Veins, Guidance (ICD-10-PCS; 2024-02-01)
PROC: 05HY33Z Insertion of Infusion Device into Upper Vein, Percutaneous Approach (ICD-10-PCS; 2024-02-10)
PROC: 031 Upper Arteries, Bypass (ICD-10-PCS; principal; 2024-02-10 16:00)
PROC: 5A1D70Z Performance of Urinary Filtration, Intermittent, Less than 6 Hours Per Day (ICD-10-PCS; 2024-02-14)
DX: I13.2 Hypertensive heart and chronic kidney disease with heart failure and with stage 5 chronic kidney disease, or end stage renal disease (principal); I50.33 Acute on chronic diastolic (congestive) heart failure; J96.01 Acute respiratory failure with hypoxia; R53.2 Functional quadriplegia; J96.02 Acute respiratory failure with hypercapnia; N18.6 End stage renal disease; N39.0 Urinary tract infection, site not specified; J44.1 Chronic obstructive pulmonary disease with (acute) exacerbation; C90.00 Multiple myeloma not having achieved remission; N17.9 Acute kidney failure, unspecified; E87.29 Other acidosis; I74.2 Embolism and thrombosis of arteries of the upper extremities; G20.A1 Parkinson's disease without dyskinesia, without mention of fluctuations; R00.1 Bradycardia, unspecified; E87.70 Fluid overload, unspecified; E66.9 Obesity, unspecified; Z68.33 Body mass index [BMI] 33.0-33.9, adult; B96.20 Unspecified Escherichia coli [E. coli] as the cause of diseases classified elsewhere; K59.00 Constipation, unspecified; K21.9 Gastro-esophageal reflux disease without esophagitis; E11.22 Type 2 diabetes mellitus with diabetic chronic kidney disease; N40.0 Benign prostatic hyperplasia without lower urinary tract symptoms
CPT/HCPCS: 0241U-QW; 36415; 36600; 71045-TC-FY; 74230-TC-FY; 76000-TC-FY; 76775-TC; 80048; 80053; 81003; 82728; 82784; 82785; 82803; 82962; 83540; 83550; 83605; 83735; 83880; 83883; 84100; 84155; 84165; 84484; 85025; 85027; 85610; 85730; 86140; 86704; 86705; 86803; 86850; 86900; 86901; 87040; 87086; 87186; 87340; 87517; 92611-GN; 93005; 93010; 93306-TC; 93970-TC; 93985; 94002; 94660; 94760; 97116-GP; 97161-GP; 99285-25; C1750; J0131; J1644; J1756; Q5106

== ENCOUNTER 2024-02-24 11:23 | Inpatient (IN) | payer OTHER, BC ==
[2024-02-24 13:01] LABS: ARTERIAL BLD GAS O2 SATURATION 94.2 % (95-98); ARTERIAL BLOOD GAS BASE EXCESS 6.3 mmol/L (-2-2); ARTERIAL BLOOD GAS PO2 76.5 mmHg (80-100); ARTERIAL BLOOD GAS pH 7.343 (7.350-7.450)
[2024-02-24 13:02] LABS: ALLENS TEST POSITIVE
[2024-02-24 13:58] LABS: VENOUS BASE EXCESS 8.5 mmol/L (-2-2); VENOUS O2 SATURATION 33.6 % (70-80); VENOUS PH 7.251 (7.310-7.410)
[2024-02-24 14:00] LABS: VENOUS PCO2 88.8 mmHg (38-52)
[2024-02-24 14:01] LABS: BASO % 0.4 % (0-2.0); HEMATOCRIT 25.8 % (35.4-49); HEMOGLOBIN 7.7 GM/dL (11.7-16.9); LYMPH % 20.5 % (8-40); MCH 23.4 pg (25.7-33.7); MEAN CELL VOLUME 78.1 fl (80-96); MEAN PLT VOLUME 8.1 fl (7.5-11.1); MONO % 10.7 % (3.8-10.2); NEUT % 68.4 % (42.8-82.8); PLATELET COUNT 263 10^3/uL (134-434); RDW 18.4 % (11.9-15.9); WHITE BLOOD COUNT 4.5 K/mm3 (4.0-10.0)
[2024-02-24 14:06] LABS: CHLORIDE 99 mmol/L (98-107); POTASSIUM 3.4 mmol/L (3.5-5.1); SODIUM 139 mmol/L (136-145)
[2024-02-24 14:08] LABS: CALCIUM 8.6 mg/dL (8.5-10.1)
[2024-02-24 14:09] LABS: ALBUMIN 2.8 g/dl (3.4-5.0); ANION GAP 4 mmol/L (4-13); BLOOD UREA NITROGEN 24.5 mg/dL (7-18); CO2 36 mmol/L (21-32); GLUCOSE,RANDOM 121 mg/dL (74-106); MAGNESIUM 1.9 mg/dL (1.8-2.4)
[2024-02-24 14:12] LABS: CREATININE 3.4 mg/dL (0.55-1.3); SGOT/AST 11 U/L (15-37)
[2024-02-24 14:13] LABS: BILIRUBIN,TOTAL 0.5 mg/dL (0.2-1); TOT PROT 5.9 g/dl (6.4-8.2)
[2024-02-24 14:15] LABS: ALK PHOS 66 U/L (45-117)
[2024-02-24 14:24] LABS: SGPT/ALT < 6 U/L (13-61)
[2024-02-24] MEDS ORDERED: SODIUM CHLORIDE 250 ML IV PRN (14:29)
[2024-02-24] MEDS: HEPARIN NA (PORCINE) 5,000 UNITS/ML 1ML VIAL IVPUSH ONE (15:00)
[2024-02-24] MEDS: EPOETIN ALFA-EPBX 10,000 UNIT/ML VIAL SQ ONE (17:52)
[2024-02-24] MEDS ORDERED: ATORVASTATIN CA 40 MG TABLET (FP) ONE (21:19)
[2024-02-24] MEDS ORDERED: CARBIDOPA/LEVODOPA 25/250 TABLET (FP) ONE (21:19)
[2024-02-24] MEDS: ATORVASTATIN CA 40 MG TABLET (FP) PO SCH (21:27)
[2024-02-24] MEDS: CARBIDOPA/LEVODOPA 25/250 TABLET (FP) PO SCH (21:27)
[2024-02-24] MEDS ORDERED: HEPARIN NA (PORCINE) 5,000 UNITS/ML 1ML VIAL ONE (22:21)
[2024-02-24] MEDS: HEPARIN NA (PORCINE) 5,000 UNITS/ML 1ML VIAL SQ SCH (22:25)
[2024-02-24] MEDS: BUDESONIDE/FORMETEROL FUMARATE 160/4.5 mcg INHALER IH SCH (23:01)
[2024-02-25] MEDS ORDERED: CARBIDOPA/LEVODOPA 25/250 TABLET (FP) ONE (05:54)
[2024-02-25] MEDS ORDERED: HEPARIN NA (PORCINE) 5,000 UNITS/ML 1ML VIAL ONE (05:55)
[2024-02-25] MEDS ORDERED: CARVEDILOL 25 MG TABLET (FP) ONE (09:42)
[2024-02-25 09:51] LABS: BASO % 0.1 % (0-2.0); HEMATOCRIT 29.8 % (35.4-49); HEMOGLOBIN 8.7 GM/dL (11.7-16.9); LYMPH % 17.8 % (8-40); MCH 23.2 pg (25.7-33.7); MCHC 29.1 g/dl (32.0-35.9); MEAN CELL VOLUME 79.8 fl (80-96); MEAN PLT VOLUME 7.7 fl (7.5-11.1); MONO % 11.6 % (3.8-10.2); NEUT % 70.5 % (42.8-82.8); PLATELET COUNT 252 10^3/uL (134-434); RBC 3.73 M/mm3 (4.00-5.60); RDW 18.1 % (11.9-15.9); WHITE BLOOD COUNT 4.4 K/mm3 (4.0-10.0)
[2024-02-25] MEDS: ASPIRIN COATED 81 MG TABLET.EC PO SCH (10:08)
[2024-02-25] MEDS: DULoxetine HCL 30 MG CAPSULE.DR PO SCH (10:08)
[2024-02-25] MEDS: CARVEDILOL 25 MG TABLET (FP) PO SCH (10:08)
[2024-02-25] MEDS ORDERED: methylPREDNISolone NA SUCC 40 MG/1 ML VIAL ONE (10:11)
[2024-02-25] MEDS: methylPREDNISolone NA SUCC 40 MG/1 ML VIAL IVPUSH SCH (10:11)
[2024-02-25 10:15] LABS: CHLORIDE 100 mmol/L (98-107); POTASSIUM 4.3 mmol/L (3.5-5.1); SODIUM 140 mmol/L (136-145)
[2024-02-25 10:18] LABS: ANION GAP 3 mmol/L (4-13); BLOOD UREA NITROGEN 14.9 mg/dL (7-18); CALCIUM 8.7 mg/dL (8.5-10.1); CO2 37 mmol/L (21-32); GLUCOSE,RANDOM 89 mg/dL (74-106); MAGNESIUM 1.9 mg/dL (1.8-2.4)
[2024-02-25 10:21] LABS: CHOLESTEROL 104 mg/dL (50-200); PHOSPHOROUS 3.3 mg/dL (2.5-4.9); SGOT/AST 10 U/L (15-37)
[2024-02-25 10:22] LABS: BILIRUBIN,TOTAL 0.6 mg/dL (0.2-1); LDL CHOLESTEROL (ONLY SJRH) 46 mg/dL (5-100)
[2024-02-25 10:23] LABS: HDL CHOLESTEROL 43 mg/dL (40-60); TOT PROT 6.4 g/dl (6.4-8.2)
[2024-02-25 10:24] LABS: ALK PHOS 76 U/L (45-117)
[2024-02-25 10:43] LABS: CREATININE 2.7 mg/dL (0.55-1.3); SGPT/ALT < 6 U/L (13-61)
[2024-02-25 11:08] LABS: IRON SERUM 26 ug/dL (50-175)
[2024-02-25 11:09] LABS: TOTAL IRON BINDING CAPACITY 196 ug/dL (250-450)
[2024-02-25] MEDS ORDERED: ALBUTEROL SO4 2.5/IPRATROPIUM 0.5 INH SOL 3 ML VIAL.NEB. NEB ONE (13:46)
[2024-02-25] MEDS ORDERED: PANTOPRAZOLE SODIUM 40 MG VIAL ONE (13:46)
[2024-02-25] MEDS: ALBUTEROL SO4 2.5/IPRATROPIUM 0.5 INH SOL 3 ML VIAL.NEB. NEB SCH (13:59)
[2024-02-25] MEDS: PANTOPRAZOLE SODIUM 40 MG VIAL IVPUSH SCH (13:59)
[2024-02-25] MEDS ORDERED: SODIUM CHLORIDE 250 ML IV PRN (16:10)
[2024-02-26] MEDS: ALBUMIN HUMAN 25% 12.5 GM/50 ML VIAL IV SCH (09:00)
[2024-02-26] MEDS: EPOETIN ALFA-EPBX 10,000 UNIT/ML VIAL IVPUSH ONE (09:33)
[2024-02-26 10:00] LABS: HEMATOCRIT 29.8 % (35.4-49); HEMOGLOBIN 8.7 GM/dL (11.7-16.9); MCHC 29.1 g/dl (32.0-35.9); MEAN PLT VOLUME 7.7 fl (7.5-11.1); PLATELET COUNT 259 10^3/uL (134-434); RBC 3.77 M/mm3 (4.00-5.60); RDW 18.2 % (11.9-15.9); WHITE BLOOD COUNT 8.7 K/mm3 (4.0-10.0)
[2024-02-26 10:27] LABS: POTASSIUM 3.9 mmol/L (3.5-5.1)
[2024-02-26 10:30] LABS: BLOOD UREA NITROGEN 29.1 mg/dL (7-18); CALCIUM 8.6 mg/dL (8.5-10.1)
[2024-02-26 10:34] LABS: CREATININE 3.6 mg/dL (0.55-1.3)
[2024-02-27] MEDS: PANTOPRAZOLE 40 MG TABLET PO SCH (09:40)
[2024-02-27] MEDS: predniSONE 10 MG TABLET (UD) PO SCH (09:40)
[2024-02-27] MEDS ORDERED: SODIUM CHLORIDE 250 ML IV PRN (12:30)
[2024-02-27 15:04] VITALS: BMI 29.1
[2024-02-27 18:45] VITALS: TEMP 98.1
[2024-02-27 20:15] VITALS: BP 161/67; RESP 18
[2024-02-27 20:44] VITALS: PULSE 65
[2024-02-28] MEDS ORDERED: EPOETIN ALFA-EPBX 10,000 UNIT/ML VIAL SQ ONE (12:30)
== END 2024-02-27 22:11 | disposition home or self-care (01) | DRG 291 ==
LOC: JER 11:23 → JERBED 15:35 → J4W 02-25 14:45
PROVIDERS: ADMIT Internal Medicine; ATTEND Internal Medicine
PROC: 5A1D70Z Performance of Urinary Filtration, Intermittent, Less than 6 Hours Per Day (ICD-10-PCS; principal; 2024-02-24)
PROC: 5A1D70Z Performance of Urinary Filtration, Intermittent, Less than 6 Hours Per Day (ICD-10-PCS; 2024-02-26)
DX: I13.2 Hypertensive heart and chronic kidney disease with heart failure and with stage 5 chronic kidney disease, or end stage renal disease (principal); I50.33 Acute on chronic diastolic (congestive) heart failure; J96.02 Acute respiratory failure with hypercapnia; N18.6 End stage renal disease; R53.2 Functional quadriplegia; J96.01 Acute respiratory failure with hypoxia; C90.00 Multiple myeloma not having achieved remission; J44.9 Chronic obstructive pulmonary disease, unspecified; G20.A1 Parkinson's disease without dyskinesia, without mention of fluctuations; M21.372 Foot drop, left foot; M21.371 Foot drop, right foot; D64.9 Anemia, unspecified; R53.1 Weakness; I44.0 Atrioventricular block, first degree; E87.70 Fluid overload, unspecified; R41.82 Altered mental status, unspecified; E78.5 Hyperlipidemia, unspecified; K21.9 Gastro-esophageal reflux disease without esophagitis; N40.0 Benign prostatic hyperplasia without lower urinary tract symptoms; E11.22 Type 2 diabetes mellitus with diabetic chronic kidney disease; Z99.2 Dependence on renal dialysis; Z86.010 Personal history of colon polyps; Z87.11 Personal history of peptic ulcer disease
CPT/HCPCS: 0241U-QW; 36415; 36600; 71045-TC-FY; 71275-TC; 80048; 80053; 80061; 82728; 82803; 82962; 83036; 83540; 83550; 83735; 83880; 84100; 84443; 84484; 85025; 85027; 93005; 93010; 94640; 94660; 94761; 99285-25; J1644; P9047; Q5106; Q9967

== ENCOUNTER 2024-03-21 11:21 | Inpatient (IN) | payer OTHER, BC ==
[2024-03-21 13:08] LABS: BASO % 0.3 % (0-2.0); HEMATOCRIT 31.2 % (35.4-49); HEMOGLOBIN 9.2 GM/dL (11.7-16.9); LYMPH % 6.6 % (8-40); MCH 23.9 pg (25.7-33.7); MCHC 29.6 g/dl (32.0-35.9); MEAN CELL VOLUME 80.8 fl (80-96); MONO % 6.3 % (3.8-10.2); NEUT % 86.8 % (42.8-82.8); PLATELET COUNT 121 10^3/uL (134-434); RBC 3.86 M/mm3 (4.00-5.60); RDW 23.4 % (11.9-15.9); VENOUS BASE EXCESS 3.7 mmol/L (-2-2); VENOUS O2 SATURATION 88.8 % (70-80); VENOUS PH 7.221 (7.310-7.410); WHITE BLOOD COUNT 11.4 K/mm3 (4.0-10.0)
[2024-03-21 13:10] LABS: INR 1.05 (0.83-1.09); PROTHROMBIN TIME (PATIENT) 12.1 SEC (9.7-13.0)
[2024-03-21 13:11] LABS: VENOUS PCO2 82.7 mmHg (38-52)
[2024-03-21 13:12] LABS: ACTIVATED PTT 33.1 SECONDS (25.2-36.5)
[2024-03-21] MEDS: SODIUM CHLORIDE 0.9% 500 ML INFUS.BAG IV ONE (13:13)
[2024-03-21 13:29] LABS: CHLORIDE 93 mmol/L (98-107); POTASSIUM 3.6 mmol/L (3.5-5.1); SODIUM 133 mmol/L (136-145)
[2024-03-21 13:31] LABS: CALCIUM 7.9 mg/dL (8.5-10.1)
[2024-03-21 13:32] LABS: ALBUMIN 2.7 g/dl (3.4-5.0); ANION GAP 4 mmol/L (4-13); BLOOD UREA NITROGEN 29.1 mg/dL (7-18); CO2 36 mmol/L (21-32); GLUCOSE,RANDOM 119 mg/dL (74-106)
[2024-03-21 13:35] LABS: SGOT/AST 6 U/L (15-37); SGPT/ALT < 6 U/L (13-61)
[2024-03-21 13:37] LABS: BILIRUBIN,TOTAL 0.6 mg/dL (0.2-1); TOT PROT 5.4 g/dl (6.4-8.2)
[2024-03-21 13:38] LABS: ALK PHOS 56 U/L (45-117); ANISOCYTOSIS 3+; MACROCYTOSIS 0
[2024-03-21] MEDS: PIPERACILLIN/TAZOB 4.5 GM 4.5 GM in DEXTROSE 5%-WATER 100 ML IVPB ONE (14:30)
[2024-03-21] MEDS ORDERED: PIPERACILLIN/TAZOB 4.5 GM 4.5 GM/100 ML BAG IVPB ONE (14:30)
[2024-03-21] MEDS ORDERED: VANCOMYCIN 1 GRAM (PRE-DOCKED) 1,000 MG/250 ML BAG IVPB ONE (14:30)
[2024-03-21 14:52] LABS: EPI CELLS 34 /uL (0-25.1); HYALINE CASTS 8 /uL (0-3.1); PH,URINE 6.5 (5.0-8.0); URINE APPEARANCE TURBID; URINE BACTERIA >9,000 /uL (0-1359); URINE BILIRUBIN NEGATIVE (NEGATIVE); URINE COLOR YELLOW; URINE GLUCOSE (UA) NEGATIVE (NEGATIVE); URINE KETONE TRACE (NEGATIVE); URINE LEUK ESTERASE 3+ (NEGATIVE); URINE NITRITE NEGATIVE (NEGATIVE); URINE PROTEIN 3+ (NEGATIVE); URINE UROBILINOGEN 0.2 mg/dL (0.2-1.0); URINE WBC 19691 /uL (0-25.8)
[2024-03-21] MEDS: VANCOMYCIN 1,000 MG in DEXTROSE 5%-WATER - 250 ML IVPB ONE (15:13)
[2024-03-21 15:14] LABS: URINE RBC 451 /uL (0-23.9); YEAST NONE SEEN (NEGATIVE)
[2024-03-21 15:45] LABS: ARTERIAL BLOOD GAS BASE EXCESS 4.3 mmol/L (-2-2); ARTERIAL BLOOD GAS PO2 98.6 mmHg (80-100); ARTERIAL BLOOD GAS pH 7.238 (7.350-7.450)
[2024-03-21 15:46] LABS: ALLENS TEST POSITIVE
[2024-03-21 15:47] LABS: VENT MODE S/T; VENT RATE 16
[2024-03-22] MEDS ORDERED: SODIUM CHLORIDE NASAL SPRAY 44 ML BOTTLE NS PRN (00:14)
[2024-03-22] MEDS ORDERED: NOREPINEPHRINE BITARTRATE 4 MG/4 ML ML IV ONE (04:38)
[2024-03-22 06:42] LABS: ARTERIAL BLD GAS O2 SATURATION 92.7 % (95-98); ARTERIAL BLOOD GAS BASE EXCESS 0.8 mmol/L (-2-2); ARTERIAL BLOOD GAS pH 7.281 (7.350-7.450)
[2024-03-22 06:45] LABS: ALLENS TEST POSITIVE; VENT MODE S/T; VENT RATE 16
[2024-03-22] MEDS: ALBUTEROL SO4 0.083% IH SOL 2.5 MG/3 ML VIAL.NEB. NEB SCH (08:14)
[2024-03-22 08:59] LABS: HEMATOCRIT 30.4 % (35.4-49); HEMOGLOBIN 8.9 GM/dL (11.7-16.9); MCH 24.4 pg (25.7-33.7); MCHC 29.4 g/dl (32.0-35.9); MEAN CELL VOLUME 82.9 fl (80-96); MEAN PLT VOLUME 7.5 fl (7.5-11.1); PLATELET COUNT 111 10^3/uL (134-434); RBC 3.66 M/mm3 (4.00-5.60); RDW 22.7 % (11.9-15.9); WHITE BLOOD COUNT 8.3 K/mm3 (4.0-10.0)
[2024-03-22] MEDS: DOCUSATE SODIUM 100 MG CAPSULE (FP) PO SCH (09:08)
[2024-03-22] MEDS: ASPIRIN COATED 81 MG TABLET.EC PO SCH (09:12)
[2024-03-22] MEDS: CARBIDOPA/LEVODOPA 25/250 TABLET (FP) PO SCH (09:12)
[2024-03-22] MEDS: CARVEDILOL 25 MG TABLET (FP) PO SCH (09:12)
[2024-03-22 09:17] LABS: POTASSIUM 3.7 mmol/L (3.5-5.1)
[2024-03-22 09:21] LABS: CALCIUM 7.9 mg/dL (8.5-10.1)
[2024-03-22] MEDS: HEPARIN NA (PORCINE) 5,000 UNITS/ML 1ML VIAL SQ SCH (09:21)
[2024-03-22 09:22] LABS: BLOOD UREA NITROGEN 36.8 mg/dL (7-18); MAGNESIUM 1.8 mg/dL (1.8-2.4)
[2024-03-22] MEDS: PIPERACILLIN/TAZOB 4.5 GM 4.5 GM in DEXTROSE 5%-WATER 100 ML IVPB SCH (09:22)
[2024-03-22] MEDS: PANTOPRAZOLE SODIUM 40 MG VIAL IVPUSH SCH (09:22)
[2024-03-22 09:25] LABS: CREATININE 3.6 mg/dL (0.55-1.3); PHOSPHOROUS 4.4 mg/dL (2.5-4.9)
[2024-03-22] MEDS: PRAMIPEXOLE DIHYDROCHLORIDE 0.25 MG TABLET PO SCH (09:27)
[2024-03-22 09:28] LABS: N-TERMINAL BNP 16541.9 pg/ml (5-450)
[2024-03-22] MEDS: BUDESONIDE/FORMETEROL FUMARATE 160/4.5 mcg INHALER IH SCH (09:34)
[2024-03-22] MEDS: FLUTICASONE PROP 0.05% 16 GM NASAL SPRAY NS SCH (09:34)
[2024-03-22] MEDS: NOREPINEPHRINE BITARTRATE 4,000 MCG in DEXTROSE 5%-WATER - 496 ML IV SCH (21:28)
[2024-03-22] MEDS: ATORVASTATIN CA 40 MG TABLET (FP) PO SCH (21:29)
[2024-03-23] MEDS: OXYMETAZOLINE 0.05% NASAL SOLUTION 15 ML BOTTLE NS PRN (09:26)
[2024-03-23 12:01] LABS: HEMOGLOBIN 8.4 GM/dL (11.7-16.9); LYMPH % 5.5 % (8-40); MCH 24.6 pg (25.7-33.7); MCHC 30.1 g/dl (32.0-35.9); MEAN CELL VOLUME 81.5 fl (80-96); MEAN PLT VOLUME 7.7 fl (7.5-11.1); MONO % 5.8 % (3.8-10.2); NEUT % 88.7 % (42.8-82.8); PLATELET COUNT 109 10^3/uL (134-434); RBC 3.44 M/mm3 (4.00-5.60); RDW 23.3 % (11.9-15.9); WHITE BLOOD COUNT 6.7 K/mm3 (4.0-10.0)
[2024-03-23 12:17] LABS: POTASSIUM 3.7 mmol/L (3.5-5.1)
[2024-03-23 12:20] LABS: ALBUMIN 2.3 g/dl (3.4-5.0); CALCIUM 7.6 mg/dL (8.5-10.1)
[2024-03-23 12:23] LABS: PHOSPHOROUS 6.1 mg/dL (2.5-4.9)
[2024-03-23 12:24] LABS: CREATININE 4.3 mg/dL (0.55-1.3)
[2024-03-23 12:25] LABS: BILIRUBIN,TOTAL 0.5 mg/dL (0.2-1); TOT PROT 4.7 g/dl (6.4-8.2)
[2024-03-23] MEDS ORDERED: SODIUM CHLORIDE 250 ML IV PRN (13:35)
[2024-03-23] MEDS: EPOETIN ALFA-EPBX 10,000 UNIT/ML VIAL IVPUSH ONE (14:46)
[2024-03-23] MEDS: PIPERACILLIN/TAZOB 4.5 GM 4.5 GM in DEXTROSE 5%-WATER 100 ML IVPB SCH ×2 (16:31→17:40)
[2024-03-23] MEDS ORDERED: SODIUM CHLORIDE NASAL SPRAY 44 ML BOTTLE NS PRN (20:24)
[2024-03-23] MEDS ORDERED: OXYMETAZOLINE 0.05% NASAL SOLUTION 15 ML BOTTLE NS PRN (20:24)
[2024-03-23] MEDS: ATORVASTATIN CA 40 MG TABLET (FP) PO SCH (22:10)
[2024-03-23] MEDS: CARVEDILOL 25 MG TABLET (FP) PO SCH (22:10)
[2024-03-23] MEDS: DOCUSATE SODIUM 100 MG CAPSULE (FP) PO SCH (22:11)
[2024-03-23] MEDS: PRAMIPEXOLE DIHYDROCHLORIDE 0.25 MG TABLET PO SCH (22:11)
[2024-03-23] MEDS: CARBIDOPA/LEVODOPA 25/250 TABLET (FP) PO SCH (22:11)
[2024-03-23] MEDS: FLUTICASONE PROP 0.05% 16 GM NASAL SPRAY NS SCH (22:12)
[2024-03-23] MEDS: HEPARIN NA (PORCINE) 5,000 UNITS/ML 1ML VIAL SQ SCH (22:13)
[2024-03-23] MEDS: BUDESONIDE/FORMETEROL FUMARATE 160/4.5 mcg INHALER IH SCH (22:13)
[2024-03-24] MEDS: ALBUTEROL SO4 0.083% IH SOL 2.5 MG/3 ML VIAL.NEB. NEB SCH (09:16)
[2024-03-24 09:45] LABS: BASO % 0.2 % (0-2.0); EOS % 0.1 % (0-4.5); HEMOGLOBIN 8.6 GM/dL (11.7-16.9); MCH 24.1 pg (25.7-33.7); MCHC 29.5 g/dl (32.0-35.9); MEAN CELL VOLUME 81.5 fl (80-96); MEAN PLT VOLUME 7.4 fl (7.5-11.1); MONO % 8.6 % (3.8-10.2); NEUT % 85.1 % (42.8-82.8); PLATELET COUNT 99 10^3/uL (134-434); RBC 3.56 M/mm3 (4.00-5.60); RDW 22.8 % (11.9-15.9); WHITE BLOOD COUNT 6.4 K/mm3 (4.0-10.0)
[2024-03-24 10:06] LABS: CHLORIDE 100 mmol/L (98-107); POTASSIUM 3.4 mmol/L (3.5-5.1); SODIUM 138 mmol/L (136-145)
[2024-03-24 10:11] LABS: CALCIUM 7.5 mg/dL (8.5-10.1)
[2024-03-24 10:12] LABS: ALBUMIN 2.3 g/dl (3.4-5.0); ANION GAP 7 mmol/L (4-13); BLOOD UREA NITROGEN 27.8 mg/dL (7-18); CO2 32 mmol/L (21-32); GLUCOSE,RANDOM 117 mg/dL (74-106); MAGNESIUM 1.8 mg/dL (1.8-2.4)
[2024-03-24 10:14] LABS: PHOSPHOROUS 3.3 mg/dL (2.5-4.9)
[2024-03-24 10:15] LABS: CREATININE 3.3 mg/dL (0.55-1.3); SGOT/AST 8 U/L (15-37); TOT PROT 5.1 g/dl (6.4-8.2)
[2024-03-24 10:16] LABS: BILIRUBIN,TOTAL 0.6 mg/dL (0.2-1)
[2024-03-24 10:17] LABS: ALK PHOS 52 U/L (45-117)
[2024-03-24 10:20] LABS: SGPT/ALT < 6 U/L (13-61)
[2024-03-24] MEDS: ASPIRIN COATED 81 MG TABLET.EC PO SCH (10:50)
[2024-03-24] MEDS: PANTOPRAZOLE SODIUM 40 MG VIAL IVPUSH SCH (10:51)
[2024-03-24] MEDS: EPOETIN ALFA-EPBX 10,000 UNIT/ML VIAL IVPUSH ONE ×2 (11:22)
[2024-03-24] MEDS: POTASSIUM CHLORIDE ORAL LIQUID 20 MEQ/15 ML PO ONE (14:19)
[2024-03-25] MEDS ORDERED: SODIUM CHLORIDE 250 ML IV PRN (08:10)
[2024-03-25] MEDS: EPOETIN ALFA-EPBX 10,000 UNIT/ML VIAL IVPUSH ONE (09:41)
[2024-03-25] MEDS: HEPARIN NA (PORCINE) 5,000 UNITS/ML 1ML VIAL IVPUSH ONE (09:41)
[2024-03-25 10:06] LABS: HEMATOCRIT 27.3 % (35.4-49); HEMOGLOBIN 8.1 GM/dL (11.7-16.9); MCH 24.1 pg (25.7-33.7); MCHC 29.6 g/dl (32.0-35.9); MEAN CELL VOLUME 81.5 fl (80-96); MEAN PLT VOLUME 7.4 fl (7.5-11.1); PLATELET COUNT 125 10^3/uL (134-434); RBC 3.36 M/mm3 (4.00-5.60); RDW 22.6 % (11.9-15.9)
[2024-03-25 13:36] LABS: CHLORIDE 100 mmol/L (98-107); POTASSIUM 3.6 mmol/L (3.5-5.1); SODIUM 138 mmol/L (136-145)
[2024-03-25 13:38] LABS: CALCIUM 7.4 mg/dL (8.5-10.1)
[2024-03-25 13:39] LABS: ALBUMIN 2.3 g/dl (3.4-5.0); ANION GAP 7 mmol/L (4-13); BLOOD UREA NITROGEN 31.6 mg/dL (7-18); CO2 32 mmol/L (21-32); GLUCOSE,RANDOM 120 mg/dL (74-106)
[2024-03-25 13:43] LABS: BILIRUBIN,TOTAL 0.6 mg/dL (0.2-1); SGOT/AST < 3 U/L (15-37); SGPT/ALT < 6 U/L (13-61)
[2024-03-25 13:45] LABS: ALK PHOS 47 U/L (45-117)
[2024-03-25] MEDS: DULoxetine HCL 30 MG CAPSULE.DR PO SCH (14:11)
[2024-03-25 15:12] LABS: ARTERIAL BLOOD GAS BASE EXCESS 5.2 mmol/L (-2-2); ARTERIAL BLOOD GAS PO2 54.1 mmHg (80-100); ARTERIAL BLOOD GAS pH 7.383 (7.350-7.450)
[2024-03-25 15:14] LABS: ALLENS TEST POSITIVE
[2024-03-26] MEDS ORDERED: SODIUM CHLORIDE 250 ML IV PRN (16:14)
[2024-03-27 13:23] VITALS: BMI 32.8
[2024-03-27 13:57] LABS: HEMATOCRIT 29.8 % (35.4-49); HEMOGLOBIN 8.7 GM/dL (11.7-16.9); MCHC 29.3 g/dl (32.0-35.9); MEAN CELL VOLUME 81.8 fl (80-96); MEAN PLT VOLUME 8.1 fl (7.5-11.1); PLATELET COUNT 164 10^3/uL (134-434); RBC 3.64 M/mm3 (4.00-5.60); RDW 22.2 % (11.9-15.9); WHITE BLOOD COUNT 4.2 K/mm3 (4.0-10.0)
[2024-03-27 14:16] LABS: POTASSIUM 3.7 mmol/L (3.5-5.1)
[2024-03-27 14:20] LABS: BLOOD UREA NITROGEN 23.9 mg/dL (7-18)
[2024-03-27 14:24] LABS: CREATININE 4.3 mg/dL (0.55-1.3)
[2024-03-27] MEDS: ALBUMIN HUMAN 25% 12.5 GM/50 ML VIAL IV SCH (16:12)
[2024-03-27] MEDS ORDERED: EPOETIN ALFA-EPBX 20,000 UNIT/2 ML MDV SQ ONE (16:14)
[2024-03-27] MEDS: EPOETIN ALFA-EPBX 10,000 UNIT, EPOETIN ALFA-EPBX 2,000 UNIT IVPUSH ONE ×2 (16:17→17:12)
[2024-03-27] MEDS: ACETAMINOPHEN 325 MG TABLET (FP) PO ONE (20:33)
[2024-03-28 11:25] VITALS: BP 145/68; PULSE 64; RESP 18; TEMP 97.7
== END 2024-03-28 11:54 | disposition home health service (06) | DRG 189 ==
LOC: JER 11:21 → JERBED 16:23 → JICU 22:08 → J5S 03-23 18:18
PROVIDERS: ADMIT Internal Medicine; ATTEND Internal Medicine
PROC: 5A1D70Z Performance of Urinary Filtration, Intermittent, Less than 6 Hours Per Day (ICD-10-PCS; principal; 2024-03-27)
DX: J96.01 Acute respiratory failure with hypoxia (principal); N18.6 End stage renal disease; R53.2 Functional quadriplegia; G93.41 Metabolic encephalopathy; N39.0 Urinary tract infection, site not specified; T83.511A Infection and inflammatory reaction due to indwelling urethral catheter, initial encounter; I13.2 Hypertensive heart and chronic kidney disease with heart failure and with stage 5 chronic kidney disease, or end stage renal disease; C79.51 Secondary malignant neoplasm of bone; E87.29 Other acidosis; R44.3 Hallucinations, unspecified; C90.00 Multiple myeloma not having achieved remission; Y83.9 Surgical procedure, unspecified as the cause of abnormal reaction of the patient, or of later complication, without mention of misadventure at the time of the procedure; I50.32 Chronic diastolic (congestive) heart failure; J96.02 Acute respiratory failure with hypercapnia; E11.22 Type 2 diabetes mellitus with diabetic chronic kidney disease; J44.9 Chronic obstructive pulmonary disease, unspecified; G20.A1 Parkinson's disease without dyskinesia, without mention of fluctuations; Z99.2 Dependence on renal dialysis; E78.5 Hyperlipidemia, unspecified; I25.10 Atherosclerotic heart disease of native coronary artery without angina pectoris; K21.9 Gastro-esophageal reflux disease without esophagitis; E66.9 Obesity, unspecified; Z68.32 Body mass index [BMI] 32.0-32.9, adult; E11.42 Type 2 diabetes mellitus with diabetic polyneuropathy
CPT/HCPCS: 0241U-QW; 36415; 36600; 70450-TC; 71045-TC-FY; 80048; 80053; 81003; 82140; 82550; 82607; 82803; 82962; 83605; 83735; 83880; 84100; 84443; 84484; 85025; 85027; 85610; 85730; 86780; 86803; 86850; 86900; 86901; 87040; 87086; 87186; 87340; 93005; 93010; 93971-TC; 94640; 94660; 94761; 99285-25; G0480; J1644; Q5106

== ENCOUNTER 2024-10-14 04:07 | Day surgery (SDC) | payer OTHER, BC ==
[2024-10-12 12:27] VITALS: BMI 31.2
[2024-10-14 08:42] LABS: HEMATOCRIT 30.5 % (35.4-49); HEMOGLOBIN 9.2 GM/dL (11.7-16.9); MCH 22.3 pg (25.7-33.7); MCHC 30.1 g/dl (32.0-35.9); MEAN CELL VOLUME 73.9 fl (80-96); PLATELET COUNT 193 10^3/uL (134-434); RBC 4.12 M/mm3 (4.00-5.60); RDW 21.9 % (11.9-15.9); WHITE BLOOD COUNT 4.3 K/mm3 (4.0-10.0)
[2024-10-14 08:49] LABS: INR 1.49 (0.83-1.09); PROTHROMBIN TIME (PATIENT) 16.2 SEC (9.7-13.0)
[2024-10-14 09:00] LABS: CHLORIDE 98 mmol/L (98-107); POTASSIUM 3.7 mmol/L (3.5-5.1); SODIUM 137 mmol/L (136-145)
[2024-10-14 09:02] LABS: ALBUMIN 2.8 g/dl (3.4-5.0); ANION GAP 5 mmol/L (4-13); CALCIUM 8.7 mg/dL (8.5-10.1); CO2 34 mmol/L (21-32)
[2024-10-14 09:03] LABS: BLOOD UREA NITROGEN 26.2 mg/dL (7-18); GLUCOSE,RANDOM 92 mg/dL (74-106)
[2024-10-14 09:05] LABS: SGOT/AST 7 U/L (15-37); SGPT/ALT < 6 U/L (13-61)
[2024-10-14 09:06] LABS: CREATININE 5.5 mg/dL (0.55-1.3)
[2024-10-14 09:07] LABS: BILIRUBIN,TOTAL 0.7 mg/dL (0.2-1); TOT PROT 6.1 g/dl (6.4-8.2)
[2024-10-14 09:08] LABS: ALK PHOS 66 U/L (45-117)
[2024-10-14] MEDS ORDERED: HEPARIN NA (PORCINE) 5,000 UNITS/ML 1ML VIAL ONE (09:36)
[2024-10-14] MEDS ORDERED: LIDOCAINE HCL 1%, 10 MG/ML (20ML VIAL) ONE (09:36)
[2024-10-14] MEDS ORDERED: MIDAZOLAM HCL 2 MG/2 ML SINGLE DOSE VIAL ONE (09:45)
[2024-10-14] MEDS: LIDOCAINE HCL 1%, 10 MG/ML (20ML VIAL) NR ONE (10:10)
[2024-10-14] MEDS: IOHEXOL 180 MG/1 ML ML IJ ONE (10:12)
[2024-10-14] MEDS: HEPARIN NA (PORCINE) 5,000 UNITS/ML 1ML VIAL SQ ONE (10:15)
[2024-10-14] MEDS ORDERED: IBUPROFEN 600 MG TABLET (FP) PO PRN (10:34)
[2024-10-14] MEDS ORDERED: LACTATED RINGERS SOLUTION 1,000 ML IV SCH (10:45)
[2024-10-14 11:18] VITALS: RESP 20; TEMP 96.9
[2024-10-14 11:55] VITALS: BP 150/65; PULSE 62
== END 2024-10-14 11:50 | disposition home or self-care (01) ==
LOC: JASU-SURG 04:07
PROVIDERS: ATTEND Surgery
PROC: 05763ZZ Dilation of Left Subclavian Vein, Percutaneous Approach (ICD-10-PCS; principal; 2024-10-14 10:00)
DX: T82.858A Stenosis of other vascular prosthetic devices, implants and grafts, initial encounter (principal); I12.0 Hypertensive chronic kidney disease with stage 5 chronic kidney disease or end stage renal disease; N18.6 End stage renal disease; Z99.2 Dependence on renal dialysis
CPT/HCPCS: 36902; C1885; 36415; 76000-TC-FY; 80053; 85027; 85610; 94760; C1725; C1769; J1644

== ENCOUNTER 2024-12-16 06:39 | Day surgery (SDC) | payer OTHER, BC ==
[2024-12-16] MEDS: HEPARIN NA (PORCINE) 5,000 UNITS/ML 1ML VIAL SQ ONE
[2024-12-16] MEDS: LIDOCAINE HCL 1%, 10 MG/ML (20ML VIAL) NR ONE
[2024-12-16 08:37] LABS: INR 1.22 (0.83-1.09); PROTHROMBIN TIME (PATIENT) 13.3 SEC (9.7-13.0)
[2024-12-16 08:40] LABS: ACTIVATED PTT 40.7 SECONDS (25.2-36.5)
[2024-12-16 09:14] LABS: HEMATOCRIT 37.8 % (40.1-51.0); HEMOGLOBIN 10.9 g/dL (13.7-17.5); MCHC 28.8 g/dl (32.3-36.5); MEAN CELL VOLUME 76.8 fl (79.0-92.2); MEAN PLT VOLUME 9.2 fl (9.4-12.4); PLATELET COUNT 216 x10^3/uL (163-337); RDW 17.8 % (12.2-16.6)
[2024-12-16 09:19] LABS: CHLORIDE 97 mmol/L (98-107); POTASSIUM 3.7 mmol/L (3.5-5.1); SODIUM 136 mmol/L (136-145)
[2024-12-16 09:21] LABS: CALCIUM 9.3 mg/dL (8.5-10.1)
[2024-12-16 09:23] LABS: ALBUMIN 3.1 g/dl (3.4-5.0); ANION GAP 7 mmol/L (4-13); BLOOD UREA NITROGEN 22.6 mg/dL (7-18); CO2 33 mmol/L (21-32); GLUCOSE,RANDOM 95 mg/dL (74-106)
[2024-12-16 09:25] LABS: CREATININE 4.9 mg/dL (0.55-1.3); SGOT/AST 9 U/L (15-37)
[2024-12-16 09:28] LABS: BILIRUBIN,TOTAL 0.7 mg/dL (0.2-1); TOT PROT 6.5 g/dl (6.4-8.2)
[2024-12-16 09:29] LABS: ALK PHOS 70 U/L (45-117)
[2024-12-16 09:31] LABS: SGPT/ALT < 6 U/L (13-61)
[2024-12-16] MEDS ORDERED: POVIDONE-IODINE OINTMENT 10% - 28.4 GM TUBE ONE ×2 (09:34→18:30)
[2024-12-16] MEDS ORDERED: LIDOCAINE HCL 1%, 10 MG/ML (20ML VIAL) ONE ×3 (09:34→18:30)
[2024-12-16] MEDS ORDERED: PAPAVERINE HCL 30 MG/1 ML 10 ML VIAL NR ONE (09:35)
[2024-12-16] MEDS ORDERED: HEPARIN NA (PORCINE) 5,000 UNITS/ML 1ML VIAL ONE (09:35)
[2024-12-16] MEDS ORDERED: LIDOCAINE HCL 4% TOPICAL SOLN (50 ML/BOTTLE) ONE (10:29)
[2024-12-16] MEDS ORDERED: PROPOFOL 20 ML ONE ×2 (10:29→11:21)
[2024-12-16] MEDS ORDERED: LIDOCAINE HCL 2% 100 MG/5 ML DISP.SYRIN ONE (10:29)
[2024-12-16] MEDS: ceFAZolin SODIUM 1 GM VIAL IVPB ONE (10:55)
[2024-12-16] MEDS: LIDOCAINE HCL 1%, 10 MG/ML (20ML VIAL) INF ONE (11:05)
[2024-12-16] MEDS: POVIDONE-IODINE OINTMENT 10% - 28.4 GM TUBE TP ONE (11:42)
[2024-12-16] MEDS ORDERED: PHENYLEPHRINE HCL 10 MG/1 ML SINGLE DOSE VIAL ONE (11:49)
[2024-12-16] MEDS ORDERED: ePHEDrine SULFATE 50 MG/1 ML AMPULE ONE (11:51)
[2024-12-16] MEDS ORDERED: ONDANSETRON 4 MG/2 ML VIAL IVPUSH PRN (13:13)
[2024-12-16] MEDS ORDERED: ACETAMINOPHEN 325 MG TABLET (FP) PO PRN ×2 (13:13→16:14)
[2024-12-16] MEDS ORDERED: BISACODYL 10 MG SUPP.RECT PR PRN (16:14)
[2024-12-16] MEDS ORDERED: ALBUTEROL SO4 2.5/IPRATROPIUM 0.5 INH SOL 3 ML VIAL.NEB. NEB PRN (16:14)
[2024-12-16] MEDS ORDERED: ERGOCALCIFEROL (VIT D2) 50,000 UNIT (1.25 MG) CAPSULE PO SCH (16:15)
[2024-12-16] MEDS ORDERED: oxyCODONE HCL 5 MG TABLET PO PRN (16:17)
[2024-12-16 19:25] LABS: ABSOLUTE IMMATURE GRANULOCYTES 0.03 x10^3/uL (0.0-0.031); HEMATOCRIT 36.5 % (40.1-51.0); HEMOGLOBIN 10.2 g/dL (13.7-17.5); MCHC 27.9 g/dl (32.3-36.5); MEAN CELL VOLUME 78.5 fl (79.0-92.2); MEAN PLT VOLUME 9.5 fl (9.4-12.4); MONOCYTE # 0.83 x10^3/uL (0.30-0.82); MONOCYTE % 13.7 % (5.3-12.2); PLATELET COUNT 190 x10^3/uL (163-337); RDW 18.3 % (12.2-16.6)
[2024-12-16 19:36] LABS: INR 1.2 (0.83-1.09); PROTHROMBIN TIME (PATIENT) 13.1 SEC (9.7-13.0)
[2024-12-16] MEDS: ATORVASTATIN CA 40 MG TABLET (FP) PO SCH (21:47)
[2024-12-16] MEDS: POLYETHYLENE GLYCOL (HEALTHYLAX) 3350 17 GM PACKET PO SCH (21:47)
[2024-12-16] MEDS: CARVEDILOL 25 MG TABLET (FP) PO SCH (21:47)
[2024-12-16] MEDS: MONTELUKAST NA 10 MG TABLET PO SCH (21:48)
[2024-12-16] MEDS: DOCUSATE SODIUM 100 MG CAPSULE (FP) PO SCH (21:48)
[2024-12-16] MEDS: FERROUS SO4 325 MG TABLET (FP) PO SCH (21:48)
[2024-12-16] MEDS: CARBIDOPA/LEVODOPA 25/250 TABLET (FP) PO SCH (21:49)
[2024-12-16] MEDS: PRAMIPEXOLE DIHYDROCHLORIDE 0.25 MG TABLET PO SCH (21:49)
[2024-12-16] MEDS: amLODIPine BESYLATE 5 MG TABLET (FP) PO SCH (21:49)
[2024-12-17] MEDS: BUDESONIDE/FORMETEROL FUMARATE 160/4.5 mcg INHALER IH SCH (00:19)
[2024-12-17 07:12] VITALS: RESP 18
[2024-12-17] MEDS ORDERED: SODIUM CHLORIDE 250 ML IV PRN (07:39)
[2024-12-17] MEDS: EPOETIN ALFA-EPBX 10,000 UNIT/ML VIAL IVPUSH ONE (11:38)
[2024-12-17 14:08] LABS: HEPATITIS B SURF AG NON-MATERN NON-REACTIVE (NONREACTIVE)
[2024-12-17] MEDS: FOLIC ACID 1 MG TABLET (FP) PO SCH (14:33)
[2024-12-17] MEDS: DULoxetine HCL 30 MG CAPSULE.DR PO SCH (14:33)
[2024-12-17] MEDS: PANTOPRAZOLE 40 MG TABLET PO SCH (14:34)
[2024-12-17] MEDS: CALCITRIOL 0.25 MCG CAPSULE (FP) PO SCH (14:35)
[2024-12-17 14:36] LABS: HCV DIAGNOSTIC IN-HOUSE W/RFLX NON-REACTIVE (NONREACTIVE)
[2024-12-17 14:48] VITALS: BP 137/92; PULSE 71; TEMP 98.8
[2024-12-17] MEDS: ALBUMIN HUMAN 25% 12.5 GM/50 ML VIAL IV SCH (14:50)
[2024-12-17] MEDS: SODIUM CHLORIDE 1,000 ML IV SCH (16:20)
[2024-12-17 16:34] VITALS: BMI 29.5
== END 2024-12-17 16:40 | disposition home or self-care (01) ==
LOC: SUATTDRO 06:39 → JASU-SURG 06:39 → JASUSAT 06:39 → J7W 19:54 → JASUSAT 12-17 16:40
PROVIDERS: ATTEND Family Medicine
PROC: 05WY03Z Revision of Infusion Device in Upper Vein, Open Approach (ICD-10-PCS; principal; 2024-12-16 10:00)
DX: I12.0 Hypertensive chronic kidney disease with stage 5 chronic kidney disease or end stage renal disease (principal); E11.22 Type 2 diabetes mellitus with diabetic chronic kidney disease; N18.6 End stage renal disease; Z99.2 Dependence on renal dialysis
CPT/HCPCS: 36415; 80053; 85025; 85027; 85610; 85730; 86803; 86850; 86900; 86901; 87340; 94660; 94760; J2597; Q5106